=== PATIENT | female | born 1945 | race Caucasian/White ===

== ENCOUNTER → 2016-09-16 | Outpatient (REF) | payer MEDICARE ==
[~2016-09-16] MED LIST: ASPI81TA60 PO; BIOT10005 PO; BISO10TA PO; FOLI1TAB2 PO; LUTECAP2 PO; PRAV40TA2 PO; PRIL20CA9 PO; THIA100T PO; VITA-122 PO; VITA10002 PO; VITMTA PO
== END | disposition home or self-care (01) ==
LOC: M LAB REF 12:44
PROVIDERS: ATTEND Family Medicine
DX: R30.0 Dysuria (principal)

== ENCOUNTER → 2016-10-30 | Outpatient (CLI) | payer MEDICARE ==
--- NOTE | 2016-10-30 13:26 | REP ---
LEFT LOWER EXTREMITY DUPLEX DOPPLER VENOUS ULTRASOUND WITH EVALUATION FOR VENOUS REFLUX: Real-time compression and duplex Doppler interrogation of left lower extremity deep venous system is performed. Left common femoral, superficial femoral and popliteal veins are fully compressible with transducer pressure and demonstrate normal spontaneous and phasic flow without evidence of deep venous thrombosis. Evaluation for venous reflux demonstrates reflux in the common femoral vein, superficial femoral vein and popliteal vein. There is an anterior accessory greater saphenous vein present but no reflux is seen in that vessel. There is no reflux seen in the greater saphenous vein at the saphenofemoral junction which measures 4 mm in diameter. There is reflux with the bed tipped within the greater saphenous vein at the mid thigh level which measures 2 mm in diameter, duration is 4.5 seconds. No reflux is seen in the greater saphenous vein at the level of the knee, measuring 2 mm in diameter. There is no reflux in the lesser saphenous vein. Signed by Adán Gorman MD 10/30/2016 05:22 P
== END ==
LOC: M RAD 10:13
PROVIDERS: ATTEND Surgery
DX: I87.312 Chronic venous hypertension (idiopathic) with ulcer of left lower extremity (principal)
CPT/HCPCS: 93971; G0463

== ENCOUNTER → 2016-12-10 | Outpatient (REF) | payer MEDICARE | LOC: M LAB REF 13:06 | PROVIDERS: ATTEND Family Medicine | DX: R35.0 Frequency of micturition (principal) ==

== ENCOUNTER → 2016-12-31 | Outpatient (REF) | payer MEDICARE ==
[2016-12-31 17:46] LABS: ALBUMIN 3.6 GM/DL (3.2-5.2); ALBUMIN/GLOBULIN RATIO 1.06 (1.00-1.93); ALKALINE PHOSPHATASE 160 U/L (45-117); ALT/SGPT 17 U/L (12-78); ANION GAP 8 MEQ/L (8-16); AST/SGOT 16 U/L (15-37); BILIRUBIN,TOTAL 0.4 MG/DL (0.2-1.0); BLOOD UREA NITROGEN 7 MG/DL (7-18); CALCIUM LEVEL 9.3 MG/DL (8.8-10.2); CARBON DIOXIDE LEVEL 28 MEQ/L (21-32); CHLORIDE LEVEL 94 MEQ/L (98-107); GLOMERULAR FILTRATION RATE > 60.0 (>39); GLUCOSE, FASTING 98 MG/DL (83-110); POTASSIUM SERUM 4.7 MEQ/L (3.5-5.1); SODIUM LEVEL 130 MEQ/L (136-145)
== END ==
LOC: M LAB REF 16:14
PROVIDERS: ATTEND Surgery
DX: I87.312 Chronic venous hypertension (idiopathic) with ulcer of left lower extremity (principal); Z79.82 Long term (current) use of aspirin; Z79.899 Other long term (current) drug therapy
CPT/HCPCS: 11042; 80053; 83036; G0463

== ENCOUNTER → 2017-01-13 | Outpatient (CLI) | payer MEDICARE ==
[~2017-01-13] MED LIST changes: +ISOVUE-370 76% 100ML VIAL (Q9967) As Ordered ONE
--- NOTE | 2017-01-13 13:45 | REP ---
CT angiogram of the aorta and lower extremity runoff arterial vasculature: History: Chronic venous insufficiency. CT contrast dose: 100 mL of Isovue [address] technique: Helical scan was acquired. 3 mm axial images are reformatted. Coronal and sagittal multiplanar re-formation images are generated and reviewed. Curved array multiplanar re-formation images are generated on the right and left as well. 3-D surface rendered color imaging is generated. Nonvascular CT findings: There are bibasilar pulmonary parenchymal opacities consistent with subsegmental atelectasis and/or infiltrate. No pleural effusion is seen. The liver and the spleen are normal in size, homogeneous in texture. No adrenal lesion is seen on either side. The gallbladder and the pancreas are unremarkable. Kidneys enhance symmetrically and are morphologically intact. There is martinez colonic diverticulosis. There is an old ununited fracture through the symphysis pubis on the right with considerable reactive sclerosis and hypertrophy. Diffuse osteopenia. Vascular CT findings: There is right atrial enlargement and there is some reflux of contrast opacified blood into the intrahepatic segment of the inferior vena cava and hepatic veins consistent with some degree of right heart failure. The infrarenal and suprarenal abdominal aorta are normal in caliber. There is patchy and fairly advanced vascular calcification. Celiac axis and superior mesenteric artery axes are patent. Mild calcific plaquing is seen. There is mixed calcific and non-calcific plaquing producing 75% narrowing of the right renal artery. There is question of a tiny accessory lower pole renal artery on the right. There is calcific plaquing at the origin of the left renal artery with 50% narrowing. The common iliac arteries are bilaterally patent with 75% calcific plaquing and narrowing of the left proximal common iliac artery and 50% on the right. The external iliac artery show calcific plaquing. Internal iliac arteries are widely patent. No high-grade external iliac stenosis is seen. There is a 50% narrowing of the common femoral artery on the left due to calcific plaquing. Proximal superficial femoral and profunda femoral arteries are patent bilaterally. Some calcific plaquing is seen in the superficial femoral arteries on both sides but no high-grade SFA stenosis is seen. Popliteal arteries are of good caliber bilaterally. There is some calcific plaquing and atherosclerotic irregularity of the anterior tibial artery on the right and mid calf level. Posterior tibial artery on the right is occluded at distal calf level. Peroneal artery is seen to the level of the ankle as is the anterior tibial artery. The posterior tibial artery reconstitutes at the ankle. On the left calf, the tibioperoneal trunk is patent. There is some vascular calcification in the proximal anterior tibial. Posterior tibial artery is occluded at its origin. Peroneal artery continues to the calf. Impression: Multifocal calcific plaquing with stenoses of the left common iliac, left common femoral arteries. The left posterior tibial artery appears to be occluded at its origin. On the right, there is occlusion of the proximal posterior tibial with reconstitution at the ankle. Stenosis of the a anterior tibial artery is seen on the right. Right renal artery stenosis noted. 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 Tiny lower pole branch. Signed by Glynn Otto MD 01/13/2017 03:17 P
== END ==
LOC: M RAD 11:01
PROVIDERS: ATTEND Surgery
DX: I87.312 Chronic venous hypertension (idiopathic) with ulcer of left lower extremity (principal); I70.209 Unspecified atherosclerosis of native arteries of extremities, unspecified extremity; I70.1 Atherosclerosis of renal artery; I77.1 Stricture of artery
CPT/HCPCS: 75635; Q9967

== ENCOUNTER → 2017-02-04 | Outpatient (CLI) | payer MEDICARE ==
[~2017-02-04] MED LIST changes: -ISOVUE-370 76% 100ML VIAL (Q9967) As Ordered ONE
[2017-02-04 11:56] LABS: ANION GAP 5 MEQ/L (8-16); BLOOD UREA NITROGEN 8 MG/DL (7-18); CALCIUM LEVEL 9.9 MG/DL (8.8-10.2); CARBON DIOXIDE LEVEL 32 MEQ/L (21-32); CHLORIDE LEVEL 95 MEQ/L (98-107); CREATININE FOR GFR 0.63 MG/DL (0.55-1.02); GLOMERULAR FILTRATION RATE > 60.0 (>39); GLUCOSE, FASTING 96 MG/DL (83-110); POTASSIUM SERUM 4.8 MEQ/L (3.5-5.1); SODIUM LEVEL 132 MEQ/L (136-145)
== END ==
LOC: M LAB 10:45
PROVIDERS: ATTEND Surgery Vascular Surgery
DX: I73.9 Peripheral vascular disease, unspecified (principal)

== ENCOUNTER → 2017-02-11 | Outpatient (CLI) | payer MEDICARE ==
[~2017-02-11] MED LIST changes: +ASPI81TA85 PO; +B-122500 PO; -BIOT10005 PO; +BIOT10008 PO; +BIOT50004 PO; +FISH5CAP PO; -FOLI1TAB2 PO; +FOLI1TAB4 PO; +HEPARIN 1,000 UNITS/ML 10ML VIAL (FOR RADIOLOGY& DIALYSIS ONLY) As Ordered ONE; +ISOVUE-300 61% 50ML VIAL (Q9967) As Ordered ONE; +MIDAZOLAM INJ 2 MG/2 ML VIAL (J2250) As Ordered ONE; +PROTAMINE SULF INJ 50 MG/5 ML VIAL (J2720) As Ordered ONE; -THIA100T PO; +THIA100T6 PO; +TYLETAB14 PO; +ZYRT10TA2 PO; +fentaNYL 100 MCG/2 ML INJECTION (J3010) As Ordered ONE
--- NOTE | 2017-02-12 20:45 | REP ---
IMAGING FOR ABDOMINAL AORTOGRAM AND LEFT LOWER EXTREMITY ANGIOGRAPHY: Multiple images are obtained during abdominal aortogram and left lower extremity angiogram. Diffuse mild to moderate narrowing is seen of the superficial femoral artery. There is flow in the trifurcation vessels. 2.8 minutes fluoroscopy time utilized. Signed by Adán Gorman MD 02/13/2017 09:59 A
--- NOTE | 2017-02-20 07:34 | RO ---
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 PROCEDURE: Aortogram, iliofemoral angiogram, selective left common femoral artery catheter placement with left lower extremity angiogram, Mynx closure of the right common femoral arteriotomy. SURGEON: Dr. Guilherme Crews. COUNTER ROLLER: SEBASTIAN Stubbs and SEBASTIAN Mallory ANESTHESIA: Local with sedation with 1 mg of Versed, 50 mcg of Fentanyl and 10 mL of 2% lidocaine. ESTIMATED BLOOD LOSS: FLUORO TIME: 2.8 minutes. CONTRAST: 22 mL. SEDATION TIME: From 8:05 a.m. to 8:35 a.m. with the sedation being administered by the registered nurse in the room as well as cardiopulmonary monitoring performed by the registered nurse in the room. I was present for and directed the entire case. COMPLICATIONS: None. DRAINS: None. SPECIMENS: None. IMPLANTS: Right common femoral arterial Mynx closure device. INDICATION: Patient is a 71-year-old female with a left lateral ankle ulcer which appears to be related to venous insufficiency in the left lower extremity. 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 Patient was evaluated and a left lower extremity angiogram with angioplasty and possible stent was recommended. Patient agreed. Risks, benefits, and alternative treatment options were discussed with the patient. Alternative treatment options included but were not limited to no intervention. Risks included but were not limited to infection, bleeding, renal failure, requiring hemodialysis, possible need for open surgical intervention, cerebrovascular accident, myocardial infarction, retroperitoneal hematoma, pulmonary embolus, deep venous thrombosis (DVT), loss of limb, loss of life, and poor outcome. Patient understands, accepts these risks and consents to proceed. PROCEDURE: The patient was taken to the angiography suite and placed supine on the angiography room table and then after undergoing a time out confirming the correct patient and procedure, the patient was prepped and draped in the standard surgical fashion. The right common femoral artery was then cannulated with a micropuncture needle after anesthetizing the overlying skin with 1% lidocaine. The micropuncture wire was advanced through the micropuncture needle which was upsized to a micropuncture sheath. A Bentson wire was advanced through the micropuncture sheath which was upsized to a #5-Croat[place] sheath. An Omniflush catheter was placed in the aorta and an aortogram was performed. Catheter was pulled down to the level of the bifurcation of the iliac arteries and an iliofemoral angiogram was performed. Catheter was directed over the bifurcation of the iliac arteries and placed in the right common femoral artery and a right lower extremity angiogram was performed. Catheter was then removed over a Bentson wire. A Mynx closure device was used to close the arteriotomy in the right common femoral artery with an additional 10 minutes of adjunctive pressure applied for hemostasis. Dressings were then applied. Patient tolerated the procedure well. All instrument, sponge and needle counts were correct at the end of the case. There were no complications. Dr. Crews was present for and directed the entire case. Patient was transferred to the holding area and subsequently discharged in stable condition. RADIOLOGIC SUPERVISION INTERPRETATION: The initial aortogram showed the descending thoracic aorta from the diaphragm to the renal arteries to be widely patent with some calcific plaquing noting there was good filling of the . The superior mesenteric and celiac arteries were widely patent. It appears as though there might be a replaced right hepatic artery originating off of the superior mesenteric artery. The right renal artery showed moderate disease at its origin. The right kidney was small compared to the left. The left renal artery appeared to be widely patent. The infrarenal aorta was patent giving rise to common iliac arteries bilaterally which were patent. There was calcification in both vessels but there did not appear to be any significant lesions in the common iliac arteries. On the right side, the right external and internal iliac artery were patent as well as the right common femoral artery. There was some mild narrowing in the right common femoral artery just above the bifurcation of the superficial femoral and profunda femoris arteries which was approximately 50%. There was no visualization of the right lower extremity below the puncture site. The left external and internal iliac arteries were patent as well as the left common femoral artery. Again there was narrowing in the left common femoral artery approximately 40-50% above the junction of the superficial femoral and profunda femoris arteries. The catheter was advanced into the left common femoral artery and a left lower extremity angiogram was performed. This showed the profunda femoris and superficial femoral arteries to be patent. There was irregularities along the course of the superficial femoral artery with an area of stenosis of approximately 50% at the adductor canal. Below this, the above and below knee popliteal artery was patent giving rise to two vessel runoff into the calf via the peroneal and anterior tibial arteries. The posterior tibial artery was not visualized. The anterior tibial and peroneal arteries were patent to the ankle with good filling of the foot via the anterior tibial artery. A Mynx closure device was used to close the arteriotomy in the right common femoral artery.
== END ==
LOC: M IRPRO 07:06
PROVIDERS: ATTEND Surgery Vascular Surgery
DX: I70.243 Atherosclerosis of native arteries of left leg with ulceration of ankle (principal); I87.312 Chronic venous hypertension (idiopathic) with ulcer of left lower extremity; L97.322 Non-pressure chronic ulcer of left ankle with fat layer exposed; Z88.8 Allergy status to other drugs, medicaments and biological substances
CPT/HCPCS: 36246; 75625; 75716; 99152; 99153; C1760; C1769; C1887; C1894; G0269; J2250; J3010; Q9967

== ENCOUNTER → 2017-03-27 | Outpatient (REF) | payer MEDICARE ==
[~2017-03-27] MED LIST changes: -HEPARIN 1,000 UNITS/ML 10ML VIAL (FOR RADIOLOGY& DIALYSIS ONLY) As Ordered ONE; -ISOVUE-300 61% 50ML VIAL (Q9967) As Ordered ONE; -MIDAZOLAM INJ 2 MG/2 ML VIAL (J2250) As Ordered ONE; -PROTAMINE SULF INJ 50 MG/5 ML VIAL (J2720) As Ordered ONE; -fentaNYL 100 MCG/2 ML INJECTION (J3010) As Ordered ONE
== END ==
LOC: M LAB REF 12:39
PROVIDERS: ATTEND Surgery
DX: I87.312 Chronic venous hypertension (idiopathic) with ulcer of left lower extremity (principal)

== ENCOUNTER → 2017-04-24 | Outpatient (REF) | payer MEDICARE | LOC: M LAB REF 11:12 | PROVIDERS: ATTEND Surgery | DX: I87.312 Chronic venous hypertension (idiopathic) with ulcer of left lower extremity (principal) ==

== ENCOUNTER → 2017-04-25 | Outpatient (CLI) | payer MEDICARE ==
--- NOTE | 2017-04-25 11:54 | REP ---
LEFT LOWER EXTREMITY DUPLEX DOPPLER VENOUS ULTRASOUND WITH EVALUATION FOR VENOUS REFLUX: Real-time compression and duplex Doppler interrogation of the left lower extremity deep vein system performed. Left common femoral, superficial femora, and popliteal veins are fully compressible with transducer pressure and demonstrate normal spontaneous and phasic flow without evidence of deep venous thrombosis. Evaluation for venous reflux is performed. There is no reflux in the common femoral vein. There is an anterior accessory greater saphenous vein present measuring 3 mm but there is no reflux identified. There is no reflux in the greater saphenous vein at the saphenofemoral junction, which measures 4 mm. There is reflux in the greater saphenous vein at the mid thigh level with a duration of 3.3 seconds, AP diameter 1 mm. There is no reflux in the greater saphenous vein at the knee, which measures 2 mm. There is reflux in the superficial femoral and popliteal veins. There is no reflux in the lesser saphenous vein which measures 2 mm. Reflux was evaluated with the bed tipped. Findings are essentially unchanged when compared to the prior study of 10/30/2016. Signed by Adán Gorman MD 04/25/2017 11:59 A
== END ==
LOC: M RAD 08:44
PROVIDERS: ATTEND Surgery Vascular Surgery
DX: I87.2 Venous insufficiency (chronic) (peripheral) (principal)

== ENCOUNTER → 2017-05-08 | Outpatient (REF) | payer MEDICARE | LOC: M LAB REF 12:36 | PROVIDERS: ATTEND Surgery | DX: I87.312 Chronic venous hypertension (idiopathic) with ulcer of left lower extremity (principal) ==

== ENCOUNTER 2017-05-23 09:11 | Inpatient (IN) | payer MEDICARE ==
[~2017-05-23] VITALS: Ht 162.6 cm; Wt 60.5 kg
[2017-05-23] MEDS: DOCUSATE SODIUM 100 MG CAP PO SCH ×2 (09:00→20:19)
[~2017-05-23 09:11] MED LIST changes: -ASPI81TA85 PO; -B-122500 PO; -BIOT50004 PO; -FISH5CAP PO; -TYLETAB14 PO; -ZYRT10TA2 PO
[2017-05-23] MEDS ORDERED: ACETAMINOPHEN TAB 650MG DOSE (2X325MG) PO PRN (11:15)
[2017-05-23] MEDS ORDERED: MOM 30ML SUSPENSION UDC PO PRN (11:15)
[2017-05-23] MEDS ORDERED: BISACODYL 10 MG SUPP PR PRN (11:15)
[2017-05-23 11:45] VITALS: BP 147/65
[2017-05-23 12:11] LABS: BASO % 0.3 % (0.0-1.0); EOS # 0.1 K/mm3 (0.0-0.50); EOS % 0.8 % (0.0-3.0); LARGE UNSTAINED CELL # 0.2 K/mm3 (0.0-0.4); LARGE UNSTAINED CELL % 1.7 % (0.0-4.0); LYMPH # 1.7 K/mm3 (1.5-4.5); LYMPH % 18.6 % (24.0-44.0); MEAN CORPUSCULAR HGB CONC 35.2 g/dl (32.0-36.5); MEAN CORPUSCULAR VOLUME 96.3 fl (80.0-96.0); MONO # 0.7 K/mm3 (0.0-0.8); MONO % 7.5 % (0.0-5.0); NEUTROPHILS # 6.6 K/mm3 (1.8-7.7); PLATELET COUNT, AUTOMATED 363 k/mm3 (150-450); RED CELL DISTRIBUTION WIDTH 13.3 % (11.5-14.5); WHITE BLOOD COUNT 9.3 K/mm3 (4.0-10.0)
[2017-05-23 12:21] LABS: INR 0.93
[2017-05-23] MEDS: SENOKOT S TAB PO SCH ×2 (12:29→20:19)
[2017-05-23] MEDS: PIPERACILLIN/TAZOBACTAM SOD 3.375 GM in D5W MINI-BAG PLUS 50 ML IV SCH ×2 (12:30→19:02)
[2017-05-23 12:41] LABS: ALBUMIN 3.8 GM/DL (3.2-5.2); ALBUMIN/GLOBULIN RATIO 0.97 (1.00-1.93); ALKALINE PHOSPHATASE 179 U/L (45-117); ALT/SGPT 20 U/L (12-78); ANION GAP 6 MEQ/L (8-16); AST/SGOT 18 U/L (15-37); BILIRUBIN,TOTAL 0.6 MG/DL (0.2-1.0); BLOOD UREA NITROGEN 8 MG/DL (7-18); CALCIUM LEVEL 9.9 MG/DL (8.8-10.2); CARBON DIOXIDE LEVEL 31 MEQ/L (21-32); CHLORIDE LEVEL 93 MEQ/L (98-107); GLOMERULAR FILTRATION RATE > 60.0 (>39); GLUCOSE, FASTING 104 MG/DL (83-110); SODIUM LEVEL 130 MEQ/L (136-145); TOTAL PROTEIN 7.7 GM/DL (6.4-8.2)
[2017-05-23] MEDS: NORCO, ANEXSIA 5/325MG TABLET (HYDROcodone/ACETAMINOPHEN) PO PRN ×2 (13:37→19:01)
[2017-05-23] MEDS ORDERED: ASPI81TA85 PO (13:52)
[2017-05-23] MEDS ORDERED: B-122500 PO (13:52)
[2017-05-23] MEDS ORDERED: BIOT50004 PO (13:52)
[2017-05-23] MEDS ORDERED: TYLETAB14 PO (13:52)
[2017-05-23] MEDS ORDERED: FISH5CAP PO (13:55)
[2017-05-23] MEDS ORDERED: ZYRT10TA2 PO (13:55)
[2017-05-23 14:00] VITALS: BP 94/54
[2017-05-23 22:00] VITALS: BP 96/58
[2017-05-24] MEDS: PIPERACILLIN/TAZOBACTAM SOD 3.375 GM in D5W MINI-BAG PLUS 50 ML IV SCH ×5 (00:37→23:53)
[2017-05-24] MEDS: NORCO, ANEXSIA 5/325MG TABLET (HYDROcodone/ACETAMINOPHEN) PO PRN ×4 (00:38→22:32)
[2017-05-24] MEDS: SENOKOT S TAB PO SCH ×2 (07:55→20:02)
[2017-05-24] MEDS: DOCUSATE SODIUM 100 MG CAP PO SCH ×2 (07:55→20:02)
[2017-05-24] MEDS: EUCERIN 120GM CREAM TOP SCH ×2 (13:14→19:39)
[2017-05-24 14:00] VITALS: BP 120/56
[2017-05-24 22:00] VITALS: BP 118/58
[2017-05-25] MEDS: PIPERACILLIN/TAZOBACTAM SOD 3.375 GM in D5W MINI-BAG PLUS 50 ML IV SCH ×4 (05:12→23:57)
[2017-05-25 06:00] VITALS: BP 134/64
[2017-05-25] MEDS: EUCERIN 120GM CREAM TOP SCH ×2 (08:07→20:44)
[2017-05-25] MEDS: DOCUSATE SODIUM 100 MG CAP PO SCH ×2 (08:11→20:43)
[2017-05-25] MEDS: SENOKOT S TAB PO SCH ×2 (08:12→20:43)
[2017-05-25] MEDS: NORCO, ANEXSIA 5/325MG TABLET (HYDROcodone/ACETAMINOPHEN) PO PRN ×2 (10:35→16:40)
[2017-05-25 20:10] VITALS: BP 140/72
--- NOTE | 2017-05-25 23:20 | IPNPDOC ---
Date Seen The patient was seen on 05/25/17. Progress Note SUBJECTIVE: Patient is with pain in the right lower extremity which is controlled with pain meds. OBJECTIVE PHYSICAL EXAMINATION: VITAL SIGNS: Please see below. GENERAL: Lying in bed comfortably HEENT: Normal CARDIOVASCULAR: Regular rate and rhythm. RESPIRATORY: Clear to auscultation bilaterally. ABDOMINAL: Soft nontender nondistended EXTREMITIES: Right lower extremity cellulitis is improving ulcers in the right lower extremity unchanged with minimal signs of healing NEUROLOGICAL: Awake alert oriented x3 PSYCHOLOGICAL: Normal LABORATORY DATA: Please see below. MICROBIOLOGY: Please see below. ASSESSMENT AND PLAN: This is a 71-year-old female with nonhealing right lower extremity venous stasis ulcers and arterial insufficiency with pain and cellulitis in the right lower extremity. PROBLEMS: 1. right lower extremity venous stasis ulcers and cellulitis: Patient is currently on IV antibiotics and this is improved slightly. 2. arterial insufficiency right lower extremity: Patient will undergo an ultrasound with possible angiogram if the ulcer shows any signs of arterial insufficiency. VS, I&O, 24H, Fishbone Vital Signs/I&O Vital Signs Date Time Temp Pulse Resp B/P (MAP) Pulse Ox O2 Delivery O2 Flow Rate FiO2 05/25/17 19:45 Room Air 05/25/17 17:10 18 05/25/17 14:00 97.0 75 95 05/25/17 06:00 134/64 (87) I&O- Last 24 Hours up to 6 AM 05/26/17 06:00 Intake Total 1300 ml Output Total 800 ml Balance 500 ml Guilherme Crews MD May 25, 2017 23:20
--- NOTE | 2017-05-25 23:23 | IPNPDOC ---
Date Seen The patient was seen on 05/24/17. Progress Note SUBJECTIVE: Patient is without complaints. OBJECTIVE PHYSICAL EXAMINATION: VITAL SIGNS: Please see below. GENERAL: Lying in bed comfortably HEENT: Normal CARDIOVASCULAR: Regular rate and rhythm. RESPIRATORY: Clear to auscultation bilaterally. ABDOMINAL: Soft nontender nondistended EXTREMITIES: Right lower extremity ulcers unchanged NEUROLOGICAL: Awake alert oriented x3 PSYCHOLOGICAL: Normal LABORATORY DATA: Please see below. MICROBIOLOGY: Please see below. ASSESSMENT AND PLAN: This is a 71-year-old female with venous stasis ulcer in the right lower C which is nonhealing and worsening pain and cellulitis with a history of arterial insufficiency. PROBLEMS: 1. arterial insufficiency right lower extremity: Patient will undergo an arterial ultrasound with possible angiogram pending results of ultrasound. 2. venous stasis ulcer and cellulitis: He should currently on IV antibiotics. VS, I&O, 24H, Fishbone Vital Signs/I&O Vital Signs Date Time Temp Pulse Resp B/P (MAP) Pulse Ox O2 Delivery O2 Flow Rate FiO2 05/25/17 19:45 Room Air 05/25/17 17:10 18 05/25/17 14:00 97.0 75 95 05/25/17 06:00 134/64 (87) I&O- Last 24 Hours up to 6 AM 05/26/17 06:00 Intake Total 1300 ml Output Total 800 ml Balance 500 ml Guilherme Crews MD May 25, 2017 23:23
[2017-05-26] MEDS: NORCO, ANEXSIA 5/325MG TABLET (HYDROcodone/ACETAMINOPHEN) PO PRN ×3 (00:05→21:11)
[2017-05-26 05:25] VITALS: BP 156/79
[2017-05-26] MEDS: PIPERACILLIN/TAZOBACTAM SOD 3.375 GM in D5W MINI-BAG PLUS 50 ML IV SCH ×4 (06:33→23:45)
[2017-05-26] MEDS: SENOKOT S TAB PO SCH ×2 (08:09→20:56)
[2017-05-26] MEDS: DOCUSATE SODIUM 100 MG CAP PO SCH ×2 (08:09→20:56)
[2017-05-26] MEDS: EUCERIN 120GM CREAM TOP SCH ×2 (08:09→20:58)
--- NOTE | 2017-05-26 13:19 | REP ---
DUPLEX DOPPLER ULTRASOUND LEFT LOWER EXTREMITY: Real-time ultrasound evaluation and duplex Doppler interrogation of the left lower extremity arterial system is performed. Ankle to brachial index is 1.1. There is elevated peak systolic velocity in the left common femoral artery 266.1 cm/s consistent with significant stenosis. Similarly there is increased peak systolic velocity in the left profunda artery 224 cm/s suggestive of significant stenosis. There is no significant stenosis in the superficial femoral artery with a peak systolic velocity distally of 144.4 cm/s, nor in the popliteal artery, peak systolic velocity 86.5 cm/s. There are also normal flow velocities in all of the calf arteries. There is triphasic flow diffusely except that in the profunda and proximal anterior tibial artery and distal posterior tibial artery, there is monophasic flow. There is biphasic flow in the proximal superficial femoral artery, proximal and posterior tibial artery and distal anterior tibial artery. At the ankle, a distal anterior tibial artery branch extends posteromedially feeding the distal posterior tibial artery. There is reversal of flow in the distal posterior tibial artery superior to this. The posterior tibial artery is not visualized in the mid calf. Therefore there is likely significant stenosis or occlusion of the mid posterior tibial artery. Signed by Adán Gorman MD 05/27/2017 05:12 P
[2017-05-26 14:00] VITALS: BP 145/78
[2017-05-26 20:05] VITALS: BP 138/73
[2017-05-27] MEDS: PIPERACILLIN/TAZOBACTAM SOD 3.375 GM in D5W MINI-BAG PLUS 50 ML IV SCH ×2 (05:38→14:16)
[2017-05-27 05:52] VITALS: BP 142/86
[2017-05-27 08:30] VITALS: BP 136/66
[2017-05-27] MEDS ORDERED: CYANOCOBALAMIN 500 MCG TAB PO SCH (09:00)
[2017-05-27] MEDS ORDERED: VITAMIN D 1,000 INTERNATIONAL UNITS TABLET PO SCH (09:00)
[2017-05-27] MEDS ORDERED: THIAMINE 100 MG TAB PO SCH (09:00)
[2017-05-27] MEDS ORDERED: BISOPROLOL FUMARATE 10 MG TAB PO SCH (09:00)
[2017-05-27] MEDS ORDERED: FOLIC ACID 1 MG TAB PO SCH (09:00)
[2017-05-27] MEDS: DOCUSATE SODIUM 100 MG CAP PO SCH (09:00)
[2017-05-27] MEDS ORDERED: MULTIVITAMINS/MINERALS THERAP 1 TAB PO SCH (09:00)
[2017-05-27] MEDS: SENOKOT S TAB PO SCH (09:00)
[2017-05-27 09:13] VITALS: BP 136/66
[2017-05-27] MEDS: EUCERIN 120GM CREAM TOP SCH (09:13)
[2017-05-27] MEDS ORDERED: MIDAZOLAM INJ 2 MG/2 ML VIAL (J2250) As Ordered ONE (12:12)
[2017-05-27] MEDS ORDERED: fentaNYL 100 MCG/2 ML INJECTION (J3010) As Ordered ONE (12:12)
[2017-05-27] MEDS ORDERED: PROTAMINE SULF INJ 50 MG/5 ML VIAL (J2720) As Ordered ONE (12:12)
[2017-05-27] MEDS ORDERED: ISOVUE-300 61% 50ML VIAL (Q9967) As Ordered ONE (12:13)
[2017-05-27] MEDS ORDERED: HEPARIN 1,000 UNITS/ML 10ML VIAL (FOR RADIOLOGY& DIALYSIS ONLY) As Ordered ONE (12:13)
--- NOTE | 2017-05-27 12:14 | IPNPDOC ---
Date Seen The patient was seen on 05/27/17. Progress Note SUBJECTIVE: Patient is with complaints of pain in the left lower extremity especially at the ulcer site. OBJECTIVE PHYSICAL EXAMINATION: VITAL SIGNS: Please see below. GENERAL: Lying in bed comfortably HEENT: Normal CARDIOVASCULAR: Regular rate and rhythm. RESPIRATORY: Clear to auscultation bilaterally. ABDOMINAL: Soft nontender nondistended EXTREMITIES: Left lower extremity shows improving cellulitis. Ulcers are stable and show minimal healing. NEUROLOGICAL: Awake alert oriented 3 with no focal deficits PSYCHOLOGICAL: Normal LABORATORY DATA: Please see below. MICROBIOLOGY: Please see below. IMAGING: Patient scheduled for left lower extremity angiogram DVT prophylaxis ordered?: Patient low risk and ambulatory ASSESSMENT AND PLAN: This is a 71-year-old female with venous stasis ulcer of the left lower extremity which has worsened over the past few weeks and the patient now has ischemia and cellulitis. Arterial duplex was performed which showed femoral-popliteal arterial atherosclerotic occlusive disease. PROBLEMS: 1. Left lower extremity ischemia and nonhealing ulcer: Patient will undergo an angiogram with possible angioplasty and stent. 2. Left lower extremity ischemia and cellulitis: And is currently on antibiotic therapy with improvement in her cellulitis. DISPOSITION: Possible discharge home after angiography today. VS, I&O, 24H, Fishbone Vital Signs/I&O Vital Signs Date Time Temp Pulse Resp B/P (MAP) Pulse Ox O2 Delivery O2 Flow Rate FiO2 05/27/17 09:57 Room Air 05/27/17 09:13 72 136/66 05/27/17 08:30 97.2 16 98 I&O- Last 24 Hours up to 6 AM 05/28/17 06:00 Intake Total 480 ml Output Total 0 ml Balance 480 ml Guilherme Crews MD May 27, 2017 12:14
--- NOTE | 2017-05-27 12:28 | IPNPDOC ---
Date Seen The patient was seen on 05/26/17. Progress Note SUBJECTIVE: Patient is with pain in the left lower extremity which is relieved with pain medication. OBJECTIVE PHYSICAL EXAMINATION: VITAL SIGNS: Please see below. GENERAL: Lying in bed comfortably HEENT: Normal CARDIOVASCULAR: Regular rate and rhythm. RESPIRATORY: Clear to auscultation bilaterally. ABDOMINAL: Soft nontender nondistended EXTREMITIES: Left lower extremity ulcers are stable, cellulitis is improving NEUROLOGICAL: Awake alert oriented 3 with no focal deficits PSYCHOLOGICAL: Normal LABORATORY DATA: Please see below. MICROBIOLOGY: Please see below. IMAGING: Arterial duplex of the left lower extremity shows femoral popliteal atherosclerotic arterial occlusive disease as well as tibial peroneal atherosclerotic arterial occlusive disease. DVT prophylaxis ordered?: Patient is low risk and ambulatory ASSESSMENT AND PLAN: This is a 71-year-old female with venous insufficiency in the left lower extremity and nonhealing venous stasis ulcers who also has atherosclerotic arterial occlusive disease. The ulcers have worsened over the last few weeks and the patient underwent an arterial duplex of the left lower extremity showing arterial occlusive disease requiring angiography with possible angioplasty and/or stenting. PROBLEMS: 1. Left lower extremity nonhealing venous stasis ulcers and cellulitis with atherosclerotic arterial occlusive disease in the left lower extremity: Patient is scheduled for a left lower extremity angiogram with possible angioplasty and stent on 05/27/2017. 2. Left lower extremity venous stasis ulcers and cellulitis: She is currently on antibiotic therapy with improvement in the cellulitis. 3. Left lower extremity venous insufficiency: Patient has had undergone a left lower extremity venous duplex to evaluate for venous valvular insufficiency which showed superficial femoral and popliteal vein valvular insufficiency and the deep system and left greater saphenous vein insufficiency in the mid thigh region. DISPOSITION: Possible discharge after undergoing angiography. VS, I&O, 24H, Fishbone Vital Signs/I&O Vital Signs Date Time Temp Pulse Resp B/P (MAP) Pulse Ox O2 Delivery O2 Flow Rate FiO2 05/27/17 09:57 Room Air 05/27/17 09:13 72 136/66 05/27/17 08:30 97.2 16 98 I&O- Last 24 Hours up to 6 AM 05/28/17 06:00 Intake Total 480 ml Output Total 0 ml Balance 480 ml Guilherme Crews MD May 27, 2017 12:28
[2017-05-27 14:08] VITALS: BP 188/83
[2017-05-27 14:59] VITALS: BP 169/76
[2017-05-27 15:30] VITALS: BP 157/68
[2017-05-27] MEDS ORDERED: CETIRIZINE (ZyrTEC) 10 MG TAB PO SCH (21:00)
[2017-05-27] MEDS ORDERED: ASPIRIN 81 MG ENTERIC TAB PO SCH (21:00)
[2017-05-27] MEDS ORDERED: PRAVASTATIN 20 MG TAB PO SCH (21:00)
--- NOTE | 2017-06-11 12:49 | DS.PDOC ---
Discharge Summary General Date of Admission May 23, 2017 at 11:19 Date of Discharge 05/27/2017 Attending Physician: Guilherme Crews MD Discharge Summary PROCEDURES PERFORMED DURING STAY: Left lower extremity angiogram with angioplasty of the left common femoral superficial femoral and popliteal arteries. ADMITTING DIAGNOSES: 1. Venous stasis ulcer left lower extremity 2. 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 3. Venous valvular insufficiency in the left lower extremity. 4. Left lower extremity cellulitis DISCHARGE DIAGNOSES: 1. Venous stasis ulcer left lower extremity 2. 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 3. Venous valvular insufficiency in the left lower extremity. 4. Left lower extremity cellulitis COMPLICATIONS/CHIEF COMPLAINT: Atheroscler algaaciq arteries the extremities w/ inte. HISTORY OF PRESENT ILLNESS: Patient had a venous stasis ulcer and left lower extremity which worsened in size and had significant pain and redness consistent with cellulitis. HOSPITAL COURSE: And was admitted underwent IV anabolic therapy and an ultrasound showing femoral-popliteal arterial atherosclerotic occlusive disease and a subsequent management with angioplasty of the left common femoral superficial femoral and popliteal arteries. The cellulitis in the left lower extremity resolved with. DISCHARGE MEDICATIONS: Please see below. ALLERGIES: Please see below. PHYSICAL EXAMINATION ON DISCHARGE: VITAL SIGNS: Please see below. GENERAL: Lying in bed comfortably HEENT: Normal NECK: Supple with no carotid bruits CARDIOVASCULAR EXAMINATION: Regular rate and rhythm RESPIRATORY EXAMINATION: Clear to auscultation bilaterally ABDOMINAL EXAMINATION: Soft nontender nondistended EXTREMITIES: Left lower extremity is well perfused with resolution of the cellulitis the wound is clean with some granulation tissue and no signs of infection SKIN: Warm well perfused NEUROLOGICAL EXAMINATION: Awake alert oriented 3 PSYCHIATRIC EXAMINATION: Normal LABORATORY DATA: Please see below. IMAGING: Angiogram of the left lower extremity with angioplasty of the left common femoral, superficial femoral and popliteal arteries. PROGNOSIS: Good ACTIVITY: As tolerated. DIET: Resume prehospitalization diet. DISCHARGE PLAN: Patient will follow-up in 1-2 weeks. Patient will follow-up with Dr. Moore at the wound care center in one week. DISPOSITION: 01 Home, Self-Care. DISCHARGE INSTRUCTIONS: 1. Follow-up in 1-2 weeks in my office. 2. Follow-up with Dr. Moore. DISCHARGE CONDITION: Stable. TIME SPENT ON DISCHARGE: Greater than he 45 minutes. Discharge Medications Scheduled (Lutein Vision Blend) 1 Cap Cap, 1 CAP PO DAILY, (Reported) (Fish Oil 1200 mg) 1 Cap Cap, 1 CAP PO DAILY, (Reported) Aspirin (Aspir-81) 81 Mg Tab, 81 MG PO QHS, (Reported) Biotin (Vitamin H) (Biotin) 5,000 Mcg Cap, 5,000 MCG PO DAILY, (Reported) Bisoprolol Fumarate (Zebeta) 10 Mg Tab, 10 MG PO DAILY, (Reported) Cetirizine HCl (Zyrtec Allergy) 10 Mg Tab, 10 MG PO QHS, (Reported) Cholecalciferol (Vitamin D3) 1,000 Unit Tab, 2,000 UNIT PO DAILY, (Reported) Cyanocobalamin (B-12) 2,500 Mcg Tab, 2,500 MCG PO DAILY, (Reported) Folic Acid (Folic Acid) 1 Mg Tab, 1 MG PO DAILY Multivitamins *[facility] STOCKED* (Thera M Plus *[facility] STOCKED*) 1 Tab Tab, 1 TAB PO DAILY, (Reported) Pravastatin Sod (Pravastatin Sodium) 40 Mg Tab, 40 MG PO QHS Thiamine HCl (Thiamine HCl) 100 Mg Tab, 100 MG PO DAILY Scheduled PRN Acetaminophen/Codeine (Tylenol/Codeine #3 300-30 mg) 1 Tab Tab, 1 TAB PO PRN PRN for PAIN, (Reported) Allergies Coded Allergies: Ciprofloxacin (Verified Allergy, Severe, DIFFICULTY BREATHING, 05/19/13) Guilherme Crews MD Jun 11, 2017 12:49
--- NOTE | 2017-06-11 14:02 | RO ---
DATE OF PROCEDURE: 05/27/2017 PREPROCEDURE DIAGNOSES: Nonhealing left lower extremity venous stasis ulcer. Left greater saphenous vein, superficial femoral vein, and popliteal vein vascular insufficiency. Left common femoral and superficial femoral arterial occlusive disease. Left lower extremity rest pain. POSTPROCEDURE DIAGNOSES: Nonhealing left lower extremity venous stasis ulcer. Left greater saphenous vein, superficial femoral vein, and popliteal vein vascular insufficiency. Left common femoral and superficial femoral arterial occlusive disease. Left lower extremity rest pain. PROCEDURE: Aortogram, iliofemoral angiogram, selective left common femoral artery catheter placement with left lower extremity angiogram, selective left superficial femoral artery catheter placement with left lower extremity angiogram, selective left popliteal artery catheter placement with left lower extremity angiogram, left common femoral artery angioplasty with 6 x 100 balloon , left superficial femoral artery angioplasty with 6 x 100 balloon, left popliteal artery angioplasty with 6 x 100 balloon, Mynx closure of the right common femoral arteriotomy. SURGEON: Dr. Guilherme Crews. LINER MACHINE OPERATOR HELPER: ANESTHESIA: Local with sedation with 2 mg of Versed and 100 mcg of Fentanyl and 10 mL of 2% lidocaine. ESTIMATED BLOOD LOSS: CONTRAST: 20 mL of Isovue. SEDATION TIME: From 12:43 p.m. to 13:30 p.m. with the sedation administered by the nurse in the room, the cardiopulmonary monitoring performed by the nurse in the room. The procedure was performed under my direct supervision and direction. under my supervision. HEPARIN: 6000 units. PROTAMINE: 50 mg. COMPLICATIONS: None. DRAINS: None. SPECIMENS: None. IMPLANTS: Right common femoral arterial Mynx closure device. INDICATION: Patient is a 71-year-old female with worsening venous stasis ulcer in the left lower extremity with worsening pain and increasing size of the ulcer. The patient underwent an ultrasound which showed common femoral and superficial femoral arterial occlusive disease and will now undergo angiography with possible angioplasty and/or stent. Risks, benefits and alternative treatment options were discussed with the patient. PROCEDURE: The patient was taken to the operating room and placed on the operating room table and then prepped and draped in a standard surgical fashion. The right common femoral artery was then cannulated with a micropuncture needle after anesthetizing the overlying skin with 1% lidocaine. The micropuncture wire was advanced through the micropuncture needle which was upsized to a micropuncture sheath. A [place] wire was advanced through the micropuncture sheath which was upsized to a #5-[place] sheath. A catheter was placed in the aorta and an aortogram was performed. Catheter was pulled down to the level of the bifurcation of the iliac arteries and an iliofemoral angiogram was performed. Catheter was directed over the bifurcation and placed in the left common femoral artery and a left lower extremity angiogram was performed. The catheter was advanced into the superficial femoral artery and an angiogram performed. The catheter was advanced into the popliteal artery and an angiogram performed. The popliteal artery, superficial femoral and common femoral artery were then all angioplastied with a 6 x 100 balloon with a completion angiogram showing resolution of the stenoses with excellent flow through the common femoral, superficial femoral and popliteal arteries. Catheters and wires were removed and a Mynx closure device was used to close the arteriotomy in the right common femoral artery with an additional 10 minutes of adjunctive pressure for hemostasis. Dressings were then applied. Patient tolerated the procedure well. All instrument, sponge and needle counts were correct at the end of the case. There were no complications. Dr. Crews was present for and directed the entire case. Patient was transferred to the holding area and subsequently to the floor in stable condition. RADIOLOGIC SUPERVISION INTERPRETATION: The selective aortogram showed stenosis in the common femoral, superficial femoral and popliteal arteries. The angioplasty was performed of the common femoral, superficial femoral and popliteal arteries with good angiographic result on followup angiography. A Mynx closure device was used to close the arteriotomy in the right common femoral artery. edited: 06/16/2017 0818 tkf MTDD
== END 2017-05-27 18:11 | disposition home or self-care (01) | DRG 253 ==
LOC: M MSPAV 11:19
PROVIDERS: ADMIT Surgery Vascular Surgery; ATTEND Surgery Vascular Surgery
PROC: 047Y34Z Dilation of Lower Artery with Drug-eluting Intraluminal Device, Percutaneous Approach (ICD-10-PCS; principal; 2017-05-27)
DX: I70.243 Atherosclerosis of native arteries of left leg with ulceration of ankle (principal); L03.116 Cellulitis of left lower limb; I83.023 Varicose veins of left lower extremity with ulcer of ankle; Z79.82 Long term (current) use of aspirin; Z79.899 Other long term (current) drug therapy; Z88.1 Allergy status to other antibiotic agents; L97.329 Non-pressure chronic ulcer of left ankle with unspecified severity

== ENCOUNTER 2017-08-17 17:12 | Emergency (ER) | payer MEDICARE ==
[~2017-08-17] VITALS: Ht 162.6 cm; Wt 61.7 kg
[~2017-08-17 17:12] MED LIST changes: +ASPI81TA85 PO; +B-122500 PO; +BIOT50004 PO; +FISH5CAP PO; +TYLETAB14 PO; +ZYRT10TA2 PO
[2017-08-17 18:53] LABS: MEAN CORPUSCULAR HEMOGLOBIN 32.3 pg (27.0-33.0); MEAN CORPUSCULAR HGB CONC 34.9 g/dl (32.0-36.5); MEAN CORPUSCULAR VOLUME 92.7 fl (80.0-96.0); PLATELET COUNT, AUTOMATED 341 10^3/uL (150-450); RED CELL DISTRIBUTION WIDTH 13.5 % (11.5-14.5)
--- NOTE | 2017-08-17 19:10 | REPUSA ---
CT of the lumbar spine without contrast Clinical history: fall. Technique: Multiple axial CT images were obtained through the lumbar spine without administration of contrast. Coronal and sagittal 3-D reconstructed images were also obtained. Findings: The lumbar vertebral bodies are in satisfactory positioning and alignment. No fractures or dislocatio ns are demonstrated. Intervertebral disc spaces are severely narrowed at all lumbar vertebral levels, with disc osteophyte complexes and disc bulges. There is no evidence of facet subluxation. The neura l foramen appear grossly patent. The spinal canal demonstrates normal caliber and contour without puneet dence of spinal stenosis. The surrounding soft tissues are within normal limits. Impression: 1. No acute fracture or traumatic injury. 2. Moderately severe multilevel degenerative disc disease with disc osteophyte complexes and disc bul ges at all lumbar vertebral levels. This causes borderline central canal narrowing at all levels.
[2017-08-17 19:16] LABS: ANION GAP 6 MEQ/L (8-16); BLOOD UREA NITROGEN 11 MG/DL (7-18); CALCIUM LEVEL 9.4 MG/DL (8.8-10.2); CARBON DIOXIDE LEVEL 29 MEQ/L (21-32); CHLORIDE LEVEL 96 MEQ/L (98-107); GLOMERULAR FILTRATION RATE > 60.0 (>39); GLUCOSE, FASTING 113 MG/DL (83-110); POTASSIUM SERUM 4.5 MEQ/L (3.5-5.1); SODIUM LEVEL 131 MEQ/L (136-145)
[2017-08-17] MEDS: NORCO, ANEXSIA 5/325MG TABLET (HYDROcodone/ACETAMINOPHEN) PO ONE (19:24)
[2017-08-17 20:02] VITALS: BP 140/60
== END 2017-08-17 20:16 | disposition home or self-care (01) ==
LOC: EDBD 17:12 → M ED 17:12
DX: S81.802A Unspecified open wound, left lower leg, initial encounter (principal); W01.198A Fall on same level from slipping, tripping and stumbling with subsequent striking against other object, initial encounter; Y92.009 Unspecified place in unspecified non-institutional (private) residence as the place of occurrence of the external cause; Y93.01 Activity, walking, marching and hiking; Y99.8 Other external cause status; Z79.82 Long term (current) use of aspirin; Z79.899 Other long term (current) drug therapy; Z87.891 Personal history of nicotine dependence; Z86.73 Personal history of transient ischemic attack (TIA), and cerebral infarction without residual deficits

== ENCOUNTER → 2017-09-16 | Outpatient (CLI) | payer MEDICARE | LOC: M RAD 13:33 | DX: I87.312 Chronic venous hypertension (idiopathic) with ulcer of left lower extremity (principal); F17.218 Nicotine dependence, cigarettes, with other nicotine-induced disorders; I70.243 Atherosclerosis of native arteries of left leg with ulceration of ankle | CPT/HCPCS: 93923 ==

== ENCOUNTER → 2017-10-14 | Outpatient (CLI) | payer MEDICARE ==
[~2017-10-14] MED LIST changes: +ALTEPLASE 2 MG/2 ML VIAL (J2997 PER 1MG) As Ordered; -ASPI81TA60 PO; -ASPI81TA85 PO; -B-122500 PO; -BIOT10008 PO; -BIOT50004 PO; -BISO10TA PO; +CLOPIDOGREL 75 MG TAB As Ordered; -FISH5CAP PO; -FOLI1TAB4 PO; +HEPARIN 1,000 UNITS/ML 10ML VIAL (FOR RADIOLOGY& DIALYSIS ONLY) As Ordered; +ISOVUE-300 61% 50ML VIAL (Q9967) As Ordered; -LUTECAP2 PO; +MIDAZOLAM INJ 2 MG/2 ML VIAL (J2250) As Ordered; +ONDANSETRON 4MG/2ML VIAL (J2405) As Ordered; -PRAV40TA2 PO; -PRIL20CA9 PO; -THIA100T6 PO; -TYLETAB14 PO; -VITA-122 PO; -VITA10002 PO; -VITMTA PO; -ZYRT10TA2 PO; +fentaNYL 100 MCG/2 ML INJECTION (J3010) As Ordered
== END | disposition home or self-care (01) ==
LOC: M IRPRO 07:46
DX: I70.248 Atherosclerosis of native arteries of left leg with ulceration of other part of lower leg (principal); L97.829 Non-pressure chronic ulcer of other part of left lower leg with unspecified severity; I87.2 Venous insufficiency (chronic) (peripheral); Z72.0 Tobacco use
CPT/HCPCS: 37229

== ENCOUNTER → 2017-11-07 | Outpatient (CLI) | payer MEDICARE | LOC: M RAD 08:22 | DX: L97.821 Non-pressure chronic ulcer of other part of left lower leg limited to breakdown of skin (principal); F17.218 Nicotine dependence, cigarettes, with other nicotine-induced disorders; I70.243 Atherosclerosis of native arteries of left leg with ulceration of ankle | CPT/HCPCS: 93926 ==

== ENCOUNTER 2017-12-26 17:42 | Emergency (ER) | payer MEDICARE | END 2017-12-26 20:11 | disposition home or self-care (01) | LOC: M ED 17:42 | DX: L97.929 Non-pressure chronic ulcer of unspecified part of left lower leg with unspecified severity (principal); I73.9 Peripheral vascular disease, unspecified; Z79.899 Other long term (current) drug therapy; Z88.1 Allergy status to other antibiotic agents; F17.210 Nicotine dependence, cigarettes, uncomplicated | CPT/HCPCS: 93971 ==

== ENCOUNTER 2018-03-02 14:24 | Inpatient (IN) | payer MEDICARE ==
[2018-03-02] MEDS ORDERED: ONDANSETRON 4MG/2ML VIAL (J2405) IV (15:00)
[2018-03-02] MEDS: NORCO, ANEXSIA 5/325MG TABLET (HYDROcodone/ACETAMINOPHEN) PO ×2 (15:23→21:17)
[2018-03-02 15:27] LABS: BASO # 0.1 10^3/uL (0.0-0.2); BASO % 0.5 % (0.0-1.0); EOS % 0.3 % (0.0-3.0); HEMATOCRIT 39.9 % (36.0-47.0); HEMOGLOBIN 13.4 g/dl (12.0-15.5); IMMATURE GRANULOCYTE % 0.6 % (0-3.0); LYMPH # 1.9 10^3/uL (1.5-4.5); MEAN CORPUSCULAR HEMOGLOBIN 29.8 pg (27.0-33.0); MEAN CORPUSCULAR HGB CONC 33.6 g/dl (32.0-36.5); MEAN CORPUSCULAR VOLUME 88.9 fl (80.0-96.0); MONO # 1.1 10^3/uL (0.0-0.8); MONO % 10.4 % (0.0-5.0); NEUTROPHILS # 7.4 10^3/uL (1.8-7.7); NEUTROPHILS % 70.2 % (36.0-66.0); PLATELET COUNT, AUTOMATED 420 10^3/uL (150-450); RED BLOOD COUNT 4.49 10^6/uL (4.00-5.40); RED CELL DISTRIBUTION WIDTH 14.8 % (11.5-14.5); WHITE BLOOD COUNT 10.5 10^3/uL (4.0-10.0)
[2018-03-02 15:38] LABS: INR 0.91; PROTHROMBIN TIME 12.3 SECONDS (12.1-14.4)
[2018-03-02 15:39] LABS: PARTIAL THROMBOPLASTIN TIME 28.6 SECONDS (25.4-37.6)
[2018-03-02 16:09] LABS: POS COUNT POS FLAG
[2018-03-02] MEDS: NS 1,000 ML IV (16:36)
[2018-03-02] MEDS: PIPERACILLIN/TAZOBACTAM SOD 3.375 GM in D5W MINI-BAG PLUS 50 ML IV ×2 (16:36→21:06)
[2018-03-02] MEDS: PANTOPRAZOLE 40MG TAB (PROTONIX) PO (16:36)
[2018-03-02] MEDS: SENOKOT S TAB PO (21:05)
[2018-03-02] MEDS: DOCUSATE SODIUM 100 MG CAP PO (21:05)
[2018-03-03] MEDS: NORCO, ANEXSIA 5/325MG TABLET (HYDROcodone/ACETAMINOPHEN) PO ×5 (01:16→17:53)
[2018-03-03] MEDS: PIPERACILLIN/TAZOBACTAM SOD 3.375 GM in D5W MINI-BAG PLUS 50 ML IV ×4 (03:31→20:19)
[2018-03-03] MEDS: NS 1,000 ML IV (07:13)
[2018-03-03] MEDS: DOCUSATE SODIUM 100 MG CAP PO ×2 (07:15→20:19)
[2018-03-03] MEDS: SENOKOT S TAB PO ×2 (07:15→20:19)
[2018-03-03] MEDS: PANTOPRAZOLE 40MG TAB (PROTONIX) PO (07:48)
[2018-03-03 13:32] LABS: HEMOGLOBIN 11.8 g/dl (12.0-15.5); MEAN CORPUSCULAR HEMOGLOBIN 29.6 pg (27.0-33.0); MEAN CORPUSCULAR HGB CONC 32.8 g/dl (32.0-36.5); MEAN CORPUSCULAR VOLUME 90.2 fl (80.0-96.0); PLATELET COUNT, AUTOMATED 398 10^3/uL (150-450); RED BLOOD COUNT 3.99 10^6/uL (4.00-5.40); WHITE BLOOD COUNT 11.4 10^3/uL (4.0-10.0)
[2018-03-03 13:35] LABS: ANION GAP 9 MEQ/L (8-16); BLOOD UREA NITROGEN 10 MG/DL (7-18); CALCIUM LEVEL 8.8 MG/DL (8.8-10.2); CARBON DIOXIDE LEVEL 29 MEQ/L (21-32); CHLORIDE LEVEL 95 MEQ/L (98-107); CREATININE FOR GFR 0.69 MG/DL (0.55-1.30); GLOMERULAR FILTRATION RATE > 60.0 (>39); GLUCOSE, FASTING 105 MG/DL (70-100); POTASSIUM SERUM 3.8 MEQ/L (3.5-5.1); SODIUM LEVEL 133 MEQ/L (136-145)
[2018-03-03] MEDS: GABAPENTIN 400 MG CAP PO ×2 (16:51→20:19)
[2018-03-03] MEDS: CYANOCOBALAMIN 500 MCG TAB PO (16:52)
[2018-03-03] MEDS: BISOPROLOL FUMARATE 10 MG TAB PO (16:52)
[2018-03-03] MEDS: THIAMINE 100 MG TAB PO (16:52)
[2018-03-03] MEDS: FUROSEMIDE 20 MG TAB PO (16:52)
[2018-03-03] MEDS: VITAMIN D 1,000 INTERNATIONAL UNITS TABLET PO (16:52)
[2018-03-03] MEDS: CLOPIDOGREL 75 MG TAB PO (20:19)
[2018-03-03] MEDS: PRAVASTATIN 20 MG TAB PO (20:19)
[2018-03-03] MEDS: FOLIC ACID 1 MG TAB PO (20:19)
[2018-03-04] MEDS: NORCO, ANEXSIA 5/325MG TABLET (HYDROcodone/ACETAMINOPHEN) PO ×4 (01:56→20:11)
[2018-03-04] MEDS: PIPERACILLIN/TAZOBACTAM SOD 3.375 GM in D5W MINI-BAG PLUS 50 ML IV ×4 (02:38→20:10)
[2018-03-04] MEDS: NS 1,000 ML IV ×2 (05:34→17:00)
[2018-03-04 05:35] LABS: HEMATOCRIT 33.4 % (36.0-47.0); HEMOGLOBIN 11.3 g/dl (12.0-15.5); MEAN CORPUSCULAR HEMOGLOBIN 29.8 pg (27.0-33.0); MEAN CORPUSCULAR HGB CONC 33.8 g/dl (32.0-36.5); MEAN CORPUSCULAR VOLUME 88.1 fl (80.0-96.0); PLATELET COUNT, AUTOMATED 359 10^3/uL (150-450); RED BLOOD COUNT 3.79 10^6/uL (4.00-5.40); RED CELL DISTRIBUTION WIDTH 14.8 % (11.5-14.5); WHITE BLOOD COUNT 10.6 10^3/uL (4.0-10.0)
[2018-03-04 05:53] LABS: ANION GAP 8 MEQ/L (8-16); BLOOD UREA NITROGEN 10 MG/DL (7-18); CALCIUM LEVEL 8.4 MG/DL (8.8-10.2); CARBON DIOXIDE LEVEL 29 MEQ/L (21-32); CHLORIDE LEVEL 98 MEQ/L (98-107); CREATININE FOR GFR 0.68 MG/DL (0.55-1.30); GLOMERULAR FILTRATION RATE > 60.0 (>39); GLUCOSE, FASTING 114 MG/DL (70-100); POTASSIUM SERUM 3.4 MEQ/L (3.5-5.1); SODIUM LEVEL 135 MEQ/L (136-145)
[2018-03-04] MEDS: THIAMINE 100 MG TAB PO (08:31)
[2018-03-04] MEDS: FUROSEMIDE 20 MG TAB PO (08:31)
[2018-03-04] MEDS: SENOKOT S TAB PO ×2 (08:31→20:12)
[2018-03-04] MEDS: GABAPENTIN 400 MG CAP PO ×3 (08:31→20:11)
[2018-03-04] MEDS: CYANOCOBALAMIN 500 MCG TAB PO (08:31)
[2018-03-04] MEDS: DOCUSATE SODIUM 100 MG CAP PO ×2 (08:31→20:11)
[2018-03-04] MEDS: PANTOPRAZOLE 40MG TAB (PROTONIX) PO (08:31)
[2018-03-04] MEDS: VITAMIN D 1,000 INTERNATIONAL UNITS TABLET PO (08:32)
[2018-03-04] MEDS: BISOPROLOL FUMARATE 10 MG TAB PO (08:32)
[2018-03-04] MEDS: SANTYL OINT 30GM TOP (20:10)
[2018-03-04] MEDS: PRAVASTATIN 20 MG TAB PO (20:11)
[2018-03-04] MEDS: FOLIC ACID 1 MG TAB PO (20:11)
[2018-03-04] MEDS: CLOPIDOGREL 75 MG TAB PO (20:11)
[2018-03-05] MEDS: PIPERACILLIN/TAZOBACTAM SOD 3.375 GM in D5W MINI-BAG PLUS 50 ML IV ×4 (02:52→21:14)
[2018-03-05] MEDS: NORCO, ANEXSIA 5/325MG TABLET (HYDROcodone/ACETAMINOPHEN) PO ×5 (02:52→22:58)
[2018-03-05] MEDS: DOCUSATE SODIUM 100 MG CAP PO ×2 (08:46→21:14)
[2018-03-05] MEDS: VITAMIN D 1,000 INTERNATIONAL UNITS TABLET PO (08:46)
[2018-03-05] MEDS: FUROSEMIDE 20 MG TAB PO (08:46)
[2018-03-05] MEDS: THIAMINE 100 MG TAB PO (08:48)
[2018-03-05] MEDS: SENOKOT S TAB PO ×2 (08:48→21:14)
[2018-03-05] MEDS: PANTOPRAZOLE 40MG TAB (PROTONIX) PO (08:48)
[2018-03-05] MEDS: BISOPROLOL FUMARATE 10 MG TAB PO (08:48)
[2018-03-05] MEDS: GABAPENTIN 400 MG CAP PO ×3 (08:49→21:14)
[2018-03-05] MEDS: CYANOCOBALAMIN 500 MCG TAB PO (08:49)
[2018-03-05] MEDS: NS 1,000 ML IV ×2 (08:49→21:18)
[2018-03-05 10:09] LABS: HEMATOCRIT 33.5 % (36.0-47.0); HEMOGLOBIN 11.4 g/dl (12.0-15.5); MEAN CORPUSCULAR HEMOGLOBIN 30.2 pg (27.0-33.0); MEAN CORPUSCULAR VOLUME 88.9 fl (80.0-96.0); PLATELET COUNT, AUTOMATED 367 10^3/uL (150-450); RED BLOOD COUNT 3.77 10^6/uL (4.00-5.40); RED CELL DISTRIBUTION WIDTH 14.8 % (11.5-14.5); WHITE BLOOD COUNT 10.6 10^3/uL (4.0-10.0)
[2018-03-05] MEDS: SANTYL OINT 30GM TOP (10:26)
[2018-03-05 10:28] LABS: ANION GAP 9 MEQ/L (8-16); BLOOD UREA NITROGEN 7 MG/DL (7-18); CALCIUM LEVEL 8.3 MG/DL (8.8-10.2); CARBON DIOXIDE LEVEL 26 MEQ/L (21-32); CHLORIDE LEVEL 98 MEQ/L (98-107); CREATININE FOR GFR 0.72 MG/DL (0.55-1.30); GLOMERULAR FILTRATION RATE > 60.0 (>39); GLUCOSE, FASTING 201 MG/DL (70-100); POTASSIUM SERUM 3.2 MEQ/L (3.5-5.1); SODIUM LEVEL 133 MEQ/L (136-145)
[2018-03-05 12:15] LABS: HEMATOCRIT 33.5 % (36.0-47.0); HEMOGLOBIN 11.3 g/dl (12.0-15.5); MEAN CORPUSCULAR HEMOGLOBIN 29.4 pg (27.0-33.0); MEAN CORPUSCULAR HGB CONC 33.7 g/dl (32.0-36.5); MEAN CORPUSCULAR VOLUME 87.2 fl (80.0-96.0); PLATELET COUNT, AUTOMATED 397 10^3/uL (150-450); RED BLOOD COUNT 3.84 10^6/uL (4.00-5.40); RED CELL DISTRIBUTION WIDTH 14.8 % (11.5-14.5); WHITE BLOOD COUNT 12.6 10^3/uL (4.0-10.0)
[2018-03-05 12:43] LABS: PARTIAL THROMBOPLASTIN TIME 35.1 SECONDS (25.4-37.6)
[2018-03-05] MEDS: HEPARIN SOD (PORCINE) 5000 UNITS/ML VIAL IV (12:56)
[2018-03-05] MEDS: HEPARIN DRIP 25,000 UNITS in APPROPRIATE DILUENT 1 EA IV (12:58)
[2018-03-05 18:17] LABS: PARTIAL THROMBOPLASTIN TIME 78.9 SECONDS (25.4-37.6)
[2018-03-05] MEDS: PRAVASTATIN 20 MG TAB PO (21:13)
[2018-03-05] MEDS: FOLIC ACID 1 MG TAB PO (21:14)
[2018-03-05] MEDS: CLOPIDOGREL 75 MG TAB PO (21:14)
[2018-03-06] MEDS: PIPERACILLIN/TAZOBACTAM SOD 3.375 GM in D5W MINI-BAG PLUS 50 ML IV ×4 (03:03→20:05)
[2018-03-06] MEDS: NORCO, ANEXSIA 5/325MG TABLET (HYDROcodone/ACETAMINOPHEN) PO ×3 (03:04→18:18)
[2018-03-06 06:34] LABS: HEMATOCRIT 32.5 % (36.0-47.0); HEMOGLOBIN 10.9 g/dl (12.0-15.5); MEAN CORPUSCULAR HEMOGLOBIN 29.7 pg (27.0-33.0); MEAN CORPUSCULAR HGB CONC 33.5 g/dl (32.0-36.5); MEAN CORPUSCULAR VOLUME 88.6 fl (80.0-96.0); PLATELET COUNT, AUTOMATED 365 10^3/uL (150-450); RED BLOOD COUNT 3.67 10^6/uL (4.00-5.40); RED CELL DISTRIBUTION WIDTH 14.8 % (11.5-14.5); WHITE BLOOD COUNT 9.5 10^3/uL (4.0-10.0)
[2018-03-06 06:47] LABS: PARTIAL THROMBOPLASTIN TIME 77.6 SECONDS (25.4-37.6)
[2018-03-06] MEDS: DOCUSATE SODIUM 100 MG CAP PO ×2 (07:51→20:04)
[2018-03-06] MEDS: GABAPENTIN 400 MG CAP PO ×3 (07:51→20:04)
[2018-03-06] MEDS: VITAMIN D 1,000 INTERNATIONAL UNITS TABLET PO (07:51)
[2018-03-06] MEDS: CYANOCOBALAMIN 500 MCG TAB PO (07:51)
[2018-03-06] MEDS: THIAMINE 100 MG TAB PO (07:51)
[2018-03-06] MEDS: BISOPROLOL FUMARATE 10 MG TAB PO (07:51)
[2018-03-06] MEDS: SENOKOT S TAB PO ×2 (07:51→20:04)
[2018-03-06] MEDS: PANTOPRAZOLE 40MG TAB (PROTONIX) PO (07:51)
[2018-03-06] MEDS: FUROSEMIDE 20 MG TAB PO (07:51)
[2018-03-06] MEDS ORDERED: ISOVUE-300 61% 50ML VIAL (Q9967) As Ordered (12:19)
[2018-03-06] MEDS ORDERED: MIDAZOLAM INJ 2 MG/2 ML VIAL (J2250) As Ordered ×2 (12:19→13:47)
[2018-03-06] MEDS ORDERED: HEPARIN 1,000 UNITS/ML 10ML VIAL (FOR RADIOLOGY& DIALYSIS ONLY) As Ordered (12:19)
[2018-03-06] MEDS ORDERED: fentaNYL 100 MCG/2 ML INJECTION (J3010) As Ordered ×2 (12:19→13:47)
[2018-03-06 12:42] LABS: PARTIAL THROMBOPLASTIN TIME 50.2 SECONDS (25.4-37.6)
[2018-03-06] MEDS: HEPARIN DRIP 25,000 UNITS in APPROPRIATE DILUENT 1 EA IV (16:36)
[2018-03-06] MEDS: HEPARIN SOD (PORCINE) 5000 UNITS/ML VIAL IV (16:38)
[2018-03-06] MEDS: NS 1,000 ML IV (18:00)
[2018-03-06 18:39] LABS: PARTIAL THROMBOPLASTIN TIME 125.7 SECONDS (25.4-37.6)
[2018-03-06] MEDS: FOLIC ACID 1 MG TAB PO (20:04)
[2018-03-06] MEDS: CLOPIDOGREL 75 MG TAB PO (20:04)
[2018-03-06] MEDS: PRAVASTATIN 20 MG TAB PO (20:04)
[2018-03-06] MEDS: SANTYL OINT 30GM TOP (20:05)
[2018-03-07] MEDS: HEPARIN SOD (PORCINE) 5000 UNITS/ML VIAL IV (00:41)
[2018-03-07] MEDS: PIPERACILLIN/TAZOBACTAM SOD 3.375 GM in D5W MINI-BAG PLUS 50 ML IV ×4 (02:50→20:52)
[2018-03-07] MEDS: NORCO, ANEXSIA 5/325MG TABLET (HYDROcodone/ACETAMINOPHEN) PO ×4 (02:51→20:53)
[2018-03-07 06:13] LABS: HEMATOCRIT 34.2 % (36.0-47.0); HEMOGLOBIN 11.6 g/dl (12.0-15.5); MEAN CORPUSCULAR HEMOGLOBIN 29.4 pg (27.0-33.0); MEAN CORPUSCULAR HGB CONC 33.9 g/dl (32.0-36.5); MEAN CORPUSCULAR VOLUME 86.6 fl (80.0-96.0); PLATELET COUNT, AUTOMATED 371 10^3/uL (150-450); RED BLOOD COUNT 3.95 10^6/uL (4.00-5.40); RED CELL DISTRIBUTION WIDTH 14.5 % (11.5-14.5); WHITE BLOOD COUNT 11.4 10^3/uL (4.0-10.0)
[2018-03-07 06:25] LABS: PARTIAL THROMBOPLASTIN TIME 75.5 SECONDS (25.4-37.6)
[2018-03-07] MEDS: VITAMIN D 1,000 INTERNATIONAL UNITS TABLET PO (09:40)
[2018-03-07] MEDS: BISOPROLOL FUMARATE 10 MG TAB PO (09:41)
[2018-03-07] MEDS: CYANOCOBALAMIN 500 MCG TAB PO (09:41)
[2018-03-07] MEDS: FUROSEMIDE 20 MG TAB PO (09:41)
[2018-03-07] MEDS: GABAPENTIN 400 MG CAP PO ×3 (09:41→20:53)
[2018-03-07] MEDS: THIAMINE 100 MG TAB PO (09:41)
[2018-03-07] MEDS: DOCUSATE SODIUM 100 MG CAP PO ×2 (09:41→19:11)
[2018-03-07] MEDS: SENOKOT S TAB PO ×2 (09:41→19:11)
[2018-03-07] MEDS: PANTOPRAZOLE 40MG TAB (PROTONIX) PO (09:41)
[2018-03-07] MEDS: HEPARIN DRIP 25,000 UNITS in APPROPRIATE DILUENT 1 EA IV (11:41)
[2018-03-07 18:44] LABS: PARTIAL THROMBOPLASTIN TIME 65.1 SECONDS (25.4-37.6)
[2018-03-07] MEDS: FOLIC ACID 1 MG TAB PO (20:52)
[2018-03-07] MEDS: SANTYL OINT 30GM TOP (20:53)
[2018-03-07] MEDS: PRAVASTATIN 20 MG TAB PO (20:53)
[2018-03-07] MEDS: CLOPIDOGREL 75 MG TAB PO (20:53)
[2018-03-07 23:51] LABS: PARTIAL THROMBOPLASTIN TIME 89.2 SECONDS (25.4-37.6)
[2018-03-08] MEDS: HEPARIN DRIP 25,000 UNITS in APPROPRIATE DILUENT 1 EA IV (01:35)
[2018-03-08] MEDS: PIPERACILLIN/TAZOBACTAM SOD 3.375 GM in D5W MINI-BAG PLUS 50 ML IV ×4 (02:58→20:36)
[2018-03-08] MEDS: NORCO, ANEXSIA 5/325MG TABLET (HYDROcodone/ACETAMINOPHEN) PO ×5 (02:58→22:39)
[2018-03-08 05:46] LABS: HEMOGLOBIN 10.9 g/dl (12.0-15.5); MEAN CORPUSCULAR HEMOGLOBIN 29.2 pg (27.0-33.0); MEAN CORPUSCULAR HGB CONC 34.1 g/dl (32.0-36.5); MEAN CORPUSCULAR VOLUME 85.8 fl (80.0-96.0); PLATELET COUNT, AUTOMATED 334 10^3/uL (150-450); RED BLOOD COUNT 3.73 10^6/uL (4.00-5.40); RED CELL DISTRIBUTION WIDTH 14.4 % (11.5-14.5); WHITE BLOOD COUNT 10.7 10^3/uL (4.0-10.0)
[2018-03-08 05:57] LABS: ANION GAP 8 MEQ/L (8-16); BLOOD UREA NITROGEN 7 MG/DL (7-18); CALCIUM LEVEL 8.3 MG/DL (8.8-10.2); CARBON DIOXIDE LEVEL 31 MEQ/L (21-32); CHLORIDE LEVEL 97 MEQ/L (98-107); CREATININE FOR GFR 0.57 MG/DL (0.55-1.30); GLOMERULAR FILTRATION RATE > 60.0 (>39); GLUCOSE, FASTING 120 MG/DL (70-100); SODIUM LEVEL 136 MEQ/L (136-145)
[2018-03-08 05:59] LABS: PARTIAL THROMBOPLASTIN TIME 69.4 SECONDS (25.4-37.6)
[2018-03-08 06:15] LABS: POTASSIUM SERUM 2.6 MEQ/L (3.5-5.1)
[2018-03-08] MEDS: POTASSIUM CHLORIDE 10 MEQ SR TABLET PO ×4 (06:28→22:39)
[2018-03-08] MEDS: DOCUSATE SODIUM 100 MG CAP PO ×2 (09:00→20:37)
[2018-03-08] MEDS: SENOKOT S TAB PO ×2 (09:00→20:37)
[2018-03-08] MEDS: GABAPENTIN 400 MG CAP PO ×3 (09:05→20:36)
[2018-03-08] MEDS: CYANOCOBALAMIN 500 MCG TAB PO (09:05)
[2018-03-08] MEDS: THIAMINE 100 MG TAB PO (09:05)
[2018-03-08] MEDS: FUROSEMIDE 20 MG TAB PO (09:06)
[2018-03-08] MEDS: PANTOPRAZOLE 40MG TAB (PROTONIX) PO (09:06)
[2018-03-08] MEDS: VITAMIN D 1,000 INTERNATIONAL UNITS TABLET PO (09:07)
[2018-03-08] MEDS: BISOPROLOL FUMARATE 10 MG TAB PO (09:07)
[2018-03-08 10:34] LABS: POTASSIUM SERUM 2.9 MEQ/L (3.5-5.1)
[2018-03-08 12:28] LABS: PARTIAL THROMBOPLASTIN TIME 74.7 SECONDS (25.4-37.6)
[2018-03-08] MEDS: MAGNESIUM OXIDE 400 MG TAB (MAG-OX) PO (15:43)
[2018-03-08 19:54] LABS: PARTIAL THROMBOPLASTIN TIME 61.9 SECONDS (25.4-37.6)
[2018-03-08] MEDS: HEPARIN SOD (PORCINE) 5000 UNITS/ML VIAL IV (20:33)
[2018-03-08] MEDS: CLOPIDOGREL 75 MG TAB PO (20:36)
[2018-03-08] MEDS: FOLIC ACID 1 MG TAB PO (20:36)
[2018-03-08] MEDS: PRAVASTATIN 20 MG TAB PO (20:36)
[2018-03-08] MEDS: SANTYL OINT 30GM TOP (20:37)
[2018-03-09 01:11] LABS: PARTIAL THROMBOPLASTIN TIME 184.9 SECONDS (25.4-37.6)
[2018-03-09] MEDS: PIPERACILLIN/TAZOBACTAM SOD 3.375 GM in D5W MINI-BAG PLUS 50 ML IV ×4 (03:01→20:59)
[2018-03-09] MEDS: HEPARIN DRIP 25,000 UNITS in APPROPRIATE DILUENT 1 EA IV (06:25)
[2018-03-09 06:40] LABS: HEMATOCRIT 36.2 % (36.0-47.0); HEMOGLOBIN 11.9 g/dl (12.0-15.5); MEAN CORPUSCULAR HEMOGLOBIN 29.7 pg (27.0-33.0); MEAN CORPUSCULAR HGB CONC 32.9 g/dl (32.0-36.5); MEAN CORPUSCULAR VOLUME 90.3 fl (80.0-96.0); PLATELET COUNT, AUTOMATED 409 10^3/uL (150-450); RED BLOOD COUNT 4.01 10^6/uL (4.00-5.40); RED CELL DISTRIBUTION WIDTH 14.6 % (11.5-14.5); WHITE BLOOD COUNT 11.4 10^3/uL (4.0-10.0)
[2018-03-09 07:01] LABS: ANION GAP 7 MEQ/L (8-16); BLOOD UREA NITROGEN 6 MG/DL (7-18); CALCIUM LEVEL 8.8 MG/DL (8.8-10.2); CARBON DIOXIDE LEVEL 31 MEQ/L (21-32); CHLORIDE LEVEL 98 MEQ/L (98-107); GLOMERULAR FILTRATION RATE > 60.0 (>39); GLUCOSE, FASTING 99 MG/DL (70-100); MAGNESIUM LEVEL 1.8 MG/DL (1.8-2.4); PHOSPHORUS LEVEL 2.3 MG/DL (2.5-4.9); POTASSIUM SERUM 3.6 MEQ/L (3.5-5.1); SODIUM LEVEL 136 MEQ/L (136-145)
[2018-03-09 07:05] LABS: PARTIAL THROMBOPLASTIN TIME 107.5 SECONDS (25.4-37.6)
[2018-03-09] MEDS: THIAMINE 100 MG TAB PO (09:21)
[2018-03-09] MEDS: CYANOCOBALAMIN 500 MCG TAB PO (09:21)
[2018-03-09] MEDS: SENOKOT S TAB PO ×2 (09:21→20:58)
[2018-03-09] MEDS: DOCUSATE SODIUM 100 MG CAP PO ×2 (09:21→20:57)
[2018-03-09] MEDS: GABAPENTIN 400 MG CAP PO ×3 (09:21→20:59)
[2018-03-09] MEDS: PANTOPRAZOLE 40MG TAB (PROTONIX) PO (09:21)
[2018-03-09] MEDS: VITAMIN D 1,000 INTERNATIONAL UNITS TABLET PO (09:21)
[2018-03-09] MEDS: FUROSEMIDE 20 MG TAB PO (09:21)
[2018-03-09] MEDS: BISOPROLOL FUMARATE 10 MG TAB PO (09:27)
[2018-03-09] MEDS: NORCO, ANEXSIA 5/325MG TABLET (HYDROcodone/ACETAMINOPHEN) PO ×4 (09:38→22:33)
[2018-03-09 13:29] LABS: PARTIAL THROMBOPLASTIN TIME 61.8 SECONDS (25.4-37.6)
[2018-03-09] MEDS: HEPARIN SOD (PORCINE) 5000 UNITS/ML VIAL IV (14:45)
[2018-03-09] MEDS ORDERED: MIDAZOLAM INJ 2 MG/2 ML VIAL (J2250) As Ordered (17:10)
[2018-03-09] MEDS ORDERED: fentaNYL 100 MCG/2 ML INJECTION (J3010) As Ordered ×2 (17:10→18:14)
[2018-03-09] MEDS ORDERED: PROPOFOL 200 MG/20 ML VIAL As Ordered (17:10)
[2018-03-09] MEDS ORDERED: PERCOCET 5MG/325MG TAB PO (18:00)
[2018-03-09] MEDS: LR 1,000 ML IV (18:00)
[2018-03-09] MEDS ORDERED: ONDANSETRON 4MG/2ML VIAL (J2405) IV (18:00)
[2018-03-09] MEDS ORDERED: NORCO, ANEXSIA 5/325MG TABLET (HYDROcodone/ACETAMINOPHEN) As Ordered (18:13)
[2018-03-09] MEDS: fentaNYL 100 MCG/2 ML INJECTION (J3010) IV (18:15)
[2018-03-09] MEDS: FOLIC ACID 1 MG TAB PO (20:59)
[2018-03-09] MEDS: CLOPIDOGREL 75 MG TAB PO (20:59)
[2018-03-09] MEDS: PRAVASTATIN 20 MG TAB PO (20:59)
[2018-03-09] MEDS: SANTYL OINT 30GM TOP (21:00)
[2018-03-09 21:24] LABS: PARTIAL THROMBOPLASTIN TIME 138.4 SECONDS (25.4-37.6)
[2018-03-10] MEDS: PIPERACILLIN/TAZOBACTAM SOD 3.375 GM in D5W MINI-BAG PLUS 50 ML IV ×4 (02:49→21:04)
[2018-03-10] MEDS: NORCO, ANEXSIA 5/325MG TABLET (HYDROcodone/ACETAMINOPHEN) PO ×3 (02:50→19:19)
[2018-03-10 03:49] LABS: HEMATOCRIT 28.7 % (36.0-47.0); MEAN CORPUSCULAR HEMOGLOBIN 29.6 pg (27.0-33.0); MEAN CORPUSCULAR HGB CONC 33.1 g/dl (32.0-36.5); MEAN CORPUSCULAR VOLUME 89.4 fl (80.0-96.0); PLATELET COUNT, AUTOMATED 340 10^3/uL (150-450); RED BLOOD COUNT 3.21 10^6/uL (4.00-5.40); RED CELL DISTRIBUTION WIDTH 14.6 % (11.5-14.5); WHITE BLOOD COUNT 11.1 10^3/uL (4.0-10.0)
[2018-03-10 04:00] LABS: HEMOGLOBIN 9.5 g/dl (12.0-15.5)
[2018-03-10 04:04] LABS: PARTIAL THROMBOPLASTIN TIME 65.6 SECONDS (25.4-37.6)
[2018-03-10 04:17] LABS: ANION GAP 5 MEQ/L (8-16); BLOOD UREA NITROGEN 8 MG/DL (7-18); CALCIUM LEVEL 8.3 MG/DL (8.8-10.2); CARBON DIOXIDE LEVEL 31 MEQ/L (21-32); CHLORIDE LEVEL 101 MEQ/L (98-107); CREATININE FOR GFR 0.55 MG/DL (0.55-1.30); GLOMERULAR FILTRATION RATE > 60.0 (>39); GLUCOSE, FASTING 115 MG/DL (70-100); POTASSIUM SERUM 3.5 MEQ/L (3.5-5.1); SODIUM LEVEL 137 MEQ/L (136-145)
[2018-03-10] MEDS: THIAMINE 100 MG TAB PO (08:25)
[2018-03-10] MEDS: SENOKOT S TAB PO ×2 (08:25→21:00)
[2018-03-10] MEDS: GABAPENTIN 400 MG CAP PO ×3 (08:25→21:03)
[2018-03-10] MEDS: FUROSEMIDE 20 MG TAB PO (08:25)
[2018-03-10] MEDS: DOCUSATE SODIUM 100 MG CAP PO ×2 (08:25→21:00)
[2018-03-10] MEDS: CYANOCOBALAMIN 500 MCG TAB PO (08:26)
[2018-03-10] MEDS: VITAMIN D 1,000 INTERNATIONAL UNITS TABLET PO (08:26)
[2018-03-10] MEDS: PANTOPRAZOLE 40MG TAB (PROTONIX) PO (08:26)
[2018-03-10] MEDS: BISOPROLOL FUMARATE 10 MG TAB PO (08:26)
[2018-03-10 10:00] LABS: PARTIAL THROMBOPLASTIN TIME 52.6 SECONDS (25.4-37.6)
[2018-03-10] MEDS: HEPARIN SOD (PORCINE) 5000 UNITS/ML VIAL IV (10:28)
[2018-03-10] MEDS: HEPARIN DRIP 25,000 UNITS in APPROPRIATE DILUENT 1 EA IV (10:30)
[2018-03-10 17:39] LABS: PARTIAL THROMBOPLASTIN TIME 84.5 SECONDS (25.4-37.6)
[2018-03-10] MEDS: MORPHINE 4 MG/ML 1ML VIAL/SYRINGE (J2270) IV (20:19)
[2018-03-10] MEDS: SANTYL OINT 30GM TOP (21:00)
[2018-03-10] MEDS: PRAVASTATIN 20 MG TAB PO (21:03)
[2018-03-10] MEDS: CLOPIDOGREL 75 MG TAB PO (21:03)
[2018-03-10] MEDS: FOLIC ACID 1 MG TAB PO (21:03)
[2018-03-10 23:21] LABS: PARTIAL THROMBOPLASTIN TIME 74.7 SECONDS (25.4-37.6)
[2018-03-11] MEDS: NORCO, ANEXSIA 5/325MG TABLET (HYDROcodone/ACETAMINOPHEN) PO ×3 (00:07→15:05)
[2018-03-11] MEDS: MORPHINE 4 MG/ML 1ML VIAL/SYRINGE (J2270) IV ×2 (00:48→06:46)
[2018-03-11] MEDS: PIPERACILLIN/TAZOBACTAM SOD 3.375 GM in D5W MINI-BAG PLUS 50 ML IV ×4 (03:50→21:31)
[2018-03-11 05:13] LABS: HEMOGLOBIN 8.5 g/dl (12.0-15.5); MEAN CORPUSCULAR HEMOGLOBIN 29.5 pg (27.0-33.0); MEAN CORPUSCULAR HGB CONC 32.7 g/dl (32.0-36.5); MEAN CORPUSCULAR VOLUME 90.3 fl (80.0-96.0); PLATELET COUNT, AUTOMATED 357 10^3/uL (150-450); RED BLOOD COUNT 2.88 10^6/uL (4.00-5.40); RED CELL DISTRIBUTION WIDTH 14.7 % (11.5-14.5); WHITE BLOOD COUNT 10.3 10^3/uL (4.0-10.0)
[2018-03-11 05:41] LABS: PARTIAL THROMBOPLASTIN TIME 86.9 SECONDS (25.4-37.6)
[2018-03-11 05:43] LABS: ANION GAP 5 MEQ/L (8-16); BLOOD UREA NITROGEN 7 MG/DL (7-18); CALCIUM LEVEL 8.5 MG/DL (8.8-10.2); CARBON DIOXIDE LEVEL 30 MEQ/L (21-32); CHLORIDE LEVEL 100 MEQ/L (98-107); CREATININE FOR GFR 0.61 MG/DL (0.55-1.30); GLOMERULAR FILTRATION RATE > 60.0 (>39); GLUCOSE, FASTING 113 MG/DL (70-100); POTASSIUM SERUM 3.1 MEQ/L (3.5-5.1); SODIUM LEVEL 135 MEQ/L (136-145)
[2018-03-11] MEDS: THIAMINE 100 MG TAB PO (09:39)
[2018-03-11] MEDS: BISOPROLOL FUMARATE 10 MG TAB PO (09:43)
[2018-03-11] MEDS: GABAPENTIN 400 MG CAP PO ×3 (09:43→21:31)
[2018-03-11] MEDS: PANTOPRAZOLE 40MG TAB (PROTONIX) PO (09:43)
[2018-03-11] MEDS: FUROSEMIDE 20 MG TAB PO (09:43)
[2018-03-11] MEDS: CYANOCOBALAMIN 500 MCG TAB PO (09:43)
[2018-03-11] MEDS: VITAMIN D 1,000 INTERNATIONAL UNITS TABLET PO (09:44)
[2018-03-11] MEDS: DOCUSATE SODIUM 100 MG CAP PO ×2 (09:45→21:31)
[2018-03-11] MEDS: SENOKOT S TAB PO ×2 (09:45→21:31)
[2018-03-11 11:11] LABS: PARTIAL THROMBOPLASTIN TIME 50.4 SECONDS (25.4-37.6)
[2018-03-11] MEDS: HEPARIN DRIP 25,000 UNITS in APPROPRIATE DILUENT 1 EA IV (12:08)
[2018-03-11] MEDS: HEPARIN SOD (PORCINE) 5000 UNITS/ML VIAL IV (12:08)
[2018-03-11 18:38] LABS: HEMATOCRIT 21.6 % (36.0-47.0); HEMOGLOBIN 7.3 g/dl (12.0-15.5); MEAN CORPUSCULAR HEMOGLOBIN 30.2 pg (27.0-33.0); MEAN CORPUSCULAR HGB CONC 33.8 g/dl (32.0-36.5); MEAN CORPUSCULAR VOLUME 89.3 fl (80.0-96.0); RED BLOOD COUNT 2.42 10^6/uL (4.00-5.40); RED CELL DISTRIBUTION WIDTH 14.8 % (11.5-14.5)
[2018-03-11 18:52] LABS: PLATELET COUNT, AUTOMATED 496 10^3/uL (150-450)
[2018-03-11 19:03] LABS: PARTIAL THROMBOPLASTIN TIME 107.2 SECONDS (25.4-37.6)
[2018-03-11] MEDS ORDERED: ACETAMINOPHEN 500 MG TAB As Ordered (19:08)
[2018-03-11] MEDS: ACETAMINOPHEN 500 MG TAB PO (19:11)
[2018-03-11] MEDS: NS 500 ML IV (19:12)
[2018-03-11] MEDS ORDERED: ACETAMINOPHEN TAB 650MG DOSE (2X325MG) PO (19:15)
[2018-03-11 19:41] LABS: IMMEDIATE SPIN CROSSMATCH 1 3
[2018-03-11] MEDS: PRAVASTATIN 20 MG TAB PO (21:31)
[2018-03-11] MEDS: CLOPIDOGREL 75 MG TAB PO (21:31)
[2018-03-11] MEDS: FOLIC ACID 1 MG TAB PO (21:31)
[2018-03-11] MEDS: SANTYL OINT 30GM TOP (21:32)
[2018-03-12] MEDS: NORCO, ANEXSIA 5/325MG TABLET (HYDROcodone/ACETAMINOPHEN) PO ×3 (02:00→20:20)
[2018-03-12] MEDS: PIPERACILLIN/TAZOBACTAM SOD 3.375 GM in D5W MINI-BAG PLUS 50 ML IV ×4 (05:03→20:19)
[2018-03-12 05:13] LABS: HEMATOCRIT 24.1 % (36.0-47.0); HEMOGLOBIN 8.2 g/dl (12.0-15.5); MEAN CORPUSCULAR HEMOGLOBIN 29.8 pg (27.0-33.0); MEAN CORPUSCULAR VOLUME 87.6 fl (80.0-96.0); RED BLOOD COUNT 2.75 10^6/uL (4.00-5.40); RED CELL DISTRIBUTION WIDTH 14.6 % (11.5-14.5); WHITE BLOOD COUNT 12.6 10^3/uL (4.0-10.0)
[2018-03-12 05:22] LABS: PLATELET COUNT, AUTOMATED 313 10^3/uL (150-450)
[2018-03-12 05:33] LABS: ANION GAP 5 MEQ/L (8-16); BLOOD UREA NITROGEN 9 MG/DL (7-18); CALCIUM LEVEL 7.6 MG/DL (8.8-10.2); CARBON DIOXIDE LEVEL 29 MEQ/L (21-32); CHLORIDE LEVEL 104 MEQ/L (98-107); CREATININE FOR GFR 0.67 MG/DL (0.55-1.30); GLOMERULAR FILTRATION RATE > 60.0 (>39); GLUCOSE, FASTING 120 MG/DL (70-100); POTASSIUM SERUM 3.2 MEQ/L (3.5-5.1); SODIUM LEVEL 138 MEQ/L (136-145)
[2018-03-12] MEDS: POTASSIUM CHLORIDE 10 MEQ SR TABLET PO ×2 (07:03→08:37)
[2018-03-12] MEDS: THIAMINE 100 MG TAB PO (08:36)
[2018-03-12] MEDS: CYANOCOBALAMIN 500 MCG TAB PO (08:37)
[2018-03-12] MEDS: GABAPENTIN 400 MG CAP PO ×3 (08:37→20:19)
[2018-03-12] MEDS: DOCUSATE SODIUM 100 MG CAP PO ×2 (08:37→20:18)
[2018-03-12] MEDS: VITAMIN D 1,000 INTERNATIONAL UNITS TABLET PO (08:37)
[2018-03-12] MEDS: SENOKOT S TAB PO ×2 (08:37→20:18)
[2018-03-12] MEDS: PANTOPRAZOLE 40MG TAB (PROTONIX) PO (08:37)
[2018-03-12 15:41] LABS: HEMATOCRIT 28.7 % (36.0-47.0); HEMOGLOBIN 9.7 g/dl (12.0-15.5); MEAN CORPUSCULAR HEMOGLOBIN 29.5 pg (27.0-33.0); MEAN CORPUSCULAR HGB CONC 33.8 g/dl (32.0-36.5); MEAN CORPUSCULAR VOLUME 87.2 fl (80.0-96.0); PLATELET COUNT, AUTOMATED 361 10^3/uL (150-450); RED BLOOD COUNT 3.29 10^6/uL (4.00-5.40); WHITE BLOOD COUNT 14.6 10^3/uL (4.0-10.0)
[2018-03-12] MEDS: MORPHINE 4 MG/ML 1ML VIAL/SYRINGE (J2270) IV ×2 (16:16→21:42)
[2018-03-12] MEDS: SANTYL OINT 30GM TOP (17:15)
[2018-03-12] MEDS: PRAVASTATIN 20 MG TAB PO (20:18)
[2018-03-12] MEDS: FOLIC ACID 1 MG TAB PO (20:18)
[2018-03-12] MEDS: CLOPIDOGREL 75 MG TAB PO (20:18)
[2018-03-13] MEDS: NORCO, ANEXSIA 5/325MG TABLET (HYDROcodone/ACETAMINOPHEN) PO ×4 (00:57→23:24)
[2018-03-13] MEDS: PIPERACILLIN/TAZOBACTAM SOD 3.375 GM in D5W MINI-BAG PLUS 50 ML IV ×4 (02:31→21:29)
[2018-03-13 06:14] LABS: HEMATOCRIT 27.7 % (36.0-47.0); HEMOGLOBIN 9.4 g/dl (12.0-15.5); MEAN CORPUSCULAR HEMOGLOBIN 29.4 pg (27.0-33.0); MEAN CORPUSCULAR HGB CONC 33.9 g/dl (32.0-36.5); MEAN CORPUSCULAR VOLUME 86.6 fl (80.0-96.0); PLATELET COUNT, AUTOMATED 343 10^3/uL (150-450); RED CELL DISTRIBUTION WIDTH 15.3 % (11.5-14.5); WHITE BLOOD COUNT 11.1 10^3/uL (4.0-10.0)
[2018-03-13 06:29] LABS: ANION GAP 4 MEQ/L (8-16); BLOOD UREA NITROGEN 7 MG/DL (7-18); CALCIUM LEVEL 8.6 MG/DL (8.8-10.2); CARBON DIOXIDE LEVEL 31 MEQ/L (21-32); CHLORIDE LEVEL 104 MEQ/L (98-107); CREATININE FOR GFR 0.73 MG/DL (0.55-1.30); GLOMERULAR FILTRATION RATE > 60.0 (>39); GLUCOSE, FASTING 97 MG/DL (70-100); SODIUM LEVEL 139 MEQ/L (136-145)
[2018-03-13] MEDS: SENOKOT S TAB PO ×2 (08:23→21:30)
[2018-03-13] MEDS: VITAMIN D 1,000 INTERNATIONAL UNITS TABLET PO (08:24)
[2018-03-13] MEDS: GABAPENTIN 400 MG CAP PO ×3 (08:24→21:30)
[2018-03-13] MEDS: CYANOCOBALAMIN 500 MCG TAB PO (08:24)
[2018-03-13] MEDS: THIAMINE 100 MG TAB PO (08:24)
[2018-03-13] MEDS: PANTOPRAZOLE 40MG TAB (PROTONIX) PO (08:24)
[2018-03-13] MEDS: DOCUSATE SODIUM 100 MG CAP PO ×2 (08:24→21:30)
[2018-03-13] MEDS: BISOPROLOL FUMARATE 10 MG TAB PO (09:04)
[2018-03-13] MEDS: FUROSEMIDE 20 MG TAB PO (09:04)
[2018-03-13] MEDS: SANTYL OINT 30GM TOP (21:00)
[2018-03-13] MEDS: FOLIC ACID 1 MG TAB PO (21:30)
[2018-03-13] MEDS: PRAVASTATIN 20 MG TAB PO (21:30)
[2018-03-13] MEDS: CLOPIDOGREL 75 MG TAB PO (21:30)
[2018-03-14] MEDS: PIPERACILLIN/TAZOBACTAM SOD 3.375 GM in D5W MINI-BAG PLUS 50 ML IV ×4 (03:16→21:59)
[2018-03-14 06:31] LABS: HEMATOCRIT 29.4 % (36.0-47.0); HEMOGLOBIN 9.8 g/dl (12.0-15.5); MEAN CORPUSCULAR HEMOGLOBIN 29.6 pg (27.0-33.0); MEAN CORPUSCULAR HGB CONC 33.3 g/dl (32.0-36.5); MEAN CORPUSCULAR VOLUME 88.8 fl (80.0-96.0); PLATELET COUNT, AUTOMATED 398 10^3/uL (150-450); RED BLOOD COUNT 3.31 10^6/uL (4.00-5.40); RED CELL DISTRIBUTION WIDTH 15.7 % (11.5-14.5); WHITE BLOOD COUNT 11.7 10^3/uL (4.0-10.0)
[2018-03-14 06:49] LABS: ANION GAP 7 MEQ/L (8-16); BLOOD UREA NITROGEN 7 MG/DL (7-18); CALCIUM LEVEL 8.8 MG/DL (8.8-10.2); CARBON DIOXIDE LEVEL 30 MEQ/L (21-32); CHLORIDE LEVEL 103 MEQ/L (98-107); CREATININE FOR GFR 0.69 MG/DL (0.55-1.30); GLOMERULAR FILTRATION RATE > 60.0 (>39); GLUCOSE, FASTING 96 MG/DL (70-100); POTASSIUM SERUM 3.9 MEQ/L (3.5-5.1); SODIUM LEVEL 140 MEQ/L (136-145)
[2018-03-14] MEDS: SENOKOT S TAB PO ×2 (08:00→21:59)
[2018-03-14] MEDS: THIAMINE 100 MG TAB PO (08:00)
[2018-03-14] MEDS: GABAPENTIN 400 MG CAP PO ×3 (08:00→21:59)
[2018-03-14] MEDS: VITAMIN D 1,000 INTERNATIONAL UNITS TABLET PO (08:00)
[2018-03-14] MEDS: FUROSEMIDE 20 MG TAB PO (08:00)
[2018-03-14] MEDS: DOCUSATE SODIUM 100 MG CAP PO ×2 (08:00→21:59)
[2018-03-14] MEDS: PANTOPRAZOLE 40MG TAB (PROTONIX) PO (08:00)
[2018-03-14] MEDS: CYANOCOBALAMIN 500 MCG TAB PO (08:01)
[2018-03-14] MEDS: BISOPROLOL FUMARATE 10 MG TAB PO (08:01)
[2018-03-14] MEDS: NORCO, ANEXSIA 5/325MG TABLET (HYDROcodone/ACETAMINOPHEN) PO ×2 (08:01→12:57)
[2018-03-14] MEDS: MORPHINE 4 MG/ML 1ML VIAL/SYRINGE (J2270) IV (16:37)
[2018-03-14] MEDS ORDERED: diphenhydrAMINE 25 MG CAP PO (17:00)
[2018-03-14] MEDS: SANTYL OINT 30GM TOP (21:00)
[2018-03-14] MEDS: CLOPIDOGREL 75 MG TAB PO (21:59)
[2018-03-14] MEDS: PRAVASTATIN 20 MG TAB PO (21:59)
[2018-03-14] MEDS: FOLIC ACID 1 MG TAB PO (21:59)
[2018-03-15] MEDS: PIPERACILLIN/TAZOBACTAM SOD 3.375 GM in D5W MINI-BAG PLUS 50 ML IV ×4 (03:18→20:42)
[2018-03-15 06:26] LABS: HEMATOCRIT 29.6 % (36.0-47.0); HEMOGLOBIN 9.7 g/dl (12.0-15.5); MEAN CORPUSCULAR HEMOGLOBIN 29.2 pg (27.0-33.0); MEAN CORPUSCULAR HGB CONC 32.8 g/dl (32.0-36.5); MEAN CORPUSCULAR VOLUME 89.2 fl (80.0-96.0); PLATELET COUNT, AUTOMATED 464 10^3/uL (150-450); RED BLOOD COUNT 3.32 10^6/uL (4.00-5.40); RED CELL DISTRIBUTION WIDTH 15.8 % (11.5-14.5); WHITE BLOOD COUNT 11.7 10^3/uL (4.0-10.0)
[2018-03-15 06:45] LABS: ANION GAP 9 MEQ/L (8-16); BLOOD UREA NITROGEN 9 MG/DL (7-18); CALCIUM LEVEL 9.1 MG/DL (8.8-10.2); CARBON DIOXIDE LEVEL 27 MEQ/L (21-32); CHLORIDE LEVEL 102 MEQ/L (98-107); CREATININE FOR GFR 0.65 MG/DL (0.55-1.30); GLOMERULAR FILTRATION RATE > 60.0 (>39); GLUCOSE, FASTING 108 MG/DL (70-100); POTASSIUM SERUM 3.6 MEQ/L (3.5-5.1); SODIUM LEVEL 138 MEQ/L (136-145)
[2018-03-15] MEDS: DOCUSATE SODIUM 100 MG CAP PO ×2 (08:19→20:43)
[2018-03-15] MEDS: CYANOCOBALAMIN 500 MCG TAB PO (08:19)
[2018-03-15] MEDS: THIAMINE 100 MG TAB PO (08:19)
[2018-03-15] MEDS: FUROSEMIDE 20 MG TAB PO (08:19)
[2018-03-15] MEDS: GABAPENTIN 400 MG CAP PO ×3 (08:19→20:43)
[2018-03-15] MEDS: PANTOPRAZOLE 40MG TAB (PROTONIX) PO (08:19)
[2018-03-15] MEDS: VITAMIN D 1,000 INTERNATIONAL UNITS TABLET PO (08:19)
[2018-03-15] MEDS: SENOKOT S TAB PO ×2 (08:19→20:43)
[2018-03-15] MEDS: BISOPROLOL FUMARATE 10 MG TAB PO (08:20)
[2018-03-15] MEDS: NORCO, ANEXSIA 5/325MG TABLET (HYDROcodone/ACETAMINOPHEN) PO ×3 (08:22→21:56)
[2018-03-15] MEDS: PRAVASTATIN 20 MG TAB PO (20:42)
[2018-03-15] MEDS: CLOPIDOGREL 75 MG TAB PO (20:42)
[2018-03-15] MEDS: FOLIC ACID 1 MG TAB PO (20:43)
[2018-03-15] MEDS: SANTYL OINT 30GM TOP (20:43)
[2018-03-15] MEDS: APIXABAN 5 MG TAB (ELIQUIS) PO (23:35)
[2018-03-16] MEDS: PIPERACILLIN/TAZOBACTAM SOD 3.375 GM in D5W MINI-BAG PLUS 50 ML IV ×4 (03:10→20:55)
[2018-03-16 06:24] LABS: HEMATOCRIT 29.9 % (36.0-47.0); HEMOGLOBIN 9.8 g/dl (12.0-15.5); MEAN CORPUSCULAR HEMOGLOBIN 29.2 pg (27.0-33.0); MEAN CORPUSCULAR HGB CONC 32.8 g/dl (32.0-36.5); PLATELET COUNT, AUTOMATED 457 10^3/uL (150-450); RED BLOOD COUNT 3.36 10^6/uL (4.00-5.40); RED CELL DISTRIBUTION WIDTH 15.6 % (11.5-14.5); WHITE BLOOD COUNT 11.6 10^3/uL (4.0-10.0)
[2018-03-16] MEDS: DOCUSATE SODIUM 100 MG CAP PO ×2 (09:00→20:58)
[2018-03-16] MEDS: SENOKOT S TAB PO ×2 (09:00→20:58)
[2018-03-16] MEDS: APIXABAN 5 MG TAB (ELIQUIS) PO ×2 (10:49→20:58)
[2018-03-16] MEDS: FUROSEMIDE 20 MG TAB PO (10:50)
[2018-03-16] MEDS: GABAPENTIN 400 MG CAP PO ×3 (10:50→20:58)
[2018-03-16] MEDS: THIAMINE 100 MG TAB PO (10:50)
[2018-03-16] MEDS: PANTOPRAZOLE 40MG TAB (PROTONIX) PO (10:50)
[2018-03-16] MEDS: CYANOCOBALAMIN 500 MCG TAB PO (10:50)
[2018-03-16] MEDS: VITAMIN D 1,000 INTERNATIONAL UNITS TABLET PO (10:50)
[2018-03-16] MEDS: NORCO, ANEXSIA 5/325MG TABLET (HYDROcodone/ACETAMINOPHEN) PO ×3 (10:52→21:07)
[2018-03-16] MEDS: BISOPROLOL FUMARATE 10 MG TAB PO (10:56)
[2018-03-16] MEDS: PRAVASTATIN 20 MG TAB PO (20:57)
[2018-03-16] MEDS: CLOPIDOGREL 75 MG TAB PO (20:58)
[2018-03-16] MEDS: FOLIC ACID 1 MG TAB PO (20:58)
[2018-03-16] MEDS: SANTYL OINT 30GM TOP (21:00)
[2018-03-17] MEDS: PIPERACILLIN/TAZOBACTAM SOD 3.375 GM in D5W MINI-BAG PLUS 50 ML IV ×4 (03:12→22:00)
[2018-03-17 06:27] LABS: HEMATOCRIT 32.6 % (36.0-47.0); HEMOGLOBIN 10.8 g/dl (12.0-15.5); MEAN CORPUSCULAR HGB CONC 33.1 g/dl (32.0-36.5); MEAN CORPUSCULAR VOLUME 90.6 fl (80.0-96.0); PLATELET COUNT, AUTOMATED 534 10^3/uL (150-450); RED CELL DISTRIBUTION WIDTH 15.6 % (11.5-14.5); WHITE BLOOD COUNT 13.2 10^3/uL (4.0-10.0)
[2018-03-17] MEDS: DOCUSATE SODIUM 100 MG CAP PO ×2 (09:56→22:01)
[2018-03-17] MEDS: BISOPROLOL FUMARATE 10 MG TAB PO (09:56)
[2018-03-17] MEDS: GABAPENTIN 400 MG CAP PO ×3 (09:56→22:01)
[2018-03-17] MEDS: VITAMIN D 1,000 INTERNATIONAL UNITS TABLET PO (09:57)
[2018-03-17] MEDS: PANTOPRAZOLE 40MG TAB (PROTONIX) PO (09:57)
[2018-03-17] MEDS: SENOKOT S TAB PO ×2 (09:57→22:01)
[2018-03-17] MEDS: CYANOCOBALAMIN 500 MCG TAB PO (09:57)
[2018-03-17] MEDS: APIXABAN 5 MG TAB (ELIQUIS) PO ×2 (09:57→22:01)
[2018-03-17] MEDS: THIAMINE 100 MG TAB PO (09:57)
[2018-03-17] MEDS: FUROSEMIDE 20 MG TAB PO (09:57)
[2018-03-17] MEDS: NORCO, ANEXSIA 5/325MG TABLET (HYDROcodone/ACETAMINOPHEN) PO ×2 (10:11→15:28)
[2018-03-17] MEDS: SANTYL OINT 30GM TOP (21:00)
[2018-03-17] MEDS: FOLIC ACID 1 MG TAB PO (22:01)
[2018-03-17] MEDS: CLOPIDOGREL 75 MG TAB PO (22:01)
[2018-03-17] MEDS: ATORVASTATIN 20 MG TAB PO (22:01)
[2018-03-18] MEDS: NORCO, ANEXSIA 5/325MG TABLET (HYDROcodone/ACETAMINOPHEN) PO ×3 (00:11→20:46)
[2018-03-18] MEDS: PIPERACILLIN/TAZOBACTAM SOD 3.375 GM in D5W MINI-BAG PLUS 50 ML IV ×4 (03:35→20:46)
[2018-03-18 06:16] LABS: HEMATOCRIT 30.3 % (36.0-47.0); HEMOGLOBIN 9.8 g/dl (12.0-15.5); MEAN CORPUSCULAR HEMOGLOBIN 29.5 pg (27.0-33.0); MEAN CORPUSCULAR HGB CONC 32.3 g/dl (32.0-36.5); MEAN CORPUSCULAR VOLUME 91.3 fl (80.0-96.0); PLATELET COUNT, AUTOMATED 476 10^3/uL (150-450); RED BLOOD COUNT 3.32 10^6/uL (4.00-5.40); RED CELL DISTRIBUTION WIDTH 15.4 % (11.5-14.5); WHITE BLOOD COUNT 9.7 10^3/uL (4.0-10.0)
[2018-03-18 06:36] LABS: ALBUMIN 2.1 GM/DL (3.2-5.2); ALKALINE PHOSPHATASE 181 U/L (45-117); ALT/SGPT 9 U/L (12-78); ANION GAP 9 MEQ/L (8-16); AST/SGOT 15 U/L (7-37); BILIRUBIN,TOTAL 0.3 MG/DL (0.2-1.0); BLOOD UREA NITROGEN 8 MG/DL (7-18); CALCIUM LEVEL 9.1 MG/DL (8.8-10.2); CARBON DIOXIDE LEVEL 29 MEQ/L (21-32); CHLORIDE LEVEL 103 MEQ/L (98-107); CREATININE FOR GFR 0.79 MG/DL (0.55-1.30); GLOMERULAR FILTRATION RATE > 60.0 (>39); GLUCOSE, FASTING 99 MG/DL (70-100); POTASSIUM SERUM 3.5 MEQ/L (3.5-5.1); SODIUM LEVEL 141 MEQ/L (136-145); TOTAL PROTEIN 6.3 GM/DL (6.4-8.2)
[2018-03-18] MEDS: CYANOCOBALAMIN 500 MCG TAB PO (10:40)
[2018-03-18] MEDS: VITAMIN D 1,000 INTERNATIONAL UNITS TABLET PO (10:41)
[2018-03-18] MEDS: GABAPENTIN 400 MG CAP PO ×3 (10:41→20:46)
[2018-03-18] MEDS: FUROSEMIDE 20 MG TAB PO (10:41)
[2018-03-18] MEDS: PANTOPRAZOLE 40MG TAB (PROTONIX) PO (10:41)
[2018-03-18] MEDS: APIXABAN 5 MG TAB (ELIQUIS) PO ×2 (10:41→20:46)
[2018-03-18] MEDS: DOCUSATE SODIUM 100 MG CAP PO ×2 (10:42→20:46)
[2018-03-18] MEDS: SENOKOT S TAB PO ×2 (10:42→20:46)
[2018-03-18] MEDS: BISOPROLOL FUMARATE 10 MG TAB PO (10:42)
[2018-03-18] MEDS: THIAMINE 100 MG TAB PO (10:42)
[2018-03-18] MEDS: ATORVASTATIN 20 MG TAB PO (20:46)
[2018-03-18] MEDS: CLOPIDOGREL 75 MG TAB PO (20:46)
[2018-03-18] MEDS: SANTYL OINT 30GM TOP (20:46)
[2018-03-18] MEDS: FOLIC ACID 1 MG TAB PO (20:46)
[2018-03-18] MEDS: POTASSIUM CHLORIDE 10 MEQ SR TABLET PO (22:25)
[2018-03-19] MEDS: PIPERACILLIN/TAZOBACTAM SOD 3.375 GM in D5W MINI-BAG PLUS 50 ML IV ×2 (03:27→08:57)
[2018-03-19 06:12] LABS: HEMATOCRIT 31.7 % (36.0-47.0); HEMOGLOBIN 10.5 g/dl (12.0-15.5); MEAN CORPUSCULAR HEMOGLOBIN 29.7 pg (27.0-33.0); MEAN CORPUSCULAR HGB CONC 33.1 g/dl (32.0-36.5); MEAN CORPUSCULAR VOLUME 89.5 fl (80.0-96.0); PLATELET COUNT, AUTOMATED 549 10^3/uL (150-450); RED BLOOD COUNT 3.54 10^6/uL (4.00-5.40); WHITE BLOOD COUNT 10.7 10^3/uL (4.0-10.0)
[2018-03-19] MEDS: VITAMIN D 1,000 INTERNATIONAL UNITS TABLET PO (08:57)
[2018-03-19] MEDS: GABAPENTIN 400 MG CAP PO ×3 (08:57→21:40)
[2018-03-19] MEDS: APIXABAN 5 MG TAB (ELIQUIS) PO ×2 (08:57→21:42)
[2018-03-19] MEDS: SENOKOT S TAB PO ×2 (08:58→21:42)
[2018-03-19] MEDS: THIAMINE 100 MG TAB PO (08:58)
[2018-03-19] MEDS: CYANOCOBALAMIN 500 MCG TAB PO (08:58)
[2018-03-19] MEDS: DOCUSATE SODIUM 100 MG CAP PO ×2 (08:58→21:42)
[2018-03-19] MEDS: PANTOPRAZOLE 40MG TAB (PROTONIX) PO (08:58)
[2018-03-19] MEDS: POTASSIUM CHLORIDE 10 MEQ SR TABLET PO ×4 (08:58→21:41)
[2018-03-19] MEDS: BISOPROLOL FUMARATE 10 MG TAB PO (09:00)
[2018-03-19] MEDS: NORCO, ANEXSIA 5/325MG TABLET (HYDROcodone/ACETAMINOPHEN) PO ×2 (10:18→21:41)
[2018-03-19] MEDS: CLOPIDOGREL 75 MG TAB PO (21:41)
[2018-03-19] MEDS: FOLIC ACID 1 MG TAB PO (21:42)
[2018-03-19] MEDS: SANTYL OINT 30GM TOP (21:42)
[2018-03-19] MEDS: ATORVASTATIN 20 MG TAB PO (21:42)
[2018-03-20 06:44] LABS: HEMOGLOBIN 10.5 g/dl (12.0-15.5); MEAN CORPUSCULAR HEMOGLOBIN 29.4 pg (27.0-33.0); MEAN CORPUSCULAR HGB CONC 31.8 g/dl (32.0-36.5); MEAN CORPUSCULAR VOLUME 92.4 fl (80.0-96.0); PLATELET COUNT, AUTOMATED 522 10^3/uL (150-450); RED BLOOD COUNT 3.57 10^6/uL (4.00-5.40); RED CELL DISTRIBUTION WIDTH 14.9 % (11.5-14.5)
[2018-03-20] MEDS: CYANOCOBALAMIN 500 MCG TAB PO (08:37)
[2018-03-20] MEDS: APIXABAN 5 MG TAB (ELIQUIS) PO (08:37)
[2018-03-20] MEDS: THIAMINE 100 MG TAB PO (08:38)
[2018-03-20] MEDS: PANTOPRAZOLE 40MG TAB (PROTONIX) PO (08:38)
[2018-03-20] MEDS: NORCO, ANEXSIA 5/325MG TABLET (HYDROcodone/ACETAMINOPHEN) PO (08:38)
[2018-03-20] MEDS: GABAPENTIN 400 MG CAP PO ×2 (08:38→15:54)
[2018-03-20] MEDS: SENOKOT S TAB PO (08:38)
[2018-03-20] MEDS: DOCUSATE SODIUM 100 MG CAP PO (08:38)
[2018-03-20] MEDS: VITAMIN D 1,000 INTERNATIONAL UNITS TABLET PO (08:38)
[2018-03-20] MEDS: POTASSIUM CHLORIDE 10 MEQ SR TABLET PO ×2 (08:39→13:04)
[2018-03-20] MEDS: BISOPROLOL FUMARATE 10 MG TAB PO (09:00)
== END 2018-03-20 16:14 | disposition home health service (06) | DRG 271 ==
LOC: M ICU 03-12 00:25 → M MSPAV 14:24
PROC: 0KBS0ZZ Excision of Right Lower Leg Muscle, Open Approach (ICD-10-PCS; principal; 2018-03-09 10:51)
PROC: 30233N1 Transfusion of Nonautologous Red Blood Cells into Peripheral Vein, Percutaneous Approach (ICD-10-PCS; 2018-03-09 17:05)
PROC: 04CN3ZZ Extirpation of Matter from Left Popliteal Artery, Percutaneous Approach (ICD-10-PCS; 2018-03-09 17:05)
PROC: 04CU3ZZ Extirpation of Matter from Left Peroneal Artery, Percutaneous Approach (ICD-10-PCS; 2018-03-09 17:05)
PROC: 047U3DZ Dilation of Left Peroneal Artery with Intraluminal Device, Percutaneous Approach (ICD-10-PCS; 2018-03-09 17:05)
PROC: 047N3DZ Dilation of Left Popliteal Artery with Intraluminal Device, Percutaneous Approach (ICD-10-PCS; 2018-03-09 17:05)
PROC: 047L3ZZ Dilation of Left Femoral Artery, Percutaneous Approach (ICD-10-PCS; 2018-03-09 17:05)
DX: I70.243 Atherosclerosis of native arteries of left leg with ulceration of ankle (principal); L03.116 Cellulitis of left lower limb; I87.312 Chronic venous hypertension (idiopathic) with ulcer of left lower extremity; L97.324 Non-pressure chronic ulcer of left ankle with necrosis of bone; I48.2 Chronic atrial fibrillation; F17.210 Nicotine dependence, cigarettes, uncomplicated; E78.00 Pure hypercholesterolemia, unspecified; E03.9 Hypothyroidism, unspecified; F10.20 Alcohol dependence, uncomplicated; I11.9 Hypertensive heart disease without heart failure; I34.0 Nonrheumatic mitral (valve) insufficiency; I35.1 Nonrheumatic aortic (valve) insufficiency; I95.9 Hypotension, unspecified; I70.0 Atherosclerosis of aorta; G62.9 Polyneuropathy, unspecified; D64.9 Anemia, unspecified; Z98.41 Cataract extraction status, right eye; Z98.42 Cataract extraction status, left eye

== ENCOUNTER 2018-04-14 13:06 | Inpatient (IN) | payer MEDICARE ==
[~2018-04-14 13:06] MED LIST changes: -ALTEPLASE 2 MG/2 ML VIAL (J2997 PER 1MG) As Ordered; -CLOPIDOGREL 75 MG TAB As Ordered; -HEPARIN 1,000 UNITS/ML 10ML VIAL (FOR RADIOLOGY& DIALYSIS ONLY) As Ordered; -ISOVUE-300 61% 50ML VIAL (Q9967) As Ordered; +LIDOCAINE 1% MDV 20ML VIAL SQ; -MIDAZOLAM INJ 2 MG/2 ML VIAL (J2250) As Ordered; -ONDANSETRON 4MG/2ML VIAL (J2405) As Ordered; -fentaNYL 100 MCG/2 ML INJECTION (J3010) As Ordered
[2018-04-14] MEDS ORDERED: LR 1,000 ML IV (16:30)
[2018-04-14] MEDS: HEPARIN SOD (PORCINE) 5000 UNITS/ML VIAL As Ordered (16:49)
[2018-04-14] MEDS ORDERED: ONDANSETRON 4MG/2ML VIAL (J2405) As Ordered (17:33)
[2018-04-14] MEDS ORDERED: PROPOFOL 200 MG/20 ML VIAL As Ordered (17:33)
[2018-04-14] MEDS ORDERED: MIDAZOLAM INJ 2 MG/2 ML VIAL (J2250) As Ordered (17:33)
[2018-04-14] MEDS ORDERED: fentaNYL 100 MCG/2 ML INJECTION (J3010) As Ordered (17:33)
[2018-04-14] MEDS ORDERED: KETAMINE HCL 200 MG/20 ML VIAL As Ordered (17:33)
[2018-04-14] MEDS: LR 1,000 ML IV (17:50)
[2018-04-14] MEDS ORDERED: HYDROMORPHONE HCL 0.5 MG/ 0.5 ML SYRINGE (J1170 PER 1) As Ordered (17:56)
[2018-04-14] MEDS ORDERED: ONDANSETRON 4MG/2ML VIAL (J2405) IV ×2 (18:00)
[2018-04-14] MEDS ORDERED: BISACODYL 10 MG SUPP PR (18:00)
[2018-04-14] MEDS: HYDROMORPHONE HCL 0.5 MG/ 0.5 ML SYRINGE (J1170 PER 1) IV ×7 (18:00→19:35)
[2018-04-14] MEDS ORDERED: ACETAMINOPHEN TAB 650MG DOSE (2X325MG) PO (18:00)
[2018-04-14] MEDS ORDERED: MOM 30ML SUSPENSION UDC PO (18:00)
[2018-04-14] MEDS ORDERED: fentaNYL 100 MCG/2 ML INJECTION (J3010) IV (18:00)
[2018-04-14 18:16] LABS: BASO # 0.1 10^3/uL (0.0-0.2); BASO % 0.5 % (0.0-1.0); EOS % 0.3 % (0.0-3.0); HEMATOCRIT 32.6 % (36.0-47.0); HEMOGLOBIN 10.3 g/dl (12.0-15.5); IMMATURE GRANULOCYTE % 0.5 % (0-3.0); LYMPH # 1.6 10^3/uL (1.5-4.5); LYMPH % 15.7 % (24.0-44.0); MEAN CORPUSCULAR HEMOGLOBIN 28.6 pg (27.0-33.0); MEAN CORPUSCULAR HGB CONC 31.6 g/dl (32.0-36.5); MEAN CORPUSCULAR VOLUME 90.6 fl (80.0-96.0); MONO % 10.3 % (0.0-5.0); NEUTROPHILS # 7.2 10^3/uL (1.8-7.7); NEUTROPHILS % 72.7 % (36.0-66.0); PLATELET COUNT, AUTOMATED 393 10^3/uL (150-450); RED CELL DISTRIBUTION WIDTH 14.6 % (11.5-14.5); WHITE BLOOD COUNT 9.9 10^3/uL (4.0-10.0)
[2018-04-14] MEDS: PERCOCET 5MG/325MG TAB PO ×2 (18:45→19:15)
[2018-04-14 18:57] LABS: ANION GAP 5 MEQ/L (8-16); BLOOD UREA NITROGEN 7 MG/DL (7-18); CALCIUM LEVEL 8.5 MG/DL (8.8-10.2); CARBON DIOXIDE LEVEL 30 MEQ/L (21-32); CHLORIDE LEVEL 100 MEQ/L (98-107); CREATININE FOR GFR 0.58 MG/DL (0.55-1.30); GLOMERULAR FILTRATION RATE > 60.0 (>39); GLUCOSE, FASTING 100 MG/DL (70-100); POTASSIUM SERUM 4.4 MEQ/L (3.5-5.1); SODIUM LEVEL 135 MEQ/L (136-145)
[2018-04-14] MEDS ORDERED: PERCOCET 5MG/325MG TAB As Ordered (19:13)
[2018-04-14] MEDS: FOLIC ACID 1 MG TAB PO (22:15)
[2018-04-14] MEDS: ATORVASTATIN 20 MG TAB PO (22:15)
[2018-04-14] MEDS: APIXABAN 5 MG TAB (ELIQUIS) PO (22:15)
[2018-04-14] MEDS: GABAPENTIN 400 MG CAP PO (22:16)
[2018-04-14] MEDS: CLOPIDOGREL 75 MG TAB PO (22:16)
[2018-04-14] MEDS: PIPERACILLIN/TAZOBACTAM SOD 3.375 GM in D5W MINI-BAG PLUS 50 ML IV (22:16)
[2018-04-14] MEDS: SENOKOT S TAB PO (22:16)
[2018-04-14] MEDS: NORCO, ANEXSIA 5/325MG TABLET (HYDROcodone/ACETAMINOPHEN) PO ×2 (22:17→23:52)
[2018-04-15] MEDS: PIPERACILLIN/TAZOBACTAM SOD 3.375 GM in D5W MINI-BAG PLUS 50 ML IV ×4 (02:57→21:05)
[2018-04-15] MEDS: APIXABAN 5 MG TAB (ELIQUIS) PO ×2 (08:13→21:05)
[2018-04-15] MEDS: DOCUSATE SODIUM 100 MG CAP PO (08:14)
[2018-04-15] MEDS: THIAMINE 100 MG TAB PO (08:14)
[2018-04-15] MEDS: GABAPENTIN 400 MG CAP PO ×3 (08:14→21:04)
[2018-04-15] MEDS: CYANOCOBALAMIN 500 MCG TAB PO (08:14)
[2018-04-15] MEDS: VITAMIN D 1,000 INTERNATIONAL UNITS TABLET PO (08:14)
[2018-04-15] MEDS: SENOKOT S TAB PO ×2 (08:18→21:00)
[2018-04-15] MEDS: NORCO, ANEXSIA 5/325MG TABLET (HYDROcodone/ACETAMINOPHEN) PO ×3 (08:19→21:05)
[2018-04-15] MEDS: BISOPROLOL FUMARATE 10 MG TAB PO (09:00)
[2018-04-15] MEDS: FUROSEMIDE 20 MG TAB PO (09:00)
[2018-04-15] MEDS ORDERED: MORPHINE 4 MG/ML 1ML VIAL/SYRINGE (J2270) IV (10:45)
[2018-04-15] MEDS: MORPHINE 4 MG/ML 1ML VIAL/SYRINGE (J2270) IV ×2 (11:27→16:26)
[2018-04-15] MEDS: ATORVASTATIN 20 MG TAB PO (21:06)
[2018-04-15] MEDS: FOLIC ACID 1 MG TAB PO (21:06)
[2018-04-15] MEDS: CLOPIDOGREL 75 MG TAB PO (21:06)
[2018-04-16] MEDS: MORPHINE 4 MG/ML 1ML VIAL/SYRINGE (J2270) IV ×2 (00:22→11:35)
[2018-04-16] MEDS: PIPERACILLIN/TAZOBACTAM SOD 3.375 GM in D5W MINI-BAG PLUS 50 ML IV ×4 (03:10→21:06)
[2018-04-16] MEDS: CYANOCOBALAMIN 500 MCG TAB PO (07:49)
[2018-04-16] MEDS: VITAMIN D 1,000 INTERNATIONAL UNITS TABLET PO (07:49)
[2018-04-16] MEDS: BISOPROLOL FUMARATE 10 MG TAB PO (07:49)
[2018-04-16] MEDS: SENOKOT S TAB PO ×2 (07:49→21:06)
[2018-04-16] MEDS: FUROSEMIDE 20 MG TAB PO (07:49)
[2018-04-16] MEDS: GABAPENTIN 400 MG CAP PO ×3 (07:49→21:06)
[2018-04-16] MEDS: DOCUSATE SODIUM 100 MG CAP PO (07:49)
[2018-04-16] MEDS: THIAMINE 100 MG TAB PO (07:49)
[2018-04-16] MEDS: APIXABAN 5 MG TAB (ELIQUIS) PO ×2 (08:02→21:06)
[2018-04-16] MEDS: NORCO, ANEXSIA 5/325MG TABLET (HYDROcodone/ACETAMINOPHEN) PO ×3 (08:02→21:07)
[2018-04-16] MEDS: ATORVASTATIN 20 MG TAB PO (21:06)
[2018-04-16] MEDS: FOLIC ACID 1 MG TAB PO (21:06)
[2018-04-16] MEDS: CLOPIDOGREL 75 MG TAB PO (21:06)
[2018-04-17] MEDS: MORPHINE 4 MG/ML 1ML VIAL/SYRINGE (J2270) IV ×2 (03:00→14:34)
[2018-04-17] MEDS: PIPERACILLIN/TAZOBACTAM SOD 3.375 GM in D5W MINI-BAG PLUS 50 ML IV ×4 (03:01→21:23)
[2018-04-17] MEDS: DOCUSATE SODIUM 100 MG CAP PO (08:37)
[2018-04-17] MEDS: SENOKOT S TAB PO ×2 (08:37→21:23)
[2018-04-17] MEDS: GABAPENTIN 400 MG CAP PO ×3 (08:37→21:22)
[2018-04-17] MEDS: APIXABAN 5 MG TAB (ELIQUIS) PO ×2 (08:37→21:22)
[2018-04-17] MEDS: CYANOCOBALAMIN 500 MCG TAB PO (08:37)
[2018-04-17] MEDS: FUROSEMIDE 20 MG TAB PO (08:38)
[2018-04-17] MEDS: THIAMINE 100 MG TAB PO (08:38)
[2018-04-17] MEDS: BISOPROLOL FUMARATE 10 MG TAB PO (08:38)
[2018-04-17] MEDS: VITAMIN D 1,000 INTERNATIONAL UNITS TABLET PO (08:38)
[2018-04-17] MEDS: NORCO, ANEXSIA 5/325MG TABLET (HYDROcodone/ACETAMINOPHEN) PO ×3 (08:39→21:23)
[2018-04-17] MEDS: FOLIC ACID 1 MG TAB PO (21:22)
[2018-04-17] MEDS: ATORVASTATIN 20 MG TAB PO (21:22)
[2018-04-17] MEDS: CLOPIDOGREL 75 MG TAB PO (21:23)
[2018-04-18] MEDS: PIPERACILLIN/TAZOBACTAM SOD 3.375 GM in D5W MINI-BAG PLUS 50 ML IV ×4 (02:17→22:16)
[2018-04-18] MEDS ORDERED: PROPOFOL 200 MG/20 ML VIAL As Ordered ×4 (07:54→09:45)
[2018-04-18] MEDS ORDERED: MIDAZOLAM INJ 2 MG/2 ML VIAL (J2250) As Ordered (07:55)
[2018-04-18] MEDS ORDERED: fentaNYL 100 MCG/2 ML INJECTION (J3010) As Ordered (07:55)
[2018-04-18] MEDS: HEPARIN SOD (PORCINE) 5000 UNITS/ML VIAL As Ordered (08:55)
[2018-04-18] MEDS: NORCO, ANEXSIA 5/325MG TABLET (HYDROcodone/ACETAMINOPHEN) PO ×3 (09:00→22:16)
[2018-04-18] MEDS ORDERED: HYDROMORPHONE HCL 0.5 MG/ 0.5 ML SYRINGE (J1170 PER 1) As Ordered ×2 (10:24→10:36)
[2018-04-18] MEDS: HYDROMORPHONE HCL 0.5 MG/ 0.5 ML SYRINGE (J1170 PER 1) IV ×5 (10:25→10:52)
[2018-04-18] MEDS ORDERED: LR 1,000 ML IV (10:30)
[2018-04-18] MEDS ORDERED: fentaNYL 100 MCG/2 ML INJECTION (J3010) IV (10:30)
[2018-04-18] MEDS ORDERED: ONDANSETRON 4MG/2ML VIAL (J2405) IV (10:30)
[2018-04-18] MEDS ORDERED: PERCOCET 5MG/325MG TAB As Ordered ×2 (10:32→10:45)
[2018-04-18] MEDS: PERCOCET 5MG/325MG TAB PO ×2 (10:40→11:00)
[2018-04-18] MEDS: DOCUSATE SODIUM 100 MG CAP PO (12:51)
[2018-04-18] MEDS: THIAMINE 100 MG TAB PO (12:51)
[2018-04-18] MEDS: CYANOCOBALAMIN 500 MCG TAB PO (12:51)
[2018-04-18] MEDS: GABAPENTIN 400 MG CAP PO ×3 (12:51→22:15)
[2018-04-18] MEDS: APIXABAN 5 MG TAB (ELIQUIS) PO ×2 (12:52→22:15)
[2018-04-18] MEDS: VITAMIN D 1,000 INTERNATIONAL UNITS TABLET PO (12:52)
[2018-04-18] MEDS: SENOKOT S TAB PO ×2 (12:52→22:16)
[2018-04-18] MEDS: BISOPROLOL FUMARATE 10 MG TAB PO (12:53)
[2018-04-18] MEDS: FUROSEMIDE 20 MG TAB PO (12:54)
[2018-04-18] MEDS: FOLIC ACID 1 MG TAB PO (22:15)
[2018-04-18] MEDS: ATORVASTATIN 20 MG TAB PO (22:15)
[2018-04-18] MEDS: CLOPIDOGREL 75 MG TAB PO (22:16)
[2018-04-19] MEDS: PIPERACILLIN/TAZOBACTAM SOD 3.375 GM in D5W MINI-BAG PLUS 50 ML IV ×4 (02:09→20:55)
[2018-04-19] MEDS: FUROSEMIDE 20 MG TAB PO (09:00)
[2018-04-19] MEDS: BISOPROLOL FUMARATE 10 MG TAB PO (09:00)
[2018-04-19] MEDS: DOCUSATE SODIUM 100 MG CAP PO (09:45)
[2018-04-19] MEDS: GABAPENTIN 400 MG CAP PO ×3 (09:45→20:54)
[2018-04-19] MEDS: CYANOCOBALAMIN 500 MCG TAB PO (09:45)
[2018-04-19] MEDS: THIAMINE 100 MG TAB PO (09:46)
[2018-04-19] MEDS: SENOKOT S TAB PO ×2 (09:46→20:55)
[2018-04-19] MEDS: APIXABAN 5 MG TAB (ELIQUIS) PO ×2 (09:46→20:54)
[2018-04-19] MEDS: VITAMIN D 1,000 INTERNATIONAL UNITS TABLET PO (09:46)
[2018-04-19] MEDS: NORCO, ANEXSIA 5/325MG TABLET (HYDROcodone/ACETAMINOPHEN) PO ×3 (09:46→20:55)
[2018-04-19] MEDS: ATORVASTATIN 20 MG TAB PO (20:54)
[2018-04-19] MEDS: FOLIC ACID 1 MG TAB PO (20:54)
[2018-04-19] MEDS: CLOPIDOGREL 75 MG TAB PO (20:55)
[2018-04-20] MEDS: PIPERACILLIN/TAZOBACTAM SOD 3.375 GM in D5W MINI-BAG PLUS 50 ML IV ×4 (02:56→20:06)
[2018-04-20] MEDS: MORPHINE 4 MG/ML 1ML VIAL/SYRINGE (J2270) IV (02:56)
[2018-04-20 06:13] LABS: ALBUMIN 2.1 GM/DL (3.2-5.2); ANION GAP 7 MEQ/L (8-16); BLOOD UREA NITROGEN 5 MG/DL (7-18); CALCIUM LEVEL 8.9 MG/DL (8.8-10.2); CARBON DIOXIDE LEVEL 30 MEQ/L (21-32); CHLORIDE LEVEL 102 MEQ/L (98-107); CREATININE FOR GFR 0.65 MG/DL (0.55-1.30); GLOMERULAR FILTRATION RATE > 60.0 (>39); GLUCOSE, FASTING 104 MG/DL (70-100); PHOSPHORUS LEVEL 3.2 MG/DL (2.5-4.9); POTASSIUM SERUM 3.5 MEQ/L (3.5-5.1); SODIUM LEVEL 139 MEQ/L (136-145)
[2018-04-20 06:15] LABS: HEMATOCRIT 30.3 % (36.0-47.0); HEMOGLOBIN 9.8 g/dl (12.0-15.5); MEAN CORPUSCULAR HEMOGLOBIN 28.1 pg (27.0-33.0); MEAN CORPUSCULAR HGB CONC 32.3 g/dl (32.0-36.5); MEAN CORPUSCULAR VOLUME 86.8 fl (80.0-96.0); PLATELET COUNT, AUTOMATED 399 10^3/uL (150-450); RED BLOOD COUNT 3.49 10^6/uL (4.00-5.40); RED CELL DISTRIBUTION WIDTH 14.4 % (11.5-14.5); WHITE BLOOD COUNT 8.1 10^3/uL (4.0-10.0)
[2018-04-20] MEDS: APIXABAN 5 MG TAB (ELIQUIS) PO ×2 (09:13→20:05)
[2018-04-20] MEDS: SENOKOT S TAB PO ×2 (09:13→20:05)
[2018-04-20] MEDS: VITAMIN D 1,000 INTERNATIONAL UNITS TABLET PO (09:13)
[2018-04-20] MEDS: THIAMINE 100 MG TAB PO (09:13)
[2018-04-20] MEDS: FUROSEMIDE 20 MG TAB PO (09:13)
[2018-04-20] MEDS: DOCUSATE SODIUM 100 MG CAP PO (09:13)
[2018-04-20] MEDS: BISOPROLOL FUMARATE 10 MG TAB PO (09:13)
[2018-04-20] MEDS: CYANOCOBALAMIN 500 MCG TAB PO (09:14)
[2018-04-20] MEDS: GABAPENTIN 400 MG CAP PO ×3 (09:14→20:05)
[2018-04-20] MEDS: NORCO, ANEXSIA 5/325MG TABLET (HYDROcodone/ACETAMINOPHEN) PO ×3 (09:15→20:06)
[2018-04-20] MEDS: CLOPIDOGREL 75 MG TAB PO (20:06)
[2018-04-20] MEDS: ATORVASTATIN 20 MG TAB PO (20:06)
[2018-04-20] MEDS: FOLIC ACID 1 MG TAB PO (20:06)
[2018-04-21] MEDS: PIPERACILLIN/TAZOBACTAM SOD 3.375 GM in D5W MINI-BAG PLUS 50 ML IV ×4 (02:34→20:36)
[2018-04-21] MEDS: BISOPROLOL FUMARATE 10 MG TAB PO (09:00)
[2018-04-21] MEDS: GABAPENTIN 400 MG CAP PO ×3 (09:13→20:36)
[2018-04-21] MEDS: APIXABAN 5 MG TAB (ELIQUIS) PO ×2 (09:16→20:36)
[2018-04-21] MEDS: VITAMIN D 1,000 INTERNATIONAL UNITS TABLET PO (09:17)
[2018-04-21] MEDS: THIAMINE 100 MG TAB PO (09:17)
[2018-04-21] MEDS: SENOKOT S TAB PO ×2 (09:17→20:36)
[2018-04-21] MEDS: FUROSEMIDE 20 MG TAB PO (09:17)
[2018-04-21] MEDS: DOCUSATE SODIUM 100 MG CAP PO (09:17)
[2018-04-21] MEDS: CYANOCOBALAMIN 500 MCG TAB PO (09:17)
[2018-04-21] MEDS: NORCO, ANEXSIA 5/325MG TABLET (HYDROcodone/ACETAMINOPHEN) PO ×3 (09:18→20:37)
[2018-04-21] MEDS: ATORVASTATIN 20 MG TAB PO (20:36)
[2018-04-21] MEDS: FOLIC ACID 1 MG TAB PO (20:36)
[2018-04-21] MEDS: CLOPIDOGREL 75 MG TAB PO (20:36)
[2018-04-22] MEDS: PIPERACILLIN/TAZOBACTAM SOD 3.375 GM in D5W MINI-BAG PLUS 50 ML IV ×4 (02:15→20:34)
[2018-04-22] MEDS: THIAMINE 100 MG TAB PO (08:42)
[2018-04-22] MEDS: FUROSEMIDE 20 MG TAB PO (08:42)
[2018-04-22] MEDS: CYANOCOBALAMIN 500 MCG TAB PO (08:42)
[2018-04-22] MEDS: DOCUSATE SODIUM 100 MG CAP PO (08:43)
[2018-04-22] MEDS: APIXABAN 5 MG TAB (ELIQUIS) PO ×2 (08:43→20:34)
[2018-04-22] MEDS: VITAMIN D 1,000 INTERNATIONAL UNITS TABLET PO (08:43)
[2018-04-22] MEDS: BISOPROLOL FUMARATE 10 MG TAB PO (08:43)
[2018-04-22] MEDS: GABAPENTIN 400 MG CAP PO ×3 (08:43→20:34)
[2018-04-22] MEDS: NORCO, ANEXSIA 5/325MG TABLET (HYDROcodone/ACETAMINOPHEN) PO ×3 (08:44→20:36)
[2018-04-22] MEDS: SENOKOT S TAB PO ×2 (08:44→20:34)
[2018-04-22] MEDS: FOLIC ACID 1 MG TAB PO (20:34)
[2018-04-22] MEDS: CLOPIDOGREL 75 MG TAB PO (20:34)
[2018-04-22] MEDS: ATORVASTATIN 20 MG TAB PO (20:46)
[2018-04-23] MEDS: PIPERACILLIN/TAZOBACTAM SOD 3.375 GM in D5W MINI-BAG PLUS 50 ML IV ×4 (02:35→20:43)
[2018-04-23] MEDS: BISOPROLOL FUMARATE 10 MG TAB PO (07:49)
[2018-04-23] MEDS: DOCUSATE SODIUM 100 MG CAP PO (08:05)
[2018-04-23] MEDS: APIXABAN 5 MG TAB (ELIQUIS) PO ×2 (08:05→20:43)
[2018-04-23] MEDS: THIAMINE 100 MG TAB PO (08:06)
[2018-04-23] MEDS: FUROSEMIDE 20 MG TAB PO (08:06)
[2018-04-23] MEDS: VITAMIN D 1,000 INTERNATIONAL UNITS TABLET PO (08:06)
[2018-04-23] MEDS: CYANOCOBALAMIN 500 MCG TAB PO (08:06)
[2018-04-23] MEDS: GABAPENTIN 400 MG CAP PO ×3 (08:06→20:43)
[2018-04-23] MEDS: SENOKOT S TAB PO ×2 (08:07→20:44)
[2018-04-23] MEDS: NORCO, ANEXSIA 5/325MG TABLET (HYDROcodone/ACETAMINOPHEN) PO ×3 (08:07→20:44)
[2018-04-23] MEDS: ATORVASTATIN 20 MG TAB PO (20:43)
[2018-04-23] MEDS: FOLIC ACID 1 MG TAB PO (20:43)
[2018-04-23] MEDS: CLOPIDOGREL 75 MG TAB PO (20:43)
[2018-04-24] MEDS: PIPERACILLIN/TAZOBACTAM SOD 3.375 GM in D5W MINI-BAG PLUS 50 ML IV ×4 (02:57→20:41)
[2018-04-24] MEDS: DOCUSATE SODIUM 100 MG CAP PO (07:59)
[2018-04-24] MEDS: VITAMIN D 1,000 INTERNATIONAL UNITS TABLET PO (07:59)
[2018-04-24] MEDS: THIAMINE 100 MG TAB PO (07:59)
[2018-04-24] MEDS: APIXABAN 5 MG TAB (ELIQUIS) PO ×2 (07:59→20:43)
[2018-04-24] MEDS: SENOKOT S TAB PO ×2 (07:59→20:42)
[2018-04-24] MEDS: CYANOCOBALAMIN 500 MCG TAB PO (07:59)
[2018-04-24] MEDS: FUROSEMIDE 20 MG TAB PO (08:00)
[2018-04-24] MEDS: BISOPROLOL FUMARATE 10 MG TAB PO (08:00)
[2018-04-24] MEDS: NORCO, ANEXSIA 5/325MG TABLET (HYDROcodone/ACETAMINOPHEN) PO ×3 (08:00→20:42)
[2018-04-24] MEDS: GABAPENTIN 400 MG CAP PO ×3 (08:00→20:41)
[2018-04-24] MEDS: MORPHINE 4 MG/ML 1ML VIAL/SYRINGE (J2270) IV (18:20)
[2018-04-24] MEDS: ATORVASTATIN 20 MG TAB PO (20:41)
[2018-04-24] MEDS: CLOPIDOGREL 75 MG TAB PO (20:42)
[2018-04-24] MEDS: FOLIC ACID 1 MG TAB PO (20:42)
[2018-04-25] MEDS: PIPERACILLIN/TAZOBACTAM SOD 3.375 GM in D5W MINI-BAG PLUS 50 ML IV ×2 (02:16→10:30)
[2018-04-25 06:19] LABS: HEMATOCRIT 33.7 % (36.0-47.0); HEMOGLOBIN 10.6 g/dl (12.0-15.5); MEAN CORPUSCULAR HEMOGLOBIN 27.2 pg (27.0-33.0); MEAN CORPUSCULAR HGB CONC 31.5 g/dl (32.0-36.5); MEAN CORPUSCULAR VOLUME 86.6 fl (80.0-96.0); PLATELET COUNT, AUTOMATED 536 10^3/uL (150-450); RED BLOOD COUNT 3.89 10^6/uL (4.00-5.40); RED CELL DISTRIBUTION WIDTH 14.4 % (11.5-14.5); WHITE BLOOD COUNT 11.7 10^3/uL (4.0-10.0)
[2018-04-25 06:36] LABS: ALBUMIN 2.4 GM/DL (3.2-5.2); ANION GAP 8 MEQ/L (8-16); BLOOD UREA NITROGEN 8 MG/DL (7-18); CALCIUM LEVEL 9.2 MG/DL (8.8-10.2); CARBON DIOXIDE LEVEL 28 MEQ/L (21-32); CHLORIDE LEVEL 102 MEQ/L (98-107); CREATININE FOR GFR 0.86 MG/DL (0.55-1.30); GLOMERULAR FILTRATION RATE > 60.0 (>39); GLUCOSE, FASTING 99 MG/DL (70-100); PHOSPHORUS LEVEL 3.3 MG/DL (2.5-4.9); POTASSIUM SERUM 3.8 MEQ/L (3.5-5.1); SODIUM LEVEL 138 MEQ/L (136-145)
[2018-04-25] MEDS: CYANOCOBALAMIN 500 MCG TAB PO (10:31)
[2018-04-25] MEDS: DOCUSATE SODIUM 100 MG CAP PO (10:31)
[2018-04-25] MEDS: SENOKOT S TAB PO (10:31)
[2018-04-25] MEDS: VITAMIN D 1,000 INTERNATIONAL UNITS TABLET PO (10:32)
[2018-04-25] MEDS: THIAMINE 100 MG TAB PO (10:33)
[2018-04-25] MEDS: FUROSEMIDE 20 MG TAB PO (10:33)
[2018-04-25] MEDS: GABAPENTIN 400 MG CAP PO (10:33)
[2018-04-25] MEDS: APIXABAN 5 MG TAB (ELIQUIS) PO (10:34)
[2018-04-25] MEDS: BISOPROLOL FUMARATE 10 MG TAB PO (10:34)
[2018-04-25] MEDS: NORCO, ANEXSIA 5/325MG TABLET (HYDROcodone/ACETAMINOPHEN) PO (10:37)
== END 2018-04-25 13:40 | disposition home health service (06) | DRG 264 ==
LOC: M SDC 13:06 → M MSPAV 19:50 → M SDC 17:47 → M MSPAV 17:48
PROC: 0KBT0ZZ Excision of Left Lower Leg Muscle, Open Approach (ICD-10-PCS; 2018-04-14 15:15)
PROC: 0HRLX74 Replacement of Left Lower Leg Skin with Autologous Tissue Substitute, Partial Thickness, External Approach (ICD-10-PCS; principal; 2018-04-14 17:10)
PROC: 0KBT0ZZ Excision of Left Lower Leg Muscle, Open Approach (ICD-10-PCS; 2018-04-14 17:10)
DX: I70.64 Atherosclerosis of nonbiological bypass graft(s) of the left leg with ulceration (principal); L03.116 Cellulitis of left lower limb; L97.823 Non-pressure chronic ulcer of other part of left lower leg with necrosis of muscle; I48.91 Unspecified atrial fibrillation; I10 Essential (primary) hypertension; I25.10 Atherosclerotic heart disease of native coronary artery without angina pectoris; F17.218 Nicotine dependence, cigarettes, with other nicotine-induced disorders; I70.201 Unspecified atherosclerosis of native arteries of extremities, right leg; E78.00 Pure hypercholesterolemia, unspecified; I65.23 Occlusion and stenosis of bilateral carotid arteries; Z79.02 Long term (current) use of antithrombotics/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; Z79.01 Long term (current) use of anticoagulants; Z79.891 Long term (current) use of opiate analgesic; Z79.899 Other long term (current) drug therapy; Z88.1 Allergy status to other antibiotic agents; Z88.8 Allergy status to other drugs, medicaments and biological substances

== ENCOUNTER 2018-08-09 14:37 | Inpatient (IN) | payer MEDICARE ==
[~2018-08-09] VITALS: Ht 162.6 cm; Wt 59.3 kg
[~2018-08-09 14:37] MED LIST changes: +ACET500T15 PO; +ASPI81TA60 PO; +ASPI81TA85 PO; +ATOR40TA75 PO; +B-12100010 PO; +B-122500 PO; +BIOT10008 PO; +BIOT50004 PO; +BISO10TA PO; +CLOP75TA2 PO; +ELIQ5TAB PO; +FISH5CAP PO; +FOLI1TAB11 PO; +FURO20TA2 PO; +GABA-1171; +GABA-845 PO; +HYDR-3713 PO; -LIDOCAINE 1% MDV 20ML VIAL SQ; +LUTECAP2 PO; +MELA3TAB PO; +NORCOTAB PO; +PRAV40TA2 PO; +PRESCAP4 PO; +PRIL20CA9 PO; +STOO100C PO; +THIA100T7 PO; +TYLETAB14 PO; +VITA-122 PO; +VITA10002 PO; +VITA500T3 PO; +VITMTA PO; +ZINC50CA PO; +ZYRT10CA5 PO
[2018-08-09] MEDS ORDERED: NS 500 ML IV ONE (15:45)
[2018-08-09] MEDS ORDERED: PIPERACILLIN/TAZOBACTAM SOD 4.5 GM in D5W MINI-BAG PLUS 50 ML IV ONE (15:45)
[2018-08-09] MEDS ORDERED: VANCOMYCIN HCL 1,000 MG, VIAL MATE ADAPTER 1 EACH in D5W 250 ML IV ONE (15:45)
[2018-08-09 15:54] LABS: HEMATOCRIT 33.8 % (36.0-47.0); HEMOGLOBIN 10.6 g/dl (12.0-15.5); MEAN CORPUSCULAR HEMOGLOBIN 23.7 pg (27.0-33.0); MEAN CORPUSCULAR HGB CONC 31.4 g/dl (32.0-36.5); MEAN CORPUSCULAR VOLUME 75.4 fl (80.0-96.0); PLATELET COUNT, AUTOMATED 395 10^3/uL (150-450); RED BLOOD COUNT 4.48 10^6/uL (4.00-5.40); WHITE BLOOD COUNT 17.3 10^3/uL (4.0-10.0)
[2018-08-09 16:13] LABS: BLOOD UREA NITROGEN 14 MG/DL (7-18); CARBON DIOXIDE LEVEL 29 MEQ/L (21-32); CHLORIDE LEVEL 91 MEQ/L (98-107); CREATININE FOR GFR 0.79 MG/DL (0.55-1.30); GLOMERULAR FILTRATION RATE > 60.0 (>39); GLUCOSE, FASTING 120 MG/DL (70-100); POTASSIUM SERUM 3.3 MEQ/L (3.5-5.1); SODIUM LEVEL 130 MEQ/L (136-145)
--- NOTE | 2018-08-09 16:20 | REP ---
Left lower extremity Duplex Doppler venous ultrasound: Real time compression and duplex Doppler interrogation of the left lower extremity deep venous system is performed. The left common femoral, superficial femoral and popliteal veins are fully compressible with transducer pressure and demonstrate normal spontaneous and phasic flow, without evidence of deep venous thrombosis. Impression: No evidence of deep venous thrombosis of the left lower extremity femoral popliteal venous system. Electronically Signed by Adán Gorman MD 08/09/2018 04:12 P
[2018-08-09] MEDS ORDERED: IBUP200T45 PO (16:22)
[2018-08-09] MEDS ORDERED: POTASSIUM CHLORIDE 10 MEQ SR TABLET PO ONE ×2 (17:00→19:00)
[2018-08-09] MEDS ORDERED: NORCO, ANEXSIA 5/325MG TABLET (HYDROcodone/ACETAMINOPHEN) PO ONE (17:45)
[2018-08-09] MEDS: PERCOCET 5MG/325MG TAB PO PRN ×2 (18:04→22:08)
[2018-08-09] MEDS ORDERED: NICOTINE 21MG/24HR 1 EA TRANSDERMAL TD PRN (18:15)
[2018-08-09] MEDS ORDERED: NS 1,000 ML IV ONE (18:15)
[2018-08-09 18:50] LABS: ERYTHROCYTE SEDIMENTATION RATE 63 mm/hr (0-30)
--- NOTE | 2018-08-09 20:14 | REP ---
LEFT LOWER LEG: AP and lateral views of the left lower leg are performed. No fracture is seen. There is smooth periosteal reaction along the cortex of the distal tibia as well as the distal fibula. This could indicate acute or chronic osteomyelitis. No overt osseous destruction is seen. There are multiple skin prateek in this region superficially. Two round calcific densities are seen posterior to the ankle joint, slightly less than 1 cm in diameter. There is mild soft tissue swelling in this region. There are mild vascular calcifications. IMPRESSION: Diffuse periosteal reaction of the distal tibia and fibula could indicate acute or chronic osteomyelitis. No acute fracture or overt osseous destruction. Electronically Signed by Adán Gorman MD 08/10/2018 09:19 A
--- NOTE | 2018-08-09 20:34 | HPE ---
DATE OF ADMISSION: 08/09/2018 CHIEF COMPLAINT: Pain, swelling, and redness, foul smelling discharge, and chronic ulcer on the lateral posterior aspect of the left lower extremity. HISTORY OF PRESENT ILLNESS: The patient is a 73-year-old female. She has significant past medical history of peripheral artery disease (PAD) with chronic PAD ulcer on the lateral posterior aspect of the left lower extremity near the lateral malleolus. She has had skin graft in the past, as well as angioplasty times four. She recently had cadaver grafts approximately 5 days ago. She presents to the emergency room with foul smelling purulent drainage, surrounding erythema tracking all the way up her leg, all the way to the thigh, subjective fevers and chills and pain, erythema and induration of the lower extremity around her ulcer that has progressively worsened over the last 5 days. Again, notably in the patient's history she has had cadaver graft placed 5 days ago and symptoms started over the last 2-3 days. She had a skin graft previously as well as angioplasty multiple times. She continues to smoke. She denies any nausea, vomiting, any chest pain, or shortness of breath. She denies any urinary symptoms, abdominal pain, constipation, or diarrhea. PAST MEDICAL HISTORY: See history of present illness (HPI). PAST SURGICAL HISTORY: She has had angioplasty times four, she has had cataract surgery, tubal ligation. She also has a history of tobacco abuse and alcohol abuse. HOME MEDICATIONS: Includes: - Eliquis - [place] - Lipitor - bisoprolol - Plavix - folic acid - Lasix - gabapentin - thiamine ALLERGIES: KEFLEX and CIPRO, reactions are gastrointestinal (GI) related. SOCIAL HISTORY: She is a current smoker, smokes a pack per day. Some alcohol abuse, she drinks two beers daily, she states in the past she was up to five or six beers daily, now she is down to two. No history of illicit drug use. FAMILY HISTORY: Noncontributory. REVIEW OF SYSTEMS: A 12-point review of systems was completed, all which were negative except those listed in the history of present illness (HPI). VITAL SIGNS ON ADMISSION: Temperature 97.4, pulse 92, respirations 20, saturating at 98% on room air, blood pressure 108/53. PHYSICAL EXAMINATION: GENERAL: She is well nourished, in distress secondary to pain. HEAD: Normocephalic, atraumatic. EYES: Extraocular movements are intact. Pupils equal, round, reactive to light. NECK: Supple, no jugular venous pressure (JVP). LUNGS: Clear to auscultation, no crackles, wheezes, rales, or rhonchi. CARDIOVASCULAR: Irregularly irregular rhythm, normal S1, S2, no murmurs, gallops, or rubs. ABDOMEN: Soft, nontender, nondistended, positive bowel sounds, no rebound, no guarding. EXTREMITIES: She has bilateral pitting edema. She has what appears to be a 7 x 3 cm ulcerative area on the lateral aspect extending posteriorly on the left lower extremity with purulent drainage, foul smelling, erythema tracking all the way up to the thigh, as well as some induration. NEUROLOGIC: Alert and oriented times three, no focal deficits appreciated in the exam. LABORATORIES AND IMAGING IN THE EMERGENCY ROOM (ER): White count of 17, hemoglobin and hematocrit of 10/33, baseline hemoglobin of 10, platelet count of 395. Chemistry shows a sodium of 130, potassium of 3.3, chloride of 91, BUN and creatinine of 14/0.49. Dopplers in the emergency room show no deep venous thrombosis (DVT). X-ray of the tibia/fibula shows periosteal elevation, possibly acute versus chronic osteomyelitis. ASSESSMENT AND PLAN: 73-year-old with chronic peripheral artery disease (PAD), ulcer status post angioplasty, cadaver graft 5 days ago, presents with pain, swelling, redness, nausea, fevers, and chills. This is sepsis likely secondary to infected peripheral artery disease (PAD) ulcer with purulent cellulitis as well as osteomyelitis, possibly acute versus chronic. Vascular consult, Dr. Crews, already called in emergency room. Wound cultures and blood cultures times two. Will place the patient on vancomycin, cefepime, and Flagyl. Will avoid vancomycin and Zosyn as there is possibility of precipitating renal failure. Will place the patient on IV fluids. Percocet as needed pain. The patient will likely need long-term antibiotics with the presence of osteomyelitis on this peripheral artery disease (PAD) ulcer. FOR HER CHRONIC MEDICAL CONDITIONS: Atrial fibrillation: On anticoagulation with Eliquis. Will continue her Eliquis. Patient will likely need debridement of her peripheral artery disease (PAD) ulcer at some point in time. Eliquis will need to be held then, but will continue for now. For history of alcohol abuse: Patient does not appear to be withdrawing. Her last drink was yesterday. She is down to two beers daily. Will place her on the Clinical [place] Withdrawal Assessment (CIWA) protocol. Can start her on Ativan if she does start to withdraw. Will continue thiamine and folic acid. For history of tobacco abuse: Nicotine replacement with nicotine patch. History of hypertension: Continue Lasix and bisoprolol. History of transient ischemic attack (TIA): Continue Plavix. History of peripheral artery disease (PAD) status post angioplasty multiple times: Continue Plavix and Lipitor. Hyperlipidemia: Continue Lipitor. SUPPORTIVE: Deep venous thrombosis (DVT) prophylaxis: On Eliquis. Gastrointestinal (GI) prophylaxis: Not indicated. Diet: Cardiac. Patient to be evaluated by the vascular surgeon in the morning. Will continue anticoagulation for now. Will hold pending a plan for debridement if deemed suitable by the vascular team.
[2018-08-09] MEDS ORDERED: CEFEPIME HCL 1 GM in D5W MINI-BAG PLUS 50 ML IV SCH (21:00)
[2018-08-09 21:15] VITALS: BP 144/65
[2018-08-09] MEDS: DOCUSATE SODIUM 100 MG CAP PO SCH (21:58)
[2018-08-09] MEDS: FOLIC ACID 1 MG TAB PO SCH (21:59)
[2018-08-09] MEDS: ATORVASTATIN 20 MG TAB PO SCH (21:59)
[2018-08-09] MEDS: CLOPIDOGREL 75 MG TAB PO SCH (21:59)
[2018-08-09] MEDS: GABAPENTIN 400 MG CAP PO SCH (21:59)
[2018-08-09] MEDS: metroNIDAZOLE 500 MG in APPROPRIATE DILUENT 1 EA IV SCH (21:59)
[2018-08-09] MEDS: APIXABAN 5 MG TAB (ELIQUIS) PO SCH (21:59)
[2018-08-09] MEDS ORDERED: VANCOMYCIN HCL 1,000 MG, VIAL MATE ADAPTER 1 EACH in D5W 250 ML IV SCH (23:00)
[2018-08-09] MEDS: VANCOMYCIN HCL 750 MG, VIAL MATE ADAPTER 1 EACH in D5W 250 ML IV SCH (23:26)
[2018-08-10] MEDS ORDERED: MORPHINE 4 MG/ML 1ML VIAL/SYRINGE (J2270) IV ONE (00:30)
[2018-08-10] MEDS: CEFEPIME HCL 1 GM in D5W MINI-BAG PLUS 50 ML IV SCH ×2 (01:49→13:09)
[2018-08-10] MEDS: metroNIDAZOLE 500 MG in APPROPRIATE DILUENT 1 EA IV SCH ×3 (05:32→21:31)
[2018-08-10 05:51] LABS: HEMATOCRIT 30.7 % (36.0-47.0); HEMOGLOBIN 9.6 g/dl (12.0-15.5); MEAN CORPUSCULAR HEMOGLOBIN 23.3 pg (27.0-33.0); MEAN CORPUSCULAR HGB CONC 31.3 g/dl (32.0-36.5); MEAN CORPUSCULAR VOLUME 74.5 fl (80.0-96.0); PLATELET COUNT, AUTOMATED 357 10^3/uL (150-450); RED BLOOD COUNT 4.12 10^6/uL (4.00-5.40)
[2018-08-10 06:00] VITALS: BP 132/62
[2018-08-10 06:23] LABS: BLOOD UREA NITROGEN 11 MG/DL (7-18); CALCIUM LEVEL 8.4 MG/DL (8.8-10.2); CARBON DIOXIDE LEVEL 27 MEQ/L (21-32); CHLORIDE LEVEL 98 MEQ/L (98-107); CREATININE FOR GFR 0.69 MG/DL (0.55-1.30); GLOMERULAR FILTRATION RATE > 60.0 (>39); GLUCOSE, FASTING 94 MG/DL (70-100); POTASSIUM SERUM 4.1 MEQ/L (3.5-5.1); SODIUM LEVEL 132 MEQ/L (136-145)
[2018-08-10] MEDS: CYANOCOBALAMIN 500 MCG TAB PO SCH (07:52)
[2018-08-10] MEDS: APIXABAN 5 MG TAB (ELIQUIS) PO SCH ×2 (07:52→21:31)
[2018-08-10] MEDS: BISOPROLOL FUMARATE 10 MG TAB PO SCH (07:52)
[2018-08-10] MEDS: THIAMINE 100 MG TAB PO SCH (07:53)
[2018-08-10] MEDS: PERCOCET 5MG/325MG TAB PO PRN ×4 (07:53→21:38)
[2018-08-10] MEDS: FUROSEMIDE 20 MG TAB PO SCH (07:53)
[2018-08-10] MEDS: VITAMIN D 1,000 INTERNATIONAL UNITS TABLET PO SCH (07:53)
--- NOTE | 2018-08-10 09:26 | ECGEPIP ---
Stationary ECG Study [facility] - ED Test Date: 2018-08-09 Pat Name: JANICE MCGUIRE Department: Room: [place] [address] Gender: F Arrt Technologist: alda : 1945 Requested By: MISBAH Heart Order Number: [id number] Reading MD: Yaneth Denton Measurements Intervals [place] Rate: 95 P: [place]: 0 QRS: 36 QRSD: 76 T: 0 QT: 315 QTc: 396 Interpretive Statements ATRIAL FIBRILLATION LOW QRS VOLTAGE IN EXTREMITY LEADS NONSPECIFIC T-WAVE ABNORMALITY ABNORMAL RHYTHM ECG SIMILAR 03/11/18 Electronically Signed On 08-10-2018 9:26:12 EST by Yaneth Denton
[2018-08-10 10:32] LABS: FERRITIN 50 NG/ML (8-252); IRON (FE) 19 UG/DL (50-170); PERCENT SATURATION 6.4 % (13.2-45.0); TOTAL IRON BINDING CAPACITY 298 UG/DL (250-450)
[2018-08-10 10:44] LABS: FOLATE > 24.0 NG/ML (>5.4); VITAMIN B12 LEVEL > 2000 PG/ML (247-911)
[2018-08-10] MEDS: VANCOMYCIN HCL 750 MG, VIAL MATE ADAPTER 1 EACH in D5W 250 ML IV SCH ×2 (11:29→22:42)
[2018-08-10] MEDS: LACTOBACILLUS ACIDOPHILUS CAP (BACID) PO SCH ×2 (13:10→17:08)
[2018-08-10 14:00] VITALS: BP 111/53
--- NOTE | 2018-08-10 14:55 | IPNPDOC ---
Text Note Date of Service The patient was seen on 08/10/18. NOTE SUBJECTIVE: Complains of severe pain in the left knee with redness and swelling , also has pain in the left ankle around the ulcers but the knee is more painful worsened with movement. No fever or chills overnight, no chest pain or sob , no abdominal pain nausea or vomiting or diarrhea. PHYSICAL EXAMINATION: VITALS: As below GENERAL: She is well nourished, in distress secondary to pain. HEAD: Normocephalic, atraumatic. EYES: Extraocular movements are intact. Pupils equal, round, reactive to light. NECK: Supple, no jugular venous pressure (JVP). LUNGS: Clear to auscultation, no crackles, wheezes, rales, or rhonchi. CARDIOVASCULAR: Irregularly irregular rhythm, normal S1, S2, no murmurs, gallops, or rubs. ABDOMEN: Soft, nontender, nondistended, positive bowel sounds, no rebound, no guarding. EXTREMITIES: She has bilateral pitting edema. She has what appears to be a 7 x 3 cm ulcerative area on the lateral aspect extending posteriorly on the left lower extremity with purulent drainage, foul smelling, erythema tracking all the way up to the thigh, as well as some induration. NEUROLOGIC: Alert and oriented times three, no focal deficits appreciated in the exam. LABS and RADIOLOGY: Reviewed ASSESSMENT and PLAN: The patient is a 73-year-old female. She has significant past medical history of peripheral artery disease (PAD) with chronic PAD ulcer on the lateral posterior aspect of the left lower extremity near the lateral malleolus, Afib, Hypertension, Hyperlipidemia, TIA, alcohol abuse and tobacco abuse. She has had skin graft in the past, as well as angioplasty times four. She recently had cadaver grafts approximately 5 days ago. She presented to the emergency room with foul smelling purulent drainage, surrounding erythema tracking all the way up her leg, all the way to the thigh, subjective fevers and chills and pain, erythema and induration of the lower extremity around her ulcer that has progressively worsened over the last 5 days. Again, notably in the patient's history she has had cadaver graft placed 5 days ago and symptoms started over the last 2-3 days. She had a skin graft previously as well as angioplasty multiple times. Infected arterial ulcer with purulent cellulitis as well as osteomyelitis, possibly acute versus chronic. Vascular consult, Dr. Crews, already called in emergency room. Wound cultures and blood cultures times two. the patient is on vancomycin, cefepime, and Flagyl. The patient will likely need long-term antibiotics with the presence of osteomyelitis on this peripheral artery disease (PAD) ulcer. Left knee pain and inflammation will get an xray check uric acid level consider ortho consult Atrial fibrillation: On anticoagulation with Eliquis. Will continue her Eliquis. Patient will likely need debridement of her peripheral artery disease (PAD) ulcer at some point in time. Eliquis will need to be held then, but will continue for now. For history of alcohol abuse: Patient does not appear to be withdrawing. Her last drink was yesterday. She is down to two beers daily. Will place her on the Clinical [place] Withdrawal Assessment (CIWA) protocol. Can start her on Ativan if she does start to withdraw. Will continue thiamine and folic acid. For history of tobacco abuse: Nicotine replacement with nicotine patch. History of hypertension: Continue Lasix and bisoprolol. History of transient ischemic attack (TIA): Continue Plavix. History of peripheral artery disease (PAD) status post angioplasty multiple times: Continue Plavix and Lipitor. Hyperlipidemia: Continue Lipitor. Microcytic anemia will get iron studies. Deep venous thrombosis (DVT) prophylaxis: On Eliquis. Gastrointestinal (GI) prophylaxis: Not indicated. VS,Fishbone, I+O VS, Fishbone, I+O Laboratory Tests 08/09/18 15:32 Red Blood Count 4.48, Mean Corpuscular Volume 75.4 L, Mean Corpuscular Hemoglobin 23.7 L, Mean Corpuscular Hemoglobin Concent 31.4 L, Red Cell Distribution Width 20.6 H, Calcium Level 9.0 08/10/18 05:23 Red Blood Count 4.12, Mean Corpuscular Volume 74.5 L, Mean Corpuscular Hemog lobin 23.3 L, Mean Corpuscular Hemoglobin Concent 31.3 L, Red Cell Distribution Width 20.8 H, Calcium Level 8.4 L Vital Signs Date Time Temp Pulse Resp B/P (MAP) Pulse Ox O2 Delivery O2 Flow Rate FiO2 08/10/18 07:53 18 08/10/18 07:52 97 132/62 08/10/18 06:00 99.3 90 Room Air I&O- Last 24 Hours up to 6 AM 08/10/18 06:00 Intake Total 1655 ml Output Total 400 ml Balance 1255 ml HECTOR ORTIZ MD Aug 10, 2018 09:27
[2018-08-10 15:11] LABS: URIC ACID 2.6 MG/DL (2.6-6.0)
--- NOTE | 2018-08-10 18:17 | REP ---
LEFT KNEE, TWO VIEWS: Two views of the left knee are performed. There is no fracture or dislocation. Osseous structures are intact with no destructive process. Joint spaces are unremarkable. IMPRESSION: Unremarkable exam left knee. Electronically Signed by Adán Gorman MD 08/11/2018 03:35 P
--- NOTE | 2018-08-10 20:38 | HPE ---
DATE OF ADMISSION: 08/09/2018 CHIEF COMPLAINT: Left knee pain and redness. HISTORY OF PRESENT ILLNESS: This 73-year-old female was in the hospital for a little over 24 hours related to left lower extremity skin grafting. She has a chronic history of vascular insufficiency with skin breakdown along the medial and lateral aspect of her left ankle and as such she has had a number of skin grafting procedures followed by the most recent one about five days ago where she had apparently had a cadaver split-thickness skin graft. She presented to the hospital as it started to become infected with foul smelling purulent discharge. They placed her on antibiotics. She was seen by Dr. Gudino, the hospitalist who ordered a number of different antibiotics for her. She was seeing Dr. Moore at the wound care clinic as well as Dr. Crews who had performed some grafts on her in the past. Now she complains about a couple day history of increasing redness on the anterior aspect of her left knee. 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 She has been having some fevers and chills as well while in the hospital. PAST MEDICAL HISTORY: Include chronic peripheral arterial disease with chronic PAD also around the lateral and posterior aspect of the left lower extremity near the ankle. HOME MEDICATIONS: Include: - Eliquis - [place] - Lipitor - bisoprolol - Plavix - folic acid - Lasix - gabapentin - thiamine ALLERGIES: KEFLEX and CIPRO which are gastrointestinal related allergies. SURGICAL HISTORY: 1. Angioplasty times four. 2. Cataract surgery. 3. Tubal ligation. SOCIAL HISTORY: History of tobacco abuse and alcohol abuse. She smokes a pack per day. She also drinks up to five to six beers daily sometimes but now she is down to two apparently. PHYSICAL EXAMINATION: VITAL SIGNS: At 2 o'clock just prior to when I saw her include a temperature at 100 degrees. Blood pressure 111/53 with pulse rate of 74. Respiratory rate 20 and 91% on room air. Inspection of her left knee reveals a moderate amount of redness and skin changes consistent with cellulitis/prepatellar bursitis. This was extremely tender to the touch and blanched with touching it as well consistent with prepatellar bursitis. There is no obvious knee effusion. Range of motion testing of the knee was essentially painless for deep pain within the knee either within 0 to 30 degrees of flexion as well as with micromotion. Inspection of the ankle reveals very foul smelling and purulent discharge coming from both graft sites on the medial and lateral malleoli. These are obviously infected and failing grafts. The split thickness skin graft is pulling right through the staple and it is obviously infected but this does not appear to be tracking up the leg but definitely has likely seeded her prepatellar bursitis. She definitely does have decreased sensations throughout the foot but it does not feel any different than it has been. She has a weak dorsalis pedis pulse. Anteroposterior (AP) lateral of knee x-rays were also reviewed. This does not show any obvious large effusion; however, there does appear to be swelling just anterior to the patella. Blood work was reviewed and this shows an initial white count of 17 down to 14. She also had a C-reactive protein (CRP) performed on admission on 08/09/2018 which is at 13. In addition she had an erythrocyte sedimentation rate (ESR) on admission which is 63. Also, she had blood cultures which have yet to show any growth after 24 hours. ASSESSMENT AND PLAN: This 73-year-old female with an obviously infected split thickness skin graft to her left ankle plus infected prepatellar bursitis I do not believe that she has a septic left knee. I think that we should continue treating this with the intravenous (IV) antibiotics that she is currently on as ordered by the hospitalist. This includes cefepime as well as vancomycin and metronidazole. It would probably be best as well to get infectious disease consult in this woman. I do not think there is any role for aspirating her knee or taking this acutely to the operating theater to wash out her knee as I believe this is more of a prepatellar bursitis situation. I did try to reach out to Dr. Crews and Dr. Moore; however, this is after hours and so they will have to reassess her in the morning in terms of what to do with the graft but it does not look like it needs to be debrided as it is quite obviously infected. I will leave this in their capable hands and I will also see her tomorrow to ensure that her infected prepatellar bursitis is not progressing.
[2018-08-10] MEDS: FOLIC ACID 1 MG TAB PO SCH (21:32)
[2018-08-10] MEDS: ATORVASTATIN 20 MG TAB PO SCH (21:32)
[2018-08-10] MEDS: DOCUSATE SODIUM 100 MG CAP PO SCH (21:32)
[2018-08-10] MEDS: CLOPIDOGREL 75 MG TAB PO SCH (21:32)
[2018-08-10] MEDS: GABAPENTIN 400 MG CAP PO SCH (21:32)
[2018-08-10 22:00] VITALS: BP 112/56
[2018-08-11] MEDS: CEFEPIME HCL 1 GM in D5W MINI-BAG PLUS 50 ML IV SCH ×2 (00:20→14:07)
[2018-08-11] MEDS: PERCOCET 5MG/325MG TAB PO PRN ×3 (05:39→20:28)
[2018-08-11] MEDS: metroNIDAZOLE 500 MG in APPROPRIATE DILUENT 1 EA IV SCH ×3 (05:39→21:39)
[2018-08-11 06:00] VITALS: BP 137/65
[2018-08-11 06:27] LABS: HEMATOCRIT 29.9 % (36.0-47.0); HEMOGLOBIN 9.4 g/dl (12.0-15.5); MEAN CORPUSCULAR HEMOGLOBIN 23.7 pg (27.0-33.0); MEAN CORPUSCULAR HGB CONC 31.4 g/dl (32.0-36.5); MEAN CORPUSCULAR VOLUME 75.3 fl (80.0-96.0); PLATELET COUNT, AUTOMATED 382 10^3/uL (150-450); RED BLOOD COUNT 3.97 10^6/uL (4.00-5.40)
[2018-08-11 06:48] LABS: BLOOD UREA NITROGEN 9 MG/DL (7-18); CALCIUM LEVEL 8.6 MG/DL (8.8-10.2); CARBON DIOXIDE LEVEL 26 MEQ/L (21-32); CHLORIDE LEVEL 95 MEQ/L (98-107); CREATININE FOR GFR 0.66 MG/DL (0.55-1.30); GLOMERULAR FILTRATION RATE > 60.0 (>39); GLUCOSE, FASTING 124 MG/DL (70-100); POTASSIUM SERUM 3.8 MEQ/L (3.5-5.1); SODIUM LEVEL 129 MEQ/L (136-145)
--- NOTE | 2018-08-11 07:49 | IPNPDOC ---
Date Seen The patient was seen on 08/11/18. Progress Note SUBJECTIVE:Per ortho, Dr. Branch, no SEPTIC joint, and recommends ID consult. Per the patient, her ankle skin grafts and left knee have been very painful, but controlled with present pain meds prn. no fever or chills overnight. unable to ambulate due to pain and swelling. PHYSICAL EXAMINATION: VITALS: As below GENERAL: She is well nourished, in distress secondary to pain. HEAD: Normocephalic, atraumatic. EYES: Extraocular movements are intact. Pupils equal, round, reactive to light. NECK: Supple, no jugular venous pressure (JVP). LUNGS: Clear to auscultation, no crackles, wheezes, rales, or rhonchi. CARDIOVASCULAR: Irregularly irregular rhythm, normal S1, S2, no murmurs, gallops, or rubs. ABDOMEN: Soft, nontender, nondistended, positive bowel sounds, no rebound, no guarding. EXTREMITIES: She has bilateral pitting edema. malodorous . 7 x 3 cm ulcerative area on the lateral aspect extending posteriorly on the left lower extremity with purulent drainage, foul smelling, erythema tracking all the way up to the thigh, as well as some induration. left knee swelling, warmth. NEUROLOGIC: Alert and oriented times three, no focal deficits appreciated in the exam. LABS and RADIOLOGY: Reviewed ASSESSMENT and PLAN: The patient is a 73-year-old female. She has significant past medical history of peripheral artery disease (PAD) with chronic PAD ulcer on the lateral posterior aspect of the left lower extremity near the lateral malleolus, Afib, Hypertension, Hyperlipidemia, TIA, alcohol abuse and tobacco abuse. She has had skin graft in the past, as well as angioplasty times four. She recently had cadaver grafts approximately 5 days ago. She presented to the emergency room with foul smelling purulent drainage, surrounding erythema tracking all the way up her leg, all the way to the thigh, subjective fevers and chills and pain, erythema and induration of the lower extremity around her ulcer that has progressively worsened over the last 5 days. Again, notably in the patient's history she has had cadaver graft placed 5 days ago and symptoms started over the last 2-3 days. She had a skin graft previously as well as angioplasty multiple times. infected split thickness skin graft to her left ankle plus infected left prepatellar bursitis with possible chronic osteomyelitis Vascular consult, Dr. Crews, Ortho Dr. Branch, and Dr. Herrera consulted Wound cultures and blood cultures times two. the patient is on vancomycin, cefepime, and Flagyl. The patient will likely need long-term antibiotics with the presence of osteomyelitis on this peripheral artery disease (PAD) ulcer. Pt may need debridement due to infected graft. Left knee pain and inflammation xray reviewed Per ortho Dr. Branch, ID consult and no septic arthritis. continue iv abx. Atrial fibrillation: On anticoagulation with Eliquis. Will continue her Eliquis. Patient will likely need debridement of her peripheral artery disease (PAD) ulcer at some point in time. Eliquis will need to be held then, but will continue for now. For history of alcohol abuse: Patient does not appear to be withdrawing. Her last drink was yesterday. She is down to two beers daily. Will place her on the Clinical [place] Withdrawal Assessment (CIWA) protocol. Can start her on Ativan if she does start to withdraw. Will continue thiamine and folic acid. For history of tobacco abuse: Nicotine replacement with nicotine patch. History of hypertension: Continue Lasix and bisoprolol. History of transient ischemic attack (TIA): Continue Plavix. History of peripheral artery disease (PAD) status post angioplasty multiple times: Continue Plavix and Lipitor. Hyperlipidemia: Continue Lipitor. Microcytic anemia will get iron studies. Deep venous thrombosis (DVT) prophylaxis: On Eliquis. Gastrointestinal (GI) prophylaxis: Not indicated. VS, I&O, 24H, Fishbone Vital Signs/I&O Vital Signs Date Time Temp Pulse Resp B/P (MAP) Pulse Ox O2 Delivery O2 Flow Rate FiO2 08/11/18 06:09 12 08/11/18 06:00 99.1 86 137/65 (89) 93 08/10/18 14:00 Room Air I&O- Last 24 Hours up to 6 AM 08/11/18 06:00 Intake Total 3200 ml Output Total 1700 ml Balance 1500 ml Laboratory Data 24H LABS Laboratory Tests 2 08/10/18 09:50: Uric Acid 2.6, Iron Level 19L, Total Iron Binding Capacity 298, Transferrin % Saturation 6.4L, Ferritin 50, Vitamin B12 Level > 2000H, Folate > 24.0 08/11/18 05:53: Nucleated Red Blood Cells % (auto) 0.0 CBC/BMP Laboratory Tests 08/11/18 05:53 Red Blood Count 3.97 L, Mean Corpuscular Volume 75.3 L, Mean Corpuscular Hemoglobin 23.7 L, Mean Corpuscular Hemoglobin Concent 31.4 L, Red Cell Distribution Width 20.3 H Microbiology Microbiology 08/09/18 Blood Culture - Preliminary, Resulted 08/09/18 Blood Culture - Preliminary, Resulted No growth after 24 hours . All specim... 08/09/18 Wound Culture - Preliminary, Resulted Pseudomonas Aeruginosa RAYMOND PEARSON MD Aug 11, 2018 06:40
[2018-08-11] MEDS: VITAMIN D 1,000 INTERNATIONAL UNITS TABLET PO SCH (08:56)
[2018-08-11] MEDS: LACTOBACILLUS ACIDOPHILUS CAP (BACID) PO SCH ×2 (08:56→18:16)
[2018-08-11] MEDS: THIAMINE 100 MG TAB PO SCH (08:56)
[2018-08-11] MEDS: APIXABAN 5 MG TAB (ELIQUIS) PO SCH ×2 (08:56→20:29)
[2018-08-11] MEDS: CYANOCOBALAMIN 500 MCG TAB PO SCH (08:57)
[2018-08-11] MEDS: FUROSEMIDE 20 MG TAB PO SCH (08:57)
[2018-08-11] MEDS: BISOPROLOL FUMARATE 10 MG TAB PO SCH (08:57)
--- NOTE | 2018-08-11 11:17 | PHACANCOPD ---
PHARMACY VANCOMYCIN DOSING Pt Demographics Demographics Patient Age:73 , Weight:59.300 , Gender: female Adjusted Body Weight Date: 08/11/18, Adjusted Body Weight: [55] Kg Events Past 24 Hours Events Past 24 Hours: NO: Dialysis, Diuretic Therapy, Change in CrCl, Fever, Elevation in WBC, Pending Diagnostics, Pending Procedures, Other Vancomycin Vancomycin indication: SSTI Vancomycin Target Ranges: 15-20 mcg/ml Vancomycin Load Y/N: No Load Dose Date Time Vancomycin Load Dose: Date: Time: Vancomycin Dose Date: 08/11/18. Current Vancomycin Dose: [750MG IV Q8H] Intermittent Dosing?: No Labs Labs Item Value Date Time White Blood Count 17.3 10^3/uL H 08/09/18 1532 White Blood Count 15.0 10^3/uL H 08/10/18 0523 White Blood Count 16.0 10^3/uL H 08/11/18 0553 Creatinine 0.79 MG/DL 08/09/18 1532 Creatinine 0.69 MG/DL 08/10/18 0523 Creatinine 0.66 MG/DL 08/11/18 0553 Vancomycin Level Trough 10.4 UG/ML 08/11/18 0955 Micro Microbiology 08/09/18 Blood Culture - Preliminary, Resulted 08/09/18 Blood Culture - Preliminary, Resulted No growth after 24 hours . All specim... 08/09/18 Wound Culture - Preliminary, Resulted Pseudomonas Aeruginosa Staphylococcus Aureus Streptococcus Group C Creatinine Clearance Date:08/11/18. Creatinine Clearance: [10.4ML/MIN]. Assessment and Plan Maintaining Current Dose?: No Reason for dose change: Trough too low Pharmacist Note Pharmacist Note Date: 08/11/18. Pharmacist note:PT is a 73 year old female being treated with vancomycin for a soft skin tissue infection goal trough 15-20mcg/ml. The trough came back today after the 4th dose @ 10.4mcg/ml. The dose will be changed to 750mg iv every 8 hours starting 08/11/18 @ 12. Another trough is scheduled 08/12/18 @11:00. We will continue to monitor and adjust dose as needed. YANETH GERMAN PHARMACY Aug 11, 2018 11:17
[2018-08-11] MEDS: VANCOMYCIN HCL 750 MG, VIAL MATE ADAPTER 1 EACH in D5W 250 ML IV SCH ×2 (12:47→19:29)
[2018-08-11 14:00] VITALS: BP 107/55
[2018-08-11] MEDS: FOLIC ACID 1 MG TAB PO SCH (20:28)
[2018-08-11] MEDS: DOCUSATE SODIUM 100 MG CAP PO SCH (20:28)
[2018-08-11] MEDS: GABAPENTIN 400 MG CAP PO SCH (20:28)
[2018-08-11] MEDS: CLOPIDOGREL 75 MG TAB PO SCH (20:28)
[2018-08-11] MEDS: ATORVASTATIN 20 MG TAB PO SCH (20:29)
[2018-08-11 22:00] VITALS: BP 151/69
[2018-08-12] MEDS: CEFEPIME HCL 1 GM in D5W MINI-BAG PLUS 50 ML IV SCH ×2 (00:22→14:15)
[2018-08-12] MEDS: VANCOMYCIN HCL 750 MG, VIAL MATE ADAPTER 1 EACH in D5W 250 ML IV SCH ×3 (03:47→19:36)
[2018-08-12] MEDS: PERCOCET 5MG/325MG TAB PO PRN ×3 (05:52→20:26)
[2018-08-12 06:00] VITALS: BP 132/68
[2018-08-12 06:27] LABS: HEMATOCRIT 32.4 % (36.0-47.0); HEMOGLOBIN 10.2 g/dl (12.0-15.5); MEAN CORPUSCULAR HEMOGLOBIN 23.7 pg (27.0-33.0); MEAN CORPUSCULAR HGB CONC 31.5 g/dl (32.0-36.5); MEAN CORPUSCULAR VOLUME 75.3 fl (80.0-96.0); PLATELET COUNT, AUTOMATED 430 10^3/uL (150-450); WHITE BLOOD COUNT 14.7 10^3/uL (4.0-10.0)
[2018-08-12 06:48] LABS: BLOOD UREA NITROGEN 7 MG/DL (7-18); CALCIUM LEVEL 8.6 MG/DL (8.8-10.2); CARBON DIOXIDE LEVEL 30 MEQ/L (21-32); CHLORIDE LEVEL 95 MEQ/L (98-107); GLOMERULAR FILTRATION RATE > 60.0 (>39); GLUCOSE, FASTING 112 MG/DL (70-100); POTASSIUM SERUM 3.6 MEQ/L (3.5-5.1); SODIUM LEVEL 131 MEQ/L (136-145)
[2018-08-12] MEDS: FUROSEMIDE 20 MG TAB PO SCH (09:14)
[2018-08-12] MEDS: APIXABAN 5 MG TAB (ELIQUIS) PO SCH ×2 (09:15→20:20)
[2018-08-12] MEDS: VITAMIN D 1,000 INTERNATIONAL UNITS TABLET PO SCH (09:15)
[2018-08-12] MEDS: LACTOBACILLUS ACIDOPHILUS CAP (BACID) PO SCH ×2 (09:15→18:19)
[2018-08-12] MEDS: CYANOCOBALAMIN 500 MCG TAB PO SCH (09:15)
[2018-08-12] MEDS: BISOPROLOL FUMARATE 10 MG TAB PO SCH (09:15)
[2018-08-12] MEDS: THIAMINE 100 MG TAB PO SCH (09:16)
--- NOTE | 2018-08-12 10:26 | IPNPDOC ---
Date Seen The patient was seen on 08/12/18. Progress Note SUBJECTIVE: Per patient, vascular surgery planning on angioplasty. still c/o pain b/l ankles. no fever or chills. no issues per rn. PHYSICAL EXAMINATION: VITALS: As below GENERAL: She is well nourished, in distress secondary to pain. HEAD: Normocephalic, atraumatic. EYES: Extraocular movements are intact. Pupils equal, round, reactive to light. NECK: Supple, no jugular venous pressure (JVP). LUNGS: Clear to auscultation, no crackles, wheezes, rales, or rhonchi. CARDIOVASCULAR: Irregularly irregular rhythm, normal S1, S2, no murmurs, gallops, or rubs. ABDOMEN: Soft, nontender, nondistended, positive bowel sounds, no rebound, no guarding. EXTREMITIES: She has bilateral pitting edema. malodorous . 7 x 3 cm ulcerative area on the lateral aspect extending posteriorly on the left lower extremity with purulent drainage, foul smelling, erythema tracking all the way up to the thigh, as well as some induration. left knee swelling, warmth. NEUROLOGIC: Alert and oriented times three, no focal deficits appreciated in the exam. LABS and RADIOLOGY: Reviewed ASSESSMENT and PLAN: The patient is a 73-year-old female. She has significant past medical history of peripheral artery disease (PAD) with chronic PAD ulcer on the lateral posterior aspect of the left lower extremity near the lateral malleolus, Afib, Hypertension, Hyperlipidemia, TIA, alcohol abuse and tobacco abuse. She has had skin graft in the past, as well as angioplasty times four. She recently had cadaver grafts approximately 5 days ago. She presented to the emergency room with foul smelling purulent drainage, surrounding erythema tracking all the way up her leg, all the way to the thigh, subjective fevers and chills and pain, erythema and induration of the lower extremity around her ulcer that has progressively worsened over the last 5 days. Again, notably in the patient's history she has had cadaver graft placed 5 days ago and symptoms started over the last 2-3 days. She had a skin graft previously as well as angioplasty multiple times. infected split thickness skin graft to her left ankle plus infected left prepatellar bursitis with possible chronic osteomyelitis Vascular consult, Dr. Crews, Ortho Dr. Branch, and Dr. Herrera consulted Wound cultures and blood cultures times two. the patient is on vancomycin, cefepime, and Flagyl. The patient will likely need long-term antibiotics with the presence of osteomyelitis on this peripheral artery disease (PAD) ulcer. Pt may need debridement due to infected graft. Left knee pain and inflammation xray reviewed Per ortho Dr. Branch, ID consult and no septic arthritis. continue iv abx. Atrial fibrillation: On anticoagulation with Eliquis. Will continue her Eliquis. Patient will likely need debridement of her peripheral artery disease (PAD) ulcer at some point in time. Eliquis will need to be held then, but will continue for now. For history of alcohol abuse: Patient does not appear to be withdrawing. Her last drink was yesterday. She is down to two beers daily. Will place her on the Clinical [place] Withdrawal Assessment (CIWA) protocol. Can start her on Ativan if she does start to withdraw. Will continue thiamine and folic acid. For history of tobacco abuse: Nicotine replacement with nicotine patch. History of hypertension: Continue Lasix and bisoprolol. History of transient ischemic attack (TIA): Continue Plavix. History of peripheral artery disease (PAD) status post angioplasty multiple times: Continue Plavix and Lipitor. Hyperlipidemia: Continue Lipitor. Microcytic anemia will get iron studies. Deep venous thrombosis (DVT) prophylaxis: On Eliquis. Gastrointestinal (GI) prophylaxis: Not indicated. VS, I&O, 24H, Fishbone Vital Signs/I&O Vital Signs Date Time Temp Pulse Resp B/P (MAP) Pulse Ox O2 Delivery O2 Flow Rate FiO2 08/12/18 06:22 12 08/11/18 22:00 99.4 63 151/69 (96) 96 Nasal Cannula 1.0 I&O- Last 24 Hours up to 6 AM 08/12/18 06:00 Intake Total 2650 ml Output Total 3650 ml Balance -1000 ml Laboratory Data 24H LABS Laboratory Tests 2 08/11/18 09:55: Vancomycin Level Trough 10.4 08/11/18 23:37: C-Reactive Protein, Quantitative 14.70H 08/12/18 05:56: Nucleated Red Blood Cells % (auto) 0.0 CBC/BMP Laboratory Tests 08/12/18 05:56 Red Blood Count 4.30, Mean Corpuscular Volume 75.3 L, Mean Corpuscular Hemo globin 23.7 L, Mean Corpuscular Hemoglobin Concent 31.5 L, Red Cell Distribution Width 20.7 H Microbiology Microbiology 08/09/18 Blood Culture - Preliminary, Resulted 08/09/18 Blood Culture - Preliminary, Resulted No Growth after 48 hours. All Specime... 08/09/18 Wound Culture - Preliminary, Resulted Pseudomonas Aeruginosa Staphylococcus Aureus Streptococcus Group C RAYMOND PEARSON MD Aug 12, 2018 06:42
--- NOTE | 2018-08-12 12:17 | PHACANCOPD ---
PHARMACY VANCOMYCIN DOSING Pt Demographics Demographics Patient Age:73 , Weight:59.300 , Gender: female Adjusted Body Weight Date: 08/11/18, Adjusted Body Weight: [55] Kg Events Past 24 Hours Events Past 24 Hours: NO: Dialysis, Diuretic Therapy, Change in CrCl, Fever, Elevation in WBC, Pending Diagnostics, Pending Procedures, Other Vancomycin Vancomycin indication: SSTI Vancomycin Target Ranges: 15-20 mcg/ml Vancomycin Load Y/N: No Load Dose Date Time Vancomycin Load Dose: Date: Time: Vancomycin Dose Date: 08/11/18. Current Vancomycin Dose: [750MG IV Q8H] Intermittent Dosing?: No Labs Labs Item Value Date Time Creatinine 0.66 MG/DL 08/11/18 0553 Creatinine 0.70 MG/DL 08/12/18 0556 Vancomycin Level Trough 10.4 UG/ML 08/11/18 0955 Vancomycin Level Trough 16.1 UG/ML 08/12/18 1109 Micro Microbiology 08/09/18 Blood Culture - Preliminary, Resulted 08/09/18 Blood Culture - Preliminary, Resulted No Growth after 48 hours. All Specime... 08/09/18 Wound Culture - Final, Complete Pseudomonas Aeruginosa Escherichia Coli Staph.aureus Methicillin Resis Streptococcus Group C Creatinine Clearance Date:08/11/18. Creatinine Clearance: [10.4ML/MIN]. Assessment and Plan Maintaining Current Dose?: Yes Reason for dose change: No Dose Change Pharmacist Note Pharmacist Note Date: 08/12/18. Pharmacist note:Pt trough came back today @ 16.1mcg/ml @ 11:00. We will continue current dosing, monitoring, and adjust as needed. Date: 08/11/18. Pharmacist note:PT is a 73 year old female being treated with vancomycin for a soft skin tissue infection goal trough 15-20mcg/ml. The trough came back today after the 4th dose @ 10.4mcg/ml. The dose will be changed to 750mg iv every 8 hours starting 08/11/18 @ 12. Another trough is scheduled 08/12/18 @11:00. We will continue to monitor and adjust dose as needed. YANETH GERMAN PHARMACY Aug 12, 2018 12:17
[2018-08-12 14:00] VITALS: BP 99/42
[2018-08-12] MEDS: CLOPIDOGREL 75 MG TAB PO SCH (20:19)
[2018-08-12] MEDS: ATORVASTATIN 20 MG TAB PO SCH (20:21)
[2018-08-12] MEDS: DOCUSATE SODIUM 100 MG CAP PO SCH (20:21)
[2018-08-12] MEDS: FOLIC ACID 1 MG TAB PO SCH (20:21)
[2018-08-12] MEDS: GABAPENTIN 400 MG CAP PO SCH (20:21)
--- NOTE | 2018-08-12 20:34 | IPN ---
DATE: 08/11/2018 Asked to consult by the hospitalist for evaluation of infected graft left lower extremity. HISTORY OF PRESENT ILLNESS: Ms. Skaggs is a pleasant 73-year-old female with a history of venous stasis ulcers and peripheral vascular disease. The patient has been followed up with Dr. Moore and Dr. Crews for many months. She had skin graft done in April of [address] Crews and angioplasty to the left leg. A week ago she also had cadaver grafts placed on the left lower extremity by Dr. Moore. The patient presented to the emergency room on 08/09/2018 complaining of worsening leg pain, foul-smelling purulent drainage from the wound were she has the graft placed. She also complained of severe knee pain with redness in the prepatellar bursa. She had fevers and chills. The patient denied nausea, vomiting or diarrhea. She denied any chest pain, shortness of breath, urinary symptoms or abdominal pain. PAST MEDICAL HISTORY: Past medical history is significant for: 1. Peripheral vascular disease status post angioplasty. 2. Tobacco abuse. 3. No history of diabetes. 4. Hyperlipidemia. 5. Hypertension. 6. History of alcohol abuse. 7. Aortoiliac atherosclerotic occlusive disease. 8. Femoral-popliteal atherosclerotic occlusive disease. 9. Tibial peroneal arterial disease. 10. Venous insufficiency. PAST SURGICAL HISTORY: 1. Angioplasty x4. 2. Cataract surgery. 3. Tubal ligation. 4. Debridement of lower extremity wounds, subcutaneous tissue debridement done on 03/09/2018. 5. April 2018 the patient had a skin graft from the left upper thigh to the lower extremity. 6. In 2010, Dr. Bertrand did a colonoscopy and endoscopy. PHYSICAL EXAMINATION: GENERAL: On physical exam she is a pleasant healthy looking elderly female in no acute distress, alert and oriented x3. VITALS: Temperature was 100.7 on admission. She has been afebrile in the past 24 hours. Temperature is 99.4, pulse 63, respirations 18, blood pressure 151/69, O2 saturation 96% on 1 liter nasal cannula. HEART: Normal S1, S2 with no murmurs appreciated. LUNGS: Fine crackles at both lower lungs about a third way up. ABDOMEN: Soft, nontender. No hepatosplenomegaly. EXTREMITIES: Right lower extremity no clubbing, cyanosis or edema. Diminished pulses. Left lower extremity dorsalis pedis pulse pain. She has open ulcers with skin graft overlying and prateek in place with necrotic tissue, foul-smelling purulent discharge. Both ulcers medially and laterally over the medial malleolus. 20 cm long. There is mild surrounding cellulitis. There is also evidence of prepatellar bursitis in the infected venous ulcer and the bursa. The knee has fair range of motion but the patient has significant pain from prepatellar bursitis. There is no joint effusion. LABORATORY DATA: White count is 16, hemoglobin 9.4, hematocrit 29.9, platelets 382. Erythrocyte sedimentation rate (ESR) 63. Sodium 129, potassium 3.8, chloride 95, bicarbonate 26, BUN 9, creatinine 0.66, glucose 124, calcium 8.6, vitamin B 12 more than 2000, folate more than 24. Blood culture on 08/09/2018 has gram-positive rods. This is most likely a contaminant only one out of two. The left ankle culture had Pseudomonas aeruginosa, Staphylococcus aureus and group C strep and susceptibilities are still pending. IMAGING STUDIES: Knee x-ray showed no evidence of effusion, abscess or fracture. Tibia/fibula (tib/fib) x-ray shows diffuse periosteal reaction of the distal tibia and fibula. No acute fracture or obvious osseous destruction and multiple prateek in place. IMPRESSION: This is a 73-year-old lady with peripheral vascular disease, venous insufficiency and chronic vascular ulcers who has failed multiple procedure including angioplasty, skin graft and now her cadaveric graft that got infected. This is a polymicrobial infection. She also has a seeding of her prepatellar bursa with significant knee pain. She is on broad-spectrum antibiotic with IV cefepime, Flagyl and vancomycin. She has no previous history of methicillin-resistant Staphylococcus aureus (MRSA). I suspect this will be methicillin-sensitive Staphylococcus aureus (MSSA) as her previous cultures have been consistently. PLAN: Once cultures are available tomorrow if MSSA would discontinue cefepime, vancomycin and switch her to Zosyn at 3.375 grams IV every 6 hours. If white count continues to increase or does not improve, I would suggest aspirating the prepatellar bursa. As the patient has significant pain this would definitely be therapeutic and promote faster healing. I suspect this will be a Staphylococcus aureus prepatellar bursitis. I have discussed the case with Dr Moore who agrees with the removal of the prateek and debridement of the wounds with removal of those cadaveric grafts as they are infected and just a foreign body delayed wound healing. Please call Dr. Crews to remove the prateek and debride the wounds as soon as possible. LUANN
[2018-08-12 22:00] VITALS: BP 119/56
[2018-08-13] MEDS: CEFEPIME HCL 1 GM in D5W MINI-BAG PLUS 50 ML IV SCH (00:42)
[2018-08-13] MEDS: VANCOMYCIN HCL 750 MG, VIAL MATE ADAPTER 1 EACH in D5W 250 ML IV SCH ×3 (03:39→20:33)
[2018-08-13 05:43] LABS: HEMATOCRIT 30.1 % (36.0-47.0); HEMOGLOBIN 9.6 g/dl (12.0-15.5); MEAN CORPUSCULAR HEMOGLOBIN 23.4 pg (27.0-33.0); MEAN CORPUSCULAR HGB CONC 31.9 g/dl (32.0-36.5); MEAN CORPUSCULAR VOLUME 73.4 fl (80.0-96.0); PLATELET COUNT, AUTOMATED 444 10^3/uL (150-450); WHITE BLOOD COUNT 12.4 10^3/uL (4.0-10.0)
[2018-08-13 06:00] VITALS: BP 123/59
[2018-08-13 06:06] LABS: BLOOD UREA NITROGEN 9 MG/DL (7-18); CALCIUM LEVEL 8.7 MG/DL (8.8-10.2); CARBON DIOXIDE LEVEL 32 MEQ/L (21-32); CHLORIDE LEVEL 95 MEQ/L (98-107); CREATININE FOR GFR 0.71 MG/DL (0.55-1.30); GLOMERULAR FILTRATION RATE > 60.0 (>39); GLUCOSE, FASTING 120 MG/DL (70-100); POTASSIUM SERUM 3.2 MEQ/L (3.5-5.1); SODIUM LEVEL 133 MEQ/L (136-145)
[2018-08-13] MEDS ORDERED: HEPARIN 1,000 UNITS/ML 10ML VIAL (FOR RADIOLOGY& DIALYSIS ONLY) As Ordered ONE (06:33)
[2018-08-13] MEDS ORDERED: LIDOCAINE 2% MDV 20 ML VIAL As Ordered ONE (06:33)
[2018-08-13] MEDS ORDERED: ISOVUE-300 61% 50ML VIAL (Q9967) As Ordered ONE (06:34)
[2018-08-13] MEDS ORDERED: fentaNYL 100 MCG/2 ML INJECTION (J3010) As Ordered ONE ×2 (07:03→08:22)
[2018-08-13] MEDS ORDERED: MIDAZOLAM INJ 2 MG/2 ML VIAL (J2250) As Ordered ONE ×2 (07:04→08:22)
[2018-08-13] MEDS ORDERED: POTASSIUM CHLORIDE 10 MEQ SR TABLET PO ONE (10:30)
[2018-08-13 10:40] VITALS: BP 131/71
[2018-08-13] MEDS ORDERED: MEROPENEM INJ 2 GM in NS 100 ML IV SCH (11:00)
--- NOTE | 2018-08-13 11:13 | IPNPDOC ---
Date Seen The patient was seen on 08/13/18. Progress Note SUBJECTIVE: Pt underwent angioplasty for improved circulation. Pt planned for debridement by vascular surgery in AM. Pt still c/o severe pain, but with decreased malodorous discharge. Wound cx: M RSA, Pseudomonas, Ecoli -will change to meropenem due to I to pseudomonas. PHYSICAL EXAMINATION: VITALS: As below GENERAL: She is well nourished, in distress secondary to pain. HEAD: Normocephalic, atraumatic. EYES: Extraocular movements are intact. Pupils equal, round, reactive to light. NECK: Supple, no jugular venous pressure (JVP). LUNGS: Clear to auscultation, no crackles, wheezes, rales, or rhonchi. CARDIOVASCULAR: Irregularly irregular rhythm, normal S1, S2, no murmurs, gallops, or rubs. ABDOMEN: Soft, nontender, nondistended, positive bowel sounds, no rebound, no guarding. EXTREMITIES: She has bilateral pitting edema. malodorous . 7 x 3 cm ulcerative area on the lateral aspect extending posteriorly on the left lower extremity with purulent drainage, foul smelling, erythema tracking all the way up to the thigh, as well as some induration. left knee swelling, warmth. NEUROLOGIC: Alert and oriented times three, no focal deficits appreciated in the exam. LABS and RADIOLOGY: Reviewed ASSESSMENT and PLAN: The patient is a 73-year-old female. She has significant past medical history of peripheral artery disease (PAD) with chronic PAD ulcer on the lateral posterior aspect of the left lower extremity near the lateral malleolus, Afib, Hypertension, Hyperlipidemia, TIA, alcohol abuse and tobacco abuse. She has had skin graft in the past, as well as angioplasty times four. She recently had cadaver grafts approximately 5 days ago. She presented to the emergency room with foul smelling purulent drainage, surrounding erythema tracking all the way up her leg, all the way to the thigh, subjective fevers and chills and pain, erythema and induration of the lower extremity around her ulcer that has progressively worsened over the last 5 days. Again, notably in the patient's history she has had cadaver graft placed 5 days ago and symptoms started over the last 2-3 days. She had a skin graft previously as well as angioplasty multiple times. infected split thickness skin graft to her left ankle plus infected left prepatellar bursitis with possible chronic osteomyelitis Vascular consult, Dr. Crews, Ortho Dr. Branch, and Dr. Herrera consulted Wound cultures and blood cultures times two. the patient has been on vancomycin, cefepime, and Flagyl since admission. 08/13/18 cefepime discontinued due to I to pseudomonas. 08/13/18 meropenem started due to patient refusal to take levaquin which causes severe nause, vomiting, and abdominal pain. Pt underwent angioplasty by vascular surgery to improve circulation and healing. Debridement and removal of cadaveric skingrafts planned for 08/14/[address] Crews. wound cx Left knee pain and inflammation xray reviewed Per ortho Dr. Branch, ID consult and no septic arthritis. Per ID, appears to be septic joint and may need aspiration and clean out. continue iv abx. Atrial fibrillation: On anticoagulation with Eliquis. Will continue her Eliquis. Patient will likely need debridement of her peripheral artery disease (PAD) ulcer at some point in time. Eliquis will need to be held then, but will continue for now. For history of alcohol abuse: Patient does not appear to be withdrawing. Her last drink was yesterday. She is down to two beers daily. Will place her on the Clinical [place] Withdrawal Assessment (CIWA) protocol. Can start her on Ativan if she does start to withdraw. Will continue thiamine and folic acid. For history of tobacco abuse: Nicotine replacement with nicotine patch. History of hypertension: Continue Lasix and bisoprolol. History of transient ischemic attack (TIA): Continue Plavix. History of peripheral artery disease (PAD) status post angioplasty multiple times: Continue Plavix and Lipitor. Hyperlipidemia: Continue Lipitor. Microcytic anemia will get iron studies. Deep venous thrombosis (DVT) prophylaxis: On Eliquis. Gastrointestinal (GI) prophylaxis: Not indicated. VS, I&O, 24H, Fishbone Vital Signs/I&O Vital Signs Date Time Temp Pulse Resp B/P (MAP) Pulse Ox O2 Delivery O2 Flow Rate FiO2 08/13/18 06:00 98.1 63 18 123/59 (80) 93 Nasal Cannula 1.0 I&O- Last 24 Hours up to 6 AM 08/13/18 06:00 Intake Total 2950 ml Output Total 2065 ml Balance 885 ml Laboratory Data 24H LABS Laboratory Tests 2 08/12/18 11:09: Vancomycin Level Trough 16.1 08/13/18 05:17: Nucleated Red Blood Cells % (auto) 0.0, Anion Gap 6L, Glomerular Filtration Rate > 60.0, Blood Urea Nitrogen 9, Creatinine 0.71, Sodium Level 133L, Potassium L evel 3.2L, Chloride Level 95L, Carbon Dioxide Level 32, Calcium Level 8.7L CBC/BMP Laboratory Tests 08/13/18 05:17 Red Blood Count 4.10, Mean Corpuscular Volume 73.4 L, Mean Corpuscular Hemoglobin 23.4 L, Mean Corpuscular Hemoglobin Concent 31.9 L, Red Cell Distribution Width 20.8 H, Calcium Level 8.7 L Microbiology Microbiology 08/09/18 Blood Culture - Preliminary, Resulted 08/09/18 Blood Culture - Preliminary, Resulted No Growth after 72 hours. All specime... 08/09/18 Wound Culture - Final, Complete Pseudomonas Aeruginosa Escherichia Coli Staph.aureus Methicillin Resis Streptococcus Group C RAYMOND PEARSON MD Aug 13, 2018 07:36
[2018-08-13] MEDS: CYANOCOBALAMIN 500 MCG TAB PO SCH (11:16)
[2018-08-13] MEDS: FUROSEMIDE 20 MG TAB PO SCH (11:17)
[2018-08-13] MEDS: APIXABAN 5 MG TAB (ELIQUIS) PO SCH ×2 (11:17→20:33)
[2018-08-13] MEDS: LACTOBACILLUS ACIDOPHILUS CAP (BACID) PO SCH ×2 (11:17→18:23)
[2018-08-13] MEDS: THIAMINE 100 MG TAB PO SCH (11:17)
[2018-08-13] MEDS: VITAMIN D 1,000 INTERNATIONAL UNITS TABLET PO SCH (11:17)
[2018-08-13] MEDS: BISOPROLOL FUMARATE 10 MG TAB PO SCH (11:53)
[2018-08-13 12:30] VITALS: BP 104/78
[2018-08-13 14:00] VITALS: BP 95/52
[2018-08-13] MEDS: MEROPENEM INJ 1 GM in APPROPRIATE DILUENT 1 EA IV SCH ×2 (15:08→21:47)
[2018-08-13] MEDS: PERCOCET 5MG/325MG TAB PO PRN ×2 (18:24→23:54)
[2018-08-13] MEDS: GABAPENTIN 400 MG CAP PO SCH (20:33)
[2018-08-13] MEDS: CLOPIDOGREL 75 MG TAB PO SCH (20:33)
[2018-08-13] MEDS: ATORVASTATIN 20 MG TAB PO SCH (20:33)
[2018-08-13] MEDS: FOLIC ACID 1 MG TAB PO SCH (20:33)
[2018-08-13] MEDS: DOCUSATE SODIUM 100 MG CAP PO SCH (20:35)
[2018-08-13 22:00] VITALS: BP 120/58
[2018-08-14] MEDS: VANCOMYCIN HCL 750 MG, VIAL MATE ADAPTER 1 EACH in D5W 250 ML IV SCH ×3 (04:00→20:24)
[2018-08-14] MEDS: MEROPENEM INJ 1 GM in APPROPRIATE DILUENT 1 EA IV SCH ×3 (05:00→21:39)
--- NOTE | 2018-08-14 05:16 | IPN ---
DATE: 08/09/2018 April had another angioplasty done today. She is scheduled for wound debridement to be done tomorrow by Dr. Crews. She continues complaining of severe pain in the left leg and left knee with diminished range of motion, although improving. She has been afebrile. Temperature is 98.3, pulse 59, respirations 18, blood pressure 92/52, oxygen saturation 93% on 1 liter nasal cannula. HEART: Normal S1, S2 with no murmurs. LUNGS: Few crackles at the bases. ABDOMEN: Soft, nontender. No hepatosplenomegaly. EXTREMITIES: No edema. Left leg has ulcerations all around, circumferential, measuring about 10 cm in height. Very tender to touch. The left cadaveric graft was completely removed. It was necrotic. Purulent discharge was cleaned with Vashe dressing. Right graft was not removed as most of it was adhered. There is still significant prepatellar bursitis and tenderness, but she has 90-degree range of motion. LABS: White count is 12.4, down from 17.3. Hemoglobin 9.6, hematocrit 30.1, platelets 444. Sodium 133, potassium 3.2, chloride 95, bicarbonate 32, BUN 9, creatinine 0.71, glucose 120, calcium 8.7, CRP 14.7. Wound culture was positive for methicillin-resistant Staphylococcus aureus (MRSA), Escherichia coli (E. coli), Pseudomonas aeruginosa, and group C streptococcus. Pseudomonas is resistant to ceftazidime, intermediate to cefepime. MEDICATIONS: - meropenem 1 gram intravenous (IV) every 8 hours - vancomycin 750 mg IV every 8 hours - probiotics one tablet by mouth twice a day with meals IMPRESSION: 1. Infected venous ulcer status post cadaveric graft on the left leg with polymicrobial allen, methicillin-resistant Staphylococcus aureus, group C streptococcus, Escherichia coli, and Pseudomonas. Blood cultures, one out of two, contaminated with bacillus. Patient is on IV vancomycin and meropenem. Cefepime was discontinued. Patient to undergo debridement tomorrow of the wound. Today, she will have a change of dressing with wound VAC. 2. Peripheral vascular disease status post angioplasty. Repeat angioplasty today. 3. Tobacco abuse with nicotine dependence. I had a long discussion with the patient about the futility of having angioplasty if she continued to smoke, and she has promised to work really hard about smoking cessation. She has a nicotine patch that has been ordered, but she has not used it. She may also benefit with adjunctive therapy with Wellbutrin as well. 4. Hyponatremia and hypokalemia. Need replacement. PLAN: Continue IV vancomycin with meropenem. Debridement tomorrow. Repeat complete blood count (CBC), C-reactive protein (CRP) in the morning.
[2018-08-14 06:00] VITALS: BP 136/63
[2018-08-14 06:17] LABS: HEMATOCRIT 31.6 % (36.0-47.0); HEMOGLOBIN 10.1 g/dl (12.0-15.5); MEAN CORPUSCULAR VOLUME 75.2 fl (80.0-96.0); PLATELET COUNT, AUTOMATED 472 10^3/uL (150-450); WHITE BLOOD COUNT 11.2 10^3/uL (4.0-10.0)
[2018-08-14 06:40] LABS: BLOOD UREA NITROGEN 9 MG/DL (7-18); C REACTIVE PROTEIN QUANTITATIV 5.95 MG/DL (0.00-0.30); CALCIUM LEVEL 8.9 MG/DL (8.8-10.2); CARBON DIOXIDE LEVEL 30 MEQ/L (21-32); CHLORIDE LEVEL 97 MEQ/L (98-107); GLOMERULAR FILTRATION RATE > 60.0 (>39); GLUCOSE, FASTING 127 MG/DL (70-100); POTASSIUM SERUM 3.8 MEQ/L (3.5-5.1); SODIUM LEVEL 133 MEQ/L (136-145)
[2018-08-14] MEDS: BISOPROLOL FUMARATE 10 MG TAB PO SCH (07:59)
[2018-08-14] MEDS: APIXABAN 5 MG TAB (ELIQUIS) PO SCH ×2 (08:02→20:25)
[2018-08-14] MEDS: CYANOCOBALAMIN 500 MCG TAB PO SCH (08:10)
[2018-08-14] MEDS: THIAMINE 100 MG TAB PO SCH (08:10)
[2018-08-14] MEDS: VITAMIN D 1,000 INTERNATIONAL UNITS TABLET PO SCH (08:11)
[2018-08-14] MEDS: LACTOBACILLUS ACIDOPHILUS CAP (BACID) PO SCH ×2 (08:11→17:23)
[2018-08-14] MEDS: FUROSEMIDE 20 MG TAB PO SCH (08:11)
[2018-08-14] MEDS: NICOTINE 21MG/24HR 1 EA TRANSDERMAL TD SCH (09:00)
[2018-08-14] MEDS: PERCOCET 5MG/325MG TAB PO PRN ×2 (12:00→20:26)
--- NOTE | 2018-08-14 15:36 | IPNPDOC ---
Date Seen The patient was seen on 08/14/18. Progress Note SUBJECTIVE:Pt had a better night last night. Pt underwent angioplasty for improved circulation on 08/13/18. Pt planned for debridement by vascular surgery 08/14/18. Pt still c/o severe pain, but with decreased malodorous discharge. Wound cx: MRSA, Pseudomonas, Ecoli -will change to meropenem due to I to pseudomonas. PHYSICAL EXAMINATION: VITALS: As below GENERAL: She is well nourished, in distress secondary to pain. HEAD: Normocephalic, atraumatic. EYES: Extraocular movements are intact. Pupils equal, round, reactive to light. NECK: Supple, no jugular venous pressure (JVP). LUNGS: Clear to auscultation, no crackles, wheezes, rales, or rhonchi. CARDIOVASCULAR: Irregularly irregular rhythm, normal S1, S2, no murmurs, gallops, or rubs. ABDOMEN: Soft, nontender, nondistended, positive bowel sounds, no rebound, no guarding. EXTREMITIES: She has bilateral pitting edema. 7 x 3 cm ulcerative area on the lateral aspect extending posteriorly on the left lower extremity left knee swelling, warmth. NEUROLOGIC: Alert and oriented times three, no focal deficits appreciated in t he exam. LABS and RADIOLOGY: Reviewed ASSESSMENT and PLAN: The patient is a 73-year-old female. She has significant past medical history of peripheral artery disease (PAD) with chronic PAD ulcer on the lateral posterior aspect of the left lower extremity near the lateral malleolus, Afib, Hypertension, Hyperlipidemia, TIA, alcohol abuse and tobacco abuse. She has had skin graft in the past, as well as angioplasty times four. She recently had cadaver grafts approximately 5 days ago. She presented to the emergency room with foul smelling purulent drainage, surrounding erythema tracking all the way up her leg, all the way to the thigh, subjective fevers and chills and pain, erythema and induration of the lower extremity around her ulcer that has progressively worsened over the last 5 days. Again, notably in the patient's history she has had cadaver graft placed 5 days ago and symptoms started over the last 2-3 days. She had a skin graft previously as well as angioplasty multiple times. infected split thickness skin graft to her left ankle plus infected left prepatellar bursitis with possible chronic osteomyelitis Vascular consult, Dr. Crews, Ortho Dr. Branch, and Dr. Herrera consulted Wound cultures and blood cultures times two. the patient has been on v ancomycin, cefepime, and Flagyl since admission. 08/13/18 cefepime discontinued due to I to pseudomonas. 08/13/18 meropenem started due to patient refusal to take levaquin which causes severe nause, vomiting, and abdominal pain. Pt underwent angioplasty by vascular surgery to improve circulation and healing. Debridement and removal of cadaveric skingrafts planned for 08/14/[address] Danielito lugo. wound cx Left knee pain and inflammation xray reviewed Per ortho Dr. Branch, not septic arthritis. Atrial fibrillation: On anticoagulation with Eliquis. Will continue her Eliquis. Patient will likely need debridement of her peripheral artery disease (PAD) ulcer at some point in time. Eliquis will need to be held then, but will continue for now. For history of alcohol abuse: Patient does not appear to be withdrawing. Her last drink was yesterday. She is down to two beers daily. Will place her on the Clinical [place] Withdrawal Assessment (CIWA) protocol. Can start her on Ativan if she does start to withdraw. Will continue thiamine and folic acid. Hypokalemia: supplemented Hyponatremia: no mental status changes. serial mp. For history of tobacco abuse: Nicotine replacement with nicotine patch. History of hypertension: Continue Lasix and bisoprolol. History of transient ischemic attack (TIA): Continue Plavix. History of peripheral artery disease (PAD) status post angioplasty multiple times: Continue Plavix and Lipitor. Hyperlipidemia: Continue Lipitor. Microcytic anemia will get iron studies. Deep venous thrombosis (DVT) prophylaxis: On Eliquis. Gastrointestinal (GI) prophylaxis: Not indicated. VS, I&O, 24H, Fishbone Vital Signs/I&O Vital Signs Date Time Temp Pulse Resp B/P (MAP) Pulse Ox O2 Delivery O2 Flow Rate FiO2 08/14/18 06:00 96.9 60 70 136/63 (87) 17 Nasal Cannula 1.0 I&O- Last 24 Hours up to 6 AM 08/14/18 06:00 Intake Total 1000 ml Output Total 950 ml Balance 50 ml Laboratory Data 24H LABS Laboratory Tests 2 08/14/18 06:05: Nucleated Red Blood Cells % (auto) 0.0, Anion Gap 6L, Glomerular Filtration Rate > 60.0, Blood Urea Nitrogen 9, Creatinine 0.70, Sodium Level 133L, Potassium Level 3.8, Chloride Level 97L, Carbon Dioxide Level 30, Calcium Level 8.9, C- Reactive Protein, Quantitative 5.95H CBC/BMP Laboratory Tests 08/14/18 06:05 Red Blood Count 4.20, Mean Corpuscular Volume 75.2 L, Mean Corpuscular Hemoglobin 24.0 L, Mean Corpuscular Hemoglobin Concent 32.0, Red Cell Distribution Width 20.9 H, Calcium Level 8.9 Microbiology Microbiology 08/09/18 Blood Culture - Final, Complete Bacillus Sp., Not Anthracis 08/09/18 Blood Culture - Preliminary, Resulted No Growth after 72 hours. All specime... 08/09/18 Wound Culture - Final, Complete Pseudomonas Aeruginosa Escherichia Coli Staph.aureus Methicillin Resis Streptococcus Group C RAYMOND PEARSON MD Aug 14, 2018 07:17
--- NOTE | 2018-08-14 16:04 | IPN ---
DATE: 08/14/2018 April seems to be doing better today. She states she was slightly short of breath earlier today but she believes it was related to anxiety about her surgical procedure today. She would like her oxygen removed. She has no cough. Pain in her left leg has improved. She has better range of motion in the left knee. PHYSICAL EXAMINATION: Temperature is 98.4, pulse 94, respirations 17, blood pressure 136/63, oxygen saturation 95% on one liter nasal cannula. HEART: Regular. No murmurs appreciated. LUNGS: Crackles at both bases. No wheezes or rhonchi. ABDOMEN: Soft, nontender. No hepatosplenomegaly. EXTREMITIES: With +1 pitting edema. Bilateral lower extremity ulcerations with decreased erythema around them with less purulent drainage. Left knee prepatellar bursitis. Range of motion has improved to 90 degrees without significant pain and erythema around the prepatellar bursa has decreased. IMPRESSION: 1. Infected venous ulcers with methicillin-resistant Staphylococcus aureus (MRSA), group C Streptococcus, Pseudomonas and Escherichia (E) coli. The patient currently on IV vancomycin 750 mg every eight hours and meropenem. 2. Adverse drug reactions to quinolones. The patient reports ciprofloxacin caused her to have mild shortness of breath but no angioedema and she is willing to try it again. She has taken it in the past and tolerated it except for the shortness of breath. She does not want to try levofloxacin as it gave her diarrhea but that was in the setting of taking Levaquin with erythromycin a couple of months ago with Dr. Crews. 3. Doing much better on IV antibiotics. 4. Peripheral vascular disease, status post angioplasty with continued tobacco abuse. The patient has agreed to use a nicotine patch while in the hospital and to really consider discontinuing smoking. I have asked nursing to call for a smoking cessation counseling session with respiratory therapy. PLAN: Discontinue IV meropenem, trial of ciprofloxacin to see if she could tolerate that. I am aware that she has an adverse reaction to it in the past but the patient states was not sure if it was related to ciprofloxacin or anxiety. As far as methicillin-resistant Staphylococcus aureus (MRSA) is concerned, I would continue with the IV vancomycin at this time. Before discharge, the patient could be switched to either oral Bactrim or doxycycline for MRSA coverage.
[2018-08-14] MEDS: FOLIC ACID 1 MG TAB PO SCH (20:25)
[2018-08-14] MEDS: CLOPIDOGREL 75 MG TAB PO SCH (20:25)
[2018-08-14] MEDS: GABAPENTIN 400 MG CAP PO SCH (20:25)
[2018-08-14] MEDS: ATORVASTATIN 20 MG TAB PO SCH (20:25)
[2018-08-14] MEDS: DOCUSATE SODIUM 100 MG CAP PO SCH (20:28)
[2018-08-14 22:00] VITALS: BP 132/63
[2018-08-15] MEDS: VANCOMYCIN HCL 750 MG, VIAL MATE ADAPTER 1 EACH in D5W 250 ML IV SCH (03:20)
[2018-08-15] MEDS: CIPROFLOXACIN 500 MG TAB PO SCH ×2 (05:00→18:05)
[2018-08-15 06:00] VITALS: BP 148/73
[2018-08-15 06:03] LABS: HEMATOCRIT 32.1 % (36.0-47.0); HEMOGLOBIN 10.1 g/dl (12.0-15.5); MEAN CORPUSCULAR HEMOGLOBIN 23.7 pg (27.0-33.0); MEAN CORPUSCULAR HGB CONC 31.5 g/dl (32.0-36.5); MEAN CORPUSCULAR VOLUME 75.4 fl (80.0-96.0); PLATELET COUNT, AUTOMATED 551 10^3/uL (150-450); RED BLOOD COUNT 4.26 10^6/uL (4.00-5.40); WHITE BLOOD COUNT 14.1 10^3/uL (4.0-10.0)
[2018-08-15 06:33] LABS: BLOOD UREA NITROGEN 8 MG/DL (7-18); CALCIUM LEVEL 8.6 MG/DL (8.8-10.2); CARBON DIOXIDE LEVEL 31 MEQ/L (21-32); CHLORIDE LEVEL 97 MEQ/L (98-107); CREATININE FOR GFR 0.73 MG/DL (0.55-1.30); GLOMERULAR FILTRATION RATE > 60.0 (>39); GLUCOSE, FASTING 102 MG/DL (70-100); POTASSIUM SERUM 3.7 MEQ/L (3.5-5.1); SODIUM LEVEL 134 MEQ/L (136-145)
[2018-08-15] MEDS ORDERED: SANTYL OINT 30GM TOP SCH (09:00)
[2018-08-15] MEDS: NICOTINE 21MG/24HR 1 EA TRANSDERMAL TD SCH (09:54)
[2018-08-15] MEDS: FUROSEMIDE 20 MG TAB PO SCH (09:54)
[2018-08-15] MEDS: APIXABAN 5 MG TAB (ELIQUIS) PO SCH ×2 (09:54→21:05)
[2018-08-15] MEDS: BISOPROLOL FUMARATE 10 MG TAB PO SCH (09:54)
[2018-08-15] MEDS: VITAMIN D 1,000 INTERNATIONAL UNITS TABLET PO SCH (09:54)
[2018-08-15] MEDS: CYANOCOBALAMIN 500 MCG TAB PO SCH (09:55)
[2018-08-15] MEDS: LACTOBACILLUS ACIDOPHILUS CAP (BACID) PO SCH ×2 (09:55→18:05)
[2018-08-15] MEDS: THIAMINE 100 MG TAB PO SCH (09:55)
[2018-08-15] MEDS: PERCOCET 5MG/325MG TAB PO PRN ×2 (10:54→21:05)
--- NOTE | 2018-08-15 12:13 | PHACANCOPD ---
PHARMACY VANCOMYCIN DOSING Pt Demographics Demographics Patient Age:73 , Weight:59.300 , Gender: female Adjusted Body Weight Date: 08/11/18, Adjusted Body Weight: [55] Kg Events Past 24 Hours Events Past 24 Hours: YES: Elevation in WBC; NO: Dialysis, Diuretic Therapy, Change in CrCl, Fever, Pending Diagnostics, Pending Procedures, Other Vancomycin Vancomycin indication: SSTI Vancomycin Target Ranges: 15-20 mcg/ml Vancomycin Load Y/N: No Load Dose Date Time Vancomycin Load Dose: Date: Time: Vancomycin Dose Date: 08/11/18. Current Vancomycin Dose: [750MG IV Q8H] Intermittent Dosing?: No Labs Labs Vital Signs Label Value Date Time Patient Temperature 98.5 degrees F 08/15/18 0600 Temperature Source Temporal 08/15/18 0600 Patient Temperature 98.6 degrees F 08/14/18 2200 Temperature Source Temporal 08/14/18 2200 Patient Temperature 98.4 degrees F 08/14/18 1400 Temperature Source Temporal 08/14/18 1400 Item Value Date Time White Blood Count 14.1 10^3/uL H 08/15/18 0531 White Blood Count 11.2 10^3/uL H 08/14/18 0605 White Blood Count 12.4 10^3/uL H 08/13/18 0517 White Blood Count 14.7 10^3/uL H 08/12/18 0556 Creatinine 0.73 MG/DL 08/15/18 0531 Creatinine 0.70 MG/DL 08/14/18 0605 Creatinine 0.71 MG/DL 08/13/18 0517 Vancomycin Level Trough 21.2 UG/ML H 08/15/18 1104 Vancomycin Level Trough 16.1 UG/ML 08/12/18 1109 Vancomycin Level Trough 10.4 UG/ML 08/11/18 0955 Micro Microbiology 08/09/18 Blood Culture - Final, Complete Bacillus Sp., Not Anthracis 08/09/18 Blood Culture - Final, Complete NO GROWTH AFTER 5 DAYS 08/09/18 Wound Culture - Final, Complete Pseudomonas Aeruginosa Escherichia Coli Staph.aureus Methicillin Resis Streptococcus Group C Creatinine Clearance Date:08/11/18. Creatinine Clearance: [10.4ML/MIN]. Assessment and Plan Maintaining Current Dose?: No Reason for dose change: Trough too high Pharmacist Note Pharmacist Note 08/15/18: Trough drawn today @1104 before 1200 dose resulted at 21.2mcg/ml. This is slightly above our goal of 15-20mcg/ml. I have adjusted the dose down to Vanco 1G IV Q12H starting at 1400. The longer interval should give the pt more time to clear between doses. I have scheduled a trough for tomorrow at 1500 to ensure appropriate levels. The pt's cultures are positive for MRSA VERONIKA <0.5. We will continue to monitor and adjust dose s needed. Date: 08/12/18. Pharmacist note:Pt trough came back today @ 16.1mcg/ml @ 11:00. We will continue current dosing, monitoring, and adjust as needed. Date: 08/11/18. Pharmacist note:PT is a 73 year old female being treated with vancomycin for a soft skin tissue infection goal trough 15-20mcg/ml. The trough came back today after the 4th dose @ 10.4mcg/ml. The dose will be changed to 750mg iv every 8 hours starting 08/11/18 @ 12. Another trough is scheduled 08/12/18 @11:00. We will continue to monitor and adjust dose as needed. ROBERTO CERVANTES PHARMAC[facility] Aug 15, 2018 12:13
--- NOTE | 2018-08-15 13:57 | IPNPDOC ---
Date Seen The patient was seen on 08/15/18. Progress Note SUBJECTIVE: Pt was frustrated with her debridement being postponed yesterday. She is scheduled for today, and has been npo. NO fever overnight, and slight increased in white count. PT is adamant about not taking quinolones despite being advised that it may have been the erythromcyin taken concurrenlty withcipro last time. PHYSICAL EXAMINATION: VITALS: As below GENERAL: She is well nourished, in distress secondary to pain. HEAD: Normocephalic, atraumatic. EYES: Extraocular movements are intact. Pupils equal, round, reactive to light. NECK: Supple, no jugular venous pressure (JVP). LUNGS: Clear to auscultation, no crackles, wheezes, rales, or rhonchi. CARDIOVASCULAR: Irregularly irregular rhythm, normal S1, S2, no murmurs, gallops, or rubs. ABDOMEN: Soft, nontender, nondistended, positive bowel sounds, no rebound, no guarding. EXTREMITIES: She has bilateral pitting edema. 7 x 3 cm ulcerative area on the lateral aspect extending posteriorly on the left lower extremity left knee swelling, warmth. NEUROLOGIC: Alert and oriented times three, no focal deficits appreciated in the exam. LABS and RADIOLOGY: Reviewed ASSESSMENT and PLAN: The patient is a 73-year-old female. She has significant past medical history of peripheral artery disease (PAD) with chronic PAD ulcer on the lateral posterior aspect of the left lower extremity near the lateral malleolus, Afib, Hypertension, Hyperlipidemia, TIA, alcohol abuse and tobacco abuse. She has had skin graft in the past, as well as angioplasty times four. She recently had cadaver grafts approximately 5 days ago. She presented to the emergency room with foul smelling purulent drainage, surrounding erythema tracking all the way up her leg, all the way to the thigh, subjective fevers and chills and pain, erythema and induration of the lower extremity around her ulcer that has progressively worsened over the last 5 days. Again, notably in the patient's history she has had cadaver graft placed 5 days ago and symptoms started over the last 2-3 days. She had a skin graft previously as well as angioplasty multiple times. infected split thickness skin graft to her left ankle plus infected left prepatellar bursitis with possible chronic osteomyelitis Vascular consult, Dr. Crews, Ortho Dr. Branch, and Dr. Herrera consulted Wound cultures and blood cultures times two. the patient has been on vancomycin, cefepime, and Flagyl since admission. 08/13/18 cefepime discontinued due to I to pseudomonas. 08/13/18 meropenem started due to patient refusal to take levaquin which causes severe nause, vomiting, and abdominal pain. Pt underwent angioplasty by vascular surgery to improve circulation and healing. Debridement and removal of cadaveric skingrafts planned for 08/15/[address] Crews. wound cx Left knee pain and inflammation xray reviewed Per ortho Dr. Branch, not septic arthritis. Atrial fibrillation: On anticoagulation with Eliquis. Will continue her Eliquis. Patient will likely need debridement of her peripheral artery disease (PAD) ulcer at some point in time. Eliquis will need to be held then, but will continue for now. For history of alcohol abuse: Patient does not appear to be withdrawing. Her last drink was yesterday. She is down to two beers daily. Will place her on the Clinical [place] Withdrawal Assessment (CIWA) protocol. Can start her on Ativan if she does start to withdraw. Will continue thiamine and folic acid. Hypokalemia: supplemented Hyponatremia: no mental status changes. serial mp. For history of tobacco abuse: Nicotine replacement with nicotine patch. History of hypertension: Continue Lasix and bisoprolol. History of transient ischemic attack (TIA): Continue Plavix. History of peripheral artery disease (PAD) status post angioplasty multiple times: Continue Plavix and Lipitor. Hyperlipidemia: Continue Lipitor. Microcytic anemia will get iron studies. Deep venous thrombosis (DVT) prophylaxis: On Eliquis. Gastrointestinal (GI) prophylaxis: Not indicated. VS, I&O, 24H, Fishbone Vital Signs/I&O Vital Signs Date Time Temp Pulse Resp B/P (MAP) Pulse Ox O2 Delivery O2 Flow Rate FiO2 08/15/18 11:32 16 08/15/18 09:54 68 148/73 08/15/18 06:00 98.5 97 Room Air 08/14/18 14:00 1.0 I&O- Last 24 Hours up to 6 AM 08/15/18 06:00 Intake Total 2255 ml Output Total 1950 ml Balance 305 ml Laboratory Data 24H LABS Laboratory Tests 2 08/15/18 05:31: Nucleated Red Blood Cells % (auto) 0.0, Anion Gap 6L, Glomerular Filtration Rate > 60.0, Blood Urea Nitrogen 8, Creatinine 0.73, Sodium Level 134L, Potassium Level 3.7, Chloride Level 97L, Carbon Dioxide Level 31, Calcium Level 8.6L 08/15/18 11:04: Vancomycin Level Trough 21.2H CBC/BMP Laboratory Tests 08/15/18 05:31 Red Blood Count 4.26, Mean Corpuscular Volume 75.4 L, Mean Corpuscular Hemoglobin 23.7 L, Mean Corpuscular Hemoglobin Concent 31.5 L, Red Cell Distribution Width 21.0 H, Calcium Level 8.6 L Microbiology Microbiology 08/09/18 Blood Culture - Final, Complete Bacillus Sp., Not Anthracis 08/09/18 Blood Culture - Final, Complete NO GROWTH AFTER 5 DAYS 08/09/18 Wound Culture - Final, Complete Pseudomonas Aeruginosa Escherichia Coli Staph.aureus Methicillin Resis Streptococcus Group C RAYMOND PEARSON MD Aug 15, 2018 13:50
[2018-08-15 14:00] VITALS: BP 135/63
[2018-08-15] MEDS: VANCOMYCIN HCL 1,000 MG, VIAL MATE ADAPTER 1 EACH in D5W 250 ML IV SCH (16:05)
[2018-08-15] MEDS: DOCUSATE SODIUM 100 MG CAP PO SCH (21:05)
[2018-08-15] MEDS: ATORVASTATIN 20 MG TAB PO SCH (21:05)
[2018-08-15] MEDS: GABAPENTIN 400 MG CAP PO SCH (21:05)
[2018-08-15] MEDS: CLOPIDOGREL 75 MG TAB PO SCH (21:05)
[2018-08-15] MEDS: FOLIC ACID 1 MG TAB PO SCH (21:05)
[2018-08-15 22:00] VITALS: BP 123/62
[2018-08-16] MEDS: VANCOMYCIN HCL 1,000 MG, VIAL MATE ADAPTER 1 EACH in D5W 250 ML IV SCH ×2 (03:40→15:49)
[2018-08-16] MEDS: CIPROFLOXACIN 500 MG TAB PO SCH ×2 (05:20→17:30)
[2018-08-16 06:00] VITALS: BP 126/65
[2018-08-16 06:20] LABS: HEMATOCRIT 32.7 % (36.0-47.0); HEMOGLOBIN 10.4 g/dl (12.0-15.5); MEAN CORPUSCULAR HEMOGLOBIN 23.6 pg (27.0-33.0); MEAN CORPUSCULAR HGB CONC 31.8 g/dl (32.0-36.5); MEAN CORPUSCULAR VOLUME 74.1 fl (80.0-96.0); PLATELET COUNT, AUTOMATED 592 10^3/uL (150-450); RED BLOOD COUNT 4.41 10^6/uL (4.00-5.40); WHITE BLOOD COUNT 12.1 10^3/uL (4.0-10.0)
[2018-08-16 06:48] LABS: BLOOD UREA NITROGEN 9 MG/DL (7-18); C REACTIVE PROTEIN QUANTITATIV 3.73 MG/DL (0.00-0.30); CALCIUM LEVEL 8.9 MG/DL (8.8-10.2); CARBON DIOXIDE LEVEL 29 MEQ/L (21-32); CHLORIDE LEVEL 98 MEQ/L (98-107); CREATININE FOR GFR 0.75 MG/DL (0.55-1.30); GLOMERULAR FILTRATION RATE > 60.0 (>39); GLUCOSE, FASTING 123 MG/DL (70-100); POTASSIUM SERUM 3.8 MEQ/L (3.5-5.1); SODIUM LEVEL 135 MEQ/L (136-145)
[2018-08-16 06:51] LABS: ERYTHROCYTE SEDIMENTATION RATE 55 mm/hr (0-30)
[2018-08-16] MEDS: NICOTINE 21MG/24HR 1 EA TRANSDERMAL TD SCH (08:19)
[2018-08-16] MEDS: LACTOBACILLUS ACIDOPHILUS CAP (BACID) PO SCH ×2 (08:19→17:30)
[2018-08-16] MEDS: APIXABAN 5 MG TAB (ELIQUIS) PO SCH ×2 (08:20→20:18)
[2018-08-16] MEDS: VITAMIN D 1,000 INTERNATIONAL UNITS TABLET PO SCH (08:20)
[2018-08-16] MEDS: CYANOCOBALAMIN 500 MCG TAB PO SCH (08:20)
[2018-08-16] MEDS: BISOPROLOL FUMARATE 10 MG TAB PO SCH (08:20)
[2018-08-16] MEDS: THIAMINE 100 MG TAB PO SCH (08:21)
[2018-08-16] MEDS: FUROSEMIDE 20 MG TAB PO SCH (08:21)
--- NOTE | 2018-08-16 10:00 | IPNPDOC ---
Date Seen The patient was seen on 08/16/18. Progress Note SUBJECTIVE: 08/15/[address] crews. much more comfortable today and says pain is tolerable. slept well last night. NO fever overnight, and slight increased in white count. PT is adamant about not taking quinolones despite being advised that it may have been the erythromcyin taken concurrenlty withcipro last time. PHYSICAL EXAMINATION: VITALS: As below GENERAL: She is well nourished, in distress secondary to pain. HEAD: Normocephalic, atraumatic. EYES: Extraocular movements are intact. Pupils equal, round, reactive to light. NECK: Supple, no jugular venous pressure (JVP). LUNGS: Clear to auscultation, no crackles, wheezes, rales, or rhonchi. CARDIOVASCULAR: Irregularly irregular rhythm, normal S1, S2, no murmurs, gallops, or rubs. ABDOMEN: Soft, nontender, nondistended, positive bowel sounds, no rebound, no guarding. EXTREMITIES: She has bilateral pitting edema. 7 x 3 cm ulcerative area on the lateral aspect extending posteriorly on the left lower extremity left knee swelling, warmth. NEUROLOGIC: Alert and oriented times three, no focal deficits appreciated in the exam. LABS and RADIOLOGY: Reviewed ASSESSMENT and PLAN: The patient is a 73-year-old female. She has significant past medical history of peripheral artery disease (PAD) with chronic PAD ulcer on the lateral posterior aspect of the left lower extremity near the lateral malleolus, Afib, Hypertension, Hyperlipidemia, TIA, alcohol abuse and tobacco abuse. She has had skin graft in the past, as well as angioplasty times four. She recently had cadaver grafts approximately 5 days ago. She presented to the emergency room with foul smelling purulent drainage, surrounding erythema tracking all the way up her leg, all the way to the thigh, subjective fevers and chills and pain, erythema and induration of the lower extremity around her ulcer that has progressively worsened over the last 5 days. Again, notably in the patient's history she has had cadaver graft placed 5 days ago and symptoms started over the last 2-3 days. She had a skin graft previously as well as angioplasty multiple times. infected split thickness skin graft to her left ankle plus infected left prep atellar bursitis with possible chronic osteomyelitis Vascular consult, Dr. Crews, Ortho Dr. Branch, and Dr. Herrera consulted Wound cultures and blood cultures times two. the patient has been on vancomycin, cefepime, and Flagyl since admission. 08/13/18 cefepime discontinued due to I to pseudomonas. 08/13/18 meropenem started due to patient refusal to take levaquin which causes severe nause, vomiting, and abdominal pain. Pt underwent angioplasty by vascular surgery to improve circulation and healing. Debridement and removal of cadaveric skingrafts planned for 08/15/[address] Crews. wound cx Left knee pain and inflammation xray reviewed Per ortho Dr. Branch, not septic arthritis. Atrial fibrillation: On anticoagulation with Eliquis. Will continue her Eliquis. Patient will likely need debridement of her peripheral artery disease (PAD) ulcer at some point in time. Eliquis will need to be held then, but will continue for now. For history of alcohol abuse: Patient does not appear to be withdrawing. Her last drink was yesterday. She is down to two beers daily. Will place her on the Clinical [place] Withdrawal Assessment (CIWA) protocol. Can start her on Ativan if she does start to withdraw. Will continue thiamine and folic acid. Hypokalemia: supplemented Hyponatremia: no mental status changes. serial mp. For history of tobacco abuse: Nicotine replacement with nicotine patch. History of hypertension: Continue Lasix and bisoprolol. History of transient ischemic attack (TIA): Continue Plavix. History of peripheral artery disease (PAD) status post angioplasty multiple times: Continue Plavix and Lipitor. Hyperlipidemia: Continue Lipitor. Microcytic anemia will get iron studies. Deep venous thrombosis (DVT) prophylaxis: On Eliquis. Gastrointestinal (GI) prophylaxis: Not indicated. VS, I&O, 24H, Fishbone Vital Signs/I&O Vital Signs Date Time Temp Pulse Resp B/P (MAP) Pulse Ox O2 Delivery O2 Flow Rate FiO2 08/15/18 22:00 97.5 67 20 123/62 (82) 97 08/15/18 14:00 Room Air 08/14/18 14:00 1.0 I&O- Last 24 Hours up to 6 AM 08/16/18 06:00 Intake Total 2290 ml Output Total 1700 ml Balance 590 ml Laboratory Data 24H LABS Laboratory Tests 2 08/15/18 11:04: Vancomycin Level Trough 21.2H Microbiology Microbiology 08/09/18 Blood Culture - Final, Complete Bacillus Sp., Not Anthracis 08/09/18 Blood Culture - Final, Complete NO GROWTH AFTER 5 DAYS 08/09/18 Wound Culture - Final, Complete Pseudomonas Aeruginosa Escherichia Coli Staph.aureus Methicillin Resis Streptococcus Group C RAYMOND PEARSON MD Aug 16, 2018 05:53
[2018-08-16 14:00] VITALS: BP 132/58
[2018-08-16] MEDS: PERCOCET 5MG/325MG TAB PO PRN ×2 (15:49→20:19)
--- NOTE | 2018-08-16 16:53 | PHACANCOPD ---
PHARMACY VANCOMYCIN DOSING Pt Demographics Demographics Patient Age:73 , Weight:59.300 , Gender: female Adjusted Body Weight Date: 08/11/18, Adjusted Body Weight: [55] Kg Vancomycin Vancomycin indication: SSTI Vancomycin Target Ranges: 15-20 mcg/ml Vancomycin Load Y/N: No Load Dose Date Time Vancomycin Load Dose: Date: Time: Vancomycin Dose Date: 08/11/18. Current Vancomycin Dose: [750MG IV Q8H] Intermittent Dosing?: No Labs Micro Microbiology 08/09/18 Blood Culture - Final, Complete Bacillus Sp., Not Anthracis 08/09/18 Blood Culture - Final, Complete NO GROWTH AFTER 5 DAYS 08/09/18 Wound Culture - Final, Complete Pseudomonas Aeruginosa Escherichia Coli Staph.aureus Methicillin Resis Streptococcus Group C Creatinine Clearance Date:08/11/18. Creatinine Clearance: [10.4ML/MIN]. Assessment and Plan Maintaining Current Dose?: Yes Reason for dose change: No Dose Change Pharmacist Note Pharmacist Note 08/16/18: Trough level today resulted at 19.3mcg/ml. Scr remains stable at 0.75 today from 0.79 at start of therapy. BUN is WNL. I/O remains stable. We will continue the patient on her current regimen of 1g IV Q12H. We will continue to monitor and schedule further trough levels as appropriate based on course of therapy and renal function. 08/15/18: Trough drawn today @1104 before 1200 dose resulted at 21.2mcg/ml. This is slightly above our goal of 15-20mcg/ml. I have adjusted the dose down to Vanco 1G IV Q12H starting at 1400. The longer interval should give the pt more time to clear between doses. I have scheduled a trough for tomorrow at 1500 to ensure appropriate levels. The pt's cultures are positive for MRSA VERONIKA <0.5. We will continue to monitor and adjust dose s needed. Date: 08/12/18. Pharmacist note:Pt trough came back today @ 16.1mcg/ml @ 11:00. We will continue current dosing, monitoring, and adjust as needed. Date: 08/11/18. Pharmacist note:PT is a 73 year old female being treated with vancomycin for a soft skin tissue infection goal trough 15-20mcg/ml. The trough came back today after the 4th dose @ 10.4mcg/ml. The dose will be changed to 750mg iv every 8 hours starting 08/11/18 @ 12. Another trough is scheduled 08/12/18 @11:00. We will continue to monitor and adjust dose as needed. GENOVEV[facility] Aug 16, 2018 16:53
[2018-08-16] MEDS: CLOPIDOGREL 75 MG TAB PO SCH (20:18)
[2018-08-16] MEDS: ATORVASTATIN 20 MG TAB PO SCH (20:18)
[2018-08-16] MEDS: GABAPENTIN 400 MG CAP PO SCH (20:19)
[2018-08-16] MEDS: FOLIC ACID 1 MG TAB PO SCH (20:19)
[2018-08-16] MEDS: DOCUSATE SODIUM 100 MG CAP PO SCH (20:19)
[2018-08-16 22:00] VITALS: BP 114/55
[2018-08-17] MEDS: VANCOMYCIN HCL 1,000 MG, VIAL MATE ADAPTER 1 EACH in D5W 250 ML IV SCH ×2 (03:21→16:30)
[2018-08-17] MEDS: CIPROFLOXACIN 500 MG TAB PO SCH ×2 (05:40→17:40)
[2018-08-17 06:00] VITALS: BP 120/65
[2018-08-17 09:49] VITALS: BP 126/78
[2018-08-17] MEDS: BISOPROLOL FUMARATE 10 MG TAB PO SCH (09:49)
[2018-08-17] MEDS: THIAMINE 100 MG TAB PO SCH (09:49)
[2018-08-17] MEDS: NICOTINE 21MG/24HR 1 EA TRANSDERMAL TD SCH (09:49)
[2018-08-17] MEDS: LACTOBACILLUS ACIDOPHILUS CAP (BACID) PO SCH ×2 (09:50→17:40)
[2018-08-17] MEDS: VITAMIN D 1,000 INTERNATIONAL UNITS TABLET PO SCH (09:50)
[2018-08-17] MEDS: CYANOCOBALAMIN 500 MCG TAB PO SCH (09:50)
[2018-08-17] MEDS: APIXABAN 5 MG TAB (ELIQUIS) PO SCH (09:50)
[2018-08-17] MEDS: FUROSEMIDE 20 MG TAB PO SCH (09:50)
--- NOTE | 2018-08-17 11:11 | IPNPDOC ---
Date Seen The patient was seen on 08/17/18. Progress Note SUBJECTIVE:"I want to go home today." Pt has improved significantly over the weekend. Awaiting ID recommendations, and PT clearance. 08/15/[address] crews. much more comfortable today and says pain is tolerable. slept well last night. PT is adamant about not taking quinolones despite being advised that it may have been the erythromcyin taken concurrenlty withcipro last time. PHYSICAL EXAMINATION: VITALS: As below GENERAL: She is well nourished, in distress secondary to pain. HEAD: Normocephalic, atraumatic. EYES: Extraocular movements are intact. Pupils equal, round, reactive to light. NECK: Supple, no jugular venous pressure (JVP). LUNGS: Clear to auscultation, no crackles, wheezes, rales, or rhonchi. CARDIOVASCULAR: Irregularly irregular rhythm, normal S1, S2, no murmurs, gallops, or rubs. ABDOMEN: Soft, nontender, nondistended, positive bowel sounds, no rebound, no guarding. EXTREMITIES: She has bilateral pitting edema. 7 x 3 cm ulcerative area on the lateral aspect extending posteriorly on the left lower extremity left knee swelling, warmth. NEUROLOGIC: Alert and oriented times three, no focal deficits appreciated in the exam. LABS and RADIOLOGY: Reviewed ASSESSMENT and PLAN: The patient is a 73-year-old female. She has significant past medical history of peripheral artery disease (PAD) with chronic PAD ulcer on the lateral posterior aspect of the left lower extremity near the lateral malleolus, Afib, Hypertension, Hyperlipidemia, TIA, alcohol abuse and tobacco abuse. She has had skin graft in the past, as well as angioplasty times four. She recently had cadaver grafts approximately 5 days ago. She presented to the emergency room with foul smelling purulent drainage, surrounding erythema tracking all the way up her leg, all the way to the thigh, subjective fevers and chills and pain, erythema and induration of the lower extremity around her ulcer that has progressively worsened over the last 5 days. Again, notably in the patient's history she has had cadaver graft placed 5 days ago and symptoms started over the last 2-3 days. She had a skin graft previously as well as angioplasty multiple times. infected split thickness skin graft to her left ankle plus infected left prepatellar bursitis with possible chronic osteomyelitis Vascular consult, Dr. Crews, Ortho Dr. Branch, and Dr. Herrera consulted Wound cultures and blood cultures times two. the patient has been on vancomycin, cefepime, and Flagyl since admission. 08/13/18 cefepime discontinued due to I to pseudomonas. 08/13/18 meropenem started due to patient refusal to take levaquin which causes severe nause, vomiting, and abdominal pain. Pt u nderwent angioplasty by vascular surgery to improve circulation and healing. Debridement and removal of cadaveric skingrafts planned for 08/15/[address] Crews. wound cx Left knee pain and inflammation xray reviewed Per ortho Dr. Branch, not septic arthritis. Atrial fibrillation: On anticoagulation with Eliquis. Will continue her Eliquis. Patient will likely need debridement of her peripheral artery disease (PAD) ulcer at some point in time. Eliquis will need to be held then, but will continue for now. For history of alcohol abuse: Patient does not appear to be withdrawing. Her last drink was yesterday. She is down to two beers daily. Will place her on the Clinical [place] Withdrawal Assessment (CIWA) protocol. Can start her on Ativan if she does start to withdraw. Will continue thiamine and folic acid. Hypokalemia: supplemented Hyponatremia: no mental status changes. serial mp. For history of tobacco abuse: Nicotine replacement with nicotine patch. History of hypertension: Continue Lasix and bisoprolol. History of transient ischemic attack (TIA): Continue Plavix. History of peripheral artery disease (PAD) status post angioplasty multiple times: Continue Plavix and Lipitor. Hyperlipidemia: Continue Lipitor. Microcytic anemia will get iron studies. Deep venous thrombosis (DVT) prophylaxis: On Eliquis. Gastrointestinal (GI) prophylaxis: Not indicated. disposition: Awaiting ID recommendations, and PT clearance. VS, I&O, 24H, Fishbone Vital Signs/I&O Vital Signs Date Time Temp Pulse Resp B/P (MAP) Pulse Ox O2 Delivery O2 Flow Rate FiO2 08/17/18 06:00 97.1 69 20 120/65 (83) 96 08/16/18 14:00 Room Air 08/14/18 14:00 1.0 I&O- Last 24 Hours up to 6 AM 08/17/18 06:00 Intake Total 1650 ml Output Total 900 ml Balance 750 ml Laboratory Data 24H LABS Laboratory Tests 2 08/16/18 15:02: Vancomycin Level Trough 19.3 Microbiology Microbiology 08/09/18 Blood Culture - Final, Complete Bacillus Sp., Not Anthracis 08/09/18 Blood Culture - Final, Complete NO GROWTH AFTER 5 DAYS 08/09/18 Wound Culture - Final, Complete Pseudomonas Aeruginosa Escherichia Coli Staph.aureus Methicillin Resis Streptococcus Group C RAYMOND PEARSON MD Aug 17, 2018 07:47
[2018-08-17 14:00] VITALS: BP_SYST 123; BP_SYST 128; BP_DIAS 58
[2018-08-17] MEDS ORDERED: ZYVO1TAB PO (16:26)
[2018-08-17] MEDS ORDERED: CIPR-249 PO (16:26)
--- NOTE | 2018-08-17 21:17 | IPN ---
DATE: 08/17/2018 Mrs. Skaggs is anxious to go home. She feels much better. She is up walking in her room to the bathroom. Her knee pain has markedly improved. She has had no fever or chills. No nausea, vomiting or diarrhea. She has been switched to by mouth ciprofloxacin for the past three days, has tolerated very well without shortness of breath. Prior authorization has been sent for Zyvox to see if the patient could be discharged home today. LABORATORY: White count is 12.1, hemoglobin 10.4, hematocrit 32.7, platelets 592. Erythrocyte sedimentation rate (ESR) 55. Sodium 135, potassium 3.8, chloride 98, bicarbonate 29, BUN 9, creatinine 0.75, glucose 123, calcium 8.9, C-reactive protein (CRP) 3.73. 08/14/2018 wound culture: Pseudomonas, Escherichia coli, methicillin-resistant Staphylococcus aureus (MRSA) and Group C streptococcus. PHYSICAL EXAMINATION: Left lower extremity prepatellar bursitis, erythema, has decreased range of motion 90 degrees with minimal pain or tenderness. Right lower extremity ulcer surrounding the whole leg. Grafts have been removed. All prateek have been removed. There is mild serosanguineous discharge. Minimal tenderness to touch. There is no purulence. IMPRESSION: 1- Infected lower extremity ulcers with cellulitis and prepatellar bursitis, doing well with decreased C-reactive protein (CRP), eradication of fever and decreased pain. The patient has tolerated by mouth ciprofloxacin 500 mg twice a day, will also switch her to by mouth linezolid 600 mg by mouth twice a day to finish a 10-day course. 2. Tobacco abuse. The patient again counseled against smoking. She has tolerated nicotine patch here and will able to discontinue smoking at home. 3. Peripheral vascular disease, status post angioplasty by Dr. Crews. PLAN: Continue Zyvox 600 mg by mouth twice a day for 10 days. Prior authorization will be obtained. Continue ciprofloxacin for10 days. The patient can follow up in Dr. Moore's office. She does not need infectious disease followup. [facility]
--- NOTE | 2018-08-20 08:38 | REPIR ---
DATE OF PROCEDURE: 08/13/2018 ATTENDING SURGEON: Dr. Roman Crews SPLICING TECHNICIAN: Marleni Nunez and Patricia Pacheco PREOPERATIVE DIAGNOSES: Nonhealing left lower extremity wound, atherosclerotic arterial occlusive disease in the left lower extremity, venous valvular insufficiency of left lower extremity, continued tobacco use with smoking of cigarettes. POSTOPERATIVE DIAGNOSES: Nonhealing left lower extremity wound, atherosclerotic arterial occlusive disease in the left lower extremity, venous valvular insufficiency of left lower extremity, continued tobacco use with smoking of cigarettes. PROCEDURE: Aortogram, iliofemoral angiogram, selective left common femoral artery catheter placement, selective left superficial femoral artery catheter placement, selective left popliteal artery catheter placement, left peroneal artery catheter placement, left superficial femoral, popliteal and peroneal artery angioplasty with 3 x 100 balloon, left superficial femoral artery, popliteal artery angioplasty and stent with a 6 x 120 Sofie drug-eluting stent postdilated with a 5 x 200 balloon, left common femoral and superficial femoral artery angioplasty with 6 x 200 balloon, Mynx closure of the right common femoral arteriotomy. INDICATION: The patient has nonhealing left lower extremity wound, which has worsened. The patient underwent skin grafting, which was healing well but has now started to show increased size of the wounds and decreased perfusion. The patient undergo a left lower extremity angiogram with possible angioplasty, stent and/or atherectomy. Risks, benefits and alternative treatment options were discussed with the patient. ANESTHESIA: Local sedation with 3 mg Versed, 150 mcg of Fentanyl, 10 mL of 2% lidocaine. FLUORO TIME: 9.1 minutes. CONTRAST: 15 mL of Isovue-300. HEPARIN: 4000 units SEDATION TIME: Was from 7:47 a.m. to 9:15 a.m. for a total of 88 minutes. The sedation was administered by the registered nurse in the room the cardiopulmonary monitoring was performed by the registered nurse in the room. The administration of sedation and cardiopulmonary monitoring was performed under my direct supervision and I was present for and directed the entire case. There were no sedation related complications. Patient returned to presedation status at the completion of the procedure. COMPLICATIONS: None. DRAINS: None. SPECIMENS: None. IMPLANT: Left superficial femoral and popliteal artery angioplasty and stenting with a 6 x 120 Sofie drug-eluting stent and Mynx closure of the right common femoral arteriotomy. Sedation was administered by the nurse in the room under my direct supervision. Cardiopulmonary monitoring was performed by the nursing room under my direct supervision. I was present for and directed the entire case. PROCEDURE: The patient was taken to the angiography suite, placed supine on the angiography room table and then prepped and draped in a standard surgical fashion. The right common femoral artery was cannulated with a micropuncture needle after anesthetizing the overlying skin with 2% lidocaine. The micropuncture wire was advanced through the micropuncture needle, which was upsized to a micropuncture sheath. A Bentson wire was advanced through the micropuncture sheath, which was upsized to #5-Dutch sheath. An Omni flush catheter was placed in the aorta and aortogram was performed. Catheter was pulled down to the level of bifurcation iliac arteries and an iliofemoral angiogram was performed. Catheter was directed over the bifurcation iliac arteries, placed in the left common femoral artery and a left lower extremity angiogram was performed. Catheter was advanced in the superficial femoral artery and a left lower extremity angiogram was performed. Catheter was advanced into the left popliteal artery and a left popliteal artery selective angiogram was performed. Catheter was then advanced into the peroneal artery and a selective peroneal artery angiogram was performed. The left superficial femoral, popliteal and peroneal arteries were then angioplasty with 3 x 100 balloon. The left superficial femoral and popliteal arteries were angioplastied and stented with a 6 x 120 Sofie drug-eluting stent and postdilated with 5 x 200 balloon. The left common femoral and superficial femoral artery proximally were angioplastied with a 6 x 200 balloon. A completion angiogram showed resolution of the stenoses with excellent flow through the common femoral into the superficial femoral artery, popliteal artery and peroneal artery and down into the foot. A Mynx closure device was used to close the arteriotomy in the right common femoral artery with an additional 10 minutes of adjunctive pressure applied for hemostasis. Dressings were then applied. The patient tolerated the procedure well. All instrument, sponge and needle counts were correct at the end of the case. There were no complications. Dr. Crews was present for and directly entire case. The patient was transferred to the holding area and subsequently to the floor in stable condition. LUANN
--- NOTE | 2018-09-09 10:40 | DS.PDOC ---
Discharge Summary General Date of Admission Aug 09, 2018 at 17:55 Date of Discharge 08/17/18 Discharge Summary CONSULTANTS: DR HERRERA, INFECTIOUS DISEASE DR. RODRIGUES, VASCULAR SURGERY DISCHARGE DIAGNOSES: infected split thickness skin graft to her left ankle Left knee pain and inflammation Atrial fibrillation For history of alcohol abuse Hypokalemia: Hyponatremia For history of tobacco abuse History of hypertension History of transient ischemic attack (TIA) History of peripheral artery disease (PAD) status post angioplasty Hyperlipidemia Microcytic anemia HOSPITAL COURSE: The patient is a 73-year-old female. She has significant past medical history of peripheral artery disease (PAD) with chronic PAD ulcer on the lateral posterior aspect of the left lower extremity near the lateral malleolus, Afib, Hypertension, Hyperlipidemia, TIA, alcohol abuse and tobacco abuse. She has had skin graft in the past, as well as angioplasty times four. She recently had cadaver grafts approximately 5 days ago. She presented to the emergency room with foul smelling purulent drainage, surrounding erythema tracking all the way up her leg, all the way to the thigh, subjective fevers and chills and pain, erythema and induration of the lower extremity around her ulcer that has progressively worsened over the last 5 days. Again, notably in the patient's history she has had cadaver graft placed 5 days ago and symptoms started over the last 2-3 days. She had a skin graft previously as well as angioplasty multiple times. She was treated for infected split thickness skin graft to her left ankle plus infected left prepatellar bursitis with possible chronic osteomyelitis Vascular consult, Dr. Rodrigues, Ortho Dr. Branch, and Dr. Herrera consulted Wound cultures and blood cultures times two. the patient has been on vancomycin, cefepime, and Flagyl since admission. 08/13/18 cefepime discontinued due to I to pseudomonas. 08/13/18 meropenem started due to patient refusal to take levaquin which causes severe nause, vomiting, and abdominal pain. Pt underwent angioplasty by vascular surgery to improve circulation and healing. Debridement and removal of cadaveric skingrafts planned for 08/15/[address] Rodrigues. wound cx Left knee pain and inflammation xray reviewed Per ortho Dr. Branch, not septic arthritis. Atrial fibrillation: On anticoagulation with Eliquis. Will continue her Eliquis. Patient will likely need debridement of her peripheral artery disease (PAD) ulcer at some point in time. Eliquis will need to be held then, but will continue for now. For history of alcohol abuse: Patient does not appear to be withdrawing. Her last drink was yesterday. She is down to two beers daily. Will place her on the Clinical [place] Withdrawal Assessment (CIWA) protocol. Can start her on Ativan if she does start to withdraw. Will continue thiamine and folic acid. Hypokalemia: supplemented Hyponatremia: no mental status changes. serial mp. For history of tobacco abuse: Nicotine replacement with nicotine patch. History of hypertension: Continue Lasix and bisoprolol. History of transient ischemic attack (TIA): Continue Plavix. History of peripheral artery disease (PAD) status post angioplasty multiple times: Continue Plavix and Lipitor. Hyperlipidemia: Continue Lipitor. Microcytic anemia iron studies. Deep venous thrombosis (DVT) prophylaxis: On Eliquis. Gastrointestinal (GI) prophylaxis: Not indicated. DISCHARGE PHYSICAL EXAMINATION: VITALS: As below GENERAL: She is well nourished, in distress secondary to pain. HEAD: Normocephalic, atraumatic. EYES: Extraocular movements are intact. Pupils equal, round, reactive to light. NECK: Supple, no jugular venous pressure (JVP). LUNGS: Clear to auscultation, no crackles, wheezes, rales, or rhonchi. CARDIOVASCULAR: Irregularly irregular rhythm, normal S1, S2, no murmurs, gallops, or rubs. ABDOMEN: Soft, nontender, nondistended, positive bowel sounds, no rebound, no guarding. EXTREMITIES: She has bilateral pitting edema. 7 x 3 cm ulcerative area on the lateral aspect extending posteriorly on the left lower extremity left knee swelling, warmth. NEUROLOGIC: Alert and oriented times three, no focal deficits appreciated in the exam. LABS and RADIOLOGY: PLS SEE BELOW DISCHARGE MEDICATIONS: PLS SEE BELOW TIME SPENT ON DISCHARGE: 30 MINUTES Discharge Medications Scheduled (Fish Oil 1200 mg) 1 Cap Cap, 1 CAP PO QHS, (Reported) (Preservision/Lutein) 1 Cap Cap, 1 CAP PO DAILY, (Reported) Acetaminophen/Hydrocodone (Hydrocodone/Acetaminophen 5-325 mg) 1 Tab Tab, 1 TAB PO QHS, (Reported) Apixaban Base (Eliquis) 5 Mg Tab, 5 MG PO BID, (Reported) Atorvastatin Calcium (Atorvastatin Calcium) 40 Mg Tab, 40 MG PO QHS, (Reported) Biotin (Vitamin H) (Biotin) 5,000 Mcg Cap, 5,000 MCG PO QWEEK, (Reported) MONDAYS Bisoprolol Fumarate (Zebeta) 10 Mg Tab, 10 MG PO DAILY, (Reported) Cholecalciferol (Vitamin D3) 1,000 Unit Tab, 2,000 UNIT PO DAILY, (Reported) Ciprofloxacin HCl (Cipro) 500 Mg Tab, 500 MG PO BID Clopidogrel Bisulfate (Clopidogrel) 75 Mg Tab, 75 MG PO QHS, (Reported) Cyanocobalamin (Vitamin B-12) 500 Mcg Tab, 2,500 MCG PO DAILY, (Reported) Docusate Sodium (Stool Softener) 100 Mg Cap, 100 MG PO QHS, (Reported) Folic Acid (Folic Acid) 1 Mg Tab, 1 MG PO QHS, (Reported) Furosemide (Furosemide) 20 Mg Tab, 20 MG PO DAILY, (Reported) Gabapentin (Gabapentin) 400 Mg Cap, 400 MG PO QHS, (Reported) Linezolid (Zyvox) 600 Mg Tab, 600 MG PO BID with food Thiamine HCl (Thiamine HCl) 100 Mg Tab, 100 MG PO DAILY, (Reported) Zinc (Zinc Methionate) 50 Mg Cap, 50 MG PO DAILY, (Reported) Scheduled PRN Acetaminophen (Acetaminophen) 500 Mg Tab, 500 MG PO for PAIN, (Reported) Ibuprofen (Ibu-200) 200 Mg Tab, 400 MG PO for PAIN, (Reported) Allergies Coded Allergies: Ciprofloxacin (Verified Allergy, Severe, DIFFICULTY BREATHING, 05/19/13) Cephalexin (Verified Adverse Reaction, Unknown, nausea, 08/09/18) RAYMOND PEARSON MD Sep 09, 2018 10:40
--- NOTE | 2018-09-28 13:03 | RO ---
DATE OF PROCEDURE: 08/15/2018 PREOPERATIVE DIAGNOSIS: Failed left lower extremity skin graft. POSTOPERATIVE DIAGNOSIS: Failed left lower extremity skin graft. PROCEDURE: Removal of prateek from the left lower extremity previously placed for the skin graft. PROCEDURE: The prateek were removed with a staple remover. There was no residual graft remaining as the graft been lysed and had disintegrated. Dressings were applied. The patient tolerated the procedure well. All instrument, sponge, needle counts were correct at the end the case. There were no complications. Dr. Crews was present for directed the entire case. The patient remained in her bed in stable condition.
== END 2018-08-17 18:25 | disposition home or self-care (01) | DRG 908 ==
LOC: M ED 14:37 → EEVIPCON 17:55 → M ED INP 17:55 → M MSPAV 21:15
PROVIDERS: ADMIT Internal Medicine; ATTEND General Practice
PROC: 047L34Z Dilation of Left Femoral Artery with Drug-eluting Intraluminal Device, Percutaneous Approach (ICD-10-PCS; principal; 2018-08-13)
PROC: 047M34Z Dilation of Right Popliteal Artery with Drug-eluting Intraluminal Device, Percutaneous Approach (ICD-10-PCS; 2018-08-13)
DX: T86.828 Other complications of skin graft (allograft) (autograft) (principal); L97.329 Non-pressure chronic ulcer of left ankle with unspecified severity; L03.116 Cellulitis of left lower limb; M86.672 Other chronic osteomyelitis, left ankle and foot; E87.1 Hypo-osmolality and hyponatremia; I73.9 Peripheral vascular disease, unspecified; F17.210 Nicotine dependence, cigarettes, uncomplicated; M71.162 Other infective bursitis, left knee; B95.62 Methicillin resistant Staphylococcus aureus infection as the cause of diseases classified elsewhere; I48.91 Unspecified atrial fibrillation; B95.7 Other staphylococcus as the cause of diseases classified elsewhere; B96.5 Pseudomonas (aeruginosa) (mallei) (pseudomallei) as the cause of diseases classified elsewhere; E87.6 Hypokalemia; B96.20 Unspecified Escherichia coli [E. coli] as the cause of diseases classified elsewhere; F10.10 Alcohol abuse, uncomplicated; I10 Essential (primary) hypertension; D50.9 Iron deficiency anemia, unspecified; E78.5 Hyperlipidemia, unspecified; Z86.73 Personal history of transient ischemic attack (TIA), and cerebral infarction without residual deficits; Z88.1 Allergy status to other antibiotic agents; Z79.01 Long term (current) use of anticoagulants; Z79.899 Other long term (current) drug therapy; Z79.891 Long term (current) use of opiate analgesic; Z79.02 Long term (current) use of antithrombotics/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

== ENCOUNTER 2018-09-22 09:56 | Day surgery (SDC) | payer MEDICARE ==
[~2018-09-22] VITALS: Ht 162.6 cm; Wt 55.8 kg
[~2018-09-22 09:56] MED LIST changes: +CIPR-249 PO; +IBUP200T45 PO; +ZYVO1TAB PO
[2018-09-22] MEDS ORDERED: fentaNYL 100 MCG/2 ML INJECTION (J3010) As Ordered ONE (10:25)
[2018-09-22] MEDS ORDERED: LIDOCAINE 2% INJ 100 MG/5 ML SDV (FOR ANES.) As Ordered ONE (10:25)
[2018-09-22] MEDS ORDERED: PROPOFOL 200 MG/20 ML VIAL As Ordered ONE (10:25)
[2018-09-22] MEDS ORDERED: BUPIVACAINE HCL 0.5% 30 ML VIAL As Ordered ONE (11:06)
[2018-09-22] MEDS ORDERED: LIDOCAINE 1% SDV INJ 30 ML VIAL As Ordered ONE (11:06)
[2018-09-22] MEDS ORDERED: ONDANSETRON 4MG/2ML VIAL (J2405) IV PRN (11:45)
[2018-09-22] MEDS ORDERED: fentaNYL 100 MCG/2 ML INJECTION (J3010) IV PRN (11:45)
[2018-09-22] MEDS ORDERED: LR 1,000 ML IV SCH (11:45)
[2018-09-22] MEDS ORDERED: NORCO, ANEXSIA 5/325MG TABLET (HYDROcodone/ACETAMINOPHEN) As Ordered ONE (12:05)
[2018-09-22 12:15] VITALS: BP 108/70
[2018-09-22] MEDS ORDERED: NORCO, ANEXSIA 5/325MG TABLET (HYDROcodone/ACETAMINOPHEN) PO ONE (12:15)
--- NOTE | 2018-09-22 20:16 | RO ---
DATE OF PROCEDURE: 09/22/2018 PREOPERATIVE DIAGNOSIS: Aortoiliac atherosclerotic arterial occlusive disease, femoral-popliteal arterial atherosclerotic occlusive disease, tibioperoneal arterial atherosclerotic occlusive disease, nonhealing left lower extremity chronic wounds, chronic venous hypertension bilateral lower extremities, tobacco use with continued cigarette smoking. POSTOPERATIVE DIAGNOSES: Aortoiliac atherosclerotic arterial occlusive disease, femoral-popliteal arterial atherosclerotic occlusive disease, tibioperoneal arterial atherosclerotic occlusive disease, nonhealing left lower extremity chronic wounds, chronic venous hypertension bilateral lower extremities, tobacco use with continued cigarette smoking. PROCEDURE: Excisional debridement of chronic left lower extremity wounds with removal of skin and subcutaneous tissue. SURGEON: Dr. Roman Crews RADIOLOGY ASST: None. ANESTHESIA: Monitored anesthesia care (MAC). ESTIMATED BLOOD LOSS: 5 mL. IV FLUIDS: 200 mL. HEPARIN: None. COMPLICATIONS: None. DRAINS: None. SPECIMENS: None. IMPLANTS: None. INDICATIONS: The patient is a 73-year-old female with chronic left lower extremity wounds due to arterial and venous insufficiency. The patient has undergone skin grafting of the majority of the wounds and has a lateral wound that is slow to heal. The patient recently underwent angioplasty and stenting of her left superficial femoral and popliteal artery with improved blood flow to the left foot. The patient continues to smoke cigarettes and has undergone multiple attempts at stopping tobacco use without success. The patient will now undergo excisional debridement of nonviable tissue in the left lower extremity chronic wound. Risks, benefits and alternative treatment options were discussed with the patient. Alternative treatment options included but were not limited to no intervention with continued conservative management. Benefits included but were not limited to removal of nonviable tissue to aid in healing of the wound and prevent further tissue or limb loss. Risks included but were not limited to infection, bleeding, possible need for further open surgical intervention, cerebrovascular accident, myocardial infarction, pulmonary embolus, deep vein thrombosis (DVT), renal failure requiring hemodialysis, reaction to the prepping and draping materials, nerve damage, loss of life, loss of limb, poor outcome and/or poor results. The patient acknowledges these risks, benefits and alternative treatment options. The patient's questions were answered. The patient accepts these risks and agrees to proceed. The procedure was described and explained to the patient in detail including drawing of pictures delineating the procedure and the associated anatomy involved. No promises or guarantees were made to the patient or her family regarding the outcome or results of the procedure. DESCRIPTION OF PROCEDURE: The patient was taken to the operating room, placed supine on the operating room table, and the left lower extremity was prepped and draped in a standard surgical fashion. Excisional debridement was performed with pickups and a scalpel with removal of all nonviable skin and subcutaneous tissue down to healthy bleeding tissue. The wound measurements of the lateral wound were 5 cm in length, 4 cm in width and approximately 1 mm in depth. The remainder of the wounds were small superficial ulcerations in the previously grafted area with callus skin, which was removed sharply. Once the debridement was completed, Xeroform dressing was applied to the wounds, and these were then covered with 4x4s and Kerlix. The patient tolerated the procedure well. All instrument, sponge, needle counts were correct at the end the case. There were no complications. Dr. Crews was present for and directed the entire case. The patient was transferred to the recovery room awake, alert, extubated and in stable condition. The procedure and results were described and explained to the patient in the recovery room and all of her questions were answered. Wound Description: The left lower extremity wounds on the lateral aspect measured 5 cm in length, 4 cm in width and 1 mm in depth. The previous circumferential wound which had undergone skin grafting showed multiple areas of hypertrophied skin and dry skin with small areas of ulceration around the wound, the maximum width of which was 1-2 mm x 1-2 mm with minimal depth. MTDD
== END 2018-09-22 12:45 | disposition home or self-care (01) ==
LOC: M SDC 09:56
PROVIDERS: ATTEND Surgery Vascular Surgery
DX: I70.248 Atherosclerosis of native arteries of left leg with ulceration of other part of lower leg (principal); I70.213 Atherosclerosis of native arteries of extremities with intermittent claudication, bilateral legs; I87.303 Chronic venous hypertension (idiopathic) without complications of bilateral lower extremity; I48.91 Unspecified atrial fibrillation; I10 Essential (primary) hypertension; E78.00 Pure hypercholesterolemia, unspecified; M12.9 Arthropathy, unspecified; Z88.1 Allergy status to other antibiotic agents; Z88.8 Allergy status to other drugs, medicaments and biological substances; Z79.899 Other long term (current) drug therapy; Z79.01 Long term (current) use of anticoagulants; Z72.0 Tobacco use; Z86.73 Personal history of transient ischemic attack (TIA), and cerebral infarction without residual deficits; Z86.14 Personal history of Methicillin resistant Staphylococcus aureus infection; Z98.51 Tubal ligation status; Z98.41 Cataract extraction status, right eye; Z98.42 Cataract extraction status, left eye; Z96.1 Presence of intraocular lens
CPT/HCPCS: 11042; J3010

== ENCOUNTER → 2018-09-29 | Outpatient (REF) | payer MEDICARE | LOC: M LAB REF 16:21 | PROVIDERS: ATTEND Family Medicine | DX: M86.262 Subacute osteomyelitis, left tibia and fibula (principal) ==

== ENCOUNTER 2018-10-09 11:41 | Day surgery (SDC) | payer MEDICARE ==
[~2018-10-09] VITALS: Ht 162.6 cm; Wt 56.7 kg
[2018-10-09] MEDS ORDERED: LR 1,000 ML IV ONE (12:00)
[2018-10-09] MEDS ORDERED: PROPOFOL 200 MG/20 ML VIAL As Ordered ONE ×2 (13:04→13:29)
[2018-10-09] MEDS ORDERED: MIDAZOLAM INJ 2 MG/2 ML VIAL (J2250) As Ordered ONE ×2 (13:04→13:29)
[2018-10-09] MEDS ORDERED: LIDOCAINE 2% INJ 100 MG/5 ML SDV (FOR ANES.) As Ordered ONE ×2 (13:04→13:29)
[2018-10-09] MEDS ORDERED: fentaNYL 100 MCG/2 ML INJECTION (J3010) As Ordered ONE ×2 (13:05→13:29)
[2018-10-09] MEDS ORDERED: ONDANSETRON 4MG/2ML VIAL (J2405) As Ordered ONE (13:29)
[2018-10-09] MEDS ORDERED: IBUPROFEN 200 MG TAB PO SCH (15:15)
[2018-10-09 15:30] VITALS: BP 117/56
--- NOTE | 2018-10-28 16:20 | RO ---
DATE OF PROCEDURE: 10/09/2018 ATTENDING SURGEON: Roman Crews MD PAINTER ROUGH: None. PREOPERATIVE DIAGNOSES: Nonhealing left lower extremity wound. Left lower extremity arterial atherosclerotic occlusive disease, left lower extremity venous valvular insufficiency with chronic venous hypertension. POSTOPERATIVE DIAGNOSES: Nonhealing left lower extremity wound. Left lower extremity arterial atherosclerotic occlusive disease, left lower extremity venous valvular insufficiency with chronic venous hypertension. OPERATIVE PROCEDURE: Excisional debridement of nonhealing left calf wound. INDICATION: The patient is a 73-year-old female with nonhealing wound at her left lower extremity who underwent skin grafting and has continued areas of nonhealing. The patient subsequently underwent angioplasty and stenting and now has improved inflow to the left lower extremity and will undergo debridement of her left calf wounds. Risks, benefits and alternative options were discussed with the patient. ANESTHESIA: Monitored anesthesia care (MAC). ESTIMATED BLOOD LOSS: 6 mL IV FLUIDS: 200 mL. HEPARIN: None. COMPLICATIONS: None. DRAINS: None. SPECIMENS: None. IMPLANTS: None. PROCEDURE The patient was taken to the operating room, placed supine on the operating room table and the left lower extremity was prepped and draped in a standard surgical fashion. The left calf wounds were on the medial and lateral aspect and these were sharply debrided using scalpel and pickups with removal of skin and subcutaneous tissue. Once all nonviable skin and subcutaneous tissue was removed down to healthy bleeding tissue, the wounds were irrigated and dressings were applied. The patient tolerated the procedure well. All instrument, sponge and needle counts were correct at the end of the case. There were no complications. Dr. Crews was present for directed the entire case. The patient was transferred to the recovery room and subsequently discharged in stable condition.
== END 2018-10-09 15:47 | disposition home or self-care (01) ==
LOC: M SDC 11:41
PROVIDERS: ATTEND Surgery Vascular Surgery
DX: S81.802A Unspecified open wound, left lower leg, initial encounter (principal); I70.202 Unspecified atherosclerosis of native arteries of extremities, left leg; I87.302 Chronic venous hypertension (idiopathic) without complications of left lower extremity; I87.2 Venous insufficiency (chronic) (peripheral)
CPT/HCPCS: 11042; J2250; J3010

== ENCOUNTER 2018-11-03 12:12 | Day surgery (SDC) | payer MEDICARE ==
[~2018-11-03] VITALS: Ht 162.6 cm; Wt 57.1 kg
[~2018-11-03 12:12] MED LIST changes: +LIDOCAINE 1% MDV 20ML VIAL SQ PRN
[2018-11-03] MEDS ORDERED: LR 1,000 ML IV ONE (12:30)
[2018-11-03] MEDS ORDERED: PROPOFOL 200 MG/20 ML VIAL As Ordered ONE (12:33)
[2018-11-03] MEDS ORDERED: LIDOCAINE 2% INJ 100 MG/5 ML SDV (FOR ANES.) As Ordered ONE ×2 (12:33→12:34)
[2018-11-03] MEDS ORDERED: ONDANSETRON 4MG/2ML VIAL (J2405) As Ordered ONE (12:34)
[2018-11-03] MEDS ORDERED: KETOROLAC 60 MG/2 ML VIAL (J1885) As Ordered ONE (12:34)
[2018-11-03] MEDS ORDERED: MIDAZOLAM INJ 2 MG/2 ML VIAL (J2250) As Ordered ONE (12:34)
[2018-11-03] MEDS ORDERED: KETAMINE HCL 200 MG/20 ML VIAL As Ordered ONE (12:35)
[2018-11-03] MEDS ORDERED: fentaNYL 100 MCG/2 ML INJECTION (J3010) As Ordered ONE (12:35)
[2018-11-03] MEDS ORDERED: CLINDAMYCIN 600 MG in APPROPRIATE DILUENT 1 EA IV ONE (13:00)
[2018-11-03] MEDS ORDERED: CLINDAMYCIN 600 MG/50 ML PREMIX BAG As Ordered ONE (13:16)
[2018-11-03 14:20] VITALS: BP 90/54
--- NOTE | 2018-12-02 09:45 | RO ---
DATE OF PROCEDURE: 11/03/2018 PREOPERATIVE DIAGNOSIS: Nonhealing left lower extremity wound arterial insufficiency, venous insufficiency, continued tobacco. POSTOPERATIVE DIAGNOSIS: Nonhealing left lower extremity wound arterial insufficiency, venous insufficiency, continued tobacco. PROCEDURE: Excisional debridement of left calf wound with removal of skin and subcutaneous tissue and muscle. SURGEON: Dr. Roman Crews RELEASE SPECIALIST: None. INDICATION: The patient is a 73-year-old female with ulceration of the left lower extremity who has undergone arterial revascularization with angioplasty and stenting and also previously undergone skin grafting and has continued ulceration of the lateral aspect of the left calf. The patient requires debridement of the wound. Risks, benefits and alternative options were discussed with the patient. ANESTHESIA: MAC. ESTIMATED BLOOD LOSS: 5 mL IV FLUIDS:100 mL HEPARIN: None. COMPLICATIONS: None. DRAINS: None. SPECIMEN: None. IMPLANTS: None. WOUND DESCRIPTION: The wound measures approximately 7.5 cm in length x 5.5 cm in width and is approximately 3 mm deep. PROCEDURE: The patient was taken to the operating room, placed supine on the operating room table and the left lower extremity was prepped and draped in a standard surgical fashion. The wound was then sharply debrided using a debrided using pickups and a scalpel to sharply remove all nonviable tissue along the edges of the wound and at the base of the wound. The debridement included removal of skin and subcutaneous tissue and muscle down to healthy bleeding tissue. Dressings were then applied. The patient tolerated the procedure well. All instrument, sponge, needle counts were correct at the end of the case. There were no complication. Dr. Crews was present for directed the entire case. The patient was transferred to the holding area and subsequently discharged in stable condition.
== END 2018-11-03 14:55 | disposition home or self-care (01) ==
LOC: M SDC 12:12
PROVIDERS: ATTEND Surgery Vascular Surgery
DX: L97.229 Non-pressure chronic ulcer of left calf with unspecified severity (principal); I87.2 Venous insufficiency (chronic) (peripheral); Z72.0 Tobacco use
CPT/HCPCS: 11043; 11046; J1885; J2250; J2405; J3010

== ENCOUNTER 2018-11-26 12:05 | Day surgery (SDC) | payer MEDICARE ==
[~2018-11-26] VITALS: Ht 162.6 cm; Wt 57.6 kg
[~2018-11-26 12:05] MED LIST changes: -BISO10TA PO; +BISO10TA13 PO; +HYDR-3715 PO; -LIDOCAINE 1% MDV 20ML VIAL SQ PRN; +LIDOCAINE 2% INJ 100 MG/5 ML SDV (FOR ANES.) As Ordered ONE; +LR 1,000 ML IV ONE; +MIDAZOLAM INJ 2 MG/2 ML VIAL (J2250) As Ordered ONE; -NORCOTAB PO; +ONDANSETRON 4MG/2ML VIAL (J2405) As Ordered ONE; +PROPOFOL 500 MG/50 ML VIAL As Ordered ONE; +dexameTHASONE 4 MG/ML 1ML VIAL (J1100) As Ordered ONE; +fentaNYL 100 MCG/2 ML INJECTION (J3010) As Ordered ONE
[2018-11-26] MEDS ORDERED: ceFAZolin 2 GM/D5W 50 ML IV BAG (J0690 PER 500MG) As Ordered ONE (16:47)
[2018-11-26 17:40] VITALS: BP 134/63
[2018-11-26] MEDS ORDERED: ONDANSETRON 4MG/2ML VIAL (J2405) IV PRN (18:00)
[2018-11-26] MEDS ORDERED: NORCO, ANEXSIA 5/325MG TABLET (HYDROcodone/ACETAMINOPHEN) PO PRN (18:00)
[2018-11-26] MEDS ORDERED: LR 1,000 ML IV SCH (18:00)
--- NOTE | 2018-12-02 14:17 | RO ---
DATE OF PROCEDURE: 11/26/2018 ATTENDING SURGEON: Dr. Roman Crews CLINICAL ADMINISTRATOR: None. PREOPERATIVE DIAGNOSIS: Nonhealing left calf wound. POSTOPERATIVE DIAGNOSIS: Nonhealing left calf wound. PROCEDURE: Left calf wound excisional debridement with removal of skin, subcutaneous tissue and muscle. INDICATION: The patient is a 73-year-old female with a chronic left lateral calf wound that is nonhealing and will undergo debridement. Risks, benefits, alternative treatment options were discussed with the patient. ANESTHESIA: Monitored anesthesia care (MAC). ESTIMATED BLOOD LOSS: 5 mL. INTRAVENOUS (IV) FLUIDS: 600 mL. WOUND MEASUREMENTS: 7.5 cm in length, 4.5 cm in width and 2 mm in depth. DESCRIPTION OF PROCEDURE: The patient was taken the operating room, placed supine on the operating table and then prepped and draped in a standard surgical fashion. Excisional debridement was performed with removal of skin, subcutaneous tissue and muscle with scalpel and pickups down to healthy bleeding tissue. Dressings were then applied. The patient tolerated the procedure well. All instrument, sponge and needle counts were correct at the end of the case. There were no complications. Dr. Crews was present for and directed the entire case. The patient was transferred to the recovery room in stable condition.
== END 2018-11-26 17:59 | disposition home or self-care (01) ==
LOC: M SDC 12:05
PROVIDERS: ATTEND Surgery Vascular Surgery
DX: S81.802A Unspecified open wound, left lower leg, initial encounter (principal); I10 Essential (primary) hypertension; X58.XXXA Exposure to other specified factors, initial encounter; Y92.9 Unspecified place or not applicable
CPT/HCPCS: 11043; 11046; J0690; J1100; J2250; J2405; J3010

== ENCOUNTER 2018-12-11 10:36 | Day surgery (SDC) | payer MEDICARE ==
[~2018-12-11] VITALS: Ht 162.6 cm; Wt 57.6 kg
[2018-12-11 14:20] VITALS: BP 110/53
[2018-12-28] MEDS ORDERED: FISH1000 PO (14:55)
--- NOTE | 2019-01-06 08:58 | RO ---
DATE OF PROCEDURE: 12/11/2018 PREOPERATIVE DIAGNOSIS: Nonhealing left calf ulcer. POSTOPERATIVE DIAGNOSES: Nonhealing left calf ulcer. PROCEDURE: Excisional debridement of left calf wound which measures approximately 7 cm in length x 0.4 cm in width x 1 mm in depth. SURGEON: Dr. Anne Crews. DIRECTOR OF PHYSICAL SECURITY: None. ANESTHESIA: Monitored anesthesia care (MAC). ESTIMATED BLOOD LOSS: 10 mL IV FLUIDS: 300 mL. HEPARIN: None. COMPLICATIONS: None. DRAINS: None. SPECIMENS: None. IMPLANTS: None INDICATION: The patient is a 73-year-old female with a nonhealing wound on her left calf who has previously undergone skin grafting as well as angioplasty and stenting of her vessels and continues to be used tobacco regularly. The patient will now undergo debridement of the wound. Risks, benefits, alternative options were discussed with the patient. DESCRIPTION OF PROCEDURE: The patient was taken to the operating room, placed supine on the operating room table and the left lower extremity was prepped and draped in a standard surgical fashion. The wound was sharply debrided using pickups and a scalpel with removal of all nonviable skin, subcutaneous tissue and muscle down to healthy bleeding tissue. Dressings were then applied. The patient tolerated the procedure well. All instrument, sponge, and needle counts were correct at the end of the case. There were no complications. Dr. Crews was present for directed the entire case. The patient was transferred to the recovery room awake, alert, extubated and in stable condition.
== END 2018-12-11 14:25 | disposition home or self-care (01) ==
LOC: M SDC 10:36
PROVIDERS: ATTEND Surgery Vascular Surgery
DX: L97.229 Non-pressure chronic ulcer of left calf with unspecified severity (principal); Z72.0 Tobacco use
CPT/HCPCS: 11043; J1100; J2250; J2405; J3010

== ENCOUNTER → 2018-12-14 | Outpatient (CLI) | payer MEDICARE ==
[~2018-12-14] MED LIST changes: -LIDOCAINE 2% INJ 100 MG/5 ML SDV (FOR ANES.) As Ordered ONE; -LR 1,000 ML IV ONE; -MIDAZOLAM INJ 2 MG/2 ML VIAL (J2250) As Ordered ONE; -ONDANSETRON 4MG/2ML VIAL (J2405) As Ordered ONE; -PROPOFOL 500 MG/50 ML VIAL As Ordered ONE; -dexameTHASONE 4 MG/ML 1ML VIAL (J1100) As Ordered ONE; -fentaNYL 100 MCG/2 ML INJECTION (J3010) As Ordered ONE
[2018-12-14 19:12] LABS: BASO # 0.1 10^3/uL (0.0-0.2); BASO % 0.9 % (0.0-1.0); EOS # 0.1 10^3/uL (0.0-0.50); HEMATOCRIT 36.8 % (36.0-47.0); HEMOGLOBIN 11.7 g/dl (12.0-15.5); LYMPH # 2.3 10^3/uL (1.5-4.5); LYMPH % 24.8 % (24.0-44.0); MEAN CORPUSCULAR HEMOGLOBIN 26.6 pg (27.0-33.0); MEAN CORPUSCULAR HGB CONC 31.8 g/dl (32.0-36.5); MEAN CORPUSCULAR VOLUME 83.6 fl (80.0-96.0); NEUTROPHILS # 5.8 10^3/uL (1.8-7.7); PLATELET COUNT, AUTOMATED 309 10^3/uL (150-450); WHITE BLOOD COUNT 9.3 10^3/uL (4.0-10.0)
== END ==
LOC: M WUC 14:14
PROVIDERS: ATTEND Nurse Practitioner
DX: R23.3 Spontaneous ecchymoses (principal)

== ENCOUNTER 2018-12-31 10:17 | Day surgery (SDC) | payer MEDICARE ==
[~2018-12-31] VITALS: Ht 157.5 cm; Wt 58.5 kg
[~2018-12-31 10:17] MED LIST changes: +FISH1000 PO; +LR 1,000 ML IV ONE
[2018-12-31] MEDS ORDERED: ONDANSETRON 4MG/2ML VIAL (J2405) As Ordered ONE (10:54)
[2018-12-31] MEDS ORDERED: dexameTHASONE 4 MG/ML 1ML VIAL (J1100) As Ordered ONE (10:54)
[2018-12-31] MEDS ORDERED: MIDAZOLAM INJ 2 MG/2 ML VIAL (J2250) As Ordered ONE (10:54)
[2018-12-31] MEDS ORDERED: LIDOCAINE 2% INJ 100 MG/5 ML SDV (FOR ANES.) As Ordered ONE (10:54)
[2018-12-31] MEDS ORDERED: PROPOFOL 500 MG/50 ML VIAL As Ordered ONE (10:54)
[2018-12-31] MEDS ORDERED: fentaNYL 100 MCG/2 ML INJECTION (J3010) As Ordered ONE (10:55)
[2018-12-31 13:00] VITALS: BP 125/62
--- NOTE | 2018-12-31 16:17 | REP ---
LEFT LOWER EXTREMITY DUPLEX DOPPLER ARTERIAL ULTRASOUND: Real-time ultrasound evaluation and duplex Doppler interrogation of left lower extremity arterial system is performed. Moderate plaquing is seen diffusely with stenosis at the distal common femoral artery. Proximal to this, there are triphasic waveforms. Distal to this there are monophasic waveforms throughout the remainder of the left lower extremity arterial system. There is stenosis of the profunda artery. A patent stent is seen in the distal superficial femoral artery with turbulent flow, possibly indicating some degree of stenosis in the proximal stent. Proximal anterior tibial artery demonstrates elevated peak systolic velocity compatible with stenosis. Left PSV Common femoral artery 129.6 cm/s Profunda 234 cm/s Proximal SFA 160.8 cm/s Mid SFA 123.3 cm/s Distal SFA 87.2 cm/s Popliteal 139.7 cm/s Proximal CHAU 255.7 cm/s Tibial peroneal trunk 138.1 cm/s Proximal CLINIC OFFICE MANAGER 101.8 cm/s Distal CLINIC OFFICE MANAGER 71.7 cm/s Mid CHAU 30.7 cm/s IMPRESSION: There appears to be stenosis of the left common femoral artery, profunda and proximal anterior tibial artery. Turbulent flow within the proximal aspect of the distal SFA stent may indicate stenosis at that location. Electronically Signed by Adán Gorman MD 01/01/2019 12:30 P
--- NOTE | 2019-01-06 13:29 | RO ---
DATE OF PROCEDURE: 12/31/2018 ATTENDING SURGEON: Dr. Roman Crews ENDOCRINOLOGY NURSE: None. PREOPERATIVE DIAGNOSIS: Nonhealing left calf wound. POSTOPERATIVE DIAGNOSIS: Nonhealing left calf wound. PROCEDURE: Left calf wound excisional debridement with removal of skin, subcutaneous tissue and muscle. INDICATION: The patient is female with a nonhealing left calf wound that requires debridement. Risks, benefits and alternative treatment options were discussed with the patient. ANESTHESIA: Monitored anesthesia care (MAC). ESTIMATED BLOOD LOSS: Minimal. IV FLUID: 100 mL. FLUOROSCOPY TIME: None. CONTRAST: None. COMPLICATIONS: None. DRAINS: None. SPECIMENS: None. IMPLANTS: None. DESCRIPTION OF PROCEDURE: The patient was taken to the angiography suite, placed supine on the angiography room table and then prepped and draped in a standard surgical fashion. The left calf wound was debrided sharply with removal of skin, subcutaneous tissue and muscle down to healthy bleeding tissue. Dressings were then applied. The patient tolerated the procedure well. All instrument, sponge and needle counts were correct at the end the case. There were no complications. Dr. Crews was present for directed the entire case. The patient was transferred to the recovery room awake, alert and in stable condition.
== END 2018-12-31 13:13 | disposition home or self-care (01) ==
LOC: M SDC 10:17
PROVIDERS: ATTEND Surgery Vascular Surgery
DX: S81.802A Unspecified open wound, left lower leg, initial encounter (principal); X58.XXXA Exposure to other specified factors, initial encounter; Y92.9 Unspecified place or not applicable; I73.89 Other specified peripheral vascular diseases
CPT/HCPCS: 11043; 93926; J1100; J2250; J2405; J3010

== ENCOUNTER → 2019-01-13 | Outpatient (REF) | payer MEDICARE ==
[~2019-01-13] MED LIST changes: -LR 1,000 ML IV ONE
== END ==
LOC: M LAB REF 12:28
PROVIDERS: ATTEND Family Medicine
DX: R79.82 Elevated C-reactive protein (CRP) (principal)

== ENCOUNTER → 2019-01-28 | Day surgery (SDC) | payer MEDICARE ==
[~2019-01-28] VITALS: Ht 154.9 cm; Wt 57.6 kg
== END | disposition home or self-care (01) ==
LOC: M SDC 11:32
PROVIDERS: ATTEND Surgery Vascular Surgery
DX: L98.499 Non-pressure chronic ulcer of skin of other sites with unspecified severity (principal); Z53.8 Procedure and treatment not carried out for other reasons

== ENCOUNTER 2019-02-19 06:00 | Day surgery (SDC) | payer MEDICARE ==
[~2019-02-19] VITALS: Ht 160 cm; Wt 58.9 kg
[~2019-02-19 06:00] MED LIST changes: +CYAN100049 PO; +CYAN500T8 PO; +LIDOCAINE 1% MDV 20ML VIAL SQ PRN; +LR 1,000 ML IV ONE; -MELA3TAB PO; +MELA3TAB63 PO; +MM S100C PO; -STOO100C PO; -VITA10002 PO; -VITA500T3 PO
[2019-02-19] MEDS ORDERED: propofoL 200 MG/20 ML VIAL As Ordered ONE (07:03)
[2019-02-19] MEDS ORDERED: LIDOCAINE 2% INJ 100 MG/5 ML SDV (FOR ANES.) As Ordered ONE (07:03)
[2019-02-19] MEDS ORDERED: ONDANSETRON 4MG/2ML VIAL (J2405) As Ordered ONE (07:04)
[2019-02-19] MEDS ORDERED: dexameTHASONE 4 MG/ML 1ML VIAL (J1100) As Ordered ONE (07:04)
[2019-02-19] MEDS ORDERED: fentaNYL 100 MCG/2 ML INJECTION (J3010) As Ordered ONE (07:10)
[2019-02-19 08:53] VITALS: BP 110/70
--- NOTE | 2019-03-10 10:04 | RO ---
DATE OF PROCEDURE: 02/19/2019 ATTENDING SURGEON: Dr. Anne Crews BISQUE CLEANER: None. PREOPERATIVE DIAGNOSIS: Nonhealing left lower extremity wound. POSTOPERATIVE DIAGNOSIS: Nonhealing left lower extremity wound. PROCEDURE: Excisional debridement with removal of skin, subcutaneous tissue, and muscle of nonhealing left lower extremity wound. Wound measures 3.5 cm in width x 6.2 cm in length and 1.5 mm in depth. INDICATION: The patient has a nonhealing wound in left lower extremity that requires frequent debridement and has now reached point with need for debridement. ANESTHESIA: Monitored anesthesia care (MAC). ESTIMATED BLOOD LOSS: 5 mL. IV FLUIDS: 400 mL. HEPARIN: None. COMPLICATIONS: None. DRAINS: None. SPECIMENS: None. IMPLANTS: None. DESCRIPTION OF PROCEDURE: The patient was taken the operating room, placed supine on the operating table, and then prepped and draped in a standard surgical fashion. Tooth pickups and scalpel was used to sharply debride nonviable skin, subcutaneous tissue, and muscle down to healthy bleeding tissue. Dressings were then applied. The patient tolerated the procedure well. All instrument, sponge, and needle counts were correct at the end the case. There were no complications. Dr. Crews was present for and directed the entire case. The patient was transferred to the recovery room awake, alert, extubated and in stable condition.
[2019-03-31] MEDS ORDERED: MELA3TAB49 PO (09:19)
== END 2019-02-19 08:53 | disposition home or self-care (01) ==
LOC: M SDC 06:00
PROVIDERS: ATTEND Surgery Vascular Surgery
DX: I70.242 Atherosclerosis of native arteries of left leg with ulceration of calf (principal); I10 Essential (primary) hypertension; E78.5 Hyperlipidemia, unspecified; I87.2 Venous insufficiency (chronic) (peripheral); I48.91 Unspecified atrial fibrillation; Z88.2 Allergy status to sulfonamides; Z88.8 Allergy status to other drugs, medicaments and biological substances; Z79.899 Other long term (current) drug therapy; Z79.01 Long term (current) use of anticoagulants; Z86.73 Personal history of transient ischemic attack (TIA), and cerebral infarction without residual deficits; Z86.14 Personal history of Methicillin resistant Staphylococcus aureus infection; Z72.0 Tobacco use
CPT/HCPCS: 11043; 11046; J1100; J2405; J3010

== ENCOUNTER 2019-03-19 07:44 | Day surgery (SDC) | payer MEDICARE ==
[~2019-03-19] VITALS: Ht 160 cm; Wt 58.1 kg
[~2019-03-19 07:44] MED LIST changes: -LIDOCAINE 1% MDV 20ML VIAL SQ PRN; +LIDOCAINE 2% INJ 100 MG/5 ML SDV (FOR ANES.) As Ordered ONE; +MELA3TAB PO; -MELA3TAB63 PO; +MIDAZOLAM INJ 2 MG/2 ML VIAL (J2250) As Ordered ONE; +ONDANSETRON 4MG/2ML VIAL (J2405) As Ordered ONE; +PROPOFOL 200 MG/20 ML VIAL As Ordered ONE; +fentaNYL 100 MCG/2 ML INJECTION (J3010) As Ordered ONE
[2019-03-19 10:05] VITALS: BP 93/54
[2019-03-31] MEDS ORDERED: MELA3TAB49 PO (09:19)
--- NOTE | 2019-04-13 10:39 | ROOPDOC ---
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 POSTOPERATIVE DIAGNOSES: Nonhealing left lower extremity wound, left lower extremity venous hypertension with ulceration, left lower extremity arterial insufficiency with atherosclerotic arterial occlusive disease of the femoral popliteal and tibial peroneal vessels and continued tobacco use with cigarettes. WOUND DESCRIPTION: Wound is on the lateral aspect of the left lower calf and measures approximately 5.8 cm in length 2.8 cm in width and approximately 2 mm in depth PROCEDURE: Left lower extremity excisional wound debridement with removal of skin and subcutaneous tissue and muscle. SURGEON: Dr. Roman Crews M.D. RELAY TESTER: None INDICATION: Patient is a 73-year-old female with both arterial and venous insufficiency in the lower extremity who has a nonhealing wound in the left lower extremity who has undergone revascularization of the left lower extremity and the wound is healing albeit slowly and now requires debridement of nonviable tissue. The procedure was explained and described to the patient in detail including drawing of pictures demonstrating the procedure pertinent anatomy. Risks, benefits and alternative treatment options were discussed with the patient. Benefits included but were not limited to removal of nonviable tissue to reduce infection, aid in healing and prevent loss of limb or life. Alternative treatment options included but were not limited to no intervention with continued conservative management. Risks included but were not limited to infection, bleeding, renal failure requiring hemodialysis, possible need for further open surgical intervention, increased wound size, increased wound pain, hematoma formation, scarring, bruising, possible need for transfusion of blood products, complication and/or allergic reaction from the prepping and draping materials, complication and/or allergic reaction to the anesthetic medications, increased size or worsening of the wound, cerebrovascular accident, myocardial infarction, pulmonary embolus, deep venous thrombosis, loss of limb, loss of life, poor satisfaction, poor results and poor outcome. Risks of not performing the procedure included but were not limited to infection, worsening wound size or depth, loss of limb and loss of life. All of the patient's questions were answered. Patient voices understanding and acceptance of these risks, benefits and alternative treatment options and consents to proceed with excisional debridement of the left lower extremity wound. No promises or guarantees were made to the patient regarding the results or outcome of the procedure. ANESTHESIA: Mac. ESTIMATED BLOOD LOSS: 10 mL. IV FLUIDS: 300 HEPARIN: None PROTAMINE: None COMPLICATIONS: None. DRAINS: None SPECIMENS: None IMPLANTS: None PROCEDURE: .Patient was taken to the operating room, placed supine on the operating room table and the patient was prepped and draped in a standard surg ical fashion. A surgical time out confirming the correct patient, procedure and laterality was then performed by myself and the team members within the operating room. Excisional debridement was then performed with pickups and a scalpel with excision of all nonviable skin subcutaneous tissue and muscle down to healthy bleeding tissue. The wound was then irrigated with saline solution. Dressings were then applied. All instruments sponge and needle counts were correct at the end of the case. There were no complications. Dr. Crews was present for and directed the entire case. Patient was transferred to the recovery room awake, alert, extubated and in stable condition. The results of the procedure were explained and described to the patient in the recovery room with all of her questions being answered. The results of the procedure were explained and described to the patient's daughter in the surgical waiting room postoperatively with all questions being answered. Guilherme Crews MD Apr 13, 2019 10:39
== END 2019-03-19 10:13 | disposition home or self-care (01) ==
LOC: M SDC 07:44
PROVIDERS: ATTEND Surgery Vascular Surgery
DX: I70.242 Atherosclerosis of native arteries of left leg with ulceration of calf (principal); I87.312 Chronic venous hypertension (idiopathic) with ulcer of left lower extremity; L97.223 Non-pressure chronic ulcer of left calf with necrosis of muscle; I10 Essential (primary) hypertension; I48.91 Unspecified atrial fibrillation; E78.00 Pure hypercholesterolemia, unspecified; M12.9 Arthropathy, unspecified; Z88.1 Allergy status to other antibiotic agents; Z88.8 Allergy status to other drugs, medicaments and biological substances; Z79.899 Other long term (current) drug therapy; Z72.0 Tobacco use; Z86.73 Personal history of transient ischemic attack (TIA), and cerebral infarction without residual deficits; Z79.01 Long term (current) use of anticoagulants; Z87.81 Personal history of (healed) traumatic fracture; Z96.1 Presence of intraocular lens; Z98.41 Cataract extraction status, right eye; Z98.42 Cataract extraction status, left eye
CPT/HCPCS: 11043; J2250; J2405; J3010

== ENCOUNTER 2019-04-02 06:03 | Day surgery (SDC) | payer MEDICARE ==
[~2019-04-02] VITALS: Ht 160 cm; Wt 59.3 kg
[~2019-04-02 06:03] MED LIST changes: +LIDOCAINE 1% MDV 20ML VIAL SQ PRN; -LIDOCAINE 2% INJ 100 MG/5 ML SDV (FOR ANES.) As Ordered ONE; -LR 1,000 ML IV ONE; +MELA3TAB49 PO; -MIDAZOLAM INJ 2 MG/2 ML VIAL (J2250) As Ordered ONE; -ONDANSETRON 4MG/2ML VIAL (J2405) As Ordered ONE; -PROPOFOL 200 MG/20 ML VIAL As Ordered ONE; -fentaNYL 100 MCG/2 ML INJECTION (J3010) As Ordered ONE
[2019-04-02] MEDS ORDERED: LR 1,000 ML IV ONE (06:15)
[2019-04-02] MEDS ORDERED: MIDAZOLAM INJ 2 MG/2 ML VIAL (J2250) As Ordered ONE (07:17)
[2019-04-02] MEDS ORDERED: LIDOCAINE 2% INJ 100 MG/5 ML SDV (FOR ANES.) As Ordered ONE (07:17)
[2019-04-02] MEDS ORDERED: PROPOFOL 200 MG/20 ML VIAL As Ordered ONE (07:17)
[2019-04-02] MEDS ORDERED: fentaNYL 100 MCG/2 ML INJECTION (J3010) As Ordered ONE (07:18)
[2019-04-02 08:35] VITALS: BP 117/58
--- NOTE | 2019-04-13 12:01 | ROOPDOC ---
[facility] Report Of Operation Report of Operation DATE OF PROCEDURE: 04/02/2019 PREOPERATIVE DIAGNOSES: Nonhealing left lower extremity wound, bilateral lower extremity venous valvular insufficiency with venous hypertension, bilateral lower extremity arterial insufficiency and continued tobacco use with smoking of cigarettes. POSTOPERATIVE DIAGNOSES: Nonhealing left lower extremity wound, bilateral lower extremity venous valvular insufficiency with venous hypertension, bilateral low er extremity arterial insufficiency and continued tobacco use with smoking of cigarettes. WOUND DESCRIPTION: Wound is on the lateral aspect of the left lower extremity measures 5.5 cm x 3.3 cm x 1 mm in depth. PROCEDURE: Left lower extremity excisional wound debridement with removal of skin and subcutaneous tissue and muscle. SURGEON: Dr. Roman Crews M.D. ALARM INSTALLATION TECHNICIAN: None INDICATION: Patient is a 73-year-old female with a nonhealing left lower extremity wound which was originally related to venous insufficiency but the patient also had severe arterial insufficiency and continues to smoke cigarettes. Patient underwent revascularization of her left lower extremity multiple times subsequently underwent angioplasty and stenting and now has had improved healing of the wound albeit slow. Patient requires debridement of all nonviable tissue from the left lower extremity wound. The procedure was explained and described to the patient in detail including drawing of pictures demonstrating the procedure pertinent anatomy. Risks, benefits and alternative treatment options were discussed with the patient. Benefits included but were not limited to removal of nonviable tissue to reduce infection, aid in healing and prevent loss of limb or life. Alternative t reatment options included but were not limited to no intervention with continued conservative management. Risks included but were not limited to infection, bleeding, renal failure requiring hemodialysis, possible need for further open surgical intervention, increased wound size, increased wound pain, hematoma formation, scarring, bruising, possible need for transfusion of blood products, complication and/or allergic reaction from the prepping and draping materials, complication and/or allergic reaction to the anesthetic medications, increased size or worsening of the wound, cerebrovascular accident, myocardial infarction, pulmonary embolus, deep venous thrombosis, loss of limb, loss of life, poor satisfaction, poor results and poor outcome. Risks of not performing the procedure included but were not limited to infection, worsening wound size or depth, loss of limb and loss of life. All of the patient's questions were answered. Patient voices understanding and acceptance of these risks, benefits and alternative treatment options and consents to proceed with excisional debridement of the left leg wound. No promises or guarantees were made to the patient regarding the results or outcome of the procedure. ANESTHESIA: Mac. ESTIMATED BLOOD LOSS: 10 mL. IV FLUIDS: 100 HEPARIN: None PROTAMINE: None COMPLICATIONS: None. DRAINS: None SPECIMENS: None IMPLANTS: None PROCEDURE: Patient was taken to the operating room, placed supine on the operating room table and the patient was prepped and draped in a standard surgical fashion. A surgical time out confirming the correct patient, procedure and laterality was then performed by myself and the team members within the operating room. Excisional debridement was then performed with pickups and a scalpel with sharp excision of all nonviable skin subcutaneous tissue and muscle down to healthy bleeding tissue. The wound was then irrigated with saline solution. Dressings were then applied. All instruments sponge and needle counts were correct at the end of the case. There were no complications. Dr. Crews was present for and directed the entire case. Patient was transferred to the [facility] very room awake, alert, extubated and in stable condition. The results of the procedure were explained and described to the patient in the recovery room with all of her questions being answered. The results of the procedure were explained and described to the patient's family in the surgical waiting room postoperatively with all questions being answered. Guilherme Crews MD Apr 13, 2019 12:01
== END 2019-04-02 08:48 | disposition home or self-care (01) ==
LOC: M SDC 06:03
PROVIDERS: ATTEND Surgery Vascular Surgery
DX: I70.242 Atherosclerosis of native arteries of left leg with ulceration of calf (principal); I87.312 Chronic venous hypertension (idiopathic) with ulcer of left lower extremity; L97.223 Non-pressure chronic ulcer of left calf with necrosis of muscle; I10 Essential (primary) hypertension; E78.5 Hyperlipidemia, unspecified; I48.91 Unspecified atrial fibrillation; R94.31 Abnormal electrocardiogram [ECG] [EKG]; Z88.1 Allergy status to other antibiotic agents; Z88.8 Allergy status to other drugs, medicaments and biological substances; Z79.899 Other long term (current) drug therapy; Z79.01 Long term (current) use of anticoagulants; Z86.73 Personal history of transient ischemic attack (TIA), and cerebral infarction without residual deficits; Z87.81 Personal history of (healed) traumatic fracture; Z98.51 Tubal ligation status; Z78.0 Asymptomatic menopausal state; Z72.0 Tobacco use; Z96.1 Presence of intraocular lens; Z98.41 Cataract extraction status, right eye; Z98.42 Cataract extraction status, left eye
CPT/HCPCS: 11043; J2250; J3010

== ENCOUNTER 2019-04-23 09:03 | Day surgery (SDC) | payer MEDICARE ==
[~2019-04-23] VITALS: Ht 160 cm; Wt 59.0 kg
[~2019-04-23 09:03] MED LIST changes: +LR 1,000 ML IV ONE; -MELA3TAB PO; +MELA3TAB63 PO
[2019-04-23] MEDS ORDERED: LIDOCAINE 2% INJ 100 MG/5 ML SDV (FOR ANES.) As Ordered ONE (10:44)
[2019-04-23] MEDS ORDERED: PROPOFOL 200 MG/20 ML VIAL As Ordered ONE (10:44)
[2019-04-23] MEDS ORDERED: dexameTHASONE 4 MG/ML 1ML VIAL (J1100) As Ordered ONE (10:46)
[2019-04-23] MEDS ORDERED: METOCLOPRAMIDE INJ 10MG/2ML VIAL (J2765) As Ordered ONE (10:46)
[2019-04-23] MEDS ORDERED: MIDAZOLAM INJ 2 MG/2 ML VIAL (J2250) As Ordered ONE (10:48)
[2019-04-23] MEDS ORDERED: fentaNYL 100 MCG/2 ML INJECTION (J3010) As Ordered ONE (10:48)
[2019-04-23] MEDS ORDERED: KETOROLAC 60 MG/2 ML VIAL (J1885) As Ordered ONE (11:00)
[2019-04-23 14:50] VITALS: BP 138/68
--- NOTE | 2019-05-05 07:43 | RO ---
DATE OF PROCEDURE: 04/23/2019 ATTENDING SURGEON: Dr. Roman Crews WORKING SECOND HAND: None. PREOPERATIVE DIAGNOSIS: Left calf wound slow healing. POSTOPERATIVE DIAGNOSIS: Left calf wound slow healing. PROCEDURE: Left calf wound debridement with removal of skin, subcutaneous tissue and muscle. ANESTHESIA: MAC. ESTIMATED BLOOD LOSS: 5 mL. IV FLUIDS: 100 mL. COMPLICATIONS: None. DRAINS: None. SPECIMENS: None. IMPLANT: None. PROCEDURE: The patient was taken to the operating room and placed supine on the operating room table and then prepped and draped in a standard surgical fashion. The wound which measured 5.3 cm in length x 3.2 cm in width x 1 mm in depth was debrided sharply with excisional debridement of all nonviable tissue including skin, subcutaneous tissue and muscle using pickups and a scalpel Debridement was performed down to healthy bleeding tissue after which the wound was irrigated and then dressings were applied. The patient tolerated the procedure well. All instrument, sponge, needle counts were correct at the end of the case. There were no complications. Dr. Crews was present for and directed the entire case. The patient was transferred to the recovery room awake, alert, extubated and in stable condition.
== END 2019-04-23 14:55 | disposition home or self-care (01) ==
LOC: M SDC 09:03
PROVIDERS: ATTEND Surgery Vascular Surgery
DX: L97.229 Non-pressure chronic ulcer of left calf with unspecified severity (principal); I10 Essential (primary) hypertension; E78.5 Hyperlipidemia, unspecified; I73.9 Peripheral vascular disease, unspecified; I87.2 Venous insufficiency (chronic) (peripheral); I48.91 Unspecified atrial fibrillation; Z88.1 Allergy status to other antibiotic agents; Z88.8 Allergy status to other drugs, medicaments and biological substances; Z79.899 Other long term (current) drug therapy; Z79.01 Long term (current) use of anticoagulants; Z86.718 Personal history of other venous thrombosis and embolism; Z87.81 Personal history of (healed) traumatic fracture; Z86.73 Personal history of transient ischemic attack (TIA), and cerebral infarction without residual deficits; Z72.0 Tobacco use
CPT/HCPCS: 11043; J1100; J2765; J3010

== ENCOUNTER 2019-05-13 06:08 | Day surgery (SDC) | payer MEDICARE ==
[~2019-05-13] VITALS: Ht 160 cm; Wt 59.9 kg
[2019-05-13] MEDS ORDERED: propofoL 200 MG/20 ML VIAL As Ordered ONE (07:10)
[2019-05-13] MEDS ORDERED: LIDOCAINE 2% INJ 100 MG/5 ML SDV (FOR ANES.) As Ordered ONE (07:10)
[2019-05-13] MEDS ORDERED: ONDANSETRON 4MG/2ML VIAL (J2405) As Ordered ONE (07:10)
[2019-05-13] MEDS ORDERED: MIDAZOLAM INJ 2 MG/2 ML VIAL (J2250) As Ordered ONE (07:10)
[2019-05-13] MEDS ORDERED: fentaNYL 100 MCG/2 ML INJECTION (J3010) As Ordered ONE (07:10)
[2019-05-13] MEDS ORDERED: KETAMINE HCL 200 MG/20 ML VIAL As Ordered ONE (07:35)
[2019-05-13] MEDS ORDERED: LR 1,000 ML IV SCH (08:00)
[2019-05-13] MEDS ORDERED: ONDANSETRON 4MG/2ML VIAL (J2405) IV PRN (08:00)
[2019-05-13] MEDS ORDERED: fentaNYL 100 MCG/2 ML INJECTION (J3010) IV PRN (08:00)
--- NOTE | 2019-05-13 08:10 | ROOPDOC ---
[facility] Report Of Operation Report of Operation DATE OF PROCEDURE: 05/13/2019 PREOPERATIVE DIAGNOSES: Nonhealing left lower extremity ulceration, arterial insufficiency bilateral lower extremities, venous valvular insufficiency bi lateral lower extremity, continued tobacco use with smoking of cigarettes. POSTOPERATIVE DIAGNOSES: Nonhealing left lower extremity ulceration, arterial insufficiency bilateral lower extremities, venous valvular insufficiency bilateral lower extremity, continued tobacco use with smoking of cigarettes. . WOUND DESCRIPTION: 5.5 cm in length by 3.3 cm in width by 1 mm in depth PROCEDURE: Left lower extremity excisional wound debridement with removal of skin subcutaneous tissue and muscle. SURGEON: Dr. Roman Crews M.D. COAL HANDLING SUPERVISOR: None INDICATION: Patient is a 73-year-old female with a chronic nonhealing wound in the left lower extremity was previously undergone angioplasty and stenting due to arterial insufficiency and has venous valvular insufficiency as well as continued tobacco use. Patient has been undergoing debridement every 2 weeks with slow improvement in the wound healing. Patient had a circumferential wound underwent previous skin grafting which is healed well except for the lateral portion where the skin graft did not take. Patient will undergo excisional debridement of the left lower extremity wound. The procedure was explained and described to the patient in detail including drawing of pictures demonstrating the procedure pertinent anatomy. Risks, benefits and alternative treatment options were discussed with the patient. Benefits included but were not limited to removal of nonviable tissue to reduce infection, aid in healing and prevent loss of limb or life. Alternative treatment options included but were not limited to no intervention with continued conservative management. Risks included but were not limited to infection, bleeding, renal failure requiring hemodialysis, possible need for further open surgical intervention, increased wound size, increased wound pain, hematoma formation, scarring, bruising, possible need for transfusion of blood products, complication and/or allergic reaction from the prepping and draping materials, complication and/or allergic reaction to the anesthetic medications, increased size or worsening of the wound, cerebrovascular accident, myocardial infarction, pulmonary embolus, deep venous thrombosis, loss of limb, loss of life, poor satisfaction, poor results and poor outcome. Risks of not performing the procedure included but were not limited to infection, worsening wound size or depth, loss of limb and loss of life. All of the patient's questions were answered. Patient voices understanding and acceptance of these risks, benefits and alternative treatment options and consents to proceed with excisional debridement of the left lower extremity wound wound. No promises or guarantees were made to the patient regarding the results or outcome of the procedure. ANESTHESIA: Mac. ESTIMATED BLOOD LOSS: 5 mL. IV FLUIDS: 100 mL HEPARIN: None PROTAMINE: None COMPLICATIONS: None. DRAINS: None SPECIMENS: None IMPLANTS: None PROCEDURE: .Patient was taken to the operating room, placed supine on the operating room table and the patient was prepped and draped in a standard surgical fashion. A surgical time out confirming the correct patient, procedure and laterality was then performed by myself and the team members within the operating room. Excisional debridement was then performed with pickups and a scalpel with excision of all nonviable skin, subcutaneous tissue and muscle down to healthy bleeding tissue. The wound was then irrigated with saline solution. Dressings were then applied. All instruments sponge and needle counts were correct at the end of the case. There were no complications. Dr. Crews was present for and directed the entire case. Patient was transferred to the recovery room awake, alert, extubated and in stable condition. The results of the procedure were explained and described to the patient in the recovery room with all of her questions being answered. The results of the procedure were explained and described to the patient's daughter in the surgical waiting room postoperatively with all questions being answered. The plan was discussed with the patient and her daughter to schedule her in 2 weeks for a repeat debridement with possible skin grafting. CONCLUSION: The wound was debridement and is showing signs of healing albeit slowly. There is a good granulation tissue at the base of the wound with slow contraction of the wound size. PLAN: Patient will undergo a repeat debridement in 2 weeks with possible split thickness skin grafting. Tobacco cessation was again recommended to the patient. Guilherme Crews MD May 13, 2019 08:10
[2019-05-13 09:15] VITALS: BP 113/55
== END 2019-05-13 09:25 | disposition home or self-care (01) ==
LOC: M SDC 06:08
PROVIDERS: ATTEND Surgery Vascular Surgery
DX: L97.229 Non-pressure chronic ulcer of left calf with unspecified severity (principal); I73.9 Peripheral vascular disease, unspecified; I87.2 Venous insufficiency (chronic) (peripheral); I10 Essential (primary) hypertension; E78.5 Hyperlipidemia, unspecified; I48.91 Unspecified atrial fibrillation; Z88.1 Allergy status to other antibiotic agents; Z88.8 Allergy status to other drugs, medicaments and biological substances; Z79.899 Other long term (current) drug therapy; Z79.01 Long term (current) use of anticoagulants; Z86.718 Personal history of other venous thrombosis and embolism; Z87.81 Personal history of (healed) traumatic fracture; Z86.73 Personal history of transient ischemic attack (TIA), and cerebral infarction without residual deficits; Z72.0 Tobacco use
CPT/HCPCS: 11043; J2250; J2405; J3010

== ENCOUNTER → 2020-08-03 | Outpatient (REF) | payer MEDICARE ==
[~2020-08-03] MED LIST changes: -ASPI81TA85 PO; +ASPI81TA86 PO; +CYAN500T14 PO; -CYAN500T8 PO; -LIDOCAINE 1% MDV 20ML VIAL SQ PRN; -LR 1,000 ML IV ONE; -MELA3TAB63 PO; +MELA3TAB70 PO
[2020-08-03 19:49] LABS: % LABILE ALKALINE PHOSPHATASE 41.28 %
== END ==
LOC: M LAB REF 16:23
PROVIDERS: ATTEND Family Medicine
DX: R79.89 Other specified abnormal findings of blood chemistry (principal)

== ENCOUNTER → 2020-08-22 | Outpatient (CLI) | payer MEDICARE ==
--- NOTE | 2020-08-22 15:19 | PFTRPT ---
Site: [facility], [address] [place], [address] ID: [id number] Name: JANICE MCGUIRE Visit Date: 08/22/2020 Second ID: [id number] Referring Doctor: Crescencio Guthrie MD Reviewing Doctor: Crescencio Guthrie MD Candle Making Supervisor: Nevin Brooks Age: 75 : 1945 Sex: Female Race: Height: 64.00 Inches Weight: 133.00 Lbs BSA: 1.64 Order IDs: [id number] Requested Test(s): <RESP-PFT.DLCO> Diagnosis: R91.8 of albuterol for post bronchodilator. IVC is less than 85% of VC, patient could not take a deep enough breath even with several attempts. DLCO may be underestimated. Review Status: Not Reviewed Pre-Bronch Post-Bronch Pred Actual %Pred Actual %Chng SPIROMETRY FVC (L) 2.73 2.46 90 2.39 -2 FEV1 (L) 2.04 1.57 77 1.52 -3 FEV1/FVC (%) 74 64 86 63 FEF 25% (L/sec) 4.57 2.99 65 1.81 -39 FEF 50% (L/sec) 3.13 1.12 35 1.16 3 FEF 75% (L/sec) 0.82 0.42 50 0.39 -5 FEF 25-75% (L/sec) 1.56 0.74 47 0.90 21 FEF Max (L/sec) 5.06 3.10 61 2.20 -29 FIVC (L) 1.45 1.32 -8 FIF 50% (L/sec) 2.99 1.23 41 1.31 5 FIF Max (L/sec) 1.34 1.35 MVV (L/min) 82 54 66 Expiratory Time (sec) 8.64 7.55 -12 Back Extrap Vol (L) 0.10 0.05 -45 Time To FEFmax (sec) 0.147 0.125 -15 LUNG VOLUMES TGV (L) 2.91 4.69 161 DIFFUSION DLCOunc (ml/min/mmHg) 19.73 2.94 14 DLCOcor (ml/min/mmHg) 19.73 3.02 15 DL/VA (ml/min/mmHg/L) 3.91 1.72 43 VA (L) 5.05 1.76 34 BHT (sec) 12.80 IVC (L) 0.76 TLC (SB) (L) 1.91 AIRWAYS RESISTANCE Raw (cmH2O/L/s) 1.86 0.83 44 Gaw (L/s/cmH2O) 1.03 1.41 137 sRaw (cmH2O*s) 4.76 3.60 75 sGaw (1/cmH2O*s) 0.20 0.29 145 BLOOD GASES Hgb (gm/dL) 12.6
== END ==
LOC: M CARPUL 13:51
PROVIDERS: ATTEND Internal Medicine Pulmonary Disease
DX: R91.8 Other nonspecific abnormal finding of lung field (principal)

== ENCOUNTER → 2020-08-22 | Outpatient (CLI) | payer MEDICARE ==
--- NOTE | 2020-08-26 10:09 | REP ---
INDICATION: DIAGNOSING LUNG NODULE R91.1. Right upper lobe mass with adenopathy. Left upper lobe nodule. COMPARISON: Comparison chest CT study August 10, 2020 from [facility]. Comparison chest x-ray August 03, 2020.. TECHNIQUE: Forty-seven minutes following the intravenous injection of a 8.31 mCi dose of F-18 FDG, three-dimensional PET scintigraphy is acquired from the skull base to the proximal thighs. Triplanar noncontrast CT scanning is acquired through the same anatomic range for attenuation correction, and image registration with scan parameters optimized to minimize radiation exposure to the patient. PET scintigraphy and CT datasets were fused and displayed on a workstation with multiplanar and projection display capability. FINDINGS: There is vascular calcification along the course of the carotid arteries bilaterally in the neck. Head and neck soft tissues are otherwise unremarkable. No supraclavicular adenopathy is seen. The 6.5 cm right upper lobe/right middle lobe mass is markedly hypermetabolic. Maximum standard uptake value 16.80. The superior segment left lower lobe lung nodule is mildly hypermetabolic with maximum standard uptake value 2.73. No other abnormal pulmonary parenchymal hypermetabolic uptake is seen. There is hypermetabolic right hilar adenopathy, maximum standard uptake value of 12.51. There is hypermetabolic pretracheal and subcarinal lymphadenopathy. Maximum standard uptake values in these enlarged lymph nodes are 8.82 and 15.85 respectively. No other abnormal hypermetabolic uptake is seen within the thorax. No abnormal adrenal uptake is seen on either side. In the abdomen and pelvis, normal hepatic, splenic, gastrointestinal, and genitourinary FDG distribution is seen. No abnormal uptake is seen in the abdomen or pelvis. There is a vascular graft in the left leg. IMPRESSION: Hypermetabolic uptake is seen in the right upper lobe mass as well as in right hilar, pretracheal, subcarinal lymph nodes. There is a mildly hypermetabolic small nodule in the superior segment of the left lower lobe as well. Advanced COPD changes are noted. Extensive vascular calcification is noted. <Electronically signed by Matt Otto > 08/26/20 [id number]
== END ==
LOC: M PLARAD 10:22
PROVIDERS: ATTEND Internal Medicine Pulmonary Disease
DX: R91.1 Solitary pulmonary nodule (principal)
CPT/HCPCS: 78815; 88738; 94060; 94726; 94729; A9552

== ENCOUNTER → 2020-08-29 | Outpatient (POV) | payer MEDICARE ==
[~2020-08-29] MED LIST changes: +B-1225002 SL; +ONDA8TAB10 PO; +PRED10PA2 PO; +PROC10TA4 PO; +ULTR5TAB PO; +VITA200016 PO; +ZINC1TAB2 PO
--- NOTE | 2020-09-06 13:23 | IPN ---
OUTPATIENT PULMONARY PROGRESS NOTE DATE: 08/29/2020 SUBJECTIVE: I saw April Skaggs here in the outpatient clinic at [facility]. Patient has been examined and chart has been reviewed. She returns today to discuss her pulmonary function testing as well as her PET scanning. She has also been seen by cardiology and a copy of that note and the outcome of it have been reviewed with her. Unfortunately she misunderstood and has already stopped her anticoagulation and this will be discussed further below. Her pulmonary function shows only mild obstructive disease, but very significant diffusing capacity impairment. She continues to smoke and has not had any changes in her alcohol intake. Since her last visit she is a little bit more short of breath. She is again today accompanied by family. PHYSICAL EXAM: Vitals are in the EMR and have been reviewed. This is a pleasant, well-nourished, well-developed female in no obvious distress. She does walk with a little bit of a limp. HEENT: Pupils react, sclerae clear. Neck: Trachea is midline. No obvious adenopathy or JVD. Lungs: Airway not well seen due to her mask. Chest shows diminished, but symmetric expansion. There may be a faint wheeze in the right upper lobe, but no other focal adventitious breath sounds are identified. Cardiac: Distant gentleman regular. Peripheral pulses are diminished, but palpable. Abdomen: Soft, nontender with active bowel sounds, no organomegaly or masses. Extremities: Without cyanosis or clubbing. Neurologically: She is awake, alert and appropriate. Psychiatric: Normal mood and affect. Pulse ox is in the vital signs area. DIAGNOSTIC STUDIES: PET/CT and pulmonary functions have been reviewed and reports are in the record. IMPRESSIONS: 1. Obstructive lung disease. 2. Emphysema. 3. Abnromal CT scan with a sizable right upper lobe mass with hilar and mediastinal adenopathy. 4. Continued tobacco abuse. 5. Alcohol use. 6. Chronic anticoagulation for known coronary artery disease. 7. Chronic atrial fibrillation. RECOMMENDATIONS: A very lengthy discussion was had with the patient and family accompanying her. My concern is that clearly this represents underlying malignancy and the sooner we can get her biopsied the better. The plan is to do it under general anesthesia in the main OR with plans for bronchoscopy with node sampling under endobronchial ultrasound. Risks and benefits of the procedure were discussed and informed consent was obtained prior today and was signed by her. She has been seen by cardiology. They recommend stopping the Plavix at least 5 days prior and her Eliquis 2-3 days prior and as soon as we have a firm date we will make those recommendations as far as timing. We had a long discussion regarding need for smoking cessation. She says she is working on it. At this point we will proceed as outlined above. Her medication list has been reviewed. She will need pre-operative coags drawn. We await the outcome of the upcoming procedure. Yuri Cosme MD
== END ==
LOC: M PULM 13:51
PROVIDERS: ATTEND Internal Medicine Pulmonary Disease
DX: J44.9 Chronic obstructive pulmonary disease, unspecified (principal); J43.9 Emphysema, unspecified; R91.1 Solitary pulmonary nodule; I48.20 Chronic atrial fibrillation, unspecified; I25.10 Atherosclerotic heart disease of native coronary artery without angina pectoris; F17.200 Nicotine dependence, unspecified, uncomplicated

== ENCOUNTER → 2020-09-13 | Outpatient (CLI) | payer MEDICARE ==
[~2020-09-13] MED LIST changes: -B-1225002 SL; -ONDA8TAB10 PO; -PRED10PA2 PO; -PROC10TA4 PO; -ULTR5TAB PO; -VITA200016 PO; -ZINC1TAB2 PO
== END ==
LOC: M LABSMTC 11:52
PROVIDERS: ATTEND Anesthesiology
DX: Z01.812 Encounter for preprocedural laboratory examination (principal); Z20.822 Contact with and (suspected) exposure to COVID-19

== ENCOUNTER 2020-09-18 07:53 | Day surgery (SDC) | payer MEDICARE ==
[~2020-09-18] VITALS: Ht 157.5 cm; Wt 59.0 kg
[~2020-09-18 07:53] MED LIST changes: +ALBUTEROL SULFATE 2.5 MG/0.5 ML INH NEB SOLN INH ONE; +LIDOCAINE 4% INJ 5ML AMP INH ONE; +LR 1,000 ML IV ONE
--- OUTSIDE RECORDS SUMMARY | 2020-09-18 07:57 | CCD | Continuity of Care Document ---
Author Author April MELENDEZ PA Organization Unknown Address [address] [place] [address] [place] [address] Phone [phone] Care Team Providers Care Infrastructure Manager Name Role Phone Yuri Cosme MD AUTM [phone] Guilherme Moore MD AUTM [phone] Problems Active Problems Provider Date Chronic atrial fibrillation Guilherme Dan MD Onset: 04/01 Electrocardiogram abnormal Guilherme Dan MD Onset: 2017 Mitral valve disorder Guilherme Dan MD Onset: 04/01/2018 Chronic pulmonary heart disease Guilherme Dan MD Onset: 0 04/01/2018 Benign hypertensive heart disease without congestive h eart failure Guilherme Dan MD Onset: 04/01/2018 Preoperative cardiovascular examination Guilherme Dan MD Onset: 04/01/2018 Chest pain CHAD Barajas Onset: 07/14/2018 Peripheral vascular disease CHAD Barajas Onset: 12/30 Dietary management surveillance CHAD Barajas Onset: 01/13/2019 Tobacco user CHAD Barajas Onset: 01/13/2019 Alcohol abuse, uncomplicated CHAD Barajas Onset: Permanent atrial fibrillation CHAD Barajas Onset: Permanent atrial fibrillation CHAD Simental Onset: 08/16/2020 Social History Type Date Description Comments Sex Unknown ETOH Use Consumes Beer 4-5 daily Tobacco Use Start: Unknown Patient is a current smoker, smo kes every day up to 1 ppd, started at age 12 Smoking Status Reviewed: 08/16/20 Patient is a current smoker, smokes every day up to 1 ppd, started at age 12 Exercise Type/Frequency Does housework 3 times a week Exercise Limitations Left Leg and foot pain due to venous insufficiency Exercise Limitations Weakness in legs Exercise Limitations Vision Impairment Allergies, Adverse Reactions, Alerts Active Allergies Reaction Severity Comments Date Lisinopril Cough 04/01/2018 Levaquin vomiting 07/14/2018 Medications Active Medications SIG Qnty Indications Ordering Provide r Date Melatonin 10mg Capsules 1 by mouth once daily at bedtime Unknown 08/15/2020 Pantoprazole Sodium 20mg Tablets D R 1 by mouth once a day Yuri Cosme MD 02/20/2020 Preservision Areds Capsules 1 by mouth every day Unknown 07/19/[address] Once daily Unknown 03/31/2018 Folic Acid 1mg Tablets 1 by mouth every day Unknown 03/31/2018 Thiamine HCL 100mg Tablets one by mouth every day Unknown 03/31/2018 Acetaminophen 500mg Tablets 1-2 by mouth every 6 hours as needed Unknown 03/31/20 18 Eliquis 5mg Tablets 1 by mouth twice a day Unknown 03/31/2018 Atorvastatin Calcium 40mg Tablets 1 by mouth every night at bedtime 90tabs Guilherme Dan MD 03/31/2018 Vitamin B12 2500mcg Tablets ER 1 by mouth every day Unknown 03/17/2018 Vitamin D (Ergocalciferol) 2000Unit Capsules 1 cap daily Guilherme Dan MD 8 Plavix 75mg Tablets 1 by mouth every day Unknown 03/10/2018 Immunizations Description No Information Available Vital Signs Date Vital Result Comment 08/16/2020 8:00am Weight 131.00 lb Height 64 inches 5'4" BMI (Body Mass Index) 22.5 kg/m2 02/21/2020 10:53am Weight 128.00 lb Height 64 inches 5'4" BMI (Body Mass Index) 22.0 kg/m2 Heart Rate 77 /min BP Systolic Sitting 112 mmHg adult cuff, Ra BP Diastolic Sitting 70 mmHg adult cuff, Ra Results Test Acquired Date Facility Test Result H/L Range Note Complete Blood Count 04/10/2020 [facility] Impo rt WBC 10.8 x10*3/UL 4.1-10.9 RBC 4.79 x10*6/UL 4.20-6.30 Hemoglobin 13.6 g/dL 12.0-18.0 Hematocrit 41.3 % 37.0-51.0 MCV 86.3 fL 80.0-97.0 MCH 28.5 pg 26.0-32.0 MCHC 33.0 g/dL 31.0-38.0 RDW 13.8 % High 11.6-13.7 PLT 355 x10*3/UL 140-440 MPV 7.4 FL Low 7.8-11.0 Lymph % 15.6 % 10.0-58.5 Mid % 4.4 % 1.7-9.3 Neut % 80.0 % 37.0-92.0 Lymph # 1.7 x10*3/UL 0.6-4.1 Mid # 0.5 x10*3/UL 0.1-0.6 Neut # 8.6 x10*3/UL High 2.0-7.8 Comprehensive Chem Profile 04/10/2020 [facility] CC D Import Glucose 179 mg/dL High 74-99 1 BUN 14 mg/dL 7-18 Creatinine 0.9 mg/dL 0.6-1.3 Sodium 136 mEq/L 136-145 Potassium 4.3 mEq/L 3.5-5.1 Chloride 97 mEq/L Low 98-107 Carbon Dioxide 28 mEq/L 21-32 Calcium 9.6 mg/dL 8.5-10.1 Alk. Phosphatase 222 mg/dL High 46-116 Total Bilirubin 0.6 mg/dL 0.2-1.0 Ast (Sgot) 22 U/L 15-37 Alt (SGPT) 23 U/L 12-78 Albumin 3.9 g/dL 3.4-5.0 Total Protein 7.6 g/dL 6.4-8.2 A/G Ratio 1.05 CALC 1.00-1.90 GFR >= 60 mL/min GFR >= 60 mL/min 2 1 100-125 mg/dL PRE-DIABET ES/FASTING >126 mg/dL DIABETES/FASTING 2 CHRONIC KIDNEY DISEASE STAGI NG PER NKF STAGE I & II GFR >= 60 NORMAL TO MILDLY DECREASED STAGE III GFR 30-59 MODERATELY DECREASED STAGE IV GFR 15-29 SEVERELY DECREASED STAGE V GFR <15 VERY LITTLE GFR LEFT ESRD GFR <15 ON CREDENTIALER Procedures Date Code Description Status 04/20/2020 79761 Echocardiogram 2-D Doppler Color Completed 02/21/2020 81432 ECG 12-Lead Completed Medical Devices Description No Information Available Encounters Type Date Location Provider Dx Diagnosis Office Visit 02/21/2020 10:45a Main Office CHAD Barajas I48.2 1 Permanent atrial fibrillation I11.9 Hypertensive heart disease w [facility] heart failure I73.9 Peripheral vascular disease, unspecified I34.0 Nonrheumatic mitral (valve) insufficiency R94.31 Abnormal electrocardiogram [ ECG] [EKG] F17.210 Nicotine dependence, cigaret aubree, uncomplicated F10.10 Alcohol abuse, uncomplicated Z71.3 Dietary counseling and surve illance Assessments Date Code Description Provider 08/16/2020 I48.21 Permanent atrial fibrillation CHAD Moy 08/16/2020 I11.9 Hypertensive heart disease witho de heart failure CHAD Simental 08/16/2020 I73.9 Peripheral vascular disease, uns pecified CHAD Simental 08/16/2020 I34.0 Nonrheumatic mitral (valve) insu fficiency CHAD Simental 08/16/2020 R94.31 Abnormal electrocardiogram [ECG] [EKG] CHAD Simental 08/16/2020 F17.210 Nicotine dependence, cigarettes, uncomplicated CHAD Simental 08/16/2020 F10.10 Alcohol abuse, uncomplicated CHAD Wilkerson 08/16/2020 Z71.3 Dietary counseling and surveilla CHAD Ford 04/20/2020 I34.0 Nonrheumatic mitral (valve) insu fficiency ECHO 02/21/2020 I48.21 Permanent atrial fibrillation CHAD Abreu 02/21/2020 I11.9 Hypertensive heart disease witho de heart failure CHAD Barajas 02/21/2020 I73.9 Peripheral vascular disease, uns pecified CHAD Barajas 02/21/2020 I34.0 Nonrheumatic mitral (valve) insu fficiency CHAD Barajas 02/21/2020 R94.31 Abnormal electrocardiogram [ECG] [EKG] CHAD Barajas 02/21/2020 F17.210 Nicotine dependence, cigarettes, uncomplicated CHAD Barajas 02/21/2020 F10.10 Alcohol abuse, uncomplicated CHAD Newton 02/21/2020 Z71.3 Dietary counseling and surveilla CHAD Flynn Plan of Treatment Future Appointment(s):* 02/14/2021 10:15 am - CHAD Simental at Main Office 08/16/2020 - CHAD Simental* I48.21 Permanent atrial fibrillation * I11.9 Hypertensive heart disease without heart failure * I73.9 Peripheral vascular disease, unspecified * I34.0 Nonrheumatic mitral (valve) insufficiency * R94.31 Abnormal electrocardiogram [ECG] [EKG] * F17.210 Nicotine dependence, cigarettes, uncomplicated * F10.10 Alcohol abuse, uncomplicated * Z71.3 Dietary counseling and surveillance * All * Follow up:* Follow up in 6 months Functional Status Functional Condition Comment Date Status Independent with all ADL's Activ e Mental Status Description No Information Available Referrals Description No Information Available
--- OUTSIDE RECORDS SUMMARY | 2020-09-18 07:57 | CCD | Continuity of Care Document ---
Author Author April KWAN MD Organization Unknown Address [address] [place] [address] Phone [phone] Care Team Providers Care Agile Scrum Master Name Role Phone Guilherme Moore MD AUTM [phone] Yuri Cosme M.D. AUTM [phone] Guilherme Dan M.D. AUTM [phone] Problems Active Problems Provider Date Essential hypertension Roman Crews M.D. Onset: 017 Social History Type Date Description Comments Sex Unknown ETOH Use consumes 5-6 beers per day Recreational Drug Use Denies Drug Use Tobacco Use Start: Unknown Smokes 1 Pack A Day X50 plus yrs Tobacco Use Start: Unknown Report Cessation Counseling Was Provided Smoking Status Reviewed: 08/29/20 Report Cessation Counseling W as Provided Allergies, Adverse Reactions, Alerts Active Allergies Reaction Severity Comments Date Zestril COUGH 02/03/2017 Levaquin Nausea and Vomiting 05/25/20 18 Medications Active Medications SIG Qnty Indications Ordering Provide r Date Plavix 75mg Tablets 1 by mouth every day; managed by boris Crews M.D. 018 Folic Acid 1mg Tablets 1 by mouth every day Unknown Thiamine HCL 100mg Tablets da bobby Unknown Pravastatin Sodium 40mg Tablets 1 by mouth every day Unknown Vitamin B-12 1000mcg Tablets daily Unknown Fish Oil 1200mg Capsules DR pena very day Unknown Vitamin D3 High Potency 1000Unit C apsules 2 every day Unknown Gabapentin 300mg Capsules 1 cap by mouth 3 X A Day Unknown Eliquis 5mg Tablets 1 tab by mouth twice a day-managed by boris Unknown [facility] PO Daily Unknown Sertraline HCL 50mg Tablets 1 Tablet Once Daily Unknown Immunizations Description No Information Available Vital Signs Date Vital Result Comment 08/29/2020 1:59pm Height 64 inches 5'4" [place] Body Weight 120 lb 08/15/2020 2:01pm BP Systolic 168 mmHg BP Diastolic 90 mmHg Heart Rate 103 /min O2 % BldC Oximetry 98 % Room Air Height 64 inches 5'4" Weight 133.00 lb BMI (Body Mass Index) 22.8 kg/m2 [place] Body Weight 120 lb Weight 60.329 kg BSA (Body Surface Area) 1.64 m2 Results Test Acquired Date Facility Test Result H/L Range Note FVL/Sohan 08/15/2020 [facility] SEE IMAGE FVC-Pred 2.73 L FVC-Pre 2.72 L FVC-%Pred-Pre 99 L FVC-LLN 2.04 L Fev1-Pred 2.04 L Fev1-Pre 1.79 L Fev1-%Pred-Pre 87 L Fev1-LLN 1.46 L Fev6-Pred 2.59 L Fev6-Pre 2.72 L Fev6-%Pred-Pre 104 L Fev6-LLN 1.91 L Npg3dml-Dpyf 74 % Qsv3vzc-Gto 66 % Lmc7ren-%Pred-Pre 88 % Idv6moe-DNP 65 % Gnu6yxl-Nkdt 95 % Kdf5bpw-Dba 100 % Uys5rus-%Pred-Pre 105 % FEFMax-Pred 5.07 L/E/sec FEFMax-Pre 4.82 L/E/sec FEFMax-%Pred-Pre 95 L/E/sec FEFMax-LLN 3.35 L/E/sec Fxz5060-Qxtc 1.56 L/E/sec Ogr3058-Sie 1.05 L/E/sec Pav4954-%Pred-Pre 67 L/E/sec Vdf6539-TPF 0.32 L/E/sec ExpTime-Pre 6.03 sec Gya2kfc0-Phqj 78 % Gfc8etb2-Tuc 66 % Nlh9hit2-%Pred-Pre 84 % Dnf4oxi3-BLW 69 % Procedures Date Code Description Status 08/15/2020 39676 Spirometry Completed Medical Devices Description No Information Available Encounters Type Date Location Provider Dx Diagnosis Office Visit 08/15/2020 2:00p [facility] Terri Kwan MD R91.8 Other nonspecific abnormal finding of maya ng field J43.9 Emphysema, unspecified Z79.02 FPC (current) use of a ntithrombotics/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 R91.1 Solitary pulmonary nodule Assessments Date Code Description Provider 08/29/2020 R91.8 Other nonspecific abnormal findi ng of lung field Crescencio Kwan MD 08/29/2020 J43.9 Emphysema, unspecified Crescencio Kwan MD 08/29/2020 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/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 Crescencio Kwan MD 08/29/2020 R91.1 Solitary pulmonary nodule Kira Kwan MD 08/29/2020 F17.210 Nicotine dependence, cigarettes, uncomplicated Crescencio Kwan MD 08/15/2020 R91.8 Other nonspecific abnormal findi ng of lung field Crescencio Kwan MD 08/15/2020 J43.9 Emphysema, unspecified Crescencio Kwan MD 08/15/2020 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 Functional Status Description No Information Available Mental Status Description No Information Available Referrals Description No Information Available
--- OUTSIDE RECORDS SUMMARY | 2020-09-18 07:57 | CCD | Continuity of Care Document ---
Author Author April MANDUJANO PA Organization Unknown Address [address] [place] [address] [place] [address] Phone [phone] Care Team Providers Care Harbormaster Name Role Phone Yuri Cosme MD AUTM [phone] Guilherme Moore MD AUTM [phone] Problems Active Problems Provider Date Chronic atrial fibrillation Guilherme Dan MD Onset: 04/01 Electrocardiogram abnormal Guilherme Dan MD Onset: 2017 Mitral valve disorder Guilherme Dan MD Onset: 04/01/2018 Chronic pulmonary heart disease Guilherme Dan MD Onset: 0 04/01/2018 Benign hypertensive heart disease without congestive h eart failure Guilherme Dan MD Onset: 04/01/2018 Preoperative cardiovascular examination Guihlerme Dan MD Onset: 04/01/2018 Chest pain CHAD Barajas Onset: 07/14/2018 Peripheral vascular disease CHAD Barajas Onset: 12/30 Dietary management surveillance CHAD Barajas Onset: 01/13/2019 Tobacco user CHAD Barajas Onset: 01/13/2019 Alcohol abuse, uncomplicated CHAD Barajas Onset: Permanent atrial fibrillation CHAD Barajas Onset: Social History Type Date Description Comments Sex Unknown ETOH Use Consumes Beer 4-5 daily Tobacco Use Start: Unknown Patient is a current smoker, smo kes every day up to 1 ppd, started at age 12 Smoking Status Reviewed: 02/21/20 Patient is a current smoker, smokes every day up to 1 ppd, started at age 12 Exercise Type/Frequency Does housework daily Exercise Limitations Left Leg and foot pain due to venous insufficiency Exercise Limitations Weakness in legs Allergies, Adverse Reactions, Alerts Active Allergies Reaction Severity Comments Date Dottiepril Cough 04/01/2018 Levaquin vomiting 07/14/2018 Medications Active [...] LITTLE GFR LEFT ESRD GFR <15 ON [employer]IC [employer]OR Procedures Date Code Description Status 04/20/2020 16339 Echocardiogram 2-D Doppler Color Completed 02/21/2020 73829 ECG 12-Lead Completed Medical Devices Description No Information Available Encounters Type Date Location Provider Dx Diagnosis Office Visit 02/21/2020 10:45a Main Office CHAD Barajas I48.2 1 Permanent atrial fibrillation I11.9 Hypertensive heart disease w [facility] heart failure I73.9 Peripheral vascular disease, unspecified I34.0 Nonrheumatic mitral (valve) insufficiency R94.31 Abnormal electrocardiogram [ ECG] [EKG] F17.210 Nicotine dependence, cigaret aubree, uncomplicated F10.10 Alcohol abuse, uncomplicated Z71.3 Dietary counseling and surve illance Assessments Date Code Description Provider 04/20/2020 I34.0 Nonrheumatic mitral (valve) insu fficiency ECHO 02/21/2020 I48.21 Permanent atrial fibrillation CHAD Abreu 02/21/2020 I11.9 Hypertensive heart disease witho fl heart failure CHAD Barajas 02/21/2020 I73.9 Peripheral vascular disease, uns pecified CHAD Barajas 02/21/2020 I34.0 Nonrheumatic mitral (valve) insu fficiency CHAD Barajas 02/21/2020 R94.31 Abnormal electrocardiogram [ECG] [EKG] CHAD Barajas 02/21/2020 F17.210 Nicotine dependence, cigarettes, uncomplicated CHAD Barajas 02/21/2020 F10.10 Alcohol abuse, uncomplicated CHAD Newton 02/21/2020 Z71.3 Dietary counseling and surveilla nce CHAD Barajas Plan of Treatment No Information Available Functional Status Functional Condition Comment Date Status Independent with all ADL's Activ e Mental Status Description No Information Available Referrals Description No Information Available
--- OUTSIDE RECORDS SUMMARY | 2020-09-18 07:58 | CCD | Continuity of Care Document ---
Author Author April DAVIS M.D. 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 Alcoholism Onset: 03/20/2009 Venous varices Onset: 10/09/2007 Hypercholesterolemia Onset: 10/09/2007 Social History Type Date Description Comments Sex Unknown ETOH Use Consumes 2 beers per day Tobacco Use Start: Unknown Patient is a current smoker, smo kes every day smokes 1 ppd x 50 years , currently smokes 1/2 PPD Allergies, Adverse Reactions, Alerts Active Allergies Reaction Severity Comments Date Cipro sob 03/01/2015 Hydrochlorothiazide Moderate itchy 12/01/19 13 Zestril Moderate, Cough 11/30/2012 Levaquin nausea and vomiting 05/26/20 18 Medications Active Medications SIG Qnty Indications Ordering Provide r Date Pantoprazole Sodium 40mg Tablets D R 1 by mouth every day 90tabs K92.2 José Lara MD 01/20/2020 Zoloft 50mg Tablets 1 by mouth every day 90tabs Yuri Davis M.D. 08/23/2019 Icaps Areds 2 2 Capsules 2 caps per day with food Yuri Davis M.D. 01/20/2019 Atorvastatin Calcium 40mg Tablets one tab QHS 90tabs Yuri Davis M.D. 03/31/2018 Eliquis 5mg Tablets take one tablet by mouth twice a day 180tabs Yuri Davis M.D. 8 Lasix 20mg Tablets 1 by mouth every day as needed for swelling. 90tabs Yuri Davis M.D. 2017 Zinc 15 66mg Tablets 1 by mouth every day Yuri Davis M.D. 11/18/2017 Thiamine HCL 100mg Tablets 1 by mouth every day 90tabs Yuri Davis M.D. 03/13/2016 Folic Acid 1mg Tablets 1 by mouth every day 90tabs Yuri Davis M.D. 03/13/2016 Biotin Capsules 1 by mouth q d Yuri Davis M.D. 02/15/2016 Vitamin D 2000Unit Capsules 1 by mouth every day Yuri Davis M.D. 03/01/2015 Vitamin B-12 1000mcg Tablets Sub 1 by mouth every day Yuri Davis M.D. 03/01/2015 Zebeta 10mg Tablets 1 by mouth every day 90tabs Yuri Davis M.D. 01/11/[address] 1 by mouth every day Unknown Eq Acetaminophen Extra Strength 500mg Tablets prn pain Unknown Docusate Sodium 100mg Capsules 1 by mouth twice a day Unknown Clopidogrel Bisulfate 75mg Tablets 1 by mouth every day 90tabs Yuri Davis M.D. History Medications Myrbetriq 25mg Tablets ER 24HR 1 by mouth every evening 30tabs Yuri Davis M.D. 04/18/2020 - 08/03/2020 Administration Of Flu Vaccine Inj ection Unknown Immunization Adminstration,1 Vaccine/Tox oid Injection Unknown Medications Administered in Office Medication SIG Qnty Indications Ordering Provider Date Therapeutic Injection Injection Unknown 12/05/2017 Administration Of Flu Vaccine Inj ection Raya Orona, BRYCE 06/11/2017 Administration Of Flu Vaccine Inj ection Cortney Mcclellan,MASTER PLANNER 05/29/2015 Immunizations CPT Code Status Date Vaccine Lot # [id number] Given 05/31/2019 Prevnar 13 U-Flu Given 06/16/2018 Influenza,Unspecified 96632 Given 06/11/2017 Influenza Vaccin e Quadrivalent Preser/Antibiotic Free Im Use [id number] Given 05/29/2015 Fluvirin Virus Vaccine [id number] 01 05974 Given 06/15/2014 Influenza Virus Vaccine 90913 Given 06/09/2013 Influenza Virus Vaccine 70251 Given 05/13/2012 Adacel- Tetanus Diphtheria P ertussis (Age64 & Under) 54303 Given 05/13/2012 Adacel- Tetanus Diphtheria P ertussis (Age64 & Under) 71558 Given 05/13/2012 Influenza Virus Vaccine 78772 Given 06/03/2011 Influenza Virus Vaccine 22112 Given 05/10/2009 Pneumovax 23 62546 Given 11/03/2006 Zoster Vaccine Vital Signs Date Vital Result Comment 08/03/2020 10:06am BP Systolic 110 mmHg BP Diastolic 64 mmHg Heart Rate 80 /min Height 64 inches 5'4" Weight 134.00 lb BMI (Body Mass Index) 23.0 kg/m2 04/18/2020 11:58am BP Systolic 118 mmHg BP Diastolic 62 mmHg Heart Rate 78 /min Height 64 inches 5'4" Weight 130.00 lb BMI (Body Mass Index) 22.3 kg/m2 Results Test Acquired Date Facility Test Result H/L Range Note Complete Blood Count 08/03/2020 [facility] [employer] Le[employer] Tester: [place] [address] [phone] WBC 10.7 x10*3/UL 4.1 - 10.9 RBC 4.46 x10*6/UL 4.20 - 6.30 Hemoglobin 12.3 g/dL 12.0 - 18.0 Hematocrit 36.9 % Low 37.0 - 51.0 MCV 82.7 fL 80.0 - 97.0 MCH 27.5 pg 26.0 - 32.0 MCHC 33.2 g/dL 31.0 - 38.0 RDW 14.8 % High 11.6 - 13.7 PLT 374 x10*3/UL 140 - 440 MPV 7.4 FL Low 7.8 - 11.0 Lymph % 14.9 % 10.0 - 58.5 Mid % 4.2 % 1.7 - 9.3 Neut % 80.9 % 37.0 - 92.0 Lymph # 1.5 x10*3/UL 0.6 - 4.1 Mid # 0.6 x10*3/UL 0.1 - 0.6 Neut # 8.6 x10*3/UL High 2.0 - 7.8 A1c 08/03/2020 [facility] [employer] Tester: [place] [address] [phone] Hba1c 6.1 % High <5.7 1 Est Avg Glucose 128 mg/dL High 60 - 110 Comprehensive Chem Profile 08/03/2020 [facility] [employer] Leak Tester: [place] [address] [phone] Glucose 127 mg/dL High 74 - 99 2 BUN 16 mg/dL 7 - 18 Creatinine 0.8 mg/dL 0.6 - 1.3 Sodium 137 mEq/L 136 - 145 Potassium 4.2 mEq/L 3.5 - 5.1 Chloride 99 mEq/L 98 - 107 Carbon Dioxide 30 mEq/L 21 - 32 Calcium 9.8 mg/dL 8.5 - 10.1 Alk. Phosphatase 280 mg/dL High 46 - 116 3 Total Bilirubin 0.4 mg/dL 0.2 - 1.0 Ast (Sgot) 22 U/L 15 - 37 Alt (SGPT) 16 U/L 12 - 78 Albumin 3.4 g/dL 3.4 - 5.0 Total Protein 7.2 g/dL 6.4 - 8.2 A/G Ratio 0.89 CALC Low 1.00 - 1.90 GFR >= 60 mL/min >60 GFR >= 60 mL/min >60 4 Alkaline Phosphatase Fractionated 08/03/2020 [facility] [address] [place] [address] [phone] Gamma Glutamyltransferase 28 U/L Normal 5-55 Alkaline Phosphatase 281 U/L High 45-117 Stable Alkphos 165 U/L Normal Labile Alkphos 116 U/L Normal % Labile Alkaline Phosphatase 41.28 % Normal 5 Complete Blood Count 04/10/2020 [facility] [employer] Leak Tester: [place] [address] [phone] WBC 10.8 x10*3/UL 4.1 - 10.9 RBC 4.79 x10*6/UL 4.20 - 6.30 Hemoglobin 13.6 g/dL 12.0 - 18.0 Hematocrit 41.3 % 37.0 - 51.0 MCV 86.3 fL 80.0 - 97.0 MCH 28.5 pg 26.0 - 32.0 MCHC 33.0 g/dL 31.0 - 38.0 RDW 13.8 % High 11.6 - 13.7 PLT 355 x10*3/UL 140 - 440 MPV 7.4 FL Low 7.8 - 11.0 Lymph % 15.6 % 10.0 - 58.5 Mid % 4.4 % 1.7 - 9.3 Neut % 80.0 % 37.0 - 92.0 Lymph # 1.7 x10*3/UL 0.6 - 4.1 Mid # 0.5 x10*3/UL 0.1 - 0.6 Neut # 8.6 x10*3/UL High 2.0 - 7.8 A1c 04/10/2020 [facility] [employer] Le[employer] Tester: [place] [address] [phone] Hba1c 6.1 g/dL High 4.8 - 5.6 6 Est Avg Glucose 128 mg/dL High 60 - 110 Comprehensive Chem Profile 04/10/2020 [facility] [employer] Leak Tester: [place] [address] [phone] Glucose 179 mg/dL High 74 - 99 7 BUN 14 mg/dL 7 - 18 Creatinine 0.9 mg/dL 0.6 - 1.3 Sodium 136 mEq/L 136 - 145 Potassium 4.3 mEq/L 3.5 - 5.1 Chloride 97 mEq/L Low 98 - 107 Carbon Dioxide 28 mEq/L 21 - 32 Calcium 9.6 mg/dL 8.5 - 10.1 Alk. Phosphatase 222 mg/dL High 46 - 116 Total Bilirubin 0.6 mg/dL 0.2 - 1.0 Ast (Sgot) 22 U/L 15 - 37 Alt (SGPT) 23 U/L 12 - 78 Albumin 3.9 g/dL 3.4 - 5.0 Total Protein 7.6 g/dL 6.4 - 8.2 A/G Ratio 1.05 CALC 1.00 - 1.90 GFR >= 60 mL/min >60 GFR >= 60 mL/min >60 8 1 Lab Result Notes: Pre-Diabetes 5.7 - 6.4 % Diabetes = or > 6.5% 2 100-125 mg/dL PRE-DIABET ES/FASTING >126 mg/dL DIABETES/FASTING 3 NOTE: RESULT VERIFIED. 4 CHRONIC KIDNEY DISEASE STAGI NG PER NKF STAGE I & II GFR >= 60 NORMAL TO MILDLY DECREASED STAGE III GFR 30-59 MODERATELY DECREASED STAGE IV GFR 15-29 SEVERELY DECREASED STAGE V GFR <15 VERY LITTLE GFR LEFT ESRD GFR <15 ON MERCHANDISE PRESENTATION ASSOCIATE 5 FRACTIONATED ALK PHOSPHATASE INTERPRETATION LABILE VALUES GREATER THAN 70% OF TOTAL ALK PHOS SUGGESTS BONE ORIGIN. LABILE VALUES LESS THAN 65% OF TOTAL ALK PHOS SUGGESTS LIVER ORIGIN. 6 Lab Result Notes: Pre-Diabetes 5.7 - 6.4 % Diabetes = or > 6.5% 7 100-125 mg/dL PRE-DIABET ES/FASTING >126 mg/dL DIABETES/FASTING 8 CHRONIC KIDNEY DISEASE STAGI NG PER NKF STAGE I & II GFR >= 60 NORMAL TO MILDLY DECREASED STAGE III GFR 30-59 MODERATELY DECREASED STAGE IV GFR 15-29 SEVERELY DECREASED STAGE V GFR <15 VERY LITTLE GFR LEFT ESRD GFR <15 ON MERCHANDISE PRESENTATION ASSOCIATE Procedures Date Code Description Status 03/20/2020 673011021 Bone Mineral Density Test [facility] 03/17/2020 [id number] Bone Mineral Density Test Comple [facility] 03/17/2020 [id number] Mammogram Completed 10/11/2019 [id number] Diabetic Retinal Eye Exam [facility] 07/26/2019 [id number] Diabetic Retinal Eye Exam [facility]ple [facility] 04/19/2019 [id number] Diabetic Retinal Eye Exam Comple [facility] 02/22/2019 [id number] Diabetic Retinal Eye Exam [facility]ple [facility] 10/07/2018 [id number] Mammogram Completed 06/29/2018 [id number] Diabetic Retinal Eye Exam [facility]ple [facility] 06/25/2018 [id number] Diabetic Retinal Eye Exam Comple [facility] 06/24/2018 [id number] Diabetic Retinal Eye Exam [facility]ple [facility] 09/22/2017 [id number] Mammogram Completed 01/07/2017 [id number] Diabetic Retinal Eye Exam [facility]ple [facility] 09/18/2016 [id number] Mammogram Completed 09/06/2015 [id number] Mammogram Completed Medical Devices Description No Information Available Encounters Type Date Location Provider Dx Diagnosis Office Visit 08/03/2020 10:00a [facility] PPrabhakar Davis M.D. H35.30 Unspecified macular degeneration I48.20 Chronic atrial fibrillation, unspecified Z79.01 senior care (current) use of a nticoagulants F17.210 Nicotine dependence, cigaret aubree, uncomplicated I73.9 Peripheral vascular disease, unspecified E78.5 Hyperlipidemia, unspecified D64.9 Anemia, unspecified R06.02 Shortness of breath J44.9 Chronic obstructive pulmonar y disease, unspecified R73.01 Impaired fasting glucose R79.89 Other specified abnormal fin dings of blood chemistry Assessments Date Code Description Provider 08/03/2020 H35.30 Unspecified macular degeneration Yuri Davis M.D. 08/03/2020 I48.20 Chronic atrial fibrillation, uns pecified Yuri Davis M.D. 08/03/2020 Z79.01 senior care (current) use of antic oagulants Yuri Davis M.D. 08/03/2020 F17.210 Nicotine dependence, cigarettes, uncomplicated Yuri Davis M.D. 08/03/2020 I73.9 Peripheral vascular disease, uns pecified Yuri Davis M.D. 08/03/2020 E78.5 Hyperlipidemia, unspecified Lorenzo Davis M.D. 08/03/2020 D64.9 Anemia, unspecified Yuri macdonald M.D. 08/03/2020 R06.02 Shortness of breath Yuri macdonald M.D. 08/03/2020 J44.9 Chronic obstructive pulmonary di sease, unspecified Yuri Davis M.D. 08/03/2020 R73.01 Impaired fasting glucose Yuri Davis M.D. 08/03/2020 R79.89 Other specified abnormal finding s of blood chemistry Yuri Davis M.D. 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 04/10/2020 Z79.01 senior care (current) use of antic oagulants Lab Schedule 04/10/2020 I48.20 Chronic atrial fibrillation, uns pecified Yuri Davis M.D. 04/10/2020 I48.20 Chronic atrial fibrillation, uns pecified Lab Schedule 04/10/2020 R73.01 Impaired fasting glucose Yuri Davis M.D. 04/10/2020 R73.01 Impaired fasting glucose Lab [facility] Plan of Treatment Future Appointment(s):* 10/05/2020 10:00 am - [facility] 04/18/2020 - Yuri Davis M.D.* * New Medication:* Myrbetriq 25 mg * New Xrays:* Gallblader/Liver U/S, Scheduled: 05/03/20 Functional Status Description No Information Available Mental Status Description No Information Available Referrals Description No Information Available
--- OUTSIDE RECORDS SUMMARY | 2020-09-18 07:58 | CCD ---
Author Author [facility] Organization [facility] Address Unknown Phone Unavailable Care Team Providers Care Regulatory Intern Name Role Phone Mirian, Radha ROLL TENSION TESTER Unavailable Unavailable Mirian, Radha ROLL TENSION TESTER Unavailable Unavailable Mirian, Radha ROLL TENSION TESTER Unavailable Unavailable Mirian, Radha ROLL TENSION TESTER Unavailable Unavailable Mirian, Radha ROLL TENSION TESTER Unavailable Unavailable Mirian, Radha ROLL TENSION TESTER Unavailable Unavailable Mirian, Radha ROLL TENSION TESTER Unavailable Unavailable Mirian, Radha ROLL TENSION TESTER Unavailable Unavailable Mirian, Radha ROLL TENSION TESTER Unavailable Unavailable Mirian, Radha ROLL TENSION TESTER Unavailable Unavailable Mirian, Radha ROLL TENSION TESTER Unavailable Unavailable Mirian, Radha ROLL TENSION TESTER Unavailable Unavailable Mirian, Radha ROLL TENSION TESTER Unavailable Unavailable Mirian, Radha ROLL TENSION TESTER Unavailable Unavailable Mirian, Radha ROLL TENSION TESTER Unavailable Unavailable Mirian, Radha ROLL TENSION TESTER Unavailable Unavailable Mirian, Radha ROLL TENSION TESTER Unavailable Unavailable Mirian, Radha ROLL TENSION TESTER Unavailable Unavailable Mirian, Radha ROLL TENSION TESTER Unavailable Unavailable Mirian, Radha ROLL TENSION TESTER Unavailable Unavailable Mirian, Radha ROLL TENSION TESTER Unavailable Unavailable Mirian, Radha ROLL TENSION TESTER Unavailable Unavailable Mirian, Radha ROLL TENSION TESTER Unavailable Unavailable Mirian, Radha ROLL TENSION TESTER Unavailable Unavailable Mirian, Radha ROLL TENSION TESTER Unavailable Unavailable Mirian, Radha ROLL TENSION TESTER Unavailable Unavailable Ba F Yuri ESPINO Unavailable Unavailable Ba F Yuri ESPINO Unavailable Unavailable White F Yuri ESPINO Unavailable Unavailable White F Yuri ESPINO Unavailable Unavailable White F Yuridann ESPINO Unavailable Unavailable White F Yuridann ESPINO Unavailable Unavailable White F Yuridann ESPINO Unavailable Unavailable White F Yuridann ESPINO Unavailable Unavailable White F Yuri ESPINO Unavailable Unavailable White F Yuri ESPINO Unavailable Unavailable White F Yuridann ESPINO Unavailable Unavailable White F Yuridann ESPINO Unavailable Unavailable White, F Yuri Unavailable Unavailable White, F Yuri Unavailable Unavailable White, F Yuridann ESPINO Unavailable Unavailable White, F Yuridann ESPINO Unavailable Unavailable White F Yuridann ESPINO Unavailable Unavailable White F Yuri ESPINO Unavailable Unavailable White F Yuri ESPINO Unavailable Unavailable White F Yuri ESPINO Unavailable Unavailable White F Yuri ESPINO Unavailable Unavailable White F Yuri ESPINO Unavailable Unavailable White F Yuri ESPINO Unavailable Unavailable Ba F Yuri ESPINO Unavailable Unavailable Ba F Yuri ESPINO Unavailable Unavailable White F Yuri ESPINO Unavailable Unavailable Ba F Yuri ESPINO Unavailable Unavailable White F Yuri ESPINO Unavailable Unavailable White F Yuri ESPINO Unavailable Unavailable Ba F Yuri ESPINO Unavailable Unavailable Ba F Yuri ESPINO Unavailable Unavailable Ba F Yuri ESPINO Unavailable Unavailable Ba F Yuri ESPINO Unavailable Unavailable Ba F Yuri ESPINO Unavailable Unavailable Ba F Yuri ESPINO Unavailable Unavailable White F Yuri ESPINO Unavailable Unavailable Ba F Yuri ESPINO Unavailable Unavailable Ba F Yuri ESPINO Unavailable Unavailable Ba F Yuri ESPINO Unavailable Unavailable Ba F Yuri ESPINO Unavailable Unavailable Ba F Yuri ESPINO Unavailable Unavailable Ba F Yuri ESPINO Unavailable Unavailable Ba F Yuri ESPINO Unavailable Unavailable White F Yuri ESPINO Unavailable Unavailable Ba F Yuri ESPINO Unavailable Unavailable Ba F Yuri ESPINO Unavailable Unavailable Ba F Yuir ESPINO Unavailable Unavailable Ba F Yuri ESPINO Unavailable Unavailable Ba F Yuri ESPINO Unavailable Unavailable Ba F Yuri ESPINO Unavailable Unavailable Ba F Yuri ESPINO Unavailable Unavailable Ba F Yuri ESPINO Unavailable Unavailable Ba F Yuri ESPINO Unavailable Unavailable Ba F Yuri ESPINO Unavailable Unavailable Ba F Yuri ESPINO Unavailable Unavailable Ba F Yuri ESPINO Unavailable Unavailable Ba F Yuri ESPINO Unavailable Unavailable Ba F Yuri ESPINO Unavailable Unavailable Ba F Yuri ESPINO Unavailable Unavailable Brie Cosme MD Unavailable Unavailable White, F Yuri MD Unavailable Unavailable Brie Cosme MD Unavailable Unavailable Brie Cosme MD Unavailable Unavailable Brie Cosme MD Unavailable Unavailable Brie Cosme MD Unavailable Unavailable Brie Cosme MD Unavailable Unavailable Brie Cosme MD Unavailable Unavailable Brie Cosme MD Unavailable Unavailable Brie Cosme MD Unavailable Unavailable Brie Cosme MD Unavailable Unavailable Brie Cosme MD Unavailable Unavailable Brie Cosme MD Unavailable Unavailable Brie Cosme MD Unavailable Unavailable Dequan, L Micaela PA Unavailable Unavailable Dequan, L Micaela PA Unavailable Unavailable Dequan, L Micaela PA Unavailable Unavailable Dequan, L Micaela PA Unavailable Unavailable Dequan, L Micaela PA Unavailable Unavailable Dequan, L Micaela PA Unavailable Unavailable Dequan, L Micaela PA Unavailable Unavailable Dequan, L Micaela PA Unavailable Unavailable Dequan, L Micaela PA Unavailable Unavailable Dequan, L Micaela PA Unavailable Unavailable Dequan, L Micaela PA Unavailable Unavailable Dequan, L Micaela PA Unavailable Unavailable Dequan, L Micaela PA Unavailable Unavailable Dequan, L Micaela PA Unavailable Unavailable Dequan, L Micaela PA Unavailable Unavailable Dequan, L Micaela PA Unavailable Unavailable Dequan, L Micaela PA Unavailable Unavailable Dequan, L Micaela PA Unavailable Unavailable Dequan, L Micaela PA Unavailable Unavailable Dequan, L Micaela PA Unavailable Unavailable Dequan, L Micaela PA Unavailable Unavailable Dequan, L Micaela PA Unavailable Unavailable Dequan, L Micaela PA Unavailable Unavailable Brie Cosme MD Unavailable Unavailable Brie Cosme MD Unavailable Unavailable Brie Cosme MD Unavailable Unavailable Brie Cosme MD Unavailable Unavailable Brie Cosme MD Unavailable Unavailable Brie Cosme MD Unavailable Unavailable Brie Cosme MD Unavailable Unavailable Brie Cosme MD Unavailable Unavailable Brie Cosme MD Unavailable Unavailable Brie Cosme MD Unavailable Unavailable Brie Cosme MD Unavailable Unavailable Brie Cosme MD Unavailable Unavailable Brie Cosme MD Unavailable Unavailable Brie Cosme MD Unavailable Unavailable Brie Cosme MD Unavailable Unavailable Brie Cosme MD Unavailable Unavailable Brie Cosme MD Unavailable Unavailable Brie Cosme MD Unavailable Unavailable Brie Cosme MD Unavailable Unavailable Brie Cosme MD Unavailable Unavailable Brie Cosme MD Unavailable Unavailable Brie Cosme MD Unavailable Unavailable Brie Cosme MD Unavailable Unavailable Brie Cosme MD Unavailable Unavailable Brie Cosme MD Unavailable Unavailable Brie Cosme MD Unavailable Unavailable Brie Cosme MD Unavailable Unavailable Brie Cosme MD Unavailable Unavailable Brie Cosme MD Unavailable Unavailable Brie Cosme MD Unavailable Unavailable Brie Cosme MD Unavailable Unavailable Brie Cosme MD Unavailable Unavailable Brie Cosme MD Unavailable Unavailable Brie Cosme MD Unavailable Unavailable Brie Cosme MD Unavailable Unavailable Brie Cosme MD Unavailable Unavailable Brie Cosme MD Unavailable Unavailable Brie Cosme MD Unavailable Unavailable Brie Cosme MD Unavailable Unavailable Brie Cosme MD Unavailable Unavailable Brie Cosme MD Unavailable Unavailable Brie Cosme MD Unavailable Unavailable Brie Cosme MD Unavailable Unavailable Brie Cosme MD Unavailable Unavailable Brie Cosme MD Unavailable Unavailable Brie Cosme MD Unavailable Unavailable Brie Cosme MD Unavailable Unavailable Brie Cosme MD Unavailable Unavailable Brie Cosme MD Unavailable Unavailable Brie Cosme MD Unavailable Unavailable Brie Cosme MD Unavailable Unavailable Brie Cosme MD Unavailable Unavailable Brie Cosme MD Unavailable Unavailable Brie Cosme MD Unavailable Unavailable Brie Cosme MD Unavailable Unavailable Brie Cosme MD Unavailable Unavailable Brie Cosme MD Unavailable Unavailable Brie Cosme MD Unavailable Unavailable Brie Cosme MD Unavailable Unavailable Brie Cosme MD Unavailable Unavailable Brie Cosme MD Unavailable Unavailable Brie Cosme MD Unavailable Unavailable Brie Cosme MD Unavailable Unavailable Brie Cosme MD Unavailable Unavailable Brie Cosme MD Unavailable Unavailable Brie Cosme MD Unavailable Unavailable Brie Cosme MD Unavailable Unavailable Brie Cosme MD Unavailable Unavailable Brie Cosme MD Unavailable Unavailable Brie Cosme MD Unavailable Unavailable Brie Cosme MD Unavailable Unavailable Brie Cosme MD Unavailable Unavailable Brie Cosme MD Unavailable Unavailable Scar Guthrie MD Unavailable Unavailable Scar Guthrie MD Unavailable Unavailable Scar Guthrie MD Unavailable Unavailable Scar Guthrie MD Unavailable Unavailable Scar Guthrie MD Unavailable Unavailable Scar Guthrie MD Unavailable Unavailable Scar Guthrie MD Unavailable Unavailable Scar Guthrie MD Unavailable Unavailable Scar Guthrie MD Unavailable Unavailable Scar Guthrie MD Unavailable Unavailable Scar Guthrie MD Unavailable Unavailable Scar Guthrie MD Unavailable Unavailable Scar Guthrie MD Unavailable Unavailable Scar Guthrie MD Unavailable Unavailable Scar Guthrie MD Unavailable Unavailable Scar Guthrie MD Unavailable Unavailable Scar Guthrie MD Unavailable Unavailable Scar Guthrie MD Unavailable Unavailable GuthrieScar MD Unavailable Unavailable GuthrieScar MD Unavailable Unavailable Guthrie, Scar Prather MD Unavailable Unavailable Guthrie, Scar Prather MD Unavailable Unavailable Guthrie, Scar Prather MD Unavailable Unavailable Guthrie, Scar Prather MD Unavailable Unavailable Guthrie, Scar Prather MD Unavailable Unavailable Guthrie, Scar Prather MD Unavailable Unavailable Guthrie, Scar Prather MD Unavailable Unavailable Guthrie, Scar Prather MD Unavailable Unavailable Guthrie, Scar Prather MD Unavailable Unavailable Guthrie, Scar Prather MD Unavailable Unavailable Guthrie, Scar Prather MD Unavailable Unavailable Guthrie, Scar Prather MD Unavailable Unavailable Guthrie, Scar Prather MD Unavailable Unavailable Guthrie, Scar Prather MD Unavailable Unavailable Guthrie, Scar Prather MD Unavailable Unavailable Guthrie, Scar Prather MD Unavailable Unavailable Guthrie, Scar Prather MD Unavailable Unavailable Guthrie, Scar Prather MD Unavailable Unavailable Guthrie, Scar Prather MD Unavailable Unavailable Guthrie, Scar Prather MD Unavailable Unavailable Guthrie, Scar Prather MD Unavailable Unavailable Guthrie, Scar Prather MD Unavailable Unavailable Guthrie, Scar Prather MD Unavailable Unavailable Guthrie, Scar Prather MD Unavailable Unavailable Guthrie, Scar Prather MD Unavailable Unavailable GuthrieScar MD Unavailable Unavailable GuthrieScar MD Unavailable Unavailable GuthrieScar MD Unavailable Unavailable Scar Guthrie MD Unavailable Unavailable GuthrieScar MD Unavailable Unavailable Danielito Robbins MD Unavailable Unavailable OellersDanielito MD Unavailable Unavailable OellDanielito hernandez MD Unavailable Unavailable OeDanielito hdz MD Unavailable Unavailable OeemelyersDanielito MD Unavailable Unavailable OeemelyersDanielito MD Unavailable Unavailable OellersDanielito MD Unavailable Unavailable OellersDanielito MD Unavailable Unavailable OellDanielito hernandez MD Unavailable Unavailable OeDanielito hdz MD Unavailable Unavailable OeemelyersDanielito MD Unavailable Unavailable OeemelyersDanielito MD Unavailable Unavailable OeemelyersDanielito MD Unavailable Unavailable OeDanielito hdz MD Unavailable Unavailable OeemelyersDanielito MD Unavailable Unavailable OeDanielito hdz MD Unavailable Unavailable OeemelyersDanielito MD Unavailable Unavailable OeemelyersDanielito MD Unavailable Unavailable OeemelyersDanielito MD Unavailable Unavailable OeemelyersDanielito MD Unavailable Unavailable OeDanielito hdz MD Unavailable Unavailable OeDanielito hdz MD Unavailable Unavailable OeemelyersDanielito MD Unavailable Unavailable OeemelyersDanielito MD Unavailable Unavailable OeDanielito hdz MD Unavailable Unavailable OeemelyersDanielito MD Unavailable Unavailable OellersDanielito MD Unavailable Unavailable Oellers, R Lino MD Unavailable Unavailable Oellers, R Lino MD Unavailable Unavailable Oellers, R Lino MD Unavailable Unavailable Oellers, R Lino MD Unavailable Unavailable Oellers, R Lino MD Unavailable Unavailable Oellers, R Lino MD Unavailable Unavailable Oellers, R Lino MD Unavailable Unavailable Oellers, R Lino MD Unavailable Unavailable Oellers, R Lino MD Unavailable Unavailable Oellers, R Lino MD Unavailable Unavailable Oellers, R Lino MD Unavailable Unavailable Oellers, R Lino MD Unavailable Unavailable Oellers, R Lino MD Unavailable Unavailable Oellers, R Lino MD Unavailable Unavailable Oellers, R Lino MD Unavailable Unavailable Oellers, R Lino MD Unavailable Unavailable Re-disclosure Warning The records that you are about to access may contain information from federally-assisted alcohol or drug abuse programs. If such information is present, then the following federally mandated warning applies: This information has been disclosed to you from records protected by federal confidentiality rules (42 CFR part 2). The federal rules prohibit you from making any further disclosure of this information unless further disclosure is expressly permitted by the written consent of the person to whom it pertains or as otherwise permitted by 42 CFR part 2. A general authorization for the release of medical or other information is NOT sufficient for this purpose. The Federal rules restrict any use of the information to criminally investigate or prosecute any alcohol or drug abuse patient.The records that you are about to access may contain highly sensitive health information, the redisclosure of which is protected by Article 27-F of the [facility] Public Health law. If you continue you may have access to information: Regarding HIV / AIDS; Provided by facilities licensed or operated by the [facility] Office of Mental Health; or Provided by the [facility] Office for People With Developmental Disabilities. If such information is present, then the following [facility] mandated warning applies: This information has been disclosed to you from confidential records which are protected by state law. State law prohibits you from making any further disclosure of this information without the specific written consent of the person to whom it pertains, or as otherwise permitted by law. Any unauthorized further disclosure in violation of state law may result in a fine or half-way sentence or both. A general authorization for the release of medical or other information is NOT sufficient authorization for further disc losure. Family History Family Member Name Family Member Gender Family Member Status Date o f Status Description Data Source(s) Unknown Male Problem [facility] ([facility]) at 41 Unknown Female Problem [facility] ([facility]) Unknown Female Problem [facility] ([facility]) Unknown Female Problem [facility] ([facility]) Unknown Unknown Encounters Encounter Providers Location Date Indications Data Source(s ) Outpatient Attender: Crescencio Hi/Anthony/Ivone jane 08/15/2020 01:00:00 PM EST [facility] ([facility]) Outpatient Attender: Yuri Johnson 08/03 09:00:00 AM EST [facility] ([facility] ) Outpatient Referrer: Yuri Cosme MD 02/24/2020 10:08:00 AM EDT [facility] Outpatient Attender: Micaela BONILLA Main Office 02/21/2020 10:45:0 0 AM EDT [facility] ([facility]) Outpatient Attender: Radha Johnson 01:40:00 PM EDT [facility] ([facility] ) Outpatient Attender: Yuri Johnson 11/01 10:30:00 AM EST [facility] ([facility] ) [place] ( in Healthcare facility) Attender: Lino Robbins MD 08/31/2019 07:04:00 AM EST - 08/31/2019 01:41:00 PM EST [facility] Attender: Lino Robbins MDAdmitter: Lino hdz MD 08/31/2019 07:04:00 AM EST - 08/31/2019 01:41:00 PM EST STATUS 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 Outpatient Attender: Yuri Johnson 08/23 09:00:00 AM EST [facility] ([facility] ) Outpatient Attender: Micaela BONILLA Main Office 07/20/2019 10:15:0 0 AM EST [facility] ([facility]) Medications Medication Brand Name Start Date Product Form Dose Route Admi nistrative Instructions Pharmacy Instructions Status Indications Reaction Description Data Source(s) Melatonin 10 MG Oral Tablet Melatonin 08/15/2020 12:00:00 AM EST ORAL active [facility] ([facility]) 24 HR mirabegron 25 MG Extended Release Oral Tablet [Myrbetr iq] Myrbetriq 04/18/2020 12:00:00 AM EDT ORAL completed MED[facility] ([facility]) pantoprazole 20 MG Delayed Release Oral Tablet Pantoprazole Sodium 02/20/2020 12:00:00 AM EDT ORAL active M EDENT ([facility]) pantoprazole 40 MG Delayed Release Oral Tablet Pantoprazole Sodium 01/20/2020 12:00:00 AM EDT ORAL active M EDENT ([facility]) Sertraline 50 MG Oral Tablet [Zoloft] Zoloft 08/23/2019 12:00:00 AM EST ORAL active [facility] Insurance Providers Payer name Policy type / Coverage type Policy ID Covered libertarian ID Covered libertarian's relationship to mancia Policy Mancia Plan Information [facility] OPTIONS [id number] SP [id number] MEDICARE [id number] SP [id number] MEDICARE C [id number] S [id number] AARP O [id number] S [id number] 911 AARP HEA [id number] S [id number] 911 MEDICARE MCA [id number] S [id number] MEDICARE MCA [id number] S [id number] [facility] Opt Medigap Part B [id number] 11 Self [id number] Medicare [place] Govt Serv[place] Medicare Primary [id number] Self [id number] [facility] Opt Medigap Part B [id number] 11 Self [id number] Medicare [place] Govt Servic Medicare Primary [id number] Self [id number] [facility] Commercial [id number] Self [id number] [facility] Options Medigap Part B [id number] Self [id number] Medicare (Part B) Medicare Primary [id number] Self [id number] [facility]) Commercial [id number] Self [id number] [facility] Options Medigap Part B [id number] Self [id number] Medicare (Part B) Medicare Primary [id number] Self [id number] AARP HEALTH CARE OPTIONS [id number] SP [id number] MEDICARE [id number] SP [id number] AARP HEALTH CARE OPTIONS [id number] SP [id number] AARP HE[employer] CARE OPTIONS [id number] SP [id number] ANSI-Medicare Part B [id number] ANSI-Commercial [id number] ANSI-Commercial [id number] ANSI-Medicare Part B [id number] ANSI-Medicare Part B [id number] ANSI-Commercial [id number] [employer] Opt Medigap Part B [id number] Self [id number] Medicare [facility] Govt Servic Medicare Primary [id number] Self [id number] ANSI-Commercial [id number] ANSI-Medicare Part B [id number] ANSI-Medicare Part B [id number] ANSI-Commercial [id number] ANSI-Medicare Part B [id number] ANSI-Commercial [id number] ANSI-Commercial [id number] ANSI-Medicare Part B [id number] ANSI-Medicare Part B [id number] ANSI-Commercial [id number] ANSI-Medicare Part B [id number] ANSI-Commercial [id number] BCBS [facility] Commercial [id number] Self [id number] [facility] Options Medigap Part B [id number] Self [id number] Medicare (Part B) Medicare Primary [id number] Self [id number] ANSI-Commercial [id number] ANSI-Medicare Part B [id number] MEDICARE [id number] D ANSI-Medicare Part B [id number] ANSI-Commercial [id number] ANSI-Medicare Part B [id number] ANSI-Commercial [id number] ANSI-Medicare Part B [id number] ANSI-Commercial [id number] [facility] Opt Medigap Part B [id number] 11 Self [id number] 11 Medicare [place] Govt Serv[place] Medicare Primary [id number] Self [id number] [facility] Opt Medigap Part B [id number] 11 Self [id number] 11 Medicare [place] Govt [place] Medicare Primary [id number] Self [id number] [facility] Opt Medigap Part B [id number] 11 Self [id number] 11 Medicare [place] Govt Serv[place] Medicare Primary [id number] Self [id number] ANSI-Medicare Part B [id number] ANSI-Commercial [id number] [facility] Commercial [id number] Self [id number] [facility] [facility] Options Medigap Part B [id number] Self [id number] Medicare (Part B) Medicare Primary [id number] Self [id number] [facility] Commercial [id number] Self [id number] [facility] [facility] Options Medigap Part B [id number] Self [id number] Medicare (Part B) Medicare Primary [id number] Self [id number] [facility] Opt Medigap Part B [id number] 11 Self [id number] 11 Medicare [place] Govt [place] Medicare Primary [id number] Self [id number] MEDICARE C [id number] S [id number] [facility] [facility] Medigap Part B [id number] 11 Self [id number] 11 Medicare [place] Govt [place] Medicare Primary [id number] Self [id number] [facility] Medigap Part B [id number] 11 Self [id number] 11 Medicare [place] Govt Servic Medicare Primary [id number] Self [id number] AARP U [id number] Self [id number] MEDICARE A [id number] Self [id number] D AARP [employer] CARE OPTIONS [id number] SP [id number] AARP HE[employer] CARE OPTIONS [id number] SP [id number] MEDICARE [id number] SP [id number] D [facility] C [id number] S [id number] [facility] Opt Medigap Part B [id number] 11 Self [id number] 11 Medicare [place] Govt Servic Medicare Primary [id number] Self [id number] AARP [employer] CARE OPTIONS [id number] SP [id number] AARP HEALTH CARE OPTIONS [id number] SP [id number] AARP O [id number] S [id number] [employer] Opt Medigap Part B Plan N Self Plan N Medicare [place]l Govt Servic Medicare Primary Self [employer] Options Medigap Part B Self Medicare [facility] Medicare Primary Self [facility] Options Medigap Part B Self Medicare Natl Gov't Servi Medicare Primary Self Aarp Medigap Part B Self [facility] [facility] Medicare Primary Self MEDICARE C [id number] S [id number] B MEDICARE [id number] SP [id number] B [id number] B [id number] Problems, Conditions, and Diagnoses Code Display Name Description Problem Type Effective Dates Data Source(s) 915515205 Permanent atrial fibrillation Permanent atrial fibrill ation Problem 08/16/2020 12:00:00 AM EST ERIK ([facility]) [id number] Permanent atrial fibrillation Permanent atrial fibrill ation Problem 02/21/2020 12:00:00 AM LIANA VALENCIA ([facility]) Surgeries/Procedures Procedure Description Date Indications Data Source(s) Spirometry 08/15/2020 12:00:00 AM INEZ KRAMER ([facility], ) ECHO TTHRC R-T 2D W/WOM-MODE COMPL SPEC&COLR DOP 04/20 12:00:00 AM EDRemedios VALENCIA ([facility]) Bone Mineral Density Test 03/20/2020 12:00:00 AM LIANA VALENCIA ([facility]) Mammogram 03/17/2020 12:00:00 AM LIANA KRAMER ([facility]) Bone Mineral Density Test 03/17/2020 12:00:00 AM EDT MEDENT ([facility]) ECG ROUTINE ECG W/LEAST 12 LDS W/I&R 02/21/2020 12:00: 00 AM EDT [facility] ([facility]) Diabetic Retinal Eye Exam 10/11/2019 12:00:00 AM EST [facility] ([facility]) Diabetic Retinal Eye Exam 07/26/2019 12:00:00 AM EST [facility] ([facility]) Results ID Date Data Source [id number] 09/13/2020 12:05:00 PM EST [facility] Name Value Range Interpretation Code Description Data Jazzmine rce(s) Supporting Document(s) SARS coronavirus 2 RNA Not Detected [facility] [place] This lab was ordered by [facility] and reported by [facility]. ID Date Data Source [id number] 08/15/2020 01:52:00 PM EST [facility] ([facility], ) Name Value Range Interpretation Code Description Data Jazzmine rce(s) Supporting Document(s) FVC-Pred 2.73 L [facility] ([facility]) FVC-Pre 2.72 L [facility] ([facility]) PDFReport Laboratory test result [facility] ([facility]) FVC-%Pred-Pre 99 L [facility] ([facility]) Fev1-Pred 2.04 L [facility] ([facility]) FVC-LLN 2.04 L [facility] ([facility]) Fev1-%Pred-Pre 87 L [facility] ([facility]) Fev1-Pre 1.79 L [facility] ([facility]) Fev1-LLN 1.46 L [facility] ([facility]) Fev6-Pre 2.72 L [facility] ([facility]) Fev6-%Pred-Pre 104 L [facility] ([facility]) Fev6-Pred 2.59 L [facility] ([facility]) Mbx8lyo-%Pred-Pre 88 % [facility] ([facility]) Fev6-LLN 1.91 L [facility] ([facility], ) Mze8tgi-Vqsv 74 % [facility] ([facility]) Hcp3szb-Hth 66 % [facility] ([facility]) Dpr2cxg-RUT 65 % [facility] ([facility]) Dqh5nkd-Ktfk 95 % [facility] ([facility]) Waq9txu-Aym 100 % [facility] ([facility]) Unc2pbc-%Pred-Pre 105 % [facility] ([facility]) FEFMax-Pred 5.07 L/E/sec [facility] ([facility]) FEFMax-Pre 4.82 L/E/sec [facility] ([facility]) FEFMax-%Pred-Pre 95 L/E/sec [facility] ([facility]) FEFMax-LLN 3.35 L/E/sec [facility] ([facility]) Pjb3755-Sigx 1.56 L/E/sec [facility] ([facility]) Whr0344-FAY 0.32 L/E/sec [facility] ([facility]) Ugv9650-%Pred-Pre 67 L/E/sec [facility] ([facility]) Cgv5808-Gav 1.05 L/E/sec [facility] ([facility]) Maa2ytn5-Kqjq 78 % [facility] ([facility]) Gsq3rch2-Brk 66 % [facility] ([facility]) ExpTime-Pre 6.03 sec [facility] ([facility]) Uzl8tpx5-%Pred-Pre 84 % [facility] ([facility]) Juk9sqz4-LBY 69 % [facility] ([facility]) ID Date Data Source [id number] 08/10/2020 12:00:00 AM EST [facility] Yuri Cosme MD Patient Name: SHAYNA [id number] [facility] Date of : 1945[address] Date of Exam: 08/10/2020[place] Mooney [id number]#: Fax: [phone] EXAM: CT THORAX WITH CONTRASTCLINICAL INFORMATION: Large right hilar mass.Low dose [address] scanning of the chest was obtained using 3 mmincrements after the administration of intravenous contrast andreconstructed in both coronal and sagittal scan planes. 75 cc of Jpxupuv346 was administered intravenously.Comparison chest radiographs 08/03/2020.Diffuse emphysematous changes are noted in the lungs. There is diffusebronchiectasis and diffuse interstitial fibrotic change. There is biapicalpleural thickening and scarring. There is a large mass in the right upperlobe just below the level of the conor. It abuts the mediastinum. Itmeasures approximately 6.6 x 5.2 x 5.9 cm and is consistent with malignantneoplasm. Adjacent patchy parenchymal opacities in the right upper lobeand right middle lobe are present compatible with areas of infiltrate andatelectasis. Inspissated material is seen in some of the adjacent dilatedbronchials. The most significant area of infiltrate/atelectasis is in theanterior segment of the right upper lobe, likely due to bronchiolarobstruction. In the left lung, there is a pleural based nodule in thesuperior segment of the left lower lobe approximately 8 mm in diameter.No axi llary adenopathy is seen bilaterally. There are a few subcentimeterlymph nodes in the right supraclavicular region. Several lymph nodes areseen in the right superior mediastinum, all slightly less than 1 cm inshort axis. There is an enlarged precarinal lymph node measuring 1.6 cm indiameter. Another of similar size is seen just inferior to that. There isbulky right hilar adenopathy which is confluent and inseparable from theright upper lobe mass. There is bulky subcarinal adenopathy which at itsepicenter measures approximately 2.4 x 3.3 cm. Multiple scattered middlemediastinal lymph nodes are present. The right upper lobe mass isinseparable from the pericardium at the superior aspect of the right sideof the heart. Scattered atherosclerotic calcifications are seen of thethoracic aorta with no aneurysm. There is no pleural or pericardialeffusion. The left adrenal gland demonstrates diffuse thickening whichappears similar to the prior CT of the abdomen 01/13/2017.There are diffuse degenerative changes of the spine. There is a moderatecompression deformity of T10 vertebral body without significantretropulsion of fragments. No definite bone lesion is seen.IMPRESSION:Large right upper lobe mass abuts the mediastinum and superior rightpericardium. There are areas of adjacent infiltrate and atelectasisparticularly in the anterior segment of the right upper lobe. There is asubpleural 8 mm nodule in the superior segment of the left lower lobe.There is extensive mediastinal and right hilar adenopathy.Left adrenal gland thickening is unchanged since the CT of 2016. There adolph moderate compression deformity of the T10 vertebral body which is alsonew since that prior CT. This may represent an osteoporotic compressionfracture. No bone lesion is visualized.Accredited by the [employer] in [place].JARRED Perdomo/Ryder you for referring JANICE MCGUIRE to our office.Electronically Signed - ADÁN CONTRERAS MD 08/10/20 16:44 Name Value Range Interpretation Code Description Data Jazzmine rce(s) Supporting Document(s) ID Date Data Source [id number] 08/03/2020 12:00:00 AM [facility] Yuri Cosme MD Patient Name: SHAYNA [id number] Date of : 1945[address] Date of Exam: 08/03/2020FLAKITA Mooney [id number]#: Fax: [phone] EXAM: CHEST (2 VIEW) X-RAYCLINICAL INFORMATION: Chronic dyspnea.Two views.The examination of 02/06/2005 has -0- images in its folder and the images arenot available for review. There are no prior chest radiographs forcom parison.There is a large approximately 6.7 x 5.7 x 7.2 cm sized mass in the righthilum. There is slight right CP angle blunting. Fibrotic changes aresuspected throughout the lung adler. The heart is mildly enlarged with aleft ventricular configuration.There is a Grade III wedge shaped compression deformity involving what ismost likely T10. The bones are diffusely demineralized.IMPRESSION:1. There is a large right hilar mass, as described above, highlysuspicious for neoplasm. Contrast enhanced CT examination of the chest isrecommended.2. There is a small right pleural effusion.3. Osseous susi nges as described above.KAILASH Patton/Ryder you for referring JANICE MCGUIRE to our office.Electronically Signed - GREGORY DE LA ROSA DO 08/04/20 16:56 Name Value Range Interpretation Code Description Data Jazzmine rce(s) Supporting Document(s) ID Date Data Source [id number] 08/03/2020 10:44:00 AM EST [facility] ([facility]) Name Value Range Interpretation Code Description Data Jazzmine rce(s) Supporting Document(s) Gamma Glutamyltransferase 28 U/L 5-55 MEDE NT ([facility]) Labile Alkphos 116 U/L [facility] ([facility]) Stable Alkphos 165 U/L [facility] ([facility]) Alkaline Phosphatase 281 U/L 45-117 [facility] ([facility]) % Labile Alkaline Phosphatase 41.28 % [facility] ([facility]) FRACTIONATED ALK PHOSPHATASE INTERPRETAT ION LABILE VALUES GREATER THAN 70% OF TOTAL ALK PHOS SUGGESTS BONE ORIGIN. LABILE VALUES LESS THAN 65% OF TOTAL ALK PHOS SUGGESTS LIVER ORIGIN. ID Date Data Source [id number] 08/03/2020 10:44:00 AM EST [facility] ([facility]) Name Value Range Interpretation Code Description Data Jazzmine rce(s) Supporting Document(s) Creatinine 0.8 mg/dL 0.6-1.3 [facility] ([facility]) Urea nitrogen [Mass/volume] in Serum or Plasma 16 mg/dL 7-18 [facility] ([facility]) Glucose [Mass/volume] in Serum or Plasma 127 mg/dL 74-99 [facility] ([facility]) 100-125 mg/dL PRE-DIABETES/FASTING >126 mg/dL DIABETES/FASTING Sodium [Moles/volume] in Serum or Plasma 137 meq/L 136-145 [facility] ([facility]) Potassium [Moles/volume] in Serum or Plasma 4.2 meq/L 3.5-5.1 [facility] ([facility]) Chloride [Moles/volume] in Serum or Plasma 99 meq/L 98-107 [facility] ([facility]) Carbon dioxide, total [Moles/volume] in Serum or Plasma 30 meq/L 21 -32 [facility] ([facility]) Calcium [Mass/volume] in Serum or Plasma 9.8 mg/dL 8.5-10.1 [facility] ([facility]) Alkaline phosphatase isoenzyme [Units/volume] in Serum or Pl asma 280 mg/dL 46-116 [facility] ([facility]) NOTE: RESULT VERIFIED. Aspartate aminotransferase [Enzymatic activity/volume] in Serum or Plasma 22 U/L 15-37 [facility] ([facility] ) Total Bilirubin 0.4 mg/dL 0.2-1.0 [facility] ([facility]) Albumin [Mass/volume] in Serum or Plasma 3.4 g/dL 3.4-5.0 [facility] ([facility]) Proteinase 3 Ab [Units/volume] in Serum 7.2 g/dL 6.4-8.2 [facility] Alanine aminotransferase [Enzymatic activity/volume] in Seru m or Plasma 16 U/L 12-78 [facility] Glomerular filtration rate/1.73 sq M pre dicted among non-blacks [Volume Rate/Area] in Serum or Plasma by Creatinine-based formula (MDRD) Laboratory test result [facility] ([facility] ) Glomerular filtration rate/1.73 sq M pre dicted among blacks [Volume Rate/Area] in Serum or Plasma by Creatinine-based formula (MDRD) Laboratory test result [facility] ([facility]) <content>CHRONIC KIDNEY DISEASE STAGING PER NKF</content>
<content></content>
<content>STAGE I & II GFR >= 60 NORMAL TO MILDLY DECREASED</content>
<content>STAGE III GFR 30-59 MODERATELY DECREASED</content>
<content>STAGE IV GFR 15-29 SEVERELY DECREASED</content>
<content>STAGE V GFR <15 VERY LITTLE GFR LEFT</content>
<content>ESRD GFR <15 ON TIMBER FRAMER HELPER</content>
<content></content> A/G Ratio 0.89 CALC 1.00-1.90 [facility] ([facility]) ID Date Data Source [id number] 08/03/2020 10:44:00 AM EST [facility] Name Value Range Interpretation Code Description Data Jazzmine rce(s) Supporting Document(s) Hemoglobin A1c/Hemoglobin.total in Blood 6.1 % [facility] ([facility]) Lab Result Notes: Pre-Diabetes 5.7 - 6.4 % Diabetes = or > 6.5% Glucose mean value [Mass/volume] in Blood Estimated fr om glycated hemoglobin 128 mg/dL 60-110 [facility] ID Date Data Source [id number] 08/03/2020 10:44:00 AM EST [facility] Name Value Range Interpretation Code Description Data Jazzmine rce(s) Supporting Document(s) Leukocytes [#/volume] in Blood by Automated count 10.7 x10*3/UL 4.1-1 0.9 [facility] ([facility]) Erythrocytes [#/volume] in Blood by Automated count 4.46 x10*6/UL 4.2 0-6.30 [facility] ([facility]) Hemoglobin [Mass/volume] in Blood 12.3 g/dL 12.0-18.0 [facility] ([facility]) MCV 82.7 fL 80.0-97.0 [facility]) Hematocrit [Volume Fraction] of Blood by Automated count 36.9 % 3 7.0-51.0 [facility] ([facility]) MCHC 33.2 g/dL 31.0-38.0 [facility]) MCH 27.5 pg 26.0-32.0 [facility]) Platelets [#/volume] in Blood by Automated count 374 x10*3/UL 140-440 [facility] ([facility]) Erythrocyte distribution width [Ratio] by Automated count 14.8 % 11.6-13.7 [facility] ([facility]) MPV 7.4 FL 7.8-11.0 [facility]) Lymph % 14.9 % 10.0-58.5 [facility]) Neut % 80.9 % 37.0-92.0 [facility] Mid % 4.2 % 1.7-9.3 [facility] Mid # 0.6 x10*3/UL 0.1-0.6 [facility] ([facility]) Lymph # 1.5 x10*3/UL 0.6-4.1 [facility] ([facility]) Neut # 8.6 x10*3/UL 2.0-7.8 [facility] ([facility]) ID Date Data Source [id number] 05/03/2020 12:00:00 AM EDT [facility] Yuri Cosme MD Patient Name: SHAYNA [id number] [facility] Date of : 1945[place] [address] Date of Exam: [facility]/2020[facility] [id number] Fax: [phone] EXAM: US ABDOMEN, LIMITED SINGLE ORGAN,QUADRANTCLINICAL INFORMATION: Elevated alkaline phosphatase.There are no comparisons.There is no cholelithiasis, gallbladder wall thickening or pericholecysticfluid.There is no intrahepatic or extrahepatic biliary duct dilatation. Thecommon duct measures 2 mm in diameter.The hepatic parenchyma is homogenous and otherwise unremarkable. There areno focal hepatic masses. cysts or nodules. Echogenicity of the hepaticparenchyma is normal. The right kidney is somewhat ectopic in locationextending into the upper pelvis. The right kidney measures 9.7 x 4.4 x 5.5cm and is normal size. There is no calculus, hydronephrosis, mass, or cyst.Doppler resistive index in the parenchymal arteries is 0.72.The visualized areas of the abdominal aorta and abdominal vena cava areunremarkable. The visu alized areas of the pancreas are unremarkable.IMPRESSION:Essentially negative abdominal right upper quadrant ultrasound. Hepaticparenchyma has a normal appearance by ultrasound. Portions of the pancreas,aorta and vena cava are obscured.Accredited by the [employer] in General Ultrasound.Adán Aguilar, KUNAL/slmThanfazal you for referring JANICE MCGUIRE to our office.Electronically Signed - ADÁN AGUILAR MD 05/03/20 21:50 Name Value Range Interpretation Code Description Data Jazzmine rce(s) Supporting Document(s) ID Date Data Source [id number] 04/10/2020 08:43:00 AM EDT [facility] ([facility]) Name Value Range Interpretation Code Description Data Jazzmine rce(s) Supporting Document(s) Glucose [Mass/volume] in Serum or Plasma 179 mg/dL 74-99 [facility] ([facility]) 100-125 mg/dL PRE-DIABETES/FASTING >126 mg/dL DIABETES/FASTING Sodium [Moles/volume] in Serum or Plasma 136 meq/L 136-145 [facility] ([facility]) Creatinine 0.9 mg/dL 0.6-1.3 [facility] ([facility]) Urea nitrogen [Mass/volume] in Serum or Plasma 14 mg/dL 7-18 [facility] ([facility]) Carbon dioxide, total [Moles/volume] in Serum or Plasma 28 meq/L 21 -32 [facility] ([facility]) Chloride [Moles/volume] in Serum or Plasma 97 meq/L 98-107 [facility] ([facility]) Potassium [Moles/volume] in Serum or Plasma 4.3 meq/L 3.5-5.1 [facility] ([facility]) Total Bilirubin 0.6 mg/dL 0.2-1.0 [facility] ([facility] Alkaline phosphatase isoenzyme [Units/volume] in Serum or Pl asma 222 mg/dL 46-116 [facility] ([facility]) Calcium [Mass/volume] in Serum or Plasma 9.6 mg/dL 8.5-10.1 [facility] ([facility]) Alanine aminotransferase [Enzymatic activity/volume] in Seru m or Plasma 23 U/L 12-78 [facility] ([facility]) Proteinase 3 Ab [Units/volume] in Serum 7.6 g/dL 6.4-8.2 [facility] ([facility]) Albumin [Mass/volume] in Serum or Plasma 3.9 g/dL 3.4-5.0 [facility] ([facility]) Aspartate aminotransferase [Enzymatic activity/volume] in Serum or Plasma 22 U/L 15-37 [facility] ([facility]) Glomerular filtration rate/1.73 sq M pre dicted among blacks [Volume Rate/Area] in Serum or Plasma by Creatinine-based formula (MDRD) Laboratory test result [facility] ([facility]) <content>CHRONIC KIDNEY DISEASE STAGING PER NKF</content>
<content></content>
<content>STAGE I & II GFR >= 60 NORMAL TO MILDLY DECREASED</content>
<content>STAGE III GFR 30-59 MODERATELY DECREASED</content>
<content>STAGE IV GFR 15-29 SEVERELY DECREASED</content>
<content>STAGE V GFR <15 VERY LITTLE GFR LEFT</content>
<content>ESRD GFR <15 ON TIMBER FRAMER HELPER</content>
<content></content>
<content></content> A/G Ratio 1.05 CALC 1.00-1.90 [facility] ([facility]) Glomerular filtration rate/1.73 sq M pre dicted among non-blacks [Volume Rate/Area] in Serum or Plasma by Creatinine-based formula (MDRD) Laboratory test result [facility] ([facility]) ID Date Data Source [id number] 04/10/2020 08:43:00 AM EDT [facility] Name Value Range Interpretation Code Description Data Jazzmine rce(s) Supporting Document(s) Leukocytes [#/volume] in Blood by Automated count 10.8 x10*3/UL 4.1-1 0.9 [facility] ([facility]) Erythrocytes [#/volume] in Blood by Automated count 4.79 x10*6/UL 4.2 0-6.30 [facility] ([facility]) Hematocrit [Volume Fraction] of Blood by Automated count 41.3 % 3 7.0-51.0 [facility] ([facility]) Hemoglobin [Mass/volume] in Blood 13.6 g/dL 12.0-18.0 [facility] ([facility]) MCV 86.3 fL 80.0-97.0 [facility] MCHC 33.0 g/dL 31.0-38.0 [facility] ([facility]) MCH 28.5 pg 26.0-32.0 [facility] Platelets [#/volume] in Blood by Automated count 355 x10*3/UL 140-440 [facility] ([facility]) Lymphocytes/100 leukocytes in Blood by Automated count 15.6 % 10. 0-58.5 [facility] ([facility]) Erythrocyte distribution width [Ratio] by Automated count 13.8 % 11.6-13.7 [facility] ([facility]) Platelet mean volume [Entitic volume] in Blood by Swetha 7.4 FL 7.8-11.0 [facility] ([facility]) Lymph # 1.7 x10*3/UL 0.6-4.1 [facility] ([facility] Mid % 4.4 % 1.7-9.3 [facility] ([facility]) Neut % 80.0 % 37.0-92.0 [facility] ([facility]) Mid # 0.5 x10*3/UL 0.1-0.6 [facility] ([facility] Neutrophils [#/volume] in Semen by Manual count 8.6 x10*3/UL 2.0-7.8 [facility] ([facility]) ID Date Data Source [id number] 04/10/2020 08:43:00 AM EDT [facility] ([facility]) Name Value Range Interpretation Code Description Data Jazzmine rce(s) Supporting Document(s) Glucose [Mass/volume] in Serum or Plasma 179 mg/dL 74-99 [facility] ([facility]) 100-125 mg/dL PRE-DIABETES/FASTING >126 mg/dL DIABETES/FASTING Sodium [Moles/volume] in Serum or Plasma 136 meq/L 136-145 [facility] ([facility]) Urea nitrogen [Mass/volume] in Serum or Plasma 14 mg/dL 7-18 [facility] ([facility]) Creatinine 0.9 mg/dL 0.6-1.3 [facility] ([facility]) Chloride [Moles/volume] in Serum or Plasma 97 meq/L 98-107 [facility] ([facility]) Carbon dioxide, total [Moles/volume] in Serum or Plasma 28 meq/L 21 -32 [facility] ([facility]) Potassium [Moles/volume] in Serum or Plasma 4.3 meq/L 3.5-5.1 [facility] ([facility]) Calcium [Mass/volume] in Serum or Plasma 9.6 mg/dL 8.5-10.1 [facility] ([facility]) Alkaline phosphatase isoenzyme [Units/volume] in Serum or Pl asma 222 mg/dL 46-116 [facility] ([facility]) Total Bilirubin 0.6 mg/dL 0.2-1.0 [facility] ([facility]) Aspartate aminotransferase [Enzymatic activity/volume] in Serum or Plasma 22 U/L 15-37 [facility] ([facility] ) Alanine aminotransferase [Enzymatic activity/volume] in Seru m or Plasma 23 U/L 12-78 [facility] ([facility]) Albumin [Mass/volume] in Serum or Plasma 3.9 g/dL 3.4-5.0 [facility] ([facility]) Proteinase 3 Ab [Units/volume] in Serum 7.6 g/dL 6.4-8.2 [facility] ([facility]) A/G Ratio 1.05 CALC 1.00-1.90 [facility] ([facility]) Glomerular filtration rate/1.73 sq M pre dicted among blacks [Volume Rate/Area] in Serum or Plasma by Creatinine-based formula (MDRD) Laboratory test result [facility] <content>CHRONIC KIDNEY DISEASE STAGING PER NKF</content>
<content></content>
<content>STAGE I & II GFR >= 60 NORMAL TO MILDLY DECREASED</content>
<content>STAGE III GFR 30-59 MODERATELY DECREASED</content>
<content>STAGE IV GFR 15-29 SEVERELY DECREASED</content>
<content>STAGE V GFR <15 VERY LITTLE GFR LEFT</content>
<content>ESRD GFR <15 ON TIMBER FRAMER HELPER</content>
<content></content> Glomerular filtration rate/1.73 sq M pre dicted among non-blacks [Volume Rate/Area] in Serum or Plasma by Creatinine-based formula (MDRD) Laboratory test result [facility] ([facility] ) ID Date Data Source [id number] 04/10/2020 08:43:00 AM EDT [facility] Name Value Range Interpretation Code Description Data Jazzmine rce(s) Supporting Document(s) Hemoglobin A1c/Hemoglobin.total in Blood 6.1 g/dL 4.8-5.6 [facility] ([facility]) Lab Result Notes: Pre-Diabetes 5.7 - 6.4 % Diabetes = or > 6.5% Glucose mean value [Mass/volume] in Blood Estimated fr om glycated hemoglobin 128 mg/dL 60-110 [facility] ([facility] ) ID Date Data Source [id number] 04/10/2020 08:43:00 AM EDT [facility] ([facility]) Name Value Range Interpretation Code Description Data Jazzmine rce(s) Supporting Document(s) Leukocytes [#/volume] in Blood by Automated count 10.8 x10*3/UL 4.1-1 0.9 [facility] Erythrocytes [#/volume] in Blood by Automated count 4.79 x10*6/UL 4.2 0-6.30 [facility] Hematocrit [Volume Fraction] of Blood by Automated count 41.3 % 3 7.0-51.0 [facility] Hemoglobin [Mass/volume] in Blood 13.6 g/dL 12.0-18.0 [facility] MCV 86.3 fL 80.0-97.0 [facility] MCHC 33.0 g/dL 31.0-38.0 [facility] ([facility]) MCH 28.5 pg 26.0-32.0 [facility] ([facility]) Erythrocyte distribution width [Ratio] by Automated count 13.8 % 11.6-13.7 [facility] ([facility]) Lymph % 15.6 % 10.0-58.5 [facility] ([facility]) Platelets [#/volume] in Blood by Automated count 355 x10*3/UL 140-440 [facility] ([facility]) MPV 7.4 FL 7.8-11.0 [facility] Mid % 4.4 % 1.7-9.3 [facility] ([facility]) Lymph # 1.7 x10*3/UL 0.6-4.1 [facility] ([facility]) Neut % 80.0 % 37.0-92.0 [facility] ([facility]) Neut # 8.6 x10*3/UL 2.0-7.8 [facility] ([facility]) Mid # 0.5 x10*3/UL 0.1-0.6 [facility] ([facility]) ID Date Data Source [id number] 04/10/2020 08:43:00 AM EDT [facility] ([facility]) Name Value Range Interpretation Code Description Data Jazzmine rce(s) Supporting Document(s) Hemoglobin A1c/Hemoglobin.total in Blood Laboratory test result [facility] ([facility]) ID Date Data Source [id number] 03/17/2020 12:00:00 AM EDT [facility] Yuri Cosme MD Patient Name: SHAYNA [id number] [facility] Date of : 1945[place] [address] Date of Exam: 03/17/2020[facility] [id number] Fax: [phone] EXAM: MAMMO SCREENING WITH CADCLINICAL INFORMATION: Screening.Digital screening (2D) mammography was performed bilaterally in the CC andMLO projections. Additionally, breast tomosynthesis (3D mammography) wasperformed bilaterally in the CC and MLO projections.Comparison 10/07/2018, 09/22/2017.She has no current complaint, personal or family history of breast cancer.She states she has had bilateral breast biopsies remotely which werenegative.The [facility] volumetric breast density category is C, the breasts areheterogeneously dense which may obscure small masses.FINDINGS:The breast parenchyma remain heterogeneously dense in a pattern anddistribution unchanged from the multiple prior studies. Large coarsecalcifications are present, of no clinical significance. Benign arterialcalcifications are seen in each breast. Scattered lymph nodes are seen inthe axilla. No dominant masses, suspicious cluster of microcalcificationsor secondary signs of malignancy are seen.The 3D tomosynthesis images show no additional findings.IMPRESSION:BI-RADS Category 2 - Benign Finding(s). Stable mammogram. There is noevidence of malignant alteration of the breasts. Followup examinationrecommended in one year.This mammogram was read with the assistance of [employer], an FDAapproved computer aided detection system for mammography.Negative x-ray reports should not delay surgical consultation if a dominantor clinically suspicious mass is present.Not all breast cancers can be identified by mammography. Therefore, werecommend that you continue to perform regular breast self-examination andphysical examination and then promptly contact your physician of anyconcerns or changes.Adenosis and dense breasts may obscure an underlying neoplasm.The patient states that a clinical breast examination was over a year ago.Based on the personal and family history information your patient suppliedat the time of imaging, her lifetime risk of breast cancer estimated by theTyrer-Cuzick model is 1.6%. Given that this patient has less than 20% TCrisk score, no further medical management is currently recommended at thistime.Lino Lara, [facility] you for referring JANICE MCGUIRE to our office. Electronically Signed - LINO LARA MD 03/17/20 14:57 Name Value Range Interpretation Code Description Data Jazzmine rce(s) Supporting Document(s) ID Date Data Source [id number] 01/20/2020 02:19:00 PM EDT [facility] ([facility]) Name Value Range Interpretation Code Description Data Jazzmine rce(s) Supporting Document(s) Erythrocytes [#/volume] in Blood by Automated count 4.03 x10*6/UL 4.2 0-6.30 [facility] ([facility]) Hemoglobin [Mass/volume] in Blood 12.6 g/dL 12.0-18.0 [facility] Leukocytes [#/volume] in Blood by Automated count 11.0 x10*3/UL 4.1-1 0.9 [facility] ([facility]) MCH 31.3 pg 26.0-32.0 [facility] ([facility]) Hematocrit [Volume Fraction] of Blood by Automated count 37.4 % 3 7.0-51.0 [facility] ([facility]) MCV 92.8 fL 80.0-97.0 [facility] ([facility]) Erythrocyte distribution width [Ratio] by Automated count 13.9 % 11.6-13.7 [facility] MCHC 33.7 g/dL 31.0-38.0 [facility] ([facility]) Platelets [#/volume] in Blood by Automated count 306 x10*3/UL 140-440 [facility] MPV 7.4 FL 7.8-11.0 [facility] ([facility]) Neut % 69.5 % 37.0-92.0 [facility] ([facility]) Mid % 7.0 % 1.7-9.3 [facility] ([facility]) Lymph % 23.5 % 10.0-58.5 [facility] ([facility]) Mid # 0.8 x10*3/UL 0.1-0.6 [facility] ([facility]) Lymph # 2.6 x10*3/UL 0.6-4.1 [facility] ([facility]) Neut # 7.6 x10*3/UL 2.0-7.8 [facility] ([facility]) ID Date Data Source [id number] 11/01/2019 08:35:00 AM EST [facility] ([facility]) Name Value Range Interpretation Code Description Data Jazzmine rce(s) Supporting Document(s) Thyrotropin [Units/volume] in Serum or Plasma by Detec tion limit <= 0.05 mIU/L 2.20 uIU/mL 0.36-3.74 [facility] ([facility] ) ID Date Data Source [id number] 11/01/2019 08:35:00 AM EST [facility] ([facility]) Name Value Range Interpretation Code Description Data Jazzmine rce(s) Supporting Document(s) Triglyceride [Mass/volume] in Serum or Plasma 56 mg/dL 30-150 [facility] ([facility]) Cholesterol [Mass/volume] in Serum or Plasma 189 mg/dL 131-200 [facility] ([facility]) Cholesterol in LDL [Mass/volume] in Serum or Plasma by calcu lation 84 CALC 50-159 [facility] ([facility]) Cholesterol in HDL [Mass/volume] in Serum or Plasma 94 mg/dL 35-60 [facility] ([facility]) ID Date Data Source [id number] 11/01/2019 08:35:00 AM EST [facility] ([facility]) Name Value Range Interpretation Code Description Data Jazzmine rce(s) Supporting Document(s) Glucose [Mass/volume] in Serum or Plasma 113 mg/dL 74-99 [facility] ([facility]) 100-125 mg/dL PRE-DIABETES/FASTING >126 mg/dL DIABETES/FASTING Sodium [Moles/volume] in Serum or Plasma 138 meq/L 136-145 [facility] ([facility]) Potassium [Moles/volume] in Serum or Plasma 4.5 meq/L 3.5-5.1 [facility] ([facility]) Creatinine 0.8 mg/dL 0.6-1.3 [facility] Urea nitrogen [Mass/volume] in Serum or Plasma 9 mg/dL 7-18 [facility] ([facility]) Chloride [Moles/volume] in Serum or Plasma 99 meq/L 98-107 [facility] ([facility]) Calcium [Mass/volume] in Serum or Plasma 9.7 mg/dL 8.5-10.1 [facility] ([facility]) Alkaline phosphatase isoenzyme [Units/volume] in Serum or Pl asma 189 mg/dL 46-116 [facility] ([facility]) Carbon dioxide, total [Moles/volume] in Serum or Plasma 27 meq/L 21 -32 [facility] ([facility]) Total Bilirubin 0.6 mg/dL 0.2-1.0 [facility] ([facility]) Aspartate aminotransferase [Enzymatic activity/volume] in Serum or Plasma 21 U/L 15-37 [facility] ([facility] ) Alanine aminotransferase [Enzymatic activity/volume] in Seru m or Plasma 25 U/L 12-78 [facility] ([facility]) Albumin [Mass/volume] in Serum or Plasma 3.9 g/dL 3.4-5.0 [facility] ([facility]) Glomerular filtration rate/1.73 sq M pre dicted among non-blacks [Volume Rate/Area] in Serum or Plasma by Creatinine-based formula (MDRD) Laboratory test result [facility] ([facility] ) A/G Ratio 1.05 CALC 1.00-1.90 [facility]) Proteinase 3 Ab [Units/volume] in Serum 7.6 g/dL 6.4-8.2 [facility] ([facility]) Glomerular filtration rate/1.73 sq M pre dicted among blacks [Volume Rate/Area] in Serum or Plasma by Creatinine-based formula (MDRD) [facility] <content>CHRONIC KIDNEY DISEASE STAGING PER NKF</content>
<content></content>
<content>STAGE I & II GFR >= 60 NORMAL TO MILDLY DECREASED</content>
<content>STAGE III GFR 30-59 MODERATELY DECREASED</content>
<content>STAGE IV GFR 15-29 SEVERELY DECREASED</content>
<content>STAGE V GFR <15 VERY LITTLE GFR LEFT</content>
<content>ESRD GFR <15 ON TIMBER FRAMER HELPER</content>
<content></content> ID Date Data Source [id number] 11/01/2019 08:35:00 AM EST [facility] ([facility]) Name Value Range Interpretation Code Description Data Jazzmine rce(s) Supporting Document(s) Erythrocytes [#/volume] in Blood by Automated count 4.73 x10*6/UL 4.2 0-6.30 [facility] ([facility]) Hemoglobin [Mass/volume] in Blood 14.7 g/dL 12.0-18.0 [facility] ([facility]) Leukocytes [#/volume] in Blood by Automated count 10.3 x10*3/UL 4.1-1 0.9 [facility] ([facility]) MCV 92.8 fL 80.0-97.0 [facility]) MCH 31.0 pg 26.0-32.0 [facility]) Hematocrit [Volume Fraction] of Blood by Automated count 43.9 % 3 7.0-51.0 [facility] ([facility]) Erythrocyte distribution width [Ratio] by Automated count 13.9 % 11.6-13.7 [facility] ([facility]) MPV 7.5 FL 7.8-11.0 [facility]) MCHC 33.4 g/dL 31.0-38.0 [facility]) Platelets [#/volume] in Blood by Automated count 325 x10*3/UL 140-440 [facility] ([facility]) Neut % 76.6 % 37.0-92.0 [facility]) Mid % 5.1 % 1.7-9.3 [facility] Lymph % 18.3 % 10.0-58.5 [facility] Lymph # 1.8 x10*3/UL 0.6-4.1 [facility] ([facility]) Mid # 0.6 x10*3/UL 0.1-0.6 [facility] ([facility]) Neut # 7.9 x10*3/UL 2.0-7.8 [facility] ([facility]) ID Date Data Source [id number] 09/07/2019 02:49:00 PM EST [facility] [id number] [place], [place] [address]QQYNHCK NAME: SIOMARA MCGUIRE OF : 1945REPORT: OPERATIONPATIENT NUMBER: [id number] STATUS: SDMEDICAL RECORD NUMBER: [id number] OF ADMISSION: 08/31/2019DATE OF DISCHARGE: 08/31/2019ROOM: 01DATE OF PROCEDURE:PREOPERATIVE DIAGNOSIS: Silicone oil in situ, status post retinaldetachment, left eye.POSTOPERATIVE DIAGNOSIS: Silicone oil in situ, status post retinaldetachment, retinal tear, left eye.OPERATIVE PROCEDURE: Left eye:1. 23-gauge pars plana vitrectomy.2. Silicone oil removal.3. Endolaser.4. Fluid-air exchange.SURGEON: Lino Robbins MDCOMPLICATIONS: None.ESTIMATED BLOOD LOSS: Minimal.SPECIMENS: None.ANESTHESIA: MAC, PBB.BRIEF HISTORY: This patient presented with retinal detachment in the lefteye that was subsequently repaired with silicone oil. The retina remainedattached. She desired to remove the silicone oil. Risks, benefits,alternatives were discussed and signed the consent form for silicone oilremoval, any associated procedures in the left eye.PROCEDURE: The patient was met and greeted in the preoperative holdingarea. The correct eye was confirmed and marked. She was then escorted tothe operating room. A time-out was performed. She then underwentintravenous sedation followed by peribulbar block. The eye was thenprepped and draped in the usual sterile ophthalmic fashion. A lid speculumwas inserted. Trocar cannulas were placed 3.5 mm away from the limbusinferotemporal, superotemporal, superonasal. A 4-mm infusion cannula wasplaced inside the vitreous cavity and then turned on. The retina wasinspected. There was a good silicone oil fill. The retina was attached. Upon scleral depression, there was a tiny retinal hole that was not yetlasered. Silicone oil was then completely removed in exchange for fluid. The small hole was lasered. An additional fluid-air exchange was performedto remove any residual silicone oil. The retina remained attached. Theinstruments removed from the eye. The sclerotomies were sutured with 6-0plain gut. The eye pressure remained normotensive. The patient's lidspeculum was then removed. The eye was cleaned and dried. A drop oftimolol and antibiotic steroid ointment was placed on the eye. She wasthen escorted to the recovery unit in stable condition. She was asked tofollow up in clinic the next morning.DICTATED BY: ROMINA Choiictated: 08/31/2019 15:44DT: 08/31/2019 15:49Job #: [id number]: [facility] computer generated reports are not con firmed orauthenticated unless they are signed by the providerElectronically Authenticated by:LINO ROBBINS MD On 09/07/2019 02:49 PM EST Name Value Range Interpretation Code Description Data Jazzmine rce(s) Supporting Document(s) ID Date Data Source [id number] 08/23/2019 11:41:00 AM EST [facility] ([facility]) Name Value Range Interpretation Code Description Data Jazzmine rce(s) Supporting Document(s) Glucose [Mass/volume] in Serum or Plasma 106 mg/dL 74-99 [facility] ([facility]) 100-125 mg/dL PRE-DIABETES/FASTING >126 mg/dL DIABETES/FASTING Creatinine 0.9 mg/dL 0.6-1.3 [facility] ([facility]) Urea nitrogen [Mass/volume] in Serum or Plasma 11 mg/dL 7-18 [facility] ([facility]) Sodium [Moles/volume] in Serum or Plasma 134 meq/L 136-145 [facility] ([facility]) NOTE: RESULT VERIFIED. Chloride [Moles/volume] in Serum or Plasma 96 meq/L 98-107 [facility] ([facility]) Potassium [Moles/volume] in Serum or Plasma 4.2 meq/L 3.5-5.1 [facility] ([facility]) Carbon dioxide, total [Moles/volume] in Serum or Plasma 29 meq/L 21 -32 [facility] ([facility]) Glomerular filtration rate/1.73 sq M pre dicted among non-blacks [Volume Rate/Area] in Serum or Plasma by Creatinine-based formula (MDRD) Laboratory test result [facility] Calcium [Mass/volume] in Serum or Plasma 9.9 mg/dL 8.5-10.1 [facility] ([facility]) Glomerular filtration rate/1.73 sq M pre dicted among blacks [Volume Rate/Area] in Serum or Plasma by Creatinine-based formula (MDRD) Laboratory test result [facility] ([facility]) <content>CHRONIC KIDNEY DISEASE STAGING PER NKF</content>
<content></content>
<content>STAGE I & II GFR >= 60 NORMAL TO MILDLY DECREASED</content>
<content>STAGE III GFR 30-59 MODERATELY DECREASED</content>
<content>STAGE IV GFR 15-29 SEVERELY DECREASED</content>
<content>STAGE V GFR <15 VERY LITTLE GFR LEFT</content>
<content>ESRD GFR <15 ON TIMBER FRAMER HELPER</content>
<content></content> Procedure Vital Signs ID Date Data Source UNK Name Value Range Interpretation Code Description Data Source(s) [place] body weight 120 [lb_av] 120 [lb_av] [facility] ([facility]) Body height 64 [in_i] 64 [in_i] [facility] ([facility]) 5'4" Body weight 131.00 [lb_av] 131.00 [lb_av] [facility] ([facility]) Body mass index (BMI) [Ratio] 22.5 kg/m2 22.5 k g/m2 [facility] ([facility]) Body height 64 [in_i] 64 [in_i] [facility] 5'4" Body surface area Derived from formula 1.64 m2 1.64 m2 [facility] ([facility]) Body weight 60.329 kg 60.329 kg [facility] ([facility]) [place] body weight 120 [lb_av] 120 [lb_av] [facility] ([facility]) Body mass index (BMI) [Ratio] 22.8 kg/m2 22.8 k g/m2 [facility] ([facility]) Body weight 133.00 [lb_av] 133.00 [lb_av] [facility] ([facility]) Body height 64 [in_i] 64 [in_i] [facility] ([facility], ) 5'4" Oxygen saturation in Arterial blood by Pulse oximetry 98 % 98 % [facility] ([facility], ) Room Air Heart rate 103 /min 103 /min [facility] ([facility], ) Diastolic blood pressure 90 mm[Hg] 90 mm[Hg] [facility] ([facility]) Systolic blood pressure 168 mm[Hg] 168 mm[Hg] [facility] ([facility]) Body mass index (BMI) [Ratio] 23.0 kg/m2 23.0 k g/m2 [facility] ([facility]) Body weight 134.00 [lb_av] 134.00 [lb_av] [facility] Body height 64 [in_i] 64 [in_i] [facility] ([facility]) 5'4" Heart rate 80 /min 80 /min [facility] ([facility]) Diastolic blood pressure 64 mm[Hg] 64 mm[Hg] [facility] ([facility]) Systolic blood pressure 110 mm[Hg] 110 mm[Hg] [facility] ([facility]) Body mass index (BMI) [Ratio] 22.3 kg/m2 22.3 k g/m2 [facility] ([facility]) Body weight 130.00 [lb_av] 130.00 [lb_av] [facility] Body height 64 [in_i] 64 [in_i] [facility] ([facility]) 5'4" Heart rate 78 /min 78 /min [facility] ([facility]) Diastolic blood pressure 62 mm[Hg] 62 mm[Hg] [facility] ([facility]) Systolic blood pressure 118 mm[Hg] 118 mm[Hg] [facility] ([facility]) Diastolic blood pressure--sitting 70 mm[Hg] 70 mm[Hg] [facility] ([facility]) adult cuff, Ra Systolic blood pressure--sitting 112 mm[Hg] 112 mm[Hg] [facility] ([facility]) adult cuff, Ra Heart rate 77 /min 77 /min [facility] ([facility]) Body mass index (BMI) [Ratio] 22.0 kg/m2 22.0 k g/m2 [facility] ([facility]) Body height 64 [in_i] 64 [in_i] [facility] ([facility]) 5'4" Body weight 128.00 [lb_av] 128.00 [lb_av] [facility] ([facility]) Oxygen saturation in Arterial blood by Pulse oximetry --post exerci se 97 % 97 % [facility] ([facility]) RM Air Body height 64 [in_i] 64 [in_i] [facility] ([facility]) 5'4" Heart rate 92 /min 92 /min [facility] ([facility]) Diastolic blood pressure 66 mm[Hg] 66 mm[Hg] [facility]) RT Arm Systolic blood pressure 120 mm[Hg] 120 mm[Hg] [facility] ([facility]) RT Arm Body mass index (BMI) [Ratio] 21.8 kg/m2 21.8 k g/m2 [facility] ([facility]) Oxygen saturation in Arterial blood by Pulse oximetry 96 % 96 % [facility] ([facility]) RM Air Body weight 127.00 [lb_av] 127.00 [lb_av] [facility] ([facility]) Body height 64 [in_i] 64 [in_i] [facility] ([facility]) 5'4" Heart rate 85 /min 85 /min [facility] ([facility]) Diastolic blood pressure 60 mm[Hg] 60 mm[Hg] [facility] ([facility]) Systolic blood pressure 116 mm[Hg] 116 mm[Hg] [facility] ([facility]) Body mass index (BMI) [Ratio] 22.1 kg/m2 22.1 k g/m2 [facility] ([facility]) Oxygen saturation in Arterial blood by Pulse oximetry 94 % 94 % [facility] ([facility]) RM Air Body weight 129.00 [lb_av] 129.00 [lb_av] [facility] ([facility]) Body height 64 [in_i] 64 [in_i] [facility] ([facility]) 5'4" Heart rate 92 /min 92 /min [facility] ([facility]) Diastolic blood pressure 70 mm[Hg] 70 mm[Hg] [facility] ([facility]) Systolic blood pressure 110 mm[Hg] 110 mm[Hg] [facility] ([facility]) Diastolic blood pressure--sitting 66 mm[Hg] 66 mm[Hg] [facility] ([facility]) adult cuff, Ra Systolic blood pressure--sitting 124 mm[Hg] 124 mm[Hg] [facility] ([facility]) adult cuff, Ra Heart rate 79 /min 79 /min [facility] ([facility] Body mass index (BMI) [Ratio] 22.5 kg/m2 22.5 k g/m2 [facility] ([facility]) Body height 64 [in_i] 64 [in_i] [facility] ([facility]) 5'4" Body weight 131.00 [lb_av] 131.00 [lb_av] [facility] ([facility])
[2020-09-18] MEDS ORDERED: ROCURONIUM BROMIDE 50 MG/5 ML VIAL As Ordered ONE (08:18)
[2020-09-18] MEDS ORDERED: propofoL 200 MG/20 ML VIAL As Ordered ONE (08:18)
[2020-09-18] MEDS ORDERED: fentaNYL 100 MCG/2 ML INJECTION (J3010) As Ordered ONE (08:18)
[2020-09-18] MEDS ORDERED: LIDOCAINE 2% 100MG/5ML SDV (FOR ANES.) As Ordered ONE (08:18)
[2020-09-18] MEDS ORDERED: MIDAZOLAM INJ 2MG/2ML VIAL (J2250 PER 1MG) As Ordered ONE (08:18)
[2020-09-18] MEDS ORDERED: EPINEPHrine 1MG/10ML SYRINGE 1.5IN As Ordered ONE (09:10)
[2020-09-18] MEDS ORDERED: LIDOCAINE 1% SDV 30ML VIAL As Ordered ONE (09:10)
[2020-09-18] MEDS ORDERED: LIDOCAINE VISCOUS 2% SOLN 15ML UDC As Ordered ONE (09:10)
[2020-09-18] MEDS ORDERED: THROMBIN SOLN 5,000 UNITS VIAL As Ordered ONE (09:11)
[2020-09-18] MEDS ORDERED: CETACAINE SPRAY 5GM As Ordered ONE (09:34)
[2020-09-18] MEDS ORDERED: ONDANSETRON 4MG/2ML VIAL As Ordered ONE (10:15)
[2020-09-18] MEDS ORDERED: KETOROLAC 60MG 2ML VIAL As Ordered ONE (10:15)
[2020-09-18] MEDS ORDERED: dexameTHASONE 4 MG/ML 1ML VIAL (J1100 PER 1MG) As Ordered ONE (10:15)
[2020-09-18] MEDS ORDERED: SUGAMMADEX SODIUM 500 MG/5 ML VIAL (BRIDION) As Ordered ONE (10:16)
[2020-09-18] MEDS ORDERED: PHENYLephrine 500MCG 5ML (100MCG/ML) SYRINGE As Ordered ONE (10:23)
[2020-09-18] MEDS ORDERED: LR 1,000 ML IV SCH (11:00)
[2020-09-18] MEDS ORDERED: MEPERIDINE INJ 25 MG/ML VIAL (J2175) IV PRN (11:00)
[2020-09-18] MEDS ORDERED: METOCLOPRAMIDE INJ 10MG/2ML VIAL (J2765 PER 1) IV PRN (11:00)
[2020-09-18] MEDS ORDERED: oxyCODONE 5MG TAB PO PRN (11:00)
[2020-09-18] MEDS ORDERED: fentaNYL 100 MCG/2 ML INJECTION (J3010) IV PRN (11:00)
[2020-09-18] MEDS ORDERED: ONDANSETRON 4MG/2ML VIAL IV PRN (11:00)
[2020-09-18 11:38] VITALS: BP 132/72
--- NOTE | 2020-09-18 12:50 | RO ---
OPERATIVE NOTE DATE OF OPERATION: 09/18/2020 PREOPERATIVE DIAGNOSIS: Right lung mass with hilar and mediastinal adenopathy. POSTOPERATIVE DIAGNOSIS: Right lung mass with hilar and mediastinal adenopathy. PROCEDURE: Fiberoptic bronchoscopy with wash brush biopsies, fine needle aspirate and photos. SURGEON: Crescencio Guthrie MD TEST BORER HELPER: ANESTHESIA: General. Informed consent was obtained prior to the procedure. DESCRIPTION OF PROCEDURE: After the patient was identified and the above anesthesia given, the fiberoptic bronchoscope was easily passed through the existing endotracheal tube. It was found to be in good position above the conor. Both mainstem bronchi widely patent. Left lung was entered first. All segments, subsegments, upper and lower lobes easily identified and widely patent. Some mild changes of chronic bronchitis were noted. The conor was somewhat broad and especially posteriorly, more on the right than the left. Right mainstem otherwise patent. Right upper lobe at the takeoff was significantly compromised, especially anteriorly. There were almost polypoid lesions lining the entire anterior surface to the point where most subsegments were not able to be formally entered. Bronchus intermedius, middle lobe and basilar segments were otherwise widely patent with some mild changes of chronic bronchitis. Attention was then turned back to the right upper lobe. Multiple biopsies were taken with only minimal bleeding easily controlled with topical lavage of saline. Cytology brushes were then passed into apical and anterior subsegments. Some bleeding was encountered, easily controlled with saline lavage and topical thrombin. Gilbert needle biopsies were then performed of the subcarinal node. Immediate touch prep confirmed abnormal tissue. Final diagnosis on that is pending. When adequate hemostasis was assured, the scope was then withdrawn and the procedure terminated. Care was then turned over to anesthesia for extubation. No immediate complications of the procedure were identified. [facility]ITALStephen
[2020-10-03] MEDS ORDERED: VITA200016 PO (14:51)
[2020-10-03] MEDS ORDERED: ZINC1TAB2 PO (14:51)
[2020-10-03] MEDS ORDERED: PRED10PA2 PO (14:51)
[2020-10-03] MEDS ORDERED: B-1225002 SL (14:51)
[2020-10-03] MEDS ORDERED: ULTR5TAB PO (14:51)
[2020-10-04] MEDS ORDERED: ONDA8TAB10 PO (10:12)
[2020-10-04] MEDS ORDERED: PROC10TA4 PO (10:12)
== END 2020-09-18 12:35 | disposition home or self-care (01) ==
LOC: M SDC 07:53
PROVIDERS: ATTEND Internal Medicine Pulmonary Disease
DX: C34.11 Malignant neoplasm of upper lobe, right bronchus or lung (principal); C77.1 Secondary and unspecified malignant neoplasm of intrathoracic lymph nodes; I34.9 Nonrheumatic mitral valve disorder, unspecified; I10 Essential (primary) hypertension; E78.5 Hyperlipidemia, unspecified; K21.9 Gastro-esophageal reflux disease without esophagitis; I48.91 Unspecified atrial fibrillation; F17.218 Nicotine dependence, cigarettes, with other nicotine-induced disorders; J44.9 Chronic obstructive pulmonary disease, unspecified; Z86.73 Personal history of transient ischemic attack (TIA), and cerebral infarction without residual deficits; Z79.01 Long term (current) use of anticoagulants; Z79.899 Other long term (current) drug therapy
CPT/HCPCS: 31623; 31624; 31629; 31652; 88104; 88173; 88305; J1100; J1885; J2250; J2370; J2405; J3010

== ENCOUNTER → 2020-09-29 | Outpatient (CLI) | payer MEDICARE ==
[~2020-09-29] MED LIST changes: -ALBUTEROL SULFATE 2.5 MG/0.5 ML INH NEB SOLN INH ONE; +B-1225002 SL; -LIDOCAINE 4% INJ 5ML AMP INH ONE; -LR 1,000 ML IV ONE; +ONDA8TAB10 PO; +PRED10PA2 PO; +PROC10TA4 PO; +ULTR5TAB PO; +VITA200016 PO; +ZINC1TAB2 PO
--- NOTE | 2020-09-29 11:06 | RADONC.CN ---
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 She is seen today for consideration of chemoradiation. Diagnosis/Treatment History Oncologic History Presented to pulmonology (Dr. Guthrie) on 08/15/20 with worsening of chronic SOB and a CXR showing a RUL mass. A CT chest on 08/10/20 showed an ~6 x 6 cm RUL mass abutting in the mediastinum and enlarged mediastinal nodes. PET-CT on 08/22/20 showed marked avidity in the RUL mass with a necrotic center and m ediastinal nodes as well as a mildly hypermetabolic LLL nodule which is indeterminate. She underwent EBUS and biopsies on 09/20/20 which returned NSCLC. PDL1 and markers pending. PFTs 08/15/20 FVC 2.72L FEV1 1.79 FEV1/FVC 66% (88% Pred) Interval History She feels generally well. Has cut back to 10 cigarettes daily. She has stable weight and appetite. She has CURTIS which is stable. It does limit her activity. By her own admission she is largely sedentary at home but does attend to all ADLs. She has no CP, hemoptysis, MEDINA, N, V, fevers, chills. She is on a prednisone taper, no inhaled COPD meds. Past Medical History: PAF PVD COPD CAD Left ankle venous ulcer TIA Past Surgical History: CABG Cataracts Left ankle debridement Family History: pancreatic cancer Son prostate cancer Social History: Current smoker 50+ pack years (1 ppd for min 50 years) Drinks 5 drinks daily Allergies / Meds Allergies: Coded Allergies: levofloxacin (Verified Allergy, Unknown, unknown, 05/13/19) cephalexin (Verified Adverse Reaction, Mild, nausea, 05/13/19) lisinopril (Verified Adverse Reaction, Mild, cough from zestril, 05/13/19) Home Meds Reported Medications Melatonin (Melatonin) 3 Mg Tab.rapdis, 3 MG PO QPM for sleep MDD 1 Tablet(s) for 30 Days, #30 TAB 03/31/19 [place]-3 Fatty Acids/Fish Oil (Fish Oil 1,000 mg Capsule) 1 Each Capsule, 1000 MG PO DAILY, CAP 12/28/18 Cyanocobalamin (Vitamin B-12) (Vitamin B-12) 500 Mcg Tab, 1000 MCG PO DAILY, TAB 04/06/18 Atorvastatin Calcium (Atorvastatin Calcium) 40 Mg Tab, 40 MG PO QHS, TAB 04/06/18 Apixaban (Eliquis) 5 Mg Tab, 5 MG PO BID, TAB 04/06/18 Folic Acid (Folic Acid) 1 Mg Tab, 1 MG PO QAM, TAB 03/02/18 Thiamine HCl (Thiamine HCl) 100 Mg Tab, 100 MG PO DAILY, TAB 03/02/18 Vit C/Vit E AC/Lut/Copper/Zinc (Preservision Lutein Softgel) 1 Cap Cap, 1 CAP PO BID, CAP 03/02/18 Clopidogrel Bisulfate (Clopidogrel) 75 Mg Tab, 75 MG PO QHS 12/26/17 Cholecalciferol (Vitamin D3) (Vitamin D3) 1,000 Unit Tab, 2000 UNIT PO DAILY, TAB 02/09/16 Review of Systems Constitutional: Denies: Chills, Fever, Night Sweats Eyes: Denies: Pain, Vision change HEENT: Denies: Head Aches, Dysphagia, Sore Throat Skin: Denies: Rash, Lesions, Bruising Pulmonary: Reports: Dyspnea, Cough; Denies: Pleuritic Chest Pain Cardiovascular: Denies: Chest Pain, Palpitations, Edema Gastrointestinal: Denies: Nausea, Vomiting, Abdominal Pain, Diarrhea Genitourinary: Denies: Dysuria, Frequency, Incontinence Hematologic: Denies: Bruising, Petecchia, Enlarged Lymph Nodes Musculoskeletal: Denies: Neck pain, Back pain Neurological: Denies: Weakness, Numbness, Incoordination Psych: Reports: Mood Normal; Denies: Memory Issues, Thoughts of Self Harm Vital Signs Ht 62" Wt 133 lbs T 98 P 79 RR 18 BP 114/53 O2 98% Pain 0 Fatigue 0 General Exam: Positive: Alert, Cooperative, No Acute Distress Eye Exam: Positive: PERRLA, EOMI ENT EXAM: Positive: Mucous membr. moist/pink, Pharynx Normal Neck Exam: Negative: Thyromegaly, Lymphadenopathy Chest Exam: Positive: Normal air movement, Other (Pleural rub left base); Negative: Rales, Rhonchi, Wheezing Heart Exam: Positive: Rate Normal, Regular Rhythm Abdomen Exam: Positive: Soft; Negative: Tenderness, Mass Extremity Exam: Positive: Edema; Negative: Tenderness Skin Exam: Positive: Nl turgor and temperature; Negative: Rash Neuro Exam: Positive: Normal Gait, Normal Speech, Cranial Nerves 3-12 NL Psych Exam: Positive: Mental status NL, Mood NL, Memory Intact Diagnostic and Laboratory Diagnostic Review Radiologic images, relevant labs and pathology reports were personally reviewed and discussed with Ms. Skaggs. Assessment and Plan Impression Ms. Skaggs is a 75 year old female with a history of current smoker with 50+ pack year history and newly diagnosed NSCLC of the RUL and mediastinum [id number] stage IIIB. She is seen today for consideration of chemoradiation. Stage RUL NSCLC [id number] Stage IIIB Performance Status ECOG 1 Plan We had an extensive discussion with Ms. Skaggs regarding the diagnosis at hand and available therapeutic options. She has a large RUL primary tumor and ipsilateral mediastinal nodes. She also has an indeterminate LLL nodule which can be followed expectantly and treated with SBRT later on if it grows or is proven malignant. I discussed the stage and prognostic implications of her disease. I recommend that she undergo MRI head to complete staging. I have ordered this. I recommend concurrent chemoradiation for her disease, I will give 60-66 Gy in 30-33 fractions with VMAT and a 4DCT planning approach to reduce lung V20 and respect the esophagus and heart substructures of interest given her vasculopathy and structural heart disease. I consider her higher than average risk for cardiopulmonary complications from her treatment and disclosed this to her. She is scheduled to meet with medical oncology on 10/18/20. I will personally see if this can be moved up as I would prefer not to delay initiation of treatment. We discussed the logistics of receiving radiation therapy in detail including the need for a 1-time planning session. I would like for this to occur after MRI head and medical oncology consultation. The week of 10/09/20 would be ideal. We reviewed the side effects of treatment including fatigue, esophagitis, pneumonitis, and late progression of atherosclerotic disease in the chest. Given the poor prognosis of NSCLC otherwise, she is willing to accept the risks. After discussing the risks, benefits and alternatives to radiation therapy, Ms. Skaggs was amenable to pursuing radiotherapy. All questions were answered to the patient's satisfaction. We instructed the patient that if there were any questions,concerns or changes in clinical status in the interim to contact us. Recommendations MRI head ordered to complete staging Concurrent chemoradiation 60-66 Gy in 30-33 fractions with VMAT/4DCT planning Simulation the week of 10/09/20 Medical oncology appointment next available Expectant follow up of LLL nodule for now, can treat later if growing Total time of (54) minutes was spent preparing for the visit (5), obtaining HPI (10), examining the patient (5), reviewing diagnostic tests (11), discussing management options (7), coordinating care (3), and writing this note (13). CAMPBELL ROBLES MD Sep 29, 2020 11:06
== END ==
LOC: M ONCR 08:59
PROVIDERS: ATTEND General Practice
DX: C34.11 Malignant neoplasm of upper lobe, right bronchus or lung (principal); Z87.891 Personal history of nicotine dependence

== ENCOUNTER → 2020-10-10 | Outpatient (CLI) | payer MEDICARE ==
[~2020-10-10] MED LIST changes: +PROHANCE 279.3MG/ML 15ML VIAL As Ordered ONE
--- NOTE | 2020-10-10 18:21 | REPVR ---
PROCEDURE INFORMATION: Exam: MR Head Without and With Contrast Exam date and time: 10/10/2020 5:22 PM Age: 75 years old Clinical indication: Condition or disease; History of cancer (specify primary cancer site): ; Primary cancer: Nscl[facility]; Additional info: Nsclc staging TECHNIQUE: Imaging protocol: MR of the head without and with intravenous contrast. Contrast material: PROHANCE; Contrast volume: 6 ml; Contrast route: INTRAVENOUS (IV); COMPARISON: MRI-Brain without Contrast 02/10/2016 9:39 AM FINDINGS: Brain: No acute infarct identified on the diffusion-weighted imaging. A tiny focus of T2 shine through is noted in the left pickett radiata. The brain demonstrates generalized volume loss. Patchy increased signal intensity in the deep white matter and mely on the T2 weighted imaging most likely represents chronic small vessel ischemic change. There are chronic bilateral thalamic and pickett radiata lacunar infarcts. No enhancing brain pathology identified. The postcontrast sequences are mildly motion degraded. Cerebral ventricles: The ventricles are mildly enlarged in keeping with volume loss, in particular central volume loss. Bones/joints: Unremarkable. Paranasal sinuses: Normal as visualized. No acute sinusitis. Mastoid air cells: Normal as visualized. No mastoid effusion. Orbital cavity: Thinning of the lenses of the globes consistent with prior lens surgery. Prior left scleral banding. Soft tissues: Unremarkable. IMPRESSION: No evidence of intracranial metastatic disease. Electronically signed by: Christi Rajan On 10/10/2020 18:20:35 PM
== END ==
LOC: M RAD 16:05
PROVIDERS: ATTEND General Practice
DX: C34.11 Malignant neoplasm of upper lobe, right bronchus or lung (principal)
CPT/HCPCS: 70553; A9576

== ENCOUNTER → 2020-10-19 | Outpatient (CLI) | payer MEDICARE ==
[~2020-10-19] MED LIST changes: +CHAN1PAK11 PO; +LIDO2.5C15 TOP; +LIDOCAINE 1% MDV 20ML VIAL As Ordered ONE; +MAGICMW SSP; +MIDAZOLAM INJ 2MG/2ML VIAL (J2250 PER 1MG) As Ordered ONE; +NICO1DIS7 TD; +OXYC1SOL3 PO; +PRED20TA PO; -PROHANCE 279.3MG/ML 15ML VIAL As Ordered ONE; +SERT25TA85 PO; +VARE1TA PO; +ceFAZolin 2 GM/D5W 50 ML IV BAG (J0690 PER 500MG) As Ordered ONE; +diphenhydrAMINE 50MG/ML VIAL (J1200) As Ordered ONE; +fentaNYL 100 MCG/2 ML INJECTION (J3010) As Ordered ONE
--- NOTE | 2020-10-19 12:26 | IRHP ---
[facility] IR Pre-Procedure H & P General Date of Service: Oct 19, 2020 Procedure: Same Day Surgery Interval History and Physical I have seen the patient and reviewed last H & P performed within 30 days. There is no significant interval change. History of Present Illness Chief Complaint The patient is a 75-year-old female admitted with a reason for visit of Non Small Cell Lung Cancer. PRE-PROCEDURE DIAGNOSIS: Lung cancer HEART: Normal rate. LUNGS: Normal breathing at rest. ASA Classification ASA Classification: III-Severe systemic dis. Mallampati Score: II NPO: Yes Problems with prior sedation: No Obstructive Sleep Apnea: No Plan moderate sedation Allergies Coded Allergies: levofloxacin (Verified Allergy, Unknown, unknown, 05/13/19) cephalexin (Verified Adverse Reaction, Mild, nausea, 05/13/19) lisinopril (Verified Adverse Reaction, Mild, cough from zestril, 05/13/19) Home Medications Scheduled Apixaban (Eliquis), 5 MG PO BID, (Reported) Atorvastatin Calcium (Atorvastatin Calcium), 40 MG PO QHS, (Reported) Biotin (Biotin), 1 TAB PO DAILY, (Reported) Cholecalciferol (Vitamin D3) (Vitamin D3), 50 MCG PO DAILY, (Reported) Clopidogrel Bisulfate (Clopidogrel), 75 MG PO QHS, (Reported) Cyanocobalamin (Vitamin B-12) (B-12), 1 TAB SL DAILY, (Reported) Folic Acid (Folic Acid), 1 MG PO QAM, (Reported) Thiamine HCl (Thiamine HCl), 100 MG PO DAILY, (Reported) Vit C/Vit E AC/Lut/Copper/Zinc (Preservision Lutein Softgel), 1 CAP PO BID, (Reported) Zinc (Zinc), 1 TAB PO Q2D, (Reported) Scheduled PRN Ondansetron HCl (Ondansetron HCl), 8 MG PO Q8H PRN for NAUSEA OR VOMITING Prochlorperazine Maleate (Prochlorperazine Maleate), 10 MG PO Q6H PRN for NAUSEA OR VOMITING Discontinued Medications Prednisone (Prednisone), 1 TAB PO DAILY, (Reported) Discontinued Reason: Pt states not taking VS, I&O, 24H, Fishbone Vital Signs/I&O Vital Signs Date Time Temp Pulse Resp B/P (MAP) Pulse Ox O2 Delivery O2 Flow Rate FiO2 10/19/20 12:19 82 18 100 Nasal Cannula 2 10/19/20 11:35 98.3 CHERISE FRANCISCO MD Oct 19, 2020 12:26
[2020-10-19 14:30] VITALS: BP 165/71
--- NOTE | 2020-10-20 09:48 | POST-OPPD ---
Postoperative Procedure Note Date Of Procedure: Oct 19, 2020 Time Of Procedure: 16:00 IR Ultrasound and fluoroscopy guided port placement. IR Ultrasound of the neck. IR Moderate sedation. Clinical indication: Lung cancer. Physician: Dr. Rajan. Procedure: The patient was advised of the benefits, risks, and alternatives of the procedure and informed consent was obtained. A time-out was performed with verification of the patient's name, MRN, site of procedure and type of procedure to be performed. The patient was positioned in the supine position on the angiographic table. The site was prepped and draped in the usual sterile fashion. Moderate sedation was performed by the physician including the presence of an independent trained RN who assisted and monitored the patient's level of consciousness and physiologic status. Following the administration of fentanyl and Versed , the physician spent 45 minutes of continuous face to face time with the patient. Ultrasound of the neck reveals a patent and compressible right internal jugular vein. A teaching music lessons radiograph reveals lung mass. The neck and anterior chest wall were anesthetized with lidocaine. The right internal jugular vein was accessed using a microintroducer needle under ultrasound guidance, via a lateral approach. An 018 wire was advanced into the superior vena cava, the needle was removed and a microsheath was placed. An Amplatz wire was then passed into the inferior vena cava. An incision at the internal jugular vein access site and anterior chest wall were made using a scalpel. An incision was made at the anterior chest wall. A small pocket was created using a combination of blunt and sharp dissection. A tunneling device was then used to pass the catheter from the pocket to the neck puncture site. An 8- [place] Angio [employer]SM[employer] Smart power port was then positioned in the pocket. The catheter was then measured and cut. The introducer sheath was exchanged for a peel-away sheath. The catheter was passed through the peel-away sheath into the internal jugular vein and the peel-away sheath was removed. The port tip was positioned at the cavoatrial junction. The port was then accessed with a Bowling needle. The port flushes and aspirates well. The puncture site in the neck was closed. The chest wall incision was then closed with 2-0 Vicryl and 4-0 Monocryl. Glue and Steri- Strips were applied. A sterile dressing was then applied. The patient tolerated the procedure well and was returned to the PRU in stable condition. Estimated blood loss: <5 ml. Complications: None. Conclusion: 1. Successful placement of an 8-[place] Angio dynamics Smart power port via the right internal jugular vein. The port is ready for immediate use. 2. Patient to follow up in IR clinic in 2 weeks. Thank you for this referral. CHERISE RAJAN MD Oct 20, 2020 09:48
== END ==
LOC: M IRPRO 11:26
PROVIDERS: ATTEND Internal Medicine Medical Oncology
DX: C34.90 Malignant neoplasm of unspecified part of unspecified bronchus or lung (principal)
CPT/HCPCS: 36561; 99152; 99153; C1769; C1788; C1894; J0690; J1200; J1642; J1644; J2250; J3010

== ENCOUNTER 2020-10-27 09:52 | Outpatient (RCR) | payer MEDICARE ==
--- NOTE | 2020-10-11 09:08 | RADENCPD ---
Date/Time of Encounter Date of Encounter: Oct 11, 2020 Time of Encounter: 09:07 Encounter Called MRI brain results to patient. No metastatic disease. Will proceed with chemoradiation for her [id number] stage IIIB NSCLC as planned CAMPBELL ROBLES MD Oct 11, 2020 09:08
[~2020-10-27 09:52] MED LIST changes: -CHAN1PAK11 PO; -LIDO2.5C15 TOP; -LIDOCAINE 1% MDV 20ML VIAL As Ordered ONE; -MAGICMW SSP; -MIDAZOLAM INJ 2MG/2ML VIAL (J2250 PER 1MG) As Ordered ONE; -NICO1DIS7 TD; -OXYC1SOL3 PO; -PRED20TA PO; -SERT25TA85 PO; -VARE1TA PO; -ceFAZolin 2 GM/D5W 50 ML IV BAG (J0690 PER 500MG) As Ordered ONE; -diphenhydrAMINE 50MG/ML VIAL (J1200) As Ordered ONE; -fentaNYL 100 MCG/2 ML INJECTION (J3010) As Ordered ONE
[2020-10-31] MEDS ORDERED: SERT25TA85 PO (11:13)
== END 2020-10-29 ==
LOC: M ONCR 09:52
PROVIDERS: ATTEND General Practice
DX: C34.11 Malignant neoplasm of upper lobe, right bronchus or lung (principal)

== ENCOUNTER → 2020-11-13 | Outpatient (CLI) | payer MEDICARE ==
[~2020-11-13] MED LIST changes: +ISOVUE-370 76% 100ML VIAL As Ordered ONE; +LIDO2.5C15 TOP; +MAGICMW SSP; +PRED20TA PO; +SERT25TA85 PO
--- NOTE | 2020-11-13 10:49 | REP ---
INDICATION: SOB CHEST PAIN ? PE COMPARISON: None. TECHNIQUE: Axial contrast enhanced images from the thoracic inlet to the upper abdomen using pulmonary embolus technique with multiplanar re-formations. 75 ml Isovue 370 intravenous contrast material administered without complication. This CT examination was performed using the following dose reduction techniques: Automated exposure control, adjustment of mA and/or kv according to the patient's size, and use of iterative reconstruction technique. FINDINGS: Satisfactory enhancement of the pulmonary vasculature is achieved and no obvious definite filling defects are appreciated to suggest pulmonary embolus. Significant mediastinal and right hilar adenopathy along with 5.7 cm right upper lobe mass is again identified and essentially unchanged compared to outside examination dated 08/10/2020. Advanced chronic COPD/emphysematous changes noted bilaterally. No effusion. No pneumothorax. Atherosclerotic changes to the thoracic aorta and coronary arteries noted. Heart and pericardium stable. Skeletal structures demonstrate scattered sclerotic changes which may reflect osseous metastatic disease. IMPRESSION: 1. No evidence for pulmonary embolus. 2. Adenopathy and right upper lobe mass again noted and essentially unchanged. 3. Advanced chronic emphysematous disease. <Electronically signed by Tristin Kurtz > 11/13/20 0119
== END ==
LOC: M RAD 10:08
PROVIDERS: ATTEND Internal Medicine Medical Oncology
DX: R06.02 Shortness of breath (principal); R07.9 Chest pain, unspecified
CPT/HCPCS: 71275; Q9967

== ENCOUNTER → 2020-11-29 | Outpatient (RCR) | payer MEDICARE ==
[~2020-11-29] MED LIST changes: +CHAN1PAK11 PO; -ISOVUE-370 76% 100ML VIAL As Ordered ONE; +NICO1DIS7 TD; +VARE1TA PO
== END ==
LOC: M ONCR 10-30 09:47
PROVIDERS: ATTEND General Practice
DX: C34.11 Malignant neoplasm of upper lobe, right bronchus or lung (principal)

== ENCOUNTER 2020-12-01 10:00 | Outpatient (RCR) | payer MEDICARE ==
[2020-12-06] MEDS ORDERED: OXYC1SOL3 PO (16:28)
[2020-12-11] MEDS ORDERED: CIPR-249 PO (11:05)
[2020-12-11] MEDS ORDERED: COVI100V IM (11:05)
[2020-12-11] MEDS ORDERED: GUAISYP9 PO (12:16)
[2020-12-27] MEDS ORDERED: PRED10TA2 PO (15:14)
[2020-12-27] MEDS ORDERED: TESS100C PO (15:14)
== END 2020-12-29 ==
LOC: M ONCR 10:00
PROVIDERS: ATTEND General Practice
DX: C34.11 Malignant neoplasm of upper lobe, right bronchus or lung (principal)

== ENCOUNTER 2021-01-20 11:00 | Inpatient (IN) | payer MEDICARE ==
[~2021-01-20] VITALS: Ht 157.5 cm; Wt 54.5 kg
[~2021-01-20 11:00] MED LIST changes: +COVI100V IM; +EMLA CREAM 5GM TUBE (LIDOCAINE/PRILOCAINE) TOP SCH; +GABA-283 PO; -GABA-845 PO; +GUAISYP9 PO; +LIDO1CRE42 TOP; -LIDO2.5C15 TOP; +OXYC1SOL3 PO; +PRED10TA2 PO; +TESS100C PO
[2021-01-20] MEDS ORDERED: CEPH500C PO (11:17)
[2021-01-20] MEDS ORDERED: DOXYCYCLINE HYCLATE 100 MG in D5W MINI-BAG PLUS 100 ML IV ONE (11:40)
[2021-01-20 12:05] LABS: BASO % 0.4 % (0.0-1.0); EOS # 0.1 10^3/uL (0.0-0.5); EOS % 1.3 % (0.0-3.0); HEMOGLOBIN 10.7 g/dl (12.0-15.5); LYMPH # 0.4 10^3/uL (1.5-5.0); LYMPH % 4.9 % (24.0-44.0); MEAN CORPUSCULAR HEMOGLOBIN 30.7 pg (27.0-33.0); MEAN CORPUSCULAR HGB CONC 31.5 g/dl (32.0-36.5); MEAN CORPUSCULAR VOLUME 97.7 fl (80.0-96.0); MONO # 1.1 10^3/uL (0.0-0.8); MONO % 14.8 % (2.0-8.0); NEUTROPHILS # 5.5 10^3/uL (1.5-8.5); NEUTROPHILS % 78.2 % (36.0-66.0); PLATELET COUNT, AUTOMATED 335 10^3/uL (150-450); RED BLOOD COUNT 3.48 10^6/uL (4.00-5.40); WHITE BLOOD COUNT 7.1 10^3/uL (4.0-10.0)
--- NOTE | 2021-01-20 12:37 | REP ---
INDICATION: R/O DVT. COMPARISON: None. TECHNIQUE: Right lower extremity duplex venous sonography. FINDINGS: The deep veins are anechoic and fully compressible from the groin to the popliteal fossa in the right lower extremity. Color flow imaging is homogeneous. Spectral Doppler interrogation demonstrates intact respiratory variation in flow and normal manual augmentation of flow. There is no evidence of deep vein thrombosis. IMPRESSION: Negative right lower extremity duplex venous ultrasound. No evidence of deep vein thrombosis. <Electronically signed by Matt Otto > 01/20/21 0179
[2021-01-20] MEDS ORDERED: SERT-141 PO (13:22)
[2021-01-20] MEDS ORDERED: BENZ-18 PO (13:58)
[2021-01-20 14:00] VITALS: BP 167/74
--- NOTE | 2021-01-20 14:23 | HPEPDOC ---
[facility] Medical History & Physical Date of Admission January 20, 2021 Date of Service: January 20, 2021 Attending Physician: Abigail Mccallum MD History and Physical CHIEF COMPLAINT: Right lower extremity pain, increased swelling HISTORY OF PRESENT ILLNESS: Patient is a 75-year-old female with past mental history of atrial fibrillation on anticoagulation, history of TIA, PVD/PAD, squamous cell carcinoma lung cancer status post chemotherapy and radiation, history of tobacco use who presented to [facility] emergency room with the chief complaint of increased right lower extremity pain, swelling and warmth. According to the patient her symptoms began one week ago with increased swelling. She denied any trauma to that lower extremity. She has a history of peripheral arterial disease and venous disease w ith ulcers in the left lower leg, those have since healed over the years. Over past weekend the patient went to urgent care and was prescribed Keflex on 01/14/2021. She was compliant with the antibiotic since that date but states that her right lower extremity pain and swelling have increased. She describes the pain as throbbing, constant, 10/10 and worse with movement, localized to the right lower extremity-mostly the anteromedial and anterior jimenez ranging from the ankle to just below the knee. It is warm to touch. The patient came to the emergency room for further evaluation. She denied any chest pain, increased shortness of breath, fevers, chills, nausea, vomiting, recent sores in those a reas, abdominal pain. In the emergency room vital signs were stable. The WBC wnl, CRP elevated at 4 .13. All other labs were unremarkable. Right lower extremity ultrasound ruled out DVT. Due to the patient's immunocompromise state and failure of outpatient oral antibiotics despite compliance, patient was admitted under observation status for further treatment of right lower extremity cellulitis. REVIEW OF SYSTEMS: Neg except mentioned above PAST MEDICAL HISTORY: atrial fibrillation on anticoagulation, history of TIA, PVD/PAD, squamous cell carcinoma lung cancer status post chemotherapy and radiation, history of tobacco use PAST SURGICAL HISTORY: Angioplasty of the left leg 4 Skin grafting of left lower extremity thigh to the left lower extremity jimenez 2018 Tubal ligation Cataract surgery Right chest port placement Lung biopsy FAMILY HISTORY: Father: from TB infection, 43 y/o Mother: healthy. at 86 y/o SOCIAL HISTORY: Smoker for 60+ years one pack per day. Quit 2 weeks ago. Drinks 12 beers per night but states to have previously drank heavier than that nightly. Denies drugs. Lives alone, no walker or cane. Is a DNR/DNI who states to have paperwork confirming this. ALLERGIES: Please see below. HOME MEDICATIONS: Please see below. PHYSICAL EXAMINATION: VS : stable CONSTITUTIONAL: No acute distress, resting comfortably, AAO x 3 EYES: PERRLA, EOM intact HENT, MOUTH: alopecia, AT/NC, corrective lenses in place, moist mucous membranes NECK: SUPPLE, no JVD, no lymphadenopathy, no carotid bruit CV: Regular rate and rhythm, S1S2 normal, no murmurs/rubs/gallops CHEST: right port in place RESPIRATORY: Clear to auscultation bilaterally, no rales/rhonchi/wheezes GI: BS positive in 4 quadrants, soft, nontender, nondistended, no rebound or guarding, no organomegaly : Deferred MUSCULOSKELETAL: Normal ROM. No cyanosis, clubbing, swelling, joint deformity, extremity edema INTEGUMENTARY:RLE redness, warmth and tenderness from below right knee to right ankle, increased swelling, no open lesions. No rashes, no lesions, no erythema NEUROLOGIC: Cranial Nerves II-XII are intact, no focal deficits PSYCHIATRIC: Mood and affect are normal LABORATORY DATA: Please see below IMAGING: RLE US: No DVT ASSESSMENT: 75-year-old female with past mental history of atrial fibrillation on anticoagulation, history of TIA, PVD/PAD, squamous cell carcinoma lung cancer status post chemotherapy and radiation, history of tobacco use admitted under observation status for further treatment of right lower extremity cellulitis. PLAN: RLE cellulitis -no documented trauma, prior cellulitis of leg, failed o/p keflex -WBC wnl, afebrile, elevated inflammatory marker -Teflaro, pain control, PT/OT Atrial fibrillation on AC -Rate controlled -C/w home meds History of TIA -C/w plavix, statin PVD/PAD -Hx of angioplasty LLE, used to follow closely with vascular surgery -plavix, statin Squamous cell carcinoma lung cancer status post chemotherapy and radiation -Follows o/p with Dr. Lagos (med onc) Tobacco use -Stated to stopped smoking 2 weeks ago -can add nicotine patch DVT px -eliquis DISPOSITION: Admitted under observation status. Plan is discharge home when medically improved. Vital Signs Vital Signs Date Time Temp Pulse Resp B/P (MAP) Pulse Ox O2 Delivery O2 Flow Rate FiO2 01/20/21 13:30 83 16 135/62 (86) 97 Room Air 01/20/21 11:00 98.0 Laboratory Data Labs 24H Laboratory Tests 2 01/20/21 11:54: Immature Granulocyte % (Auto) 0.4, Neutrophils (%) (Auto) 78.2H, Lymphocytes (%) (Auto) 4.9L, Monocytes (%) (Auto) 14.8H, Eosinophils (%) (Auto) 1.3, Basophils (%) (Auto) 0.4, Neutrophils # (Auto) 5.5, Lymphocytes # (Auto) 0.4L, Monocytes # (Auto) 1.1H, Eosinophils # (Auto) 0.1, Basophils # (Auto) 0.0, Nucleated Red Blood Cells % (auto) 0.0, POC Glucose (Misc Panel) 89, POC Sodium (Misc Panel) 135L, POC Potassium (Misc Panel) 3.8, POC Chloride (Misc Panel) 95L, POC Total CO2 (Misc Panel) 33.0H, POC Blood Urea Nitrogen (Misc Panel 9, POC Ionized Calcium (Misc Panel) 5.1, POC Creatinine (Misc Panel) 0.6, POC Hematocrit (Misc Panel) 34.0L, C-Reactive Protein, Quantitative 4.13H, Methicillin-Resist S.aureus DNA PCR DETECTEDA 01/20/21 11:59: POC Lactate (Misc Panel) 1.44 01/20/21 13:31: CBC/BMP Laboratory Tests 01/20/21 11:54 Home Medications Scheduled Apixaban (Eliquis) 5 Mg Tab, 5 MG PO BID Atorvastatin Calcium (Atorvastatin Calcium) 40 Mg Tab, 40 MG PO QHS Cephalexin (Cephalexin) 500 Mg Capsule, 500 MG PO TID Cholecalciferol (Vitamin D3) (Vitamin D3) 50 Mcg Capsule, 50 MCG PO DAILY Clopidogrel Bisulfate (Clopidogrel) 75 Mg Tab, 75 MG PO QHS Cyanocobalamin (Vitamin B-12) (B-12) 2,500 Mcg Tab.subl, 2,500 MCG SL DAILY Folic Acid (Folic Acid) 1 Mg Tab, 1 MG PO QAM Lidocaine/Prilocaine (Lidocaine-Prilocaine Cream) 2.5%/2.5% Cream..g., 1 DOSE TOP ASDIRECTED Apply dime size to port area. Do not rub in, cover with saran wrap to protect clothing. Sertraline Hcl (Sertraline HCl) 50 Mg Tablet, 50 MG PO QHS Thiamine HCl (Thiamine HCl) 100 Mg Tab, 100 MG PO DAILY Vit C/Vit E AC/Lut/Copper/Zinc (Preservision Lutein Softgel) 1 Cap Cap, 1 CAP PO BID Zinc (Zinc) 50 Mg Tablet, 50 MG PO Q2D Scheduled PRN Benzonatate (Benzonatate) 100 Mg Capsule, 100 MG PO TID PRN for COUGH Ondansetron HCl (Ondansetron HCl) 8 Mg Tablet, 8 MG PO Q8H PRN for NAUSEA OR VOMITING Oxycodone HCl (Oxycodone HCl) 5 Mg/5 Ml Solution, 5 ML PO Q4HP PRN for Esophagitis Prochlorperazine Maleate (Prochlorperazine Maleate) 10 Mg Tablet, 10 MG PO Q6H PRN for NAUSEA OR VOMITING Allergies Coded Allergies: levofloxacin (Verified Allergy, Unknown, unknown, 05/13/19) cephalexin (Verified Adverse Reaction, Mild, nausea, 05/13/19) lisinopril (Verified Adverse Reaction, Mild, cough from zestril, 05/13/19) A-FIB/CHADSVASC A-FIB History Current/History of A-Fib/PAF?: Yes Current PO Anticoag Therapy: Yes Age/Risk Factor Scoring CHADSVASC: CHADSVASC Response (Comments) Value Age Risk Factor Age >/= 75 years old 2 Gender Risk Factor Female 1 Hx of CHF No 0 Hx of HTN No 0 Hx of Stroke/TIA/or VTE Yes 2 Hx of Diabetes No 0 Hx of Vascular Disease Yes 1 Total 6 Treatment Treatment ordered: Apixaban Abigail Mccallum MD January 20, 2021 14:22
[2021-01-20] MEDS ORDERED: PROCHLORPERAZINE 5 MG TAB (S0183) PO PRN (14:25)
[2021-01-20] MEDS ORDERED: BENZONATATE 100 MG CAP PO PRN (14:25)
[2021-01-20] MEDS ORDERED: ONDANSETRON 4 MG TAB PO PRN (14:25)
[2021-01-20 15:11] LABS: ERYTHROCYTE SEDIMENTATION RATE 82 mm/hr (0-30)
[2021-01-20] MEDS ORDERED: CEFTAROLINE FOSAMIL 600 MG in D5W MINI-BAG PLUS 50 ML IV SCH (16:00)
[2021-01-20] MEDS: CEFTAROLINE FOSAMIL 400 MG in D5W MINI-BAG PLUS 50 ML IV SCH (16:28)
[2021-01-20] MEDS: THIAMINE 100 MG TAB PO SCH (16:28)
[2021-01-20] MEDS: FOLIC ACID 1 MG TAB PO SCH (16:28)
[2021-01-20] MEDS: ACETAMINOPHEN TAB 650MG DOSE (2X325MG) PO PRN (17:03)
[2021-01-20] MEDS: ATORVASTATIN 20 MG TAB PO SCH (19:51)
[2021-01-20] MEDS: SERTRALINE HCL 50 MG TAB PO SCH (19:51)
[2021-01-20] MEDS: APIXABAN 5 MG TAB (ELIQUIS) PO SCH (19:51)
[2021-01-20] MEDS: CLOPIDOGREL 75 MG TAB PO SCH (19:52)
[2021-01-20 20:00] VITALS: BP 100/53
[2021-01-21] MEDS: ACETAMINOPHEN TAB 650MG DOSE (2X325MG) PO PRN ×2 (01:46→19:40)
[2021-01-21] MEDS: CEFTAROLINE FOSAMIL 400 MG in D5W MINI-BAG PLUS 50 ML IV SCH ×2 (03:59→16:28)
[2021-01-21 06:00] VITALS: BP 144/92
[2021-01-21 07:00] LABS: HEMATOCRIT 31.5 % (36.0-47.0); MEAN CORPUSCULAR HEMOGLOBIN 30.6 pg (27.0-33.0); MEAN CORPUSCULAR HGB CONC 31.7 g/dl (32.0-36.5); MEAN CORPUSCULAR VOLUME 96.3 fl (80.0-96.0); PLATELET COUNT, AUTOMATED 309 10^3/uL (150-450); RED BLOOD COUNT 3.27 10^6/uL (4.00-5.40)
[2021-01-21 07:25] LABS: BLOOD UREA NITROGEN 9 MG/DL (7-18); CALCIUM LEVEL 8.6 MG/DL (8.8-10.2); CARBON DIOXIDE LEVEL 28 MEQ/L (21-32); CHLORIDE LEVEL 101 MEQ/L (98-107); CREATININE FOR GFR 0.67 MG/DL (0.55-1.30); GLOMERULAR FILTRATION RATE > 60.0 (>39); GLUCOSE, FASTING 97 MG/DL (70-100); SODIUM LEVEL 135 MEQ/L (136-145)
[2021-01-21 08:34] LABS: INR 1.11; PROTHROMBIN TIME 14.5 SECONDS (12.5-14.3)
[2021-01-21 08:35] LABS: PARTIAL THROMBOPLASTIN TIME 36.5 SECONDS (24.2-38.5)
[2021-01-21] MEDS: FOLIC ACID 1 MG TAB PO SCH (09:30)
[2021-01-21] MEDS: APIXABAN 5 MG TAB (ELIQUIS) PO SCH ×2 (09:31→20:32)
[2021-01-21] MEDS: THIAMINE 100 MG TAB PO SCH (09:31)
--- NOTE | 2021-01-21 12:56 | IPNPDOC ---
Date Seen The patient was seen on 01/21/21. Progress Note SUBJECTIVE: Improved RLE cellulitis; however, with ambulation patient is still experiencing severe pain. Added PO tramadol. OBJECTIVE: PHYSICAL EXAMINATION: VS : stable CONSTITUTIONAL: No acute distress, resting comfortably, AAO x 3 EYES: PERRLA, EOM intact HENT, MOUTH: alopecia, AT/NC, corrective lenses in place, moist mucous membranes NECK: SUPPLE, no JVD, no lymphadenopathy, no carotid bruit CV: Regular rate and rhythm, S1S2 normal, no murmurs/rubs/gallops CHEST: right port in place RESPIRATORY: Clear to auscultation bilaterally, no rales/rhonchi/wheezes GI: BS positive in 4 quadrants, soft, nontender, nondistended, no rebound or guarding, no organomegaly : Deferred MUSCULOSKELETAL: Normal ROM. No cyanosis, clubbing, swelling, joint deformity, extremity edema INTEGUMENTARY:decreased RLE erythema, warmth, swelling and tenderness from below right knee to right ankle, no open lesions. No rashes, no lesions NEUROLOGIC: Cranial Nerves II-XII are intact, no focal deficits PSYCHIATRIC: Mood and affect are normal LABORATORY DATA: Please see below IMAGING: RLE US: No DVT ASSESSMENT: 75-year-old female with past mental history of atrial fibrillation on anticoagulation, history of TIA, PVD/PAD, squamous cell carcinoma lung cancer status post chemotherapy and radiation, history of tobacco use admitted under observation status for further treatment of right lower extremity cellulitis. PLAN: RLE cellulitis with pain -Improving slowly -no documented trauma, prior cellulitis of leg, failed o/p keflex -WBC wnl, afebrile, elevated inflammatory markers- will recheck in the AM -F/u PT recommendations, as patient lives alone and pain is severe with ambulation -Day 2 Teflaro, added tramadol to pain control Atrial fibrillation on AC -Rate controlled -C/w home meds History of TIA -C/w plavix, statin PVD/PAD -Hx of angioplasty LLE, used to follow closely with vascular surgery -plavix, statin Squamous cell carcinoma lung cancer status post chemotherapy and radiation -Follows o/p with Dr. Lagos (med onc) Tobacco use -Stated to stopped smoking 2 weeks ago -can add nicotine patch DVT px -eliquis DISPOSITION: Admitted under observation status. If will need to stay past 01/22/21, make inpatient status. Plan is discharge home when medically improved. VS, I&O, 24H, Fishbone Vital Signs/I&O Vital Signs Date Time Temp Pulse Resp B/P (MAP) Pulse Ox O2 Delivery O2 Flow Rate FiO2 01/21/21 06:00 96.9 70 18 144/92 (109) 92 Room Air I&O- Last 24 Hours up to 6 AM 01/21/21 06:00 Intake Total 1040 ml Balance 1040 ml Laboratory Data 24H LABS Laboratory Tests 2 01/20/21 13:31: Coronavirus (COVID-19)(PCR) NEGATIVE 01/21/21 06:30: Nucleated Red Blood Cells % (auto) 0.0, Anion Gap 6L, Glomerular Filtration Rate > 60.0, Calcium Level 8.6L 01/21/21 08:05: Prothrombin Time 14.5H, Prothromb Time International Ratio 1.11, Activated Partial Thromboplast Time 36.5 CBC/BMP Laboratory Tests 01/21/21 06:30 Abigail Mccallum MD January 21, 2021 12:56
[2021-01-21 14:00] VITALS: BP 129/63
[2021-01-21] MEDS: traMADol 50 MG TAB PO PRN (16:28)
[2021-01-21] MEDS: CLOPIDOGREL 75 MG TAB PO SCH (20:32)
[2021-01-21] MEDS: ATORVASTATIN 20 MG TAB PO SCH (20:32)
[2021-01-21] MEDS: SERTRALINE HCL 50 MG TAB PO SCH (20:32)
[2021-01-21 22:00] VITALS: BP 120/81
[2021-01-22] MEDS: CEFTAROLINE FOSAMIL 400 MG in D5W MINI-BAG PLUS 50 ML IV SCH ×2 (03:36→16:12)
[2021-01-22] MEDS: traMADol 50 MG TAB PO PRN ×2 (03:51→11:04)
[2021-01-22 05:56] VITALS: BP 150/72
[2021-01-22 06:32] LABS: HEMATOCRIT 33.6 % (36.0-47.0); HEMOGLOBIN 10.7 g/dl (12.0-15.5); MEAN CORPUSCULAR HEMOGLOBIN 30.4 pg (27.0-33.0); MEAN CORPUSCULAR HGB CONC 31.8 g/dl (32.0-36.5); MEAN CORPUSCULAR VOLUME 95.5 fl (80.0-96.0); PLATELET COUNT, AUTOMATED 331 10^3/uL (150-450); RED BLOOD COUNT 3.52 10^6/uL (4.00-5.40); WHITE BLOOD COUNT 7.3 10^3/uL (4.0-10.0)
[2021-01-22 07:01] LABS: BLOOD UREA NITROGEN 11 MG/DL (7-18); C REACTIVE PROTEIN QUANTITATIV 2.29 MG/DL (0.00-0.30); CALCIUM LEVEL 8.8 MG/DL (8.8-10.2); CARBON DIOXIDE LEVEL 26 MEQ/L (21-32); CHLORIDE LEVEL 101 MEQ/L (98-107); CREATININE FOR GFR 0.59 MG/DL (0.55-1.30); GLOMERULAR FILTRATION RATE > 60.0 (>39); GLUCOSE, FASTING 106 MG/DL (70-100); POTASSIUM SERUM 3.9 MEQ/L (3.5-5.1); SODIUM LEVEL 135 MEQ/L (136-145)
[2021-01-22] MEDS: FOLIC ACID 1 MG TAB PO SCH (08:43)
[2021-01-22] MEDS: THIAMINE 100 MG TAB PO SCH (08:43)
[2021-01-22] MEDS: APIXABAN 5 MG TAB (ELIQUIS) PO SCH ×2 (08:43→21:47)
[2021-01-22 10:15] LABS: ERYTHROCYTE SEDIMENTATION RATE 58 mm/hr (0-30)
[2021-01-22 14:00] VITALS: BP 120/72
--- NOTE | 2021-01-22 18:19 | IPNPDOC ---
Date Seen The patient was seen on 01/22/21. Progress Note SUBJECTIVE: Improving RLE cellulitis but still pink/warm to touch on exam; however, pain still persists. Inflammatory markers improving. Dropped O2 sats to 80's overnight while sleeping, put O2 titration orders to keep O2 > 90% at night. Denies chest pain, SOB. OBJECTIVE: PHYSICAL EXAMINATION: VS : stable CONSTITUTIONAL: No acute distress, resting comfortably, AAO x 3 EYES: PERRLA, EOM intact HENT, MOUTH: alopecia, AT/NC, corrective lenses in place, moist mucous membranes NECK: SUPPLE, no JVD, no lymphadenopathy, no carotid bruit CV: Regular rate and rhythm, S1S2 normal, no murmurs/rubs/gallops CHEST: right port in place RESPIRATORY: Clear to auscultation bilaterally, no rales/rhonchi/wheezes GI: BS positive in 4 quadrants, soft, nontender, nondistended, no rebound or guarding, no organomegaly : Deferred MUSCULOSKELETAL: Normal ROM. No cyanosis, clubbing, swelling, joint deformity, extremity edema INTEGUMENTARY:decreased RLE erythema but remains persistently warm, mild swelling and tenderness from below right knee to right ankle, no open lesions. No rashes, no lesions NEUROLOGIC: Cranial Nerves II-XII are intact, no focal deficits PSYCHIATRIC: Mood and affect are normal LABORATORY DATA: Please see below IMAGING: RLE US: No DVT ASSESSMENT: 75-year-old female with past mental history of atrial fibrillation on anticoagulation, history of TIA, PVD/PAD, squamous cell carcinoma lung cancer status post chemotherapy and radiation, history of tobacco use admitted under observation status for further treatment of right lower extremity cellulitis. PLAN: RLE cellulitis with pain -Improving slowly, remains tender to touch, decreased erythema and swelling. -no documented trauma, prior cellulitis of leg, failed o/p keflex -WBC wnl, afebrile, inflammatory markers improving -PT: pt can be D/C home when medically cleared -Day 3 Teflaro, tylenol and tramadol for pain control Atrial fibrillation on AC -Rate controlled -C/w home meds History of TIA -C/w plavix, statin PVD/PAD -Hx of angioplasty LLE, used to follow closely with vascular surgery -plavix, statin Squamous cell carcinoma lung cancer status post chemotherapy and radiation -Follows o/p with Dr. Lagos (med onc) Tobacco use -Stated to stopped smoking 2 weeks ago -can add nicotine patch DVT px -eliquis DISPOSITION: Switched to inpatient status today. Plan is discharge home when medically improved. VS, I&O, 24H, Fishbone Vital Signs/I&O Vital Signs Date Time Temp Pulse Resp B/P (MAP) Pulse Ox O2 Delivery O2 Flow Rate FiO2 01/22/21 14:00 97.3 68 18 120/72 (88) 94 Room Air I&O- Last 24 Hours up to 6 AM 01/22/21 06:00 Intake Total 1970 ml Balance 1970 ml Laboratory Data 24H LABS Laboratory Tests 2 01/22/21 06:03: Nucleated Red Blood Cells % (auto) 0.0, Erythrocyte Sedimentation Rate 58H, Anion Gap 8, Glomerular Filtration Rate > 60.0, Calcium Level 8.8, C-Reactive Protein, Quantitative 2.29H CBC/BMP Laboratory Tests 01/22/21 06:03 Abigail Mccallum MD January 22, 2021 18:18
[2021-01-22] MEDS: SERTRALINE HCL 50 MG TAB PO SCH (21:47)
[2021-01-22] MEDS: ATORVASTATIN 20 MG TAB PO SCH (21:47)
[2021-01-22] MEDS: CLOPIDOGREL 75 MG TAB PO SCH (21:47)
[2021-01-22 22:00] VITALS: BP 105/66
[2021-01-23] MEDS: CEFTAROLINE FOSAMIL 400 MG in D5W MINI-BAG PLUS 50 ML IV SCH ×2 (04:18→17:26)
[2021-01-23 06:00] VITALS: BP 127/72
[2021-01-23 06:41] LABS: HEMATOCRIT 33.2 % (36.0-47.0); HEMOGLOBIN 10.8 g/dl (12.0-15.5); MEAN CORPUSCULAR HGB CONC 32.5 g/dl (32.0-36.5); MEAN CORPUSCULAR VOLUME 95.4 fl (80.0-96.0); PLATELET COUNT, AUTOMATED 357 10^3/uL (150-450); RED BLOOD COUNT 3.48 10^6/uL (4.00-5.40); WHITE BLOOD COUNT 8.6 10^3/uL (4.0-10.0)
[2021-01-23 06:58] LABS: BLOOD UREA NITROGEN 14 MG/DL (7-18); CALCIUM LEVEL 9.2 MG/DL (8.8-10.2); CARBON DIOXIDE LEVEL 26 MEQ/L (21-32); CHLORIDE LEVEL 99 MEQ/L (98-107); CREATININE FOR GFR 0.62 MG/DL (0.55-1.30); GLOMERULAR FILTRATION RATE > 60.0 (>39); GLUCOSE, FASTING 108 MG/DL (70-100); POTASSIUM SERUM 4.5 MEQ/L (3.5-5.1); SODIUM LEVEL 133 MEQ/L (136-145)
--- NOTE | 2021-01-23 09:19 | IPN ---
PROGRESS NOTE DATE: 01/23/2021 SUBJECTIVE: April is seen on 5 [address]. She is being treated for cellulitis of both lower legs. She had a positive MRSA screen and is on ceftaroline for this currently day four. She is legally blind so she is unable to tell me whether the erythema is any different than it was yesterday. She still has a lot of pain in the area. She has a history of atrial fibrillation on chronic anticoagulant therapy, peripheral arterial disease, squamous cell lung cancer status post chemotherapy and radiation therapy, and has had a TIA in the past. OBJECTIVE: VITAL SIGNS: Stable, afebrile. GENERAL: She is alert and conversant. LUNGS: Clear. HEART: Regular rate and rhythm. ABDOMEN: Soft and nontender. No masses. EXTREMITIES: Right lower extremity has erythema essentially at or near the inked margins. No ulcerations. Quite tender to palpate. LABORATORY DATA: CBC white count 8.6, hemoglobin stable at 10.8. Sodium is 135. Renal function is normal. IMPRESSION: 1. Cellulitis of the right lower extremity. Continue her ceftaroline. She does not feel ready for discharge. She does have a lot of inflammation on palpation. Probably discharge tomorrow or the next day. She had a positive methicillin-resistant Staphylococcus aureus (MRSA) screen so would recommend something likely Keflex upon discharge. 2. Atrial fibrillation. Rate is controlled and she is anticoagulated. 3. Cerebrovascular disease. Continue Plavix and statin therapy.
[2021-01-23] MEDS: APIXABAN 5 MG TAB (ELIQUIS) PO SCH ×2 (09:48→21:23)
[2021-01-23] MEDS: THIAMINE 100 MG TAB PO SCH (09:49)
[2021-01-23] MEDS: FOLIC ACID 1 MG TAB PO SCH (09:49)
[2021-01-23] MEDS: ACETAMINOPHEN TAB 650MG DOSE (2X325MG) PO PRN (09:52)
[2021-01-23 14:00] VITALS: BP 108/56
[2021-01-23] MEDS: ATORVASTATIN 20 MG TAB PO SCH (21:23)
[2021-01-23] MEDS: CLOPIDOGREL 75 MG TAB PO SCH (21:23)
[2021-01-23] MEDS: SERTRALINE HCL 50 MG TAB PO SCH (21:24)
[2021-01-23 22:00] VITALS: BP 118/66
[2021-01-23] MEDS: traMADol 50 MG TAB PO PRN (22:54)
[2021-01-24] MEDS: CEFTAROLINE FOSAMIL 400 MG in D5W MINI-BAG PLUS 50 ML IV SCH ×2 (04:05→16:14)
[2021-01-24] MEDS: ACETAMINOPHEN TAB 650MG DOSE (2X325MG) PO PRN (04:11)
[2021-01-24 06:00] VITALS: BP 142/84
[2021-01-24] MEDS: THIAMINE 100 MG TAB PO SCH (09:04)
[2021-01-24] MEDS: APIXABAN 5 MG TAB (ELIQUIS) PO SCH ×2 (09:04→21:04)
[2021-01-24] MEDS: FOLIC ACID 1 MG TAB PO SCH (09:04)
[2021-01-24 14:00] VITALS: BP 109/58
[2021-01-24] MEDS: traMADol 50 MG TAB PO PRN (16:14)
--- NOTE | 2021-01-24 18:46 | IPNPDOC ---
Text Note Date of Service The patient was seen on 01/24/21. NOTE Hospitalist Progress Note Subjective: Patient was afebrile overnight, no acute events overnight. When questioned about how she is feeling, she reports that she still does have significant pain right lower extremity, and certainly does not wish to be discharged at this time, she would definitely prefer to stay at least one additional day. Objective: General: Awake, alert, oriented 3. Not in any acute distress. HEENT: Head normocephalic, atraumatic, sclera are nonicteric. Hearing is grossly intact to conversation. Respiratory: Clear to auscultation bilaterally with no wheezes, rales, or rhonchi. Cardiovascular: Regular rate and rhythm, with no rubs, gallops, or murmur. Abdomen: Soft, nontender, nondistended, no hepatosplenomegaly appreciated. Bowel sounds present. Extremities: 2+ pulses in the radial and dorsalis pedis bilaterally. No evidence of clubbing or cyanosis. Erythema seems to be receding, but is still present particularly just above the right ankle, it is still quite exquisitely tender to even light touch at this time. Assessment: Cellulitis of right lower extremity -Will convert her from IV Ceftaroline to PO doxycycline, she has already failed outpatient Keflex Atrial fibrillation, rate controlled -Continue Eliquis Cerebrovascular disease -Continue Plavix and statin therapy VS,Cynthia, I+O VS, [place]ista[place], I+O Vital Signs Date Time Temp Pulse Resp B/P (MAP) Pulse Ox O2 Delivery O2 Flow Rate FiO2 01/24/21 16:45 16 01/24/21 14:00 97.8 77 109/58 (75) 92 Room Air I&O- Last 24 Hours up to 6 AM 01/24/21 06:00 Intake Total 1890 ml Balance 1890 ml LUCIO MANDUJANO DO January 24, 2021 18:46
[2021-01-24] MEDS: SERTRALINE HCL 50 MG TAB PO SCH (21:04)
[2021-01-24] MEDS: CLOPIDOGREL 75 MG TAB PO SCH (21:04)
[2021-01-24] MEDS: ATORVASTATIN 20 MG TAB PO SCH (21:04)
[2021-01-24] MEDS: DOXYCYCLINE HYCLATE 100MG TABLET PO SCH (21:04)
[2021-01-24 22:00] VITALS: BP 117/62
[2021-01-25 06:00] VITALS: BP 146/79
[2021-01-25] MEDS ORDERED: DOXY100T PO (07:24)
--- NOTE | 2021-01-25 07:41 | DS.PDOC ---
Discharge Summary General Date of Admission January 22, 2021 at 10:50 Date of Discharge 01/25/2021 Discharge Summary PRIMARY CARE PHYSICIAN: Dr. Yuri Cosme MD ATTENDING AT TIME OF DISCHARGE: Dr. Lucio Baires, DISCHARGE DIAGNOS(E)S: Right lower extremity cellulitis, failed outpatient therapy (Keflex) Inflammatory pain Atrial fibrillation, rate controlled Cerebrovascular disease with history of TIA Peripheral vascular disease Peripheral arterial disease Squamous cell carcinoma of the lung status post chemotherapy and radiation Tobacco use (just quit a couple weeks ago) HPI & HOSPITAL COURSE: And patient presented to the emergency department with a one-week history of right lower extremity swelling and erythema. She was seen and evaluated in the urgent care and was prescribed Keflex, but this did not provide her with any relief. She was admitted inpatient for right lower extremity cellulitis having failed outpatient therapy. She was switched to IV to Teflaro with good response, and then switched over to oral doxycycline, and leg erythema continued to improve. While inpatient she did have a significant amount of pain in the right lower extremity, likely secondary to inflammation, her ESR and CRP both trended down, and clinically she had improvement in both the appearance of the right lower extremity and function. Therefore she appears stable and ready for discharge at this time. PHYSICAL EXAMINATION ON DISCHARGE: GENERAL: Awake, alert, oriented 3. She is in no acute distress. CARDIOVASCULAR EXAMINATION: Regular rate and rhythm, with no rubs, gallops, or murmur. RESPIRATORY EXAMINATION: Clear to auscultation bilaterally with no wheezes, rales, or rhonchi. ABDOMINAL EXAMINATION: Soft, nontender, nondistended. Bowel sounds present. EXTREMITIES: No clubbing or edema noted. 2+ pulses in the radial bilaterally. Erythema has essentially resolved, she just has a faint pinkish hue remaining in the region superior to her right ankle DISPOSITION: Home DISCHARGE INSTRUCTIONS: Follow-up with her primary care provider in 7-14 days. Diet as tolerated. Activity as tolerated. If symptoms return, or if you experience worsening of your symptoms, please call your doctor or return to the emergency department. Vital Signs/I&Os Vital Signs Date Time Temp Pulse Resp B/P (MAP) Pulse Ox O2 Delivery O2 Flow Rate FiO2 01/25/21 06:00 98.3 72 18 146/79 (101) 91 Room Air I&O- Last 24 Hours up to 6 AM 5/27/21 06:00 Intake Total 1100 ml Output Total 0 ml Balance 1100 ml Discharge Medications Scheduled Apixaban (Eliquis) 5 Mg Tab, 5 MG PO BID, (Reported) Atorvastatin Calcium (Atorvastatin Calcium) 40 Mg Tab, 40 MG PO QHS, (Reported) Cholecalciferol (Vitamin D3) (Vitamin D3) 50 Mcg Capsule, 50 MCG PO DAILY, (Reported) Clopidogrel Bisulfate (Clopidogrel) 75 Mg Tab, 75 MG PO QHS, (Reported) Cyanocobalamin (Vitamin B-12) (B-12) 2,500 Mcg Tab.subl, 2,500 MCG SL DAILY, (Reported) Doxycycline Hyclate (Doxycycline Hyclate) 100 Mg Tablet, 100 MG PO BID Folic Acid (Folic Acid) 1 Mg Tab, 1 MG PO QAM, (Reported) Lidocaine/Prilocaine (Lidocaine-Prilocaine Cream) 2.5%/2.5% Cream..g., 1 DOSE TOP ASDIRECTED Apply dime size to port area. Do not rub in, cover with saran wrap to protect clothing. Sertraline Hcl (Sertraline HCl) 50 Mg Tablet, 50 MG PO QHS, (Reported) Thiamine HCl (Thiamine HCl) 100 Mg Tab, 100 MG PO DAILY, (Reported) Vit C/Vit E AC/Lut/Copper/Zinc (Preservision Lutein Softgel) 1 Cap Cap, 1 CAP PO BID, (Reported) Zinc (Zinc) 50 Mg Tablet, 50 MG PO Q2D, (Reported) Scheduled PRN Benzonatate (Benzonatate) 100 Mg Capsule, 100 MG PO TID PRN for COUGH, (Reported) Ondansetron HCl (Ondansetron HCl) 8 Mg Tablet, 8 MG PO Q8H PRN for NAUSEA OR VOM ITING Oxycodone HCl (Oxycodone HCl) 5 Mg/5 Ml Solution, 5 ML PO Q4HP PRN for Esophagitis Prochlorperazine Maleate (Prochlorperazine Maleate) 10 Mg Tablet, 10 MG PO Q6H PRN for NAUSEA OR VOMITING Allergies Coded Allergies: levofloxacin (Verified Allergy, Unknown, unknown, 05/13/19) lisinopril (Verified Adverse Reaction, Mild, cough from zestril, 05/13/19) LUCIO BAIRES DO January 25, 2021 07:41
[2021-01-25] MEDS: THIAMINE 100 MG TAB PO SCH (09:06)
[2021-01-25] MEDS: APIXABAN 5 MG TAB (ELIQUIS) PO SCH (09:06)
[2021-01-25] MEDS: DOXYCYCLINE HYCLATE 100MG TABLET PO SCH (09:06)
[2021-01-25] MEDS: FOLIC ACID 1 MG TAB PO SCH (09:06)
== END 2021-01-25 11:21 | disposition home or self-care (01) | DRG 603 ==
LOC: M ED 11:00 → M ED INP 13:02 → ENRESERV 14:19 → M MS5PR 14:45 → OBSVTOIN 01-22 10:50
PROVIDERS: ADMIT Internal Medicine; ATTEND Neuromusculoskeletal Medicine & OMM
DX: L03.115 Cellulitis of right lower limb (principal); I48.91 Unspecified atrial fibrillation; B95.62 Methicillin resistant Staphylococcus aureus infection as the cause of diseases classified elsewhere; I73.9 Peripheral vascular disease, unspecified; H54.8 Legal blindness, as defined in USA; Z86.73 Personal history of transient ischemic attack (TIA), and cerebral infarction without residual deficits; Z98.49 Cataract extraction status, unspecified eye; Z98.62 Peripheral vascular angioplasty status; Z79.01 Long term (current) use of anticoagulants; Z79.899 Other long term (current) drug therapy; Z88.1 Allergy status to other antibiotic agents; Z92.21 Personal history of antineoplastic chemotherapy; Z87.891 Personal history of nicotine dependence; Z92.3 Personal history of irradiation; Z85.118 Personal history of other malignant neoplasm of bronchus and lung; Z88.8 Allergy status to other drugs, medicaments and biological substances; Z79.02 Long term (current) use of antithrombotics/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; Z20.822 Contact with and (suspected) exposure to COVID-19

== ENCOUNTER → 2021-02-06 | Outpatient (CLI) | payer MEDICARE ==
[~2021-02-06] MED LIST changes: +BENZ-18 PO; +CEPH500C PO; +DOXY100T PO; -EMLA CREAM 5GM TUBE (LIDOCAINE/PRILOCAINE) TOP SCH; +GASTROGRAFIN SOLUTION 30ML (Q9963) As Ordered ONE; +ISOVUE-370 76% 100ML VIAL As Ordered ONE; +SERT-141 PO
--- NOTE | 2021-02-06 16:23 | REP ---
INDICATION: LUNG CA COMPARISON: Multiple the latest 11/13/2020 TECHNIQUE: Standard helical technique after the intravenous administration of 100 cc Isovue 370. FINDINGS: There is mediastinal and right hilar adenopathy which has improved somewhat particularly involving the right hilum and subcarinal region. There are no pleural or pericardial effusions. There is no significant change in the appearance of the imaged osseous structures. Evaluation of the lung adler shows the large mass extending from the right hilum to the right upper lobe to have decreased in size. Today this mass measures approximately 4.1 by 3.6 cm previously 6 x 5.8 cm using the same points of measurement in the same plane. There is a new spiculated nodule in the right lower lobe which measures approximately 1 cm excluding the broad spiculations. With the spiculations included the measurement increases to 2.7 cm. The spiculated nodule seen previously in the right middle lobe is unchanged. There is a new additional area of asymmetric density in the anterobasal segment of the right lower lobe which measures approximately 1.7 cm. There is pleuroparenchymal scarring seen in the apical regions right greater than left which appears unchanged. Bullous emphysematous changes are again noted and appears stable. There are other parenchymal asymmetric densities but these also appears stable. IMPRESSION: 1. The dominant mass in the right lung upper lobe has decreased in size as described above. 2. There are new asymmetric/spiculated nodules as described above. 3. Other findings and chronic lung field changes as described above. <Electronically signed by Devan Sanderson > 02/06/21 [id number]
--- NOTE | 2021-02-06 16:23 | REP ---
INDICATION: LUNG CA. COMPARISON: None TECHNIQUE: Standard helical technique after the intravenous administration of 100 cc Isovue 370 and oral bowel preparatory contrast administration. FINDINGS: The liver, gallbladder, spleen, pancreas, adrenal glands, and kidneys are within normal limits. The abdominal aorta and para-aortic regions are within normal limits. There is colonic diverticulosis. The bowel loops and the mesenteries are otherwise unremarkable. There is no evidence of free fluid or free air. There is no evidence of a mass or adenopathy. Bone window technique throughout the examination shows chronic changes involving the spine and hips. IMPRESSION: There is no evidence of acute disease. Chronic changes as described above. <Electronically signed by Devan Sanderson > 02/06/21 [id number]
== END ==
LOC: M RAD 13:15
PROVIDERS: ATTEND Internal Medicine Medical Oncology
DX: C34.91 Malignant neoplasm of unspecified part of right bronchus or lung (principal)
CPT/HCPCS: 71260; 74177; J1642; Q9963; Q9967

== ENCOUNTER → 2021-05-24 | Outpatient (CLI) | payer MEDICARE ==
[~2021-05-24] MED LIST changes: +AMOX500T2 PO; -GASTROGRAFIN SOLUTION 30ML (Q9963) As Ordered ONE; -ISOVUE-370 76% 100ML VIAL As Ordered ONE; +MELA10CA6 PO; +ZOLO100T PO
--- NOTE | 2021-05-24 17:10 | REP ---
INDICATION: NECK PAIN. COMPARISON: CT study of the cervical spine from 28 July 2015. TECHNIQUE: Nine views including flexion extension lateral views. FINDINGS: There is straightening of the normal cervical lordosis. Flexion extension lateral view shows limitation of flexion extension range of motion. No subluxation or instability is appreciated. There is advanced degenerative disc disease at C3-4 C5-6 and C6-7 with anterior and posterior osteophytic ridging at these levels. The C4-5 disc space is ankylosed. Prevertebral soft tissues are unremarkable. Swimmer's lateral view shows no additional abnormality. Open mouth odontoid view shows normal alignment at C1-2. Osteoarthritic facet hypertrophy is noted in the mid cervical spine bilaterally, right a little more prominently than left. Oblique images demonstrate uncovertebral spurring on the left encroaching on the C3-4 and C5-6 and C6-7 neural foramina. On the right there is uncovertebral spurring and facet hypertrophy encroaching on the foramina at C3-4, C4-5, C5-6, and C6-7 levels. There is a right-sided Idniee-O-Ruav catheter noted incidentally. No bony destructive lesion. IMPRESSION: Advanced degenerative spondylosis changes as noted above. Multilevel neural foraminal narrowing. Findings are similar to the CT findings from 2015. <Electronically signed by Matt Otto > 05/24/21 [id number]
== END ==
LOC: M RAD 11:54
PROVIDERS: ATTEND Internal Medicine Medical Oncology
DX: M54.2 Cervicalgia (principal)

== ENCOUNTER → 2021-06-01 | Outpatient (CLI) | payer MEDICARE ==
--- NOTE | 2021-06-07 13:23 | REPVR ---
PROCEDURE INFORMATION: Exam: CT Head Without Contrast Exam date and time: 06/01/2021 1:26 PM Age: 75 years old Clinical indication: Other: Noises; Additional info: Buzzing sensation, HX lung CA TECHNIQUE: Imaging protocol: Computed tomography of the head without contrast. Radiation optimization: All CT scans at this facility use at least one of these dose optimization techniques: automated exposure control; mA and/or kV adjustment per patient size (includes targeted exams where dose is matched to clinical indication); or iterative reconstruction. COMPARISON: MRI-Brain W/O FOLL BY WITH 10/10/2020 4:50 PM FINDINGS: Brain: There is no evidence of acute hemorrhage or acute territorial infarct. Moderate diffuse involutional changes are present with mild to moderate white matter hypodensity suggestive of small vessel disease. Old lacune is on the left. Vascular calcifications at the [id number]. Cerebral ventricles: No ventriculomegaly. Paranasal sinuses: Visualized sinuses are unremarkable. No fluid levels. Mastoid air cells: Visualized mastoid air cells are well aerated. Orbital cavity: Prior operative intervention on the left globe. No focal edema or dominant mass seen on this noncontrast study. Bones/joints: Unremarkable. No acute fracture. Soft tissues: No subcutaneous lesions. IMPRESSION: No acute intracranial abnormality. MRI would be more sensitive and specific. Electronically signed by: Bahman Palmer On 06/07/2021 13:23:20 PM
== END ==
LOC: M PLAIMG 12:55
PROVIDERS: ATTEND Family Medicine
DX: R20.8 Other disturbances of skin sensation (principal); C34.11 Malignant neoplasm of upper lobe, right bronchus or lung

== ENCOUNTER → 2021-06-06 | Outpatient (CLI) | payer MEDICARE | LOC: M ONCR 09:54 | PROVIDERS: ATTEND General Practice | DX: C34.11 Malignant neoplasm of upper lobe, right bronchus or lung (principal); F17.210 Nicotine dependence, cigarettes, uncomplicated; I25.10 Atherosclerotic heart disease of native coronary artery without angina pectoris; I48.0 Paroxysmal atrial fibrillation; I73.9 Peripheral vascular disease, unspecified; J44.9 Chronic obstructive pulmonary disease, unspecified; Z86.73 Personal history of transient ischemic attack (TIA), and cerebral infarction without residual deficits; Z92.3 Personal history of irradiation; Z95.1 Presence of aortocoronary bypass graft; Z96.1 Presence of intraocular lens ==

== ENCOUNTER → 2021-07-02 | Outpatient (CLI) | payer MEDICARE ==
[~2021-07-02] MED LIST changes: +GASTROGRAFIN SOLUTION 30ML (Q9963) As Ordered ONE; -IBUP200T45 PO; +IBUP200T46 PO; +ISOVUE-370 76% 100ML VIAL As Ordered ONE
--- NOTE | 2021-07-02 16:34 | REP ---
INDICATION: LUNG CA F/U. COMPARISON: 02/06/2021, 11/13/2020.. TECHNIQUE: Bolus of 100 mL Isovue 370 scanning through the chest with coronal and sagittal reconstructions. FINDINGS: There is a new right pleural effusion evident. It extends to the apex. The level of the conor on image 39 has a thickness of 1.7 cm in the mid clavicular line. The right upper lobe suprahilar mass anteriorly is again seen it measures 3.8 x 2.7 by 3.1 cm today and in January it was 3.5 x 4.2 by 4.2 cm show slightly smaller in volume. The right-sided hilar adenopathy is the same or slightly larger subcarinal node, precarinal node are again seen some AP window and prevascular space nodes are unchanged do not see left hilar added adenopathy of significance. Largest node there is 7.6 mm in short axis. Left atrium is enlarged. Prominence of the main right and left pulmonary arteries in the mediastinum and this tapers rapidly consistent with pulmonary artery hypertension, presumably on the basis of COPD. Advanced emphysematous changes with bullous changes, pleural based lesion peripherally in the right upper lobe and apical scarring on the right again noted. Some subpleural fibrotic changes are also noted and basilar fibrotic change small pericardial effusion posteriorly. The centrilobular emphysema is again noted and cylindrical bronchiectasis. Spiculated lesion right middle lobe is slightly decreased in overall size. Spiculated lesions seen in the right lower lobe on the previous study is nearly resolved. Atherosclerotic plaque in the thoracic aorta without aneurysm or dissection. An indwelling right jugular port catheter unchanged tip ends in the SVC. Great toe for 2-3 compression deformity T10 vertebral body unchanged vacuum phenomenon at multiple levels mid and lower thoracic region with no new compression fractures or destructive lesion. Sternum, manubrium, medial scapulae and clavicles, glenohumeral joints all without any definite acute bony lesion ribs without destructive lesion or fracture. The upper abdomen shows no new or acute finding. IMPRESSION: 1. Right upper lobe dominant mass slightly decreased in size as described in detail above. 2. The spiculated nodule right middle lobe is same or smaller and the right lower lobe spiculated changes from the previous exam are resolved. No new areas of parenchymal change are present with scarring apically and elsewhere. Advanced bullous emphysematous changes again seen. 3. New right pleural effusion as described above and a small pericardial effusion is seen which is unchanged. 4. Right hilar adenopathy the same or slightly larger. Mediastinal nodes are unchanged. No other new findings. <Electronically signed by Lino Lara > 07/02/21 [id number]
--- NOTE | 2021-07-02 16:46 | REP ---
INDICATION: LUNG CA F/U. COMPARISON: 02/06/2021 TECHNIQUE: Oral Gastrografin 10 mL in 290 mL clear liquid for 2 doses per our bowel contrast protocol. Bolus of 100 mL Isovue 370 given scanning through the abdomen and pelvis with coronal and sagittal reconstructions and delayed images through the abdomen. FINDINGS: CT abdomen: There is a new right pleural effusion as described. Please see CT chest for a full details in the lung findings. Small of pericardial effusion unchanged. No hiatal hernia. There is no hepatosplenomegaly, hepatic or splenic mass or intrahepatic biliary is dilatation. Appears to be trace ascites along the anterior aspect of the right hepatic lobe no ascites in the left upper quadrant this is stable small hiatal hernia suggested. Gallbladder without calcified stone or mass. Pancreas without mass or ductal dilatation. No peripancreatic inflammatory change or fluid collections. There is diverticulosis of the abdominal portion of the colon without diverticulitis or colitis small bowel loops are contrast filled but without dilatation or wall thickening atherosclerotic calcifications of the aorta and iliac vessels without aneurysm. The bone windows show few mm anterolisthesis of L4 on 5 due to facet arthropathy vacuum phenomena at all levels lumbar spine sparing L3-4 but all levels show loss of disc height. Lower thoracic spondylosis as well. No compression fracture, destructive bone lesion or other bony abnormality in the abdominal portion of the exam. No periaortic, retroperitoneal or mesenteric pathologic sized lymphadenopathy. Lung window review of all CT slices abdomen pelvis shows no perforation or free air. There are no inflammatory changes about the cecum. There are a few tiny pericecal nodes which I would regard as normal. CT pelvis: Old posttraumatic change of the right symphysis pubis and pubic rami stable. Bony pelvis shows no other acute finding. There are some degenerative changes at the acetabular roof left greater than right and small rim osteophytes in the femoral heads without AVN or focal lesion no fractures. Small bowel loops in the pelvis contrast filled but otherwise unremarkable. No ventral or inguinal hernia or inguinal adenopathy. No pelvic lymphadenopathy. Bladder partially filled and evidence for a pelvic floor relaxation based upon bladder configuration. No pelvic mass or free fluid. Pelvic portion of the left colon and sigmoid shows evidence for diverticulosis without diverticulitis. Nothing acute. IMPRESSION: 1. The right pleural effusion as described on the chest CT with small pericardial effusion and a trace amount of ascites adjacent the right hepatic lobe anteriorly. There are no other significant or acute findings as interval change. Only the pleural effusion was not present on the previous study. 2. No abdominal or pelvic adenopathy CT. Hepatic mass, adrenal lesion or other significant finding. <Electronically signed by Lino Lara > 07/02/21 [id number]
== END ==
LOC: M RAD 11:15
PROVIDERS: ATTEND Internal Medicine Medical Oncology
DX: C34.90 Malignant neoplasm of unspecified part of unspecified bronchus or lung (principal)
CPT/HCPCS: 71260; 74177; Q9963; Q9967

== ENCOUNTER → 2021-07-25 | Outpatient (CLI) | payer MEDICARE ==
[~2021-07-25] MED LIST changes: +ACET1TAB16 PO; +BIOT10TA2 PO; +CLOB5CR TOP; -GASTROGRAFIN SOLUTION 30ML (Q9963) As Ordered ONE; +HYDR-4571 PO; -ISOVUE-370 76% 100ML VIAL As Ordered ONE; +ONDA-84 PO; -ONDA8TAB10 PO; +OXYC-517 PO; -PROC10TA4 PO; +PROC10TA5 PO; +oxygen
[2021-07-25 14:38] VITALS: BP 123/59
== END ==
LOC: M IRPRO 11:52
PROVIDERS: ATTEND Internal Medicine Medical Oncology
DX: S22.070A Wedge compression fracture of T9-T10 vertebra, initial encounter for closed fracture (principal); J90 Pleural effusion, not elsewhere classified

== ENCOUNTER → 2021-08-06 | Outpatient (CLI) | payer MEDICARE ==
[~2021-08-06] MED LIST changes: -ACET1TAB16 PO; -HYDR-4571 PO; +ISOVUE-370 76% 100ML VIAL As Ordered ONE; -ONDA-84 PO; +ONDA8TAB10 PO; +PROC10TA4 PO; -PROC10TA5 PO; -oxygen
--- NOTE | 2021-08-06 17:15 | REPVR ---
PROCEDURE INFORMATION: Exam: CTA Chest With Contrast Exam date and time: 08/06/2021 3:39 PM Age: 76 years old Clinical indication: Shortness of breath; Additional info: Pos TECHNIQUE: Imaging protocol: Computed tomographic angiography of the chest with contrast. 3D rendering (Not supervised by radiologist): MIP and/or 3D reconstructed images were created by the technologist. Radiation optimization: All CT scans at this facility use at least one of these dose optimization techniques: automated exposure control; mA and/or kV adjustment per patient size (includes targeted exams where dose is matched to clinical indication); or iterative reconstruction. Contrast material: ISOVUE 370; Contrast volume: 75 ml; Contrast route: INTRAVENOUS (IV); COMPARISON: CT ANGIO CHEST 11/13/2020 10:26 AM FINDINGS: Pulmonary arteries: Central pulmonary arteries show no intraluminal defect suggestive of clot. Pulmonary vascular/interstitial pattern does not suggest active pulmonary edema. Aorta: Thoracic aorta is ectatic and atherosclerotic. No focal aneurysm or dissection. Other arteries: Atherosclerotic calcifications in the coronary vessels. Lungs: Anterior inferior right upper lobe mass measuring 3.6 x 2.9 cm, decreased in size compared to the prior CT. Centrilobular apical predominant emphysema with areas of pleural and parenchymal scarring particularly at the right lung apex. No new lung mass. Pleural spaces: Large dependent right pleural effusion with transudate density. No pneumothorax. Heart: Peripheral pulmonary artery evaluation limited by cardiac and respiratory motion artifact. No overt cardiac enlargement or abnormal volume of pericardial fluid. Lymph nodes: Mediastinal and hilar lymphadenopathy on the right, improved since the prior CT from October 2020. Bones/joints: Bony structures show no acute fracture or destructive process. Soft tissues: Unremarkable. IMPRESSION: 1. No evidence of acute, central pulmonary embolus. Peripheral pulmonary arterial evaluation is limited by cardiac and respiratory motion artifact. 2. Large dependent right pleural effusion, new since the recent prior CT, with residual or recurrent anterior inferior right upper lobe mass 3.6 x 2.9 cm, decreased in size compared to the prior CT, but with mediastinal and right hilar adenopathy and the appearance obviously concerning for recurrent or residual malignancy. 3. Apical predominant emphysema Electronically signed by: Jc Stoddard On 08/06/2021 17:14:44 PM
== END ==
LOC: M RAD 14:56
PROVIDERS: ATTEND Internal Medicine Medical Oncology
DX: R91.8 Other nonspecific abnormal finding of lung field (principal); R06.02 Shortness of breath
CPT/HCPCS: 71275; Q9967

== ENCOUNTER → 2021-10-15 | Outpatient (REF) | payer MEDICARE ==
[~2021-10-15] MED LIST changes: +HYDR-4571 PO; -ISOVUE-370 76% 100ML VIAL As Ordered ONE; +ONDA-84 PO; -ONDA8TAB10 PO; -PROC10TA4 PO; +PROC10TA5 PO; +oxygen
[2021-10-16 13:11] LABS: BASOPHILS 1 % (0-1); LYMPHOCYTES 5 % (16-44); MONOCYTES 9 % (0-5); NEUTROPHILS 85 % (28-66)
[2021-10-16 13:12] LABS: PLATELET ESTIMATE NORMAL (NORMAL)
== END ==
LOC: M LAB REF 11:53
PROVIDERS: ATTEND Internal Medicine
DX: C34.11 Malignant neoplasm of upper lobe, right bronchus or lung (principal); D72.89 Other specified disorders of white blood cells

== ENCOUNTER → 2021-10-15 | Outpatient (CLI) | payer MEDICARE ==
[~2021-10-15] MED LIST changes: +ACET1TAB16 PO
== END ==
LOC: M PLARAD 11:07
PROVIDERS: ATTEND Internal Medicine Medical Oncology
DX: C34.32 Malignant neoplasm of lower lobe, left bronchus or lung (principal)
CPT/HCPCS: 78815; A9552

== ENCOUNTER → 2021-10-17 | Outpatient (REF) | payer MEDICARE ==
[~2021-10-17] MED LIST changes: -ACET1TAB16 PO
[2021-10-17 12:42] LABS: INR 1.07; PROTHROMBIN TIME 14.3 SECONDS (12.7-14.5)
[2021-10-17 12:43] LABS: PARTIAL THROMBOPLASTIN TIME 34.3 SECONDS (25.9-37.0)
== END ==
LOC: M LAB REF 12:03
PROVIDERS: ATTEND Family Medicine
DX: Z79.01 Long term (current) use of anticoagulants (principal)

== ENCOUNTER → 2021-10-25 | Outpatient (CLI) | payer MEDICARE ==
[~2021-10-25] MED LIST changes: +ACET1TAB16 PO
[2021-10-25 11:25] VITALS: BP 132/89
[2021-10-25 11:26] LABS: APPEARANCE, BODY FLUID CLEAR (CLEAR); PLEURAL FL COLOR YELLOW (COLORLESS); SOURCE, BODY FLUID PLEURAL
[2021-10-25 11:58] LABS: LDH, BODY FLUID 121 U/L (NOT ESTABLISHED); SOURCE, BODY FLUID GLUCOSE PLEURAL; SOURCE, BODY FLUID LDH THORACENTESIS; SOURCE, BODY FLUID TOT PROTEIN THORACENTESIS; TOTAL PROTEIN, BODY FLUID 3.9 G/DL (NOT ESTABLISHED)
== END ==
LOC: M IRPRO 08:36
PROVIDERS: ATTEND Internal Medicine
DX: C34.11 Malignant neoplasm of upper lobe, right bronchus or lung (principal); J91.8 Pleural effusion in other conditions classified elsewhere

== ENCOUNTER → 2021-11-06 | Outpatient (CLI) | payer MEDICARE | LOC: M RAD 11:58 | PROVIDERS: ATTEND Internal Medicine Medical Oncology | DX: R06.02 Shortness of breath (principal) ==

== ENCOUNTER → 2021-12-05 | Outpatient (CLI) | payer MEDICARE ==
[~2021-12-05] MED LIST changes: -ACET1TAB16 PO; +ACET300T48 PO
== END ==
LOC: M ONCR 10:21
PROVIDERS: ATTEND General Practice
DX: C34.11 Malignant neoplasm of upper lobe, right bronchus or lung (principal); J90 Pleural effusion, not elsewhere classified; F17.210 Nicotine dependence, cigarettes, uncomplicated; R93.89 Abnormal findings on diagnostic imaging of other specified body structures; Z87.09 Personal history of other diseases of the respiratory system; Z92.3 Personal history of irradiation

== ENCOUNTER → 2021-12-21 | Outpatient (CLI) | payer MEDICARE | LOC: M RAD 10:01 | PROVIDERS: ATTEND Internal Medicine Medical Oncology | DX: R91.8 Other nonspecific abnormal finding of lung field (principal); R05.9 Cough, unspecified; R07.89 Other chest pain ==

== ENCOUNTER → 2022-01-23 | Outpatient (REF) | payer MEDICARE ==
[2022-01-23 18:28] LABS: BASOPHILS 2 % (0-1); LYMPHOCYTES 8 % (16-44); MONOCYTES 14 % (0-5); NEUTROPHILS 74 % (28-66)
[2022-01-23 18:29] LABS: PLATELET ESTIMATE NORMAL (NORMAL)
[2022-01-23 19:48] LABS: % LABILE ALKALINE PHOSPHATASE 57.7 %
== END ==
LOC: M LAB REF 16:01
PROVIDERS: ATTEND Family Medicine
DX: R74.8 Abnormal levels of other serum enzymes (principal); D72.9 Disorder of white blood cells, unspecified

== ENCOUNTER → 2022-01-24 | Outpatient (CLI) | payer MEDICARE ==
[~2022-01-24] MED LIST changes: +GASTROGRAFIN SOLUTION 30ML (Q9963) As Ordered ONE; +ISOVUE-370 76% 100ML VIAL As Ordered ONE
== END ==
LOC: M RAD 11:07
PROVIDERS: ATTEND Internal Medicine Medical Oncology
DX: C34.11 Malignant neoplasm of upper lobe, right bronchus or lung (principal); J90 Pleural effusion, not elsewhere classified; K57.30 Diverticulosis of large intestine without perforation or abscess without bleeding; S22.050A Wedge compression fracture of T5-T6 vertebra, initial encounter for closed fracture
CPT/HCPCS: 71260; 74177; Q9963; Q9967

== ENCOUNTER → 2022-02-06 | Outpatient (CLI) | payer MEDICARE ==
[~2022-02-06] MED LIST changes: -GASTROGRAFIN SOLUTION 30ML (Q9963) As Ordered ONE; -ISOVUE-370 76% 100ML VIAL As Ordered ONE
[2022-02-06 16:26] LABS: BASO % 0.4 % (0.0-1.0); EOS % 0.5 % (0.0-3.0); HEMATOCRIT 42.4 % (36.0-47.0); HEMOGLOBIN 13.3 g/dl (12.0-15.5); LYMPH # 0.7 10^3/uL (1.5-5.0); LYMPH % 8.8 % (24.0-44.0); MEAN CORPUSCULAR HEMOGLOBIN 30.2 pg (27.0-33.0); MEAN CORPUSCULAR HGB CONC 31.4 g/dl (32.0-36.5); MEAN CORPUSCULAR VOLUME 96.4 fl (80.0-96.0); MONO # 0.7 10^3/uL (0.0-0.8); MONO % 8.8 % (2.0-8.0); NEUTROPHILS # 6.4 10^3/uL (1.5-8.5); NEUTROPHILS % 81.2 % (36.0-66.0); PLATELET COUNT, AUTOMATED 220 10^3/uL (150-450); WHITE BLOOD COUNT 7.8 10^3/uL (4.0-10.0)
[2022-02-06 16:52] LABS: ALBUMIN 3.5 GM/DL (3.2-5.2); ALT/SGPT 37 U/L (12-78); BILIRUBIN,TOTAL 0.4 MG/DL (0.2-1.0); BLOOD UREA NITROGEN 18 MG/DL (7-18); CARBON DIOXIDE LEVEL 31 MEQ/L (21-32); CHLORIDE LEVEL 101 MEQ/L (98-107); CREATININE FOR GFR 0.86 MG/DL (0.55-1.30); GLOMERULAR FILTRATION RATE > 60.0 (>39); GLUCOSE, FASTING 129 MG/DL (70-100); POTASSIUM SERUM 4.6 MEQ/L (3.5-5.1); SODIUM LEVEL 137 MEQ/L (136-145)
[2022-02-06 17:14] LABS: INR 1.17; PROTHROMBIN TIME 15.3 SECONDS (12.7-14.5)
[2022-02-06 17:15] LABS: PARTIAL THROMBOPLASTIN TIME 33.3 SECONDS (25.9-37.0)
== END ==
LOC: M ADAMS 14:04
PROVIDERS: ATTEND Internal Medicine Medical Oncology
DX: C34.90 Malignant neoplasm of unspecified part of unspecified bronchus or lung (principal)

== ENCOUNTER → 2022-02-13 | Outpatient (CLI) | payer MEDICARE ==
[~2022-02-13] MED LIST changes: +MELA3TAB29 PO; +vitamin D
[2022-02-13 13:15] VITALS: BP 143/65
== END ==
LOC: M IRPRO 09:57
PROVIDERS: ATTEND Internal Medicine Medical Oncology
DX: D14.32 Benign neoplasm of left bronchus and lung (principal)

== ENCOUNTER → 2022-02-13 | Outpatient (CLI) | payer MEDICARE | LOC: M WHC 08:12 | PROVIDERS: ATTEND Internal Medicine Medical Oncology | DX: Z13.820 Encounter for screening for osteoporosis (principal); M81.0 Age-related osteoporosis without current pathological fracture ==

== ENCOUNTER 2022-05-06 09:51 | Inpatient (IN) | payer MEDICARE ==
[2022-05-06] VITALS (7 sets, daily range): BP systolic 110–132; BP diastolic 58–62
[~2022-05-06] VITALS: Ht 154.9 cm; Wt 47.0 kg
[2022-05-06 12:50] LABS: ABG BASE EXCESS 7.5 (-2.0-2.0); ABG HCO3 30.7 MEQ/L (22.0-26.0); ABG O2 SATURATION 92.4 % (95.0-99.0); ABG PARTIAL PRESSURE CO2 38.2 mmHg (35.0-45.0); ABG PARTIAL PRESSURE O2 60.6 mmHg (75.0-100.0); ABG STANDARD HCO3 31.2 MEQ/L (22.0-26.0); ABG TOTAL CO2 31.9 MEQ/L (23.0-31.0); ABG pH (ARTERIAL) 7.523 UNITS (7.350-7.450)
[2022-05-06 13:52] LABS: BASO % 0.1 % (0.0-1.0); HEMOGLOBIN 12.4 g/dl (12.0-15.5); LYMPH # 0.2 10^3/uL (1.5-5.0); LYMPH % 1.1 % (24.0-44.0); MEAN CORPUSCULAR HEMOGLOBIN 30.4 pg (27.0-33.0); MEAN CORPUSCULAR HGB CONC 32.6 g/dl (32.0-36.5); MEAN CORPUSCULAR VOLUME 93.1 fl (80.0-96.0); MONO # 0.4 10^3/uL (0.0-0.8); MONO % 2.4 % (2.0-8.0); NEUTROPHILS # 16.1 10^3/uL (1.5-8.5); NEUTROPHILS % 95.7 % (36.0-66.0); PLATELET COUNT, AUTOMATED 533 10^3/uL (150-450); RED BLOOD COUNT 4.08 10^6/uL (4.00-5.40); WHITE BLOOD COUNT 16.8 10^3/uL (4.0-10.0)
[2022-05-06 14:10] LABS: ALBUMIN 2.2 GM/DL (3.2-5.2); ALT/SGPT 27 U/L (12-78); BILIRUBIN,TOTAL 0.4 MG/DL (0.2-1.0); BLOOD UREA NITROGEN 18 MG/DL (7-18); CALCIUM LEVEL 9.3 MG/DL (8.8-10.2); CARBON DIOXIDE LEVEL 29 MEQ/L (21-32); CHLORIDE LEVEL 96 MEQ/L (98-107); CK-MB VALUE MASS < 1.0 NG/ML (<3.6); CPK CREATINE PHOSPHOKINASE 18 U/L (26-192); CREATININE FOR GFR 0.81 MG/DL (0.55-1.30); GLOMERULAR FILTRATION RATE > 60.0 (>39); GLUCOSE, FASTING 131 MG/DL (70-100); MAGNESIUM LEVEL 1.9 MG/DL (1.8-2.4); MB/CK RELATIVE INDEX 5.56 (< OR =4); NT-PRO BNP 1502 PG/ML (<450); PHOSPHORUS LEVEL 2.2 MG/DL (2.5-4.9); POTASSIUM SERUM 3.9 MEQ/L (3.5-5.1); SODIUM LEVEL 132 MEQ/L (136-145); TOTAL PROTEIN 6.5 GM/DL (6.4-8.2)
[2022-05-06] MEDS ORDERED: SERT-141 PO (14:42)
[2022-05-06] MEDS ORDERED: MELA1TAB9 PO (14:42)
[2022-05-06] MEDS ORDERED: ALBU2.5V10 INH (14:42)
[2022-05-06] MEDS ORDERED: BENZ-18 PO (14:42)
[2022-05-06] MEDS ORDERED: ONDA-83 PO (14:42)
[2022-05-06] MEDS ORDERED: BUDE0.5S6 INH (14:42)
[2022-05-06] MEDS ORDERED: ALBU2.5V10 NEB (14:42)
[2022-05-06] MEDS ORDERED: BACT800T5 PO (14:42)
[2022-05-06] MEDS ORDERED: HOME MED LIST COMPLETE! XX SCH (14:45)
[2022-05-06] MEDS: IPRATROPIUM 0.02% SOLN 0.5MG 2.5ML NEB INH SCH ×3 (15:15→23:32)
[2022-05-06] MEDS: PANTOPRAZOLE 40MG VIAL IV SCH (15:40)
[2022-05-06] MEDS: methylPREDNISolone 40MG 1ML VIAL IV SCH (15:40)
[2022-05-06] MEDS: cefTRIAXone SOD 1 GM in D5W MINI-BAG PLUS 50 ML IV SCH (15:40)
[2022-05-06] MEDS ORDERED: FUROSEMIDE 20MG/2ML VIAL (J1940) IV ONE (16:20)
[2022-05-06] MEDS ORDERED: MAGNESIUM OXIDE 400MG TAB (MAG-OX) PO ONE (16:20)
[2022-05-06] MEDS: NEUTRA-PHOS 1.5 GM PACKET PO SCH (20:12)
[2022-05-06] MEDS: APIXABAN 5 MG TAB (ELIQUIS) PO SCH (20:12)
[2022-05-06] MEDS: CLOPIDOGREL 75 MG TAB PO SCH (20:12)
[2022-05-06] MEDS: ATORVASTATIN 20 MG TAB PO SCH (20:13)
[2022-05-06] MEDS: CHLORHEXIDINE GLUCONATE 0.12 % 15ML UDC (PERIDEX ORAL RINSE) MT SCH (20:13)
[2022-05-07] VITALS (26 sets, daily range): BP systolic 122–172; BP diastolic 58–83; O2SAT 88
[2022-05-07] MEDS: IPRATROPIUM 0.02% SOLN 0.5MG 2.5ML NEB INH SCH ×6 (03:25→23:41)
[2022-05-07] MEDS: methylPREDNISolone 40MG 1ML VIAL IV SCH ×2 (04:04→15:06)
[2022-05-07 05:04] LABS: BASO % 0.1 % (0.0-1.0); HEMATOCRIT 37.7 % (36.0-47.0); HEMOGLOBIN 12.3 g/dl (12.0-15.5); LYMPH # 0.4 10^3/uL (1.5-5.0); MEAN CORPUSCULAR HEMOGLOBIN 30.2 pg (27.0-33.0); MEAN CORPUSCULAR HGB CONC 32.6 g/dl (32.0-36.5); MEAN CORPUSCULAR VOLUME 92.6 fl (80.0-96.0); MONO # 0.9 10^3/uL (0.0-0.8); MONO % 6.4 % (2.0-8.0); NEUTROPHILS # 12.7 10^3/uL (1.5-8.5); NEUTROPHILS % 89.6 % (36.0-66.0); PLATELET COUNT, AUTOMATED 513 10^3/uL (150-450); RED BLOOD COUNT 4.07 10^6/uL (4.00-5.40); WHITE BLOOD COUNT 14.2 10^3/uL (4.0-10.0)
[2022-05-07 05:37] LABS: ALBUMIN 2.2 GM/DL (3.2-5.2); ALT/SGPT 24 U/L (12-78); BILIRUBIN,TOTAL 0.4 MG/DL (0.2-1.0); BLOOD UREA NITROGEN 20 MG/DL (7-18); CALCIUM LEVEL 8.9 MG/DL (8.8-10.2); CARBON DIOXIDE LEVEL 33 MEQ/L (21-32); CHLORIDE LEVEL 95 MEQ/L (98-107); CREATININE FOR GFR 0.75 MG/DL (0.55-1.30); GLOMERULAR FILTRATION RATE > 60.0 (>39); GLUCOSE, FASTING 108 MG/DL (70-100); POTASSIUM SERUM 4.2 MEQ/L (3.5-5.1); SODIUM LEVEL 133 MEQ/L (136-145); TOTAL PROTEIN 5.7 GM/DL (6.4-8.2)
[2022-05-07 05:42] LABS: ABG BASE EXCESS 9.8 (-2.0-2.0); ABG HCO3 34.2 MEQ/L (22.0-26.0); ABG O2 SATURATION 94.7 % (95.0-99.0); ABG PARTIAL PRESSURE CO2 45.2 mmHg (35.0-45.0); ABG PARTIAL PRESSURE O2 73.1 mmHg (75.0-100.0); ABG STANDARD HCO3 33.5 MEQ/L (22.0-26.0); ABG TOTAL CO2 35.6 MEQ/L (23.0-31.0); ABG pH (ARTERIAL) 7.497 UNITS (7.350-7.450)
[2022-05-07 06:22] LABS: APPEARANCE, URINE MANUAL CLEAR (CLEAR); COLOR, URINE MANUAL YELLOW (YELLOW); SPECIFIC GRAVITY,URINE MANUAL 1.019 (1.002-1.035)
[2022-05-07 06:48] LABS: BILIRUBIN, URINE MANUAL NEGATIVE (NEGATIVE); BLOOD URINE MANUAL TRACE (NEGATIVE); GLUCOSE, URINE (UA) MANUAL NEGATIVE (NEGATIVE); KETONE, URINE MANUAL NEGATIVE (NEGATIVE); LEUKOCYTE ESTERASE, URINE MAN NEGATIVE (NEGATIVE); NITRITE, URINE MANUAL NEGATIVE (NEGATIVE); PROTEIN, URINE MANUAL NEGATIVE (NEGATIVE); UROBILINOGEN, URINE MANUAL NORMAL (NORMAL)
[2022-05-07 07:05] LABS: SQUAMOUS EPITHELIAL CELL URINE NONE SEEN /hpf (SMALL AMT); WBC, URINE 0-1 /hpf (0-3)
[2022-05-07 07:06] LABS: AMORPHOUS SEDIMENT, URINE SMALL AMOUNT (NEGATIVE); BACTERIA, URINE NONE SEEN; HYALINE CAST, URINE NONE SEEN /lpf (0-1)
[2022-05-07] MEDS: CHLORHEXIDINE GLUCONATE 0.12 % 15ML UDC (PERIDEX ORAL RINSE) MT SCH ×2 (08:45→21:00)
[2022-05-07] MEDS: NEUTRA-PHOS 1.5 GM PACKET PO SCH ×2 (08:45→20:19)
[2022-05-07] MEDS: APIXABAN 5 MG TAB (ELIQUIS) PO SCH ×2 (08:45→20:19)
[2022-05-07] MEDS: SERTRALINE 100 MG TAB PO SCH (08:45)
[2022-05-07] MEDS: cefTRIAXone SOD 1 GM in D5W MINI-BAG PLUS 50 ML IV SCH (15:06)
[2022-05-07] MEDS: PANTOPRAZOLE 40MG VIAL IV SCH (15:06)
[2022-05-07] MEDS: CLOPIDOGREL 75 MG TAB PO SCH (20:19)
[2022-05-07] MEDS: ATORVASTATIN 20 MG TAB PO SCH (20:19)
[2022-05-08] VITALS (19 sets, daily range): BP systolic 116–176; BP diastolic 57–82; O2SAT 95
[2022-05-08] MEDS: RAMELTEON 8 MG TAB (ROZEREM) PO PRN (00:15)
[2022-05-08] MEDS: IPRATROPIUM 0.02% SOLN 0.5MG 2.5ML NEB INH SCH ×6 (04:00→23:37)
[2022-05-08] MEDS: methylPREDNISolone 40MG 1ML VIAL IV SCH ×2 (04:13→15:15)
[2022-05-08 04:52] LABS: BASO % 0.1 % (0.0-1.0); EOS % 0.1 % (0.0-3.0); HEMATOCRIT 35.3 % (36.0-47.0); HEMOGLOBIN 11.6 g/dl (12.0-15.5); LYMPH # 0.6 10^3/uL (1.5-5.0); LYMPH % 4.1 % (24.0-44.0); MEAN CORPUSCULAR HGB CONC 32.9 g/dl (32.0-36.5); MEAN CORPUSCULAR VOLUME 94.4 fl (80.0-96.0); MONO # 1.1 10^3/uL (0.0-0.8); MONO % 7.3 % (2.0-8.0); NEUTROPHILS # 13.2 10^3/uL (1.5-8.5); NEUTROPHILS % 87.7 % (36.0-66.0); PLATELET COUNT, AUTOMATED 517 10^3/uL (150-450); RED BLOOD COUNT 3.74 10^6/uL (4.00-5.40)
[2022-05-08 05:24] LABS: ABG BASE EXCESS 6.3 (-2.0-2.0); ABG HCO3 30.7 MEQ/L (22.0-26.0); ABG PARTIAL PRESSURE CO2 43.5 mmHg (35.0-45.0); ABG PARTIAL PRESSURE O2 66.1 mmHg (75.0-100.0); ABG STANDARD HCO3 30.1 MEQ/L (22.0-26.0); ABG TOTAL CO2 32.1 MEQ/L (23.0-31.0); ABG pH (ARTERIAL) 7.467 UNITS (7.350-7.450)
[2022-05-08 05:24] LABS: ALBUMIN 2.2 GM/DL (3.2-5.2); ALT/SGPT 43 U/L (12-78); BILIRUBIN,TOTAL 0.3 MG/DL (0.2-1.0); BLOOD UREA NITROGEN 28 MG/DL (7-18); CARBON DIOXIDE LEVEL 32 MEQ/L (21-32); CHLORIDE LEVEL 96 MEQ/L (98-107); CREATININE FOR GFR 0.72 MG/DL (0.55-1.30); GLOMERULAR FILTRATION RATE > 60.0 (>39); GLUCOSE, FASTING 114 MG/DL (70-100); POTASSIUM SERUM 4.2 MEQ/L (3.5-5.1); SODIUM LEVEL 132 MEQ/L (136-145); TOTAL PROTEIN 5.5 GM/DL (6.4-8.2)
[2022-05-08] MEDS ORDERED: FUROSEMIDE 20MG/2ML VIAL (J1940) IV ONE (07:15)
[2022-05-08] MEDS: CHLORHEXIDINE GLUCONATE 0.12 % 15ML UDC (PERIDEX ORAL RINSE) MT SCH ×2 (07:51→20:17)
[2022-05-08] MEDS: NEUTRA-PHOS 1.5 GM PACKET PO SCH ×2 (07:51→20:16)
[2022-05-08] MEDS: APIXABAN 5 MG TAB (ELIQUIS) PO SCH ×2 (07:51→20:17)
[2022-05-08] MEDS: SERTRALINE 100 MG TAB PO SCH (07:51)
[2022-05-08] MEDS: PANTOPRAZOLE 40MG VIAL IV SCH (15:15)
[2022-05-08] MEDS: cefTRIAXone SOD 1 GM in D5W MINI-BAG PLUS 50 ML IV SCH (15:15)
[2022-05-08] MEDS: CLOPIDOGREL 75 MG TAB PO SCH (20:17)
[2022-05-08] MEDS: ATORVASTATIN 20 MG TAB PO SCH (20:17)
[2022-05-09] VITALS (11 sets, daily range): BP systolic 125–160; BP diastolic 57–75
[2022-05-09] MEDS: IPRATROPIUM 0.02% SOLN 0.5MG 2.5ML NEB INH SCH ×6 (03:06→23:19)
[2022-05-09] MEDS: methylPREDNISolone 40MG 1ML VIAL IV SCH ×2 (03:25→15:40)
[2022-05-09 04:51] LABS: BASO % 0.2 % (0.0-1.0); HEMATOCRIT 37.3 % (36.0-47.0); HEMOGLOBIN 12.4 g/dl (12.0-15.5); LYMPH # 0.6 10^3/uL (1.5-5.0); LYMPH % 4.3 % (24.0-44.0); MEAN CORPUSCULAR HEMOGLOBIN 30.7 pg (27.0-33.0); MEAN CORPUSCULAR HGB CONC 33.2 g/dl (32.0-36.5); MEAN CORPUSCULAR VOLUME 92.3 fl (80.0-96.0); MONO # 0.9 10^3/uL (0.0-0.8); MONO % 6.8 % (2.0-8.0); NEUTROPHILS # 11.7 10^3/uL (1.5-8.5); NEUTROPHILS % 87.9 % (36.0-66.0); PLATELET COUNT, AUTOMATED 522 10^3/uL (150-450); RED BLOOD COUNT 4.04 10^6/uL (4.00-5.40); WHITE BLOOD COUNT 13.3 10^3/uL (4.0-10.0)
[2022-05-09 05:28] LABS: ALBUMIN 2.3 GM/DL (3.2-5.2); ALT/SGPT 51 U/L (12-78); BILIRUBIN,TOTAL 0.4 MG/DL (0.2-1.0); BLOOD UREA NITROGEN 25 MG/DL (7-18); CARBON DIOXIDE LEVEL 32 MEQ/L (21-32); CHLORIDE LEVEL 95 MEQ/L (98-107); CREATININE FOR GFR 0.71 MG/DL (0.55-1.30); GLOMERULAR FILTRATION RATE > 60.0 (>39); GLUCOSE, FASTING 116 MG/DL (70-100); MAGNESIUM LEVEL 2.1 MG/DL (1.8-2.4); PHOSPHORUS LEVEL 3.7 MG/DL (2.5-4.9); POTASSIUM SERUM 4.3 MEQ/L (3.5-5.1); SODIUM LEVEL 131 MEQ/L (136-145); TOTAL PROTEIN 5.9 GM/DL (6.4-8.2)
[2022-05-09 07:15] LABS: OSMOLALITY SERUM 283 MOSM/KG (280-301)
[2022-05-09] MEDS: CHLORHEXIDINE GLUCONATE 0.12 % 15ML UDC (PERIDEX ORAL RINSE) MT SCH ×2 (08:06→20:12)
[2022-05-09] MEDS: NEUTRA-PHOS 1.5 GM PACKET PO SCH ×2 (08:35→20:12)
[2022-05-09] MEDS: SERTRALINE 100 MG TAB PO SCH (08:36)
[2022-05-09] MEDS: APIXABAN 5 MG TAB (ELIQUIS) PO SCH ×2 (08:36→20:12)
[2022-05-09] MEDS ORDERED: TORSEMIDE 20 MG TAB PO SCH (09:00)
[2022-05-09 10:46] LABS: HEPATITIS B SURFACE ANTIGEN NEGATIVE (NEGATIVE)
[2022-05-09 11:12] LABS: HEPATITIS C VIRUS ABY INDEX < 0.0 INDEX (<0.8)
[2022-05-09 11:13] LABS: HEPATITIS B CORE ANTIBODY IGM NEGATIVE (NEGATIVE)
[2022-05-09] MEDS: CEFDINIR 300 MG CAP (OMNICEF) PO SCH ×2 (13:33→20:12)
[2022-05-09] MEDS: PANTOPRAZOLE 40MG VIAL IV SCH (15:40)
[2022-05-09] MEDS: ATORVASTATIN 20 MG TAB PO SCH (20:12)
[2022-05-09] MEDS: CLOPIDOGREL 75 MG TAB PO SCH (20:12)
[2022-05-09] MEDS: RAMELTEON 8 MG TAB (ROZEREM) PO PRN (22:32)
[2022-05-10] MEDS: methylPREDNISolone 40MG 1ML VIAL IV SCH ×2 (03:36→15:45)
[2022-05-10] MEDS: IPRATROPIUM 0.02% SOLN 0.5MG 2.5ML NEB INH SCH ×4 (03:58→15:15)
[2022-05-10 04:00] VITALS: BP 178/82
[2022-05-10 05:38] LABS: BASO % 0.1 % (0.0-1.0); HEMATOCRIT 37.8 % (36.0-47.0); HEMOGLOBIN 12.5 g/dl (12.0-15.5); LYMPH # 0.4 10^3/uL (1.5-5.0); LYMPH % 3.2 % (24.0-44.0); MEAN CORPUSCULAR HEMOGLOBIN 30.3 pg (27.0-33.0); MEAN CORPUSCULAR HGB CONC 33.1 g/dl (32.0-36.5); MEAN CORPUSCULAR VOLUME 91.5 fl (80.0-96.0); MONO # 0.7 10^3/uL (0.0-0.8); MONO % 5.4 % (2.0-8.0); NEUTROPHILS # 11.8 10^3/uL (1.5-8.5); NEUTROPHILS % 90.5 % (36.0-66.0); PLATELET COUNT, AUTOMATED 466 10^3/uL (150-450); RED BLOOD COUNT 4.13 10^6/uL (4.00-5.40); WHITE BLOOD COUNT 13.1 10^3/uL (4.0-10.0)
[2022-05-10 06:08] LABS: ALBUMIN 2.3 GM/DL (3.2-5.2); ALT/SGPT 49 U/L (12-78); BILIRUBIN,TOTAL 0.4 MG/DL (0.2-1.0); BLOOD UREA NITROGEN 28 MG/DL (7-18); CALCIUM LEVEL 8.9 MG/DL (8.8-10.2); CARBON DIOXIDE LEVEL 36 MEQ/L (21-32); CHLORIDE LEVEL 91 MEQ/L (98-107); CREATININE FOR GFR 0.94 MG/DL (0.55-1.30); GLOMERULAR FILTRATION RATE > 60.0 (>39); GLUCOSE, FASTING 123 MG/DL (70-100); POTASSIUM SERUM 3.7 MEQ/L (3.5-5.1); SODIUM LEVEL 130 MEQ/L (136-145); TOTAL PROTEIN 5.9 GM/DL (6.4-8.2)
[2022-05-10 07:54] VITALS: BP 124/62
[2022-05-10] MEDS: APIXABAN 5 MG TAB (ELIQUIS) PO SCH (08:23)
[2022-05-10] MEDS: SERTRALINE 100 MG TAB PO SCH (08:23)
[2022-05-10] MEDS: NEUTRA-PHOS 1.5 GM PACKET PO SCH (08:23)
[2022-05-10] MEDS: CEFDINIR 300 MG CAP (OMNICEF) PO SCH (08:23)
[2022-05-10] MEDS: CHLORHEXIDINE GLUCONATE 0.12 % 15ML UDC (PERIDEX ORAL RINSE) MT SCH (08:23)
[2022-05-10] MEDS ORDERED: TORSEMIDE 20 MG TAB PO SCH (09:00)
[2022-05-10] MEDS: PANTOPRAZOLE 40MG VIAL IV SCH (14:54)
[2022-05-10 15:26] LABS: CALCIUM LEVEL 8.6 MG/DL (8.8-10.2); CREATININE FOR GFR 0.99 MG/DL (0.55-1.30); GLOMERULAR FILTRATION RATE 57.8 (>39); POTASSIUM SERUM 3.5 MEQ/L (3.5-5.1)
[2022-05-10 15:42] VITALS: BP 137/68
[2022-05-10] MEDS ORDERED: PRED10TA2 PO (16:14)
[2022-05-10] MEDS ORDERED: CEFD300CAP PO (16:14)
[2022-05-10] MEDS ORDERED: FURO20TA2 PO (16:14)
== END 2022-05-10 17:25 | disposition home or self-care (01) | DRG 196 ==
LOC: M ICU 12:26
PROVIDERS: ADMIT Internal Medicine Critical Care Medicine; ATTEND Internal Medicine
DX: J84.9 Interstitial pulmonary disease, unspecified (principal); J96.21 Acute and chronic respiratory failure with hypoxia; J96.22 Acute and chronic respiratory failure with hypercapnia; J44.1 Chronic obstructive pulmonary disease with (acute) exacerbation; N39.0 Urinary tract infection, site not specified; E87.1 Hypo-osmolality and hyponatremia; J90 Pleural effusion, not elsewhere classified; I48.91 Unspecified atrial fibrillation; I27.23 Pulmonary hypertension due to lung diseases and hypoxia; E78.5 Hyperlipidemia, unspecified; R74.01 Elevation of levels of liver transaminase levels; F41.9 Anxiety disorder, unspecified; Z87.891 Personal history of nicotine dependence; Z99.81 Dependence on supplemental oxygen; Z79.899 Other long term (current) drug therapy; Z79.01 Long term (current) use of anticoagulants; Z79.02 Long term (current) use of antithrombotics/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; Z85.118 Personal history of other malignant neoplasm of bronchus and lung; Z92.21 Personal history of antineoplastic chemotherapy; Z88.1 Allergy status to other antibiotic agents; Z88.8 Allergy status to other drugs, medicaments and biological substances

== ENCOUNTER → 2022-05-13 | Outpatient (REF) | payer MEDICARE ==
[~2022-05-13] MED LIST changes: +ALBU2.5V10 INH; +ALBU2.5V10 NEB; +BACT800T5 PO; +BUDE0.5S6 INH; +CEFD300CAP PO; +MELA1TAB9 PO; +ONDA-83 PO
[2022-05-13 20:37] LABS: EOSINOPHILS 1 % (0-3); LYMPHOCYTES 5 % (16-44); MONOCYTES 4 % (0-5); NEUTROPHILS 90 % (28-66)
[2022-05-13 20:39] LABS: PLATELET CLUMPS SMALL AMT; PLATELET ESTIMATE NORMAL (NORMAL)
== END ==
LOC: M LAB REF 16:29
PROVIDERS: ATTEND Family Medicine
DX: D72.9 Disorder of white blood cells, unspecified (principal)

== ENCOUNTER → 2022-06-13 | Outpatient (CLI) | payer MEDICARE | LOC: M ONCR 12:57 | PROVIDERS: ATTEND General Practice | DX: C34.11 Malignant neoplasm of upper lobe, right bronchus or lung (principal); Z79.01 Long term (current) use of anticoagulants; Z79.02 Long term (current) use of antithrombotics/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; Z79.2 Long term (current) use of antibiotics; Z79.51 Long term (current) use of inhaled steroids; Z79.899 Other long term (current) drug therapy; Z79.52 Long term (current) use of systemic steroids; Z88.1 Allergy status to other antibiotic agents; Z88.8 Allergy status to other drugs, medicaments and biological substances; Z92.21 Personal history of antineoplastic chemotherapy; Z92.3 Personal history of irradiation; Z99.81 Dependence on supplemental oxygen ==

== ENCOUNTER → 2022-07-01 | Outpatient (CLI) | payer MEDICARE | LOC: M WHC 12:06 | PROVIDERS: ATTEND Nurse Practitioner | DX: M79.89 Other specified soft tissue disorders (principal) ==

== ENCOUNTER → 2022-07-12 | Outpatient (CLI) | payer MEDICARE ==
[~2022-07-12] MED LIST changes: +ISOVUE-370 76% 100ML VIAL As Ordered ONE
== END ==
LOC: M RAD 08:43
PROVIDERS: ATTEND Nurse Practitioner
DX: C34.90 Malignant neoplasm of unspecified part of unspecified bronchus or lung (principal)
CPT/HCPCS: 71260; Q9967

== ENCOUNTER → 2022-09-20 | Outpatient (CLI) | payer MEDICARE ==
[~2022-09-20] MED LIST changes: +ACET650T61 PO; -ISOVUE-370 76% 100ML VIAL As Ordered ONE
== END ==
LOC: M RAD 12:12
PROVIDERS: ATTEND Nurse Practitioner
DX: C34.90 Malignant neoplasm of unspecified part of unspecified bronchus or lung (principal)

== ENCOUNTER → 2022-11-25 | Outpatient (CLI) | payer MEDICARE | LOC: M PLARAD 09:42 | PROVIDERS: ATTEND Nurse Practitioner | DX: C34.32 Malignant neoplasm of lower lobe, left bronchus or lung (principal) | CPT/HCPCS: 78815; A9552 ==

== ENCOUNTER → 2022-12-12 | Outpatient (CLI) | payer MEDICARE ==
[~2022-12-12] MED LIST changes: +LASI20TA3 PO; +SERT50TA29; +VITA100093 PO
== END ==
LOC: M ONCR 13:34
PROVIDERS: ATTEND General Practice
DX: C34.11 Malignant neoplasm of upper lobe, right bronchus or lung (principal); C78.1 Secondary malignant neoplasm of mediastinum; R91.8 Other nonspecific abnormal finding of lung field; Z79.899 Other long term (current) drug therapy; Z87.891 Personal history of nicotine dependence; Z88.1 Allergy status to other antibiotic agents; Z88.8 Allergy status to other drugs, medicaments and biological substances; Z92.21 Personal history of antineoplastic chemotherapy; Z92.3 Personal history of irradiation; Z99.81 Dependence on supplemental oxygen

== ENCOUNTER 2023-02-13 13:08 | Inpatient (IN) | payer MEDICARE ==
[~2023-02-13] VITALS: Ht 154.9 cm; Wt 47.6 kg
[~2023-02-13 13:08] MED LIST changes: +GABA-1171 PO; +POTA8CAP10 PO
[2023-02-13] MEDS ORDERED: ACETAMINOPHEN 325 MG TAB PO ONE (13:55)
[2023-02-13 14:27] LABS: BASO % 0.3 % (0.0-1.0); EOS % 0.2 % (0.0-3.0); HEMOGLOBIN 13.3 g/dl (12.0-15.5); LYMPH # 0.5 10^3/uL (1.5-5.0); MEAN CORPUSCULAR HEMOGLOBIN 30.6 pg (27.0-33.0); MEAN CORPUSCULAR HGB CONC 31.7 g/dl (32.0-36.5); MEAN CORPUSCULAR VOLUME 96.6 fl (80.0-96.0); MONO # 1.1 10^3/uL (0.0-0.8); NEUTROPHILS # 8.4 10^3/uL (1.5-8.5); NEUTROPHILS % 83.1 % (36.0-66.0); PLATELET COUNT, AUTOMATED 221 10^3/uL (150-450); RED BLOOD COUNT 4.35 10^6/uL (4.00-5.40); WHITE BLOOD COUNT 10.1 10^3/uL (4.0-10.0)
[2023-02-13] MEDS ORDERED: POTASSIUM CHLORIDE 10MEQ SR TABLET PO ONE (15:00)
[2023-02-13] MEDS ORDERED: KCL 10MEQ/100ML SWI (KRUN) 10 MEQ in IV 1 EA IV ONE (15:00)
[2023-02-13 15:01] LABS: ALBUMIN 3.3 G/DL (3.2-5.2); BILIRUBIN,DIRECT 0.1 MG/DL (<0.4); BILIRUBIN,TOTAL 0.4 MG/DL (0.3-1.2); CALCIUM LEVEL 10.9 MG/DL (8.3-10.6); CREATININE FOR GFR 1.1 MG/DL (0.55-1.30); POTASSIUM SERUM 2.9 MMOL/L (3.5-5.1); THYROID STIMULATING HORMONE 1.173 uIU/ML (0.55-4.78)
[2023-02-13 15:04] LABS: RSV AMPLIFICATION NEGATIVE (NEGATIVE)
[2023-02-13 15:40] LABS: MAGNESIUM LEVEL 1.8 MG/DL (1.8-2.4)
[2023-02-13] MEDS ORDERED: KETOROLAC 30 MG/ML 1ML VIAL IV ONE (15:45)
[2023-02-13] MEDS: NS 1,000 ML IV SCH (15:52)
[2023-02-13] MEDS ORDERED: ZOLO100T PO (17:32)
[2023-02-13] MEDS ORDERED: LIDO1CRE42 TOP (17:32)
[2023-02-13] MEDS ORDERED: HOME MED LIST COMPLETE! XX SCH (17:35)
[2023-02-13] MEDS ORDERED: KCL 10MEQ/100ML SWI (KRUN) 10 MEQ in IV 1 EA IV STA (18:02)
[2023-02-13] MEDS ORDERED: BENZONATATE 100MG CAPSULE PO PRN (18:05)
[2023-02-13] MEDS: APIXABAN 5 MG TAB (ELIQUIS) PO SCH (21:23)
[2023-02-13] MEDS: GABAPENTIN 100 MG CAP PO SCH (21:24)
[2023-02-13] MEDS: CLOPIDOGREL 75 MG TAB PO SCH (21:24)
[2023-02-13] MEDS: ATORVASTATIN 20 MG TAB PO SCH (21:24)
[2023-02-13 21:32] VITALS: BP 109/55; TEMP 96.8; O2SAT 93
[2023-02-14] VITALS (8 sets, daily range): BP systolic 107–145; BP diastolic 54–81; TEMP 96.5–98.2; O2SAT 92–100
[2023-02-14] MEDS: NS 1,000 ML IV SCH (06:22)
[2023-02-14 06:28] LABS: BASO % 0.4 % (0.0-1.0); EOS # 0.1 10^3/uL (0.0-0.5); EOS % 1.5 % (0.0-3.0); HEMATOCRIT 39.1 % (36.0-47.0); HEMOGLOBIN 12.2 g/dl (12.0-15.5); LYMPH # 0.4 10^3/uL (1.5-5.0); LYMPH % 4.9 % (24.0-44.0); MEAN CORPUSCULAR HEMOGLOBIN 30.1 pg (27.0-33.0); MEAN CORPUSCULAR HGB CONC 31.2 g/dl (32.0-36.5); MEAN CORPUSCULAR VOLUME 96.5 fl (80.0-96.0); MONO # 0.8 10^3/uL (0.0-0.8); MONO % 9.6 % (2.0-8.0); NEUTROPHILS # 6.5 10^3/uL (1.5-8.5); NEUTROPHILS % 83.1 % (36.0-66.0); PLATELET COUNT, AUTOMATED 212 10^3/uL (150-450); RED BLOOD COUNT 4.05 10^6/uL (4.00-5.40); WHITE BLOOD COUNT 7.8 10^3/uL (4.0-10.0)
[2023-02-14 06:58] LABS: CALCIUM LEVEL 9.7 MG/DL (8.3-10.6); CREATININE FOR GFR 1.09 MG/DL (0.55-1.30); GLOMERULAR FILTRATION RATE 51.5 (>39); MAGNESIUM LEVEL 1.7 MG/DL (1.8-2.4); POTASSIUM SERUM 3.5 MMOL/L (3.5-5.1)
[2023-02-14 06:59] LABS: CHOLESTEROL RISK RATIO 2.3 (<5); LDL CHOLESTEROL 49.6 MG/DL (<100)
[2023-02-14 07:08] LABS: HEMOGLOBIN A1c 5.9 % (4.0-6.0)
[2023-02-14] MEDS ORDERED: PROHANCE 279.3MG/ML 15ML VIAL As Ordered ONE (08:36)
[2023-02-14] MEDS: APIXABAN 5 MG TAB (ELIQUIS) PO SCH ×2 (09:44→20:33)
[2023-02-14] MEDS: MAG SULF 1GM/100ML (MAG RUN) 1 GM in IV 1 EA IV SCH ×2 (09:44→10:45)
[2023-02-14] MEDS: SERTRALINE 100 MG TAB PO SCH (09:44)
[2023-02-14] MEDS: CLOPIDOGREL 75 MG TAB PO SCH (20:32)
[2023-02-14] MEDS: ATORVASTATIN 20 MG TAB PO SCH (20:32)
[2023-02-14] MEDS: GABAPENTIN 100 MG CAP PO SCH (20:32)
[2023-02-14] MEDS: ACETAMINOPHEN TAB 650MG DOSE (2X325MG) PO PRN (20:33)
[2023-02-15] MEDS: NS 1,000 ML IV SCH (00:33)
[2023-02-15 03:27] VITALS: BP 126/57; TEMP 97; O2SAT 96
[2023-02-15 04:17] LABS: BASO % 0.3 % (0.0-1.0); EOS # 0.2 10^3/uL (0.0-0.5); EOS % 2.3 % (0.0-3.0); HEMATOCRIT 35.3 % (36.0-47.0); HEMOGLOBIN 11.2 g/dl (12.0-15.5); LYMPH # 0.5 10^3/uL (1.5-5.0); LYMPH % 6.3 % (24.0-44.0); MEAN CORPUSCULAR HEMOGLOBIN 30.4 pg (27.0-33.0); MEAN CORPUSCULAR HGB CONC 31.7 g/dl (32.0-36.5); MEAN CORPUSCULAR VOLUME 95.9 fl (80.0-96.0); MONO # 0.7 10^3/uL (0.0-0.8); MONO % 7.7 % (2.0-8.0); NEUTROPHILS # 7.1 10^3/uL (1.5-8.5); NEUTROPHILS % 82.9 % (36.0-66.0); PLATELET COUNT, AUTOMATED 219 10^3/uL (150-450); RED BLOOD COUNT 3.68 10^6/uL (4.00-5.40); WHITE BLOOD COUNT 8.6 10^3/uL (4.0-10.0)
[2023-02-15 04:42] LABS: BLOOD UREA NITROGEN 20 MG/DL (9-23); CARBON DIOXIDE LEVEL 26 MMOL/L (20-31); CHLORIDE LEVEL 106 MMOL/L (98-107); CREATININE FOR GFR 0.78 MG/DL (0.55-1.30); GLOMERULAR FILTRATION RATE > 60.0 (>39); GLUCOSE, FASTING 101 MG/DL (74-106); MAGNESIUM LEVEL 1.8 MG/DL (1.8-2.4); SODIUM LEVEL 139 MMOL/L (136-145)
[2023-02-15 08:00] VITALS: BP 129/62; TEMP 98.1; O2SAT 85
[2023-02-15 08:10] VITALS: O2SAT 88
[2023-02-15] MEDS: KCL 10MEQ/100ML SWI (KRUN) 10 MEQ in IV 1 EA IV SCH ×2 (08:27→11:19)
[2023-02-15] MEDS: ACETAMINOPHEN TAB 650MG DOSE (2X325MG) PO PRN (08:28)
[2023-02-15] MEDS: SERTRALINE 100 MG TAB PO SCH (08:28)
[2023-02-15] MEDS: APIXABAN 5 MG TAB (ELIQUIS) PO SCH ×2 (08:28→20:59)
[2023-02-15] MEDS ORDERED: POTASSIUM CHLORIDE 10MEQ SR TABLET PO ONE (09:00)
[2023-02-15 10:30] VITALS: O2SAT 97
[2023-02-15 20:00] VITALS: BP 134/74; TEMP 98.8; O2SAT 88
[2023-02-15] MEDS: CLOPIDOGREL 75 MG TAB PO SCH (20:59)
[2023-02-15] MEDS: GABAPENTIN 100 MG CAP PO SCH (20:59)
[2023-02-15] MEDS: ATORVASTATIN 20 MG TAB PO SCH (20:59)
[2023-02-16] VITALS (26 sets, daily range): BP systolic 109–141; BP diastolic 53–68; TEMP 98.3–99.1; O2SAT 83–99
[2023-02-16 06:16] LABS: BASO % 0.4 % (0.0-1.0); EOS # 0.1 10^3/uL (0.0-0.5); EOS % 0.6 % (0.0-3.0); HEMATOCRIT 37.6 % (36.0-47.0); LYMPH # 0.6 10^3/uL (1.5-5.0); LYMPH % 5.7 % (24.0-44.0); MEAN CORPUSCULAR HEMOGLOBIN 30.5 pg (27.0-33.0); MEAN CORPUSCULAR HGB CONC 31.9 g/dl (32.0-36.5); MEAN CORPUSCULAR VOLUME 95.4 fl (80.0-96.0); MONO # 0.8 10^3/uL (0.0-0.8); MONO % 7.5 % (2.0-8.0); NEUTROPHILS # 8.5 10^3/uL (1.5-8.5); NEUTROPHILS % 85.4 % (36.0-66.0); PLATELET COUNT, AUTOMATED 207 10^3/uL (150-450); RED BLOOD COUNT 3.94 10^6/uL (4.00-5.40)
[2023-02-16 07:01] LABS: BLOOD UREA NITROGEN 12 MG/DL (9-23); CALCIUM LEVEL 8.7 MG/DL (8.3-10.6); CARBON DIOXIDE LEVEL 24 MMOL/L (20-31); CHLORIDE LEVEL 108 MMOL/L (98-107); CREATININE FOR GFR 0.69 MG/DL (0.55-1.30); GLOMERULAR FILTRATION RATE > 60.0 (>39); GLUCOSE, FASTING 103 MG/DL (74-106); MAGNESIUM LEVEL 1.6 MG/DL (1.8-2.4); POTASSIUM SERUM 3.7 MMOL/L (3.5-5.1); SODIUM LEVEL 140 MMOL/L (136-145)
[2023-02-16 08:31] LABS: ABG BASE EXCESS -1.6 (-2.0-2.0); ABG HCO3 21.8 MMOL/L (22.0-26.0); ABG O2 SATURATION 92.4 % (95.0-99.0); ABG PARTIAL PRESSURE CO2 32.9 mmHg (35.0-45.0); ABG PARTIAL PRESSURE O2 62.2 mmHg (75.0-100.0); ABG TOTAL CO2 22.8 MMOL/L (23.0-31.0); ABG pH (ARTERIAL) 7.439 UNITS (7.350-7.450)
[2023-02-16] MEDS: FUROSEMIDE 20MG/2ML VIAL IV SCH (09:00)
[2023-02-16] MEDS ORDERED: MAG SULF 1GM/100ML (MAG RUN) 1 GM in IV 1 EA IV ONE (09:00)
[2023-02-16] MEDS: methylPREDNISolone 40MG 1ML VIAL IV SCH ×2 (09:00→21:04)
[2023-02-16] MEDS: APIXABAN 5 MG TAB (ELIQUIS) PO SCH ×2 (09:00→21:05)
[2023-02-16] MEDS: SERTRALINE 100 MG TAB PO SCH (09:00)
[2023-02-16] MEDS: cefTRIAXone SOD 1 GM in D5W MINI-BAG PLUS 50 ML IV SCH (09:03)
[2023-02-16] MEDS: AZITHROMYCIN 250MG TABLET PO SCH (09:03)
[2023-02-16 11:53] LABS: CK-MB VALUE MASS 1.4 NG/ML (<3.6)
[2023-02-16 11:55] LABS: MB/CK RELATIVE INDEX 3.33 (< OR =4)
[2023-02-16] MEDS: ATORVASTATIN 20 MG TAB PO SCH (21:04)
[2023-02-16] MEDS: CLOPIDOGREL 75 MG TAB PO SCH (21:05)
[2023-02-16] MEDS: GABAPENTIN 100 MG CAP PO SCH (21:05)
[2023-02-16] MEDS: IPRATROPIUM 0.5MG/ALBUTEROL 2.5MG INH SOL UD 3ML (DUONEB) NEB SCH (23:28)
[2023-02-17] VITALS (19 sets, daily range): BP systolic 107–126; BP diastolic 56–58; TEMP 96.1–97.6; O2SAT 90–96
[2023-02-17 05:35] LABS: HEMATOCRIT 36.8 % (36.0-47.0); HEMOGLOBIN 11.7 g/dl (12.0-15.5); LYMPH # 0.4 10^3/uL (1.5-5.0); MEAN CORPUSCULAR HEMOGLOBIN 29.8 pg (27.0-33.0); MEAN CORPUSCULAR HGB CONC 31.8 g/dl (32.0-36.5); MEAN CORPUSCULAR VOLUME 93.9 fl (80.0-96.0); MONO # 0.3 10^3/uL (0.0-0.8); MONO % 2.5 % (2.0-8.0); NEUTROPHILS # 11.1 10^3/uL (1.5-8.5); NEUTROPHILS % 94.1 % (36.0-66.0); PLATELET COUNT, AUTOMATED 228 10^3/uL (150-450); RED BLOOD COUNT 3.92 10^6/uL (4.00-5.40); WHITE BLOOD COUNT 11.8 10^3/uL (4.0-10.0)
[2023-02-17 05:57] LABS: BLOOD UREA NITROGEN 17 MG/DL (9-23); CALCIUM LEVEL 9.1 MG/DL (8.3-10.6); CARBON DIOXIDE LEVEL 24 MMOL/L (20-31); CHLORIDE LEVEL 107 MMOL/L (98-107); CREATININE FOR GFR 0.72 MG/DL (0.55-1.30); GLOMERULAR FILTRATION RATE > 60.0 (>39); GLUCOSE, FASTING 152 MG/DL (74-106); MAGNESIUM LEVEL 1.8 MG/DL (1.8-2.4); POTASSIUM SERUM 3.6 MMOL/L (3.5-5.1); SODIUM LEVEL 141 MMOL/L (136-145)
[2023-02-17] MEDS: IPRATROPIUM 0.5MG/ALBUTEROL 2.5MG INH SOL UD 3ML (DUONEB) NEB SCH ×3 (07:19→23:38)
[2023-02-17] MEDS: AZITHROMYCIN 250MG TABLET PO SCH (08:43)
[2023-02-17] MEDS: SERTRALINE 100 MG TAB PO SCH (08:43)
[2023-02-17] MEDS: APIXABAN 5 MG TAB (ELIQUIS) PO SCH ×2 (08:43→20:17)
[2023-02-17] MEDS: methylPREDNISolone 40MG 1ML VIAL IV SCH ×2 (08:44→20:17)
[2023-02-17] MEDS: FUROSEMIDE 20MG/2ML VIAL IV SCH (08:44)
[2023-02-17] MEDS: cefTRIAXone SOD 1 GM in D5W MINI-BAG PLUS 50 ML IV SCH (08:44)
[2023-02-17] MEDS: guaiFENesin 200 MG TAB PO SCH ×2 (09:00→20:16)
[2023-02-17] MEDS: ATORVASTATIN 20 MG TAB PO SCH (20:17)
[2023-02-17] MEDS: ACETAMINOPHEN TAB 650MG DOSE (2X325MG) PO PRN (20:17)
[2023-02-17] MEDS: GABAPENTIN 100 MG CAP PO SCH (20:17)
[2023-02-17] MEDS: CLOPIDOGREL 75 MG TAB PO SCH (20:17)
[2023-02-18] VITALS (8 sets, daily range): BP systolic 108–147; BP diastolic 53–68; TEMP 97.3–98.2; O2SAT 90–96
[2023-02-18 06:32] LABS: HEMATOCRIT 35.3 % (36.0-47.0); HEMOGLOBIN 11.2 g/dl (12.0-15.5); LYMPH # 0.4 10^3/uL (1.5-5.0); LYMPH % 3.1 % (24.0-44.0); MEAN CORPUSCULAR HEMOGLOBIN 29.9 pg (27.0-33.0); MEAN CORPUSCULAR HGB CONC 31.7 g/dl (32.0-36.5); MEAN CORPUSCULAR VOLUME 94.1 fl (80.0-96.0); MONO # 0.5 10^3/uL (0.0-0.8); MONO % 4.2 % (2.0-8.0); NEUTROPHILS # 11.5 10^3/uL (1.5-8.5); NEUTROPHILS % 92.1 % (36.0-66.0); PLATELET COUNT, AUTOMATED 241 10^3/uL (150-450); RED BLOOD COUNT 3.75 10^6/uL (4.00-5.40); WHITE BLOOD COUNT 12.5 10^3/uL (4.0-10.0)
[2023-02-18 07:02] LABS: BLOOD UREA NITROGEN 23 MG/DL (9-23); CALCIUM LEVEL 9.1 MG/DL (8.3-10.6); CARBON DIOXIDE LEVEL 28 MMOL/L (20-31); CHLORIDE LEVEL 103 MMOL/L (98-107); CREATININE FOR GFR 0.83 MG/DL (0.55-1.30); GLOMERULAR FILTRATION RATE > 60.0 (>39); GLUCOSE, FASTING 112 MG/DL (74-106); MAGNESIUM LEVEL 1.8 MG/DL (1.8-2.4); POTASSIUM SERUM 3.9 MMOL/L (3.5-5.1); SODIUM LEVEL 138 MMOL/L (136-145)
[2023-02-18] MEDS: IPRATROPIUM 0.5MG/ALBUTEROL 2.5MG INH SOL UD 3ML (DUONEB) NEB SCH ×3 (07:31→23:48)
[2023-02-18] MEDS: SERTRALINE 100 MG TAB PO SCH (09:25)
[2023-02-18] MEDS: APIXABAN 5 MG TAB (ELIQUIS) PO SCH ×2 (09:25→21:57)
[2023-02-18] MEDS: guaiFENesin 200 MG TAB PO SCH ×2 (09:25→21:57)
[2023-02-18] MEDS: AZITHROMYCIN 250MG TABLET PO SCH (09:25)
[2023-02-18] MEDS: cefTRIAXone SOD 1 GM in D5W MINI-BAG PLUS 50 ML IV SCH (09:26)
[2023-02-18] MEDS ORDERED: ISOVUE-370 76% 100ML VIAL As Ordered ONE (10:19)
[2023-02-18] MEDS: GABAPENTIN 100 MG CAP PO SCH (21:57)
[2023-02-18] MEDS: CLOPIDOGREL 75 MG TAB PO SCH (21:57)
[2023-02-18] MEDS: AUGMENTIN 875 MG TAB PO SCH (21:57)
[2023-02-18] MEDS: ATORVASTATIN 20 MG TAB PO SCH (21:58)
[2023-02-19] VITALS (21 sets, daily range): BP systolic 118–143; BP diastolic 58–67; TEMP 97.5–98.2; O2SAT 62–99
[2023-02-19 05:47] LABS: BASO % 0.3 % (0.0-1.0); EOS # 0.2 10^3/uL (0.0-0.5); EOS % 1.6 % (0.0-3.0); HEMATOCRIT 34.2 % (36.0-47.0); HEMOGLOBIN 11.1 g/dl (12.0-15.5); LYMPH # 0.6 10^3/uL (1.5-5.0); LYMPH % 5.5 % (24.0-44.0); MEAN CORPUSCULAR HEMOGLOBIN 30.2 pg (27.0-33.0); MEAN CORPUSCULAR HGB CONC 32.5 g/dl (32.0-36.5); MEAN CORPUSCULAR VOLUME 92.9 fl (80.0-96.0); MONO # 0.8 10^3/uL (0.0-0.8); MONO % 7.4 % (2.0-8.0); NEUTROPHILS % 84.7 % (36.0-66.0); PLATELET COUNT, AUTOMATED 245 10^3/uL (150-450); RED BLOOD COUNT 3.68 10^6/uL (4.00-5.40); WHITE BLOOD COUNT 10.6 10^3/uL (4.0-10.0)
[2023-02-19 06:20] LABS: BLOOD UREA NITROGEN 20 MG/DL (9-23); CALCIUM LEVEL 8.6 MG/DL (8.3-10.6); CARBON DIOXIDE LEVEL 27 MMOL/L (20-31); CHLORIDE LEVEL 104 MMOL/L (98-107); CREATININE FOR GFR 0.76 MG/DL (0.55-1.30); GLOMERULAR FILTRATION RATE > 60.0 (>39); GLUCOSE, FASTING 97 MG/DL (74-106); MAGNESIUM LEVEL 1.7 MG/DL (1.8-2.4); POTASSIUM SERUM 3.6 MMOL/L (3.5-5.1); SODIUM LEVEL 139 MMOL/L (136-145)
[2023-02-19] MEDS: IPRATROPIUM 0.5MG/ALBUTEROL 2.5MG INH SOL UD 3ML (DUONEB) NEB SCH ×3 (08:10→23:56)
[2023-02-19] MEDS: SERTRALINE 100 MG TAB PO SCH (08:53)
[2023-02-19] MEDS: guaiFENesin 200 MG TAB PO SCH ×2 (08:53→20:50)
[2023-02-19] MEDS: APIXABAN 5 MG TAB (ELIQUIS) PO SCH ×2 (08:53→20:50)
[2023-02-19] MEDS: AUGMENTIN 875 MG TAB PO SCH ×2 (08:55→20:50)
[2023-02-19] MEDS: ACETAMINOPHEN TAB 650MG DOSE (2X325MG) PO PRN (09:06)
[2023-02-19] MEDS: MAGNESIUM GLUCONATE 500 MG TAB PO SCH (20:50)
[2023-02-19] MEDS: GABAPENTIN 100 MG CAP PO SCH (20:50)
[2023-02-19] MEDS: ATORVASTATIN 20 MG TAB PO SCH (20:50)
[2023-02-19] MEDS: CLOPIDOGREL 75 MG TAB PO SCH (20:51)
[2023-02-20] VITALS (18 sets, daily range): BP systolic 122–143; BP diastolic 61–65; TEMP 98–98.3; O2SAT 62–98
[2023-02-20 05:45] LABS: BASO % 0.3 % (0.0-1.0); EOS # 0.2 10^3/uL (0.0-0.5); EOS % 2.1 % (0.0-3.0); HEMATOCRIT 34.3 % (36.0-47.0); HEMOGLOBIN 11.1 g/dl (12.0-15.5); LYMPH # 0.4 10^3/uL (1.5-5.0); LYMPH % 4.2 % (24.0-44.0); MEAN CORPUSCULAR HEMOGLOBIN 30.3 pg (27.0-33.0); MEAN CORPUSCULAR HGB CONC 32.4 g/dl (32.0-36.5); MEAN CORPUSCULAR VOLUME 93.7 fl (80.0-96.0); MONO # 0.7 10^3/uL (0.0-0.8); MONO % 6.8 % (2.0-8.0); NEUTROPHILS # 8.9 10^3/uL (1.5-8.5); PLATELET COUNT, AUTOMATED 233 10^3/uL (150-450); RED BLOOD COUNT 3.66 10^6/uL (4.00-5.40); WHITE BLOOD COUNT 10.3 10^3/uL (4.0-10.0)
[2023-02-20 06:10] LABS: BLOOD UREA NITROGEN 16 MG/DL (9-23); CALCIUM LEVEL 8.4 MG/DL (8.3-10.6); CARBON DIOXIDE LEVEL 28 MMOL/L (20-31); CHLORIDE LEVEL 103 MMOL/L (98-107); CREATININE FOR GFR 0.72 MG/DL (0.55-1.30); GLOMERULAR FILTRATION RATE > 60.0 (>39); GLUCOSE, FASTING 106 MG/DL (74-106); MAGNESIUM LEVEL 1.7 MG/DL (1.8-2.4); POTASSIUM SERUM 3.1 MMOL/L (3.5-5.1); SODIUM LEVEL 139 MMOL/L (136-145)
[2023-02-20] MEDS: IPRATROPIUM 0.5MG/ALBUTEROL 2.5MG INH SOL UD 3ML (DUONEB) NEB SCH ×2 (07:18→15:43)
[2023-02-20] MEDS ORDERED: POTASSIUM CHLORIDE 10MEQ SR TABLET PO ONE (08:00)
[2023-02-20] MEDS: AUGMENTIN 875 MG TAB PO SCH ×2 (08:50→21:04)
[2023-02-20] MEDS: guaiFENesin 200 MG TAB PO SCH ×2 (08:50→21:04)
[2023-02-20] MEDS: MAGNESIUM GLUCONATE 500 MG TAB PO SCH ×2 (08:50→21:04)
[2023-02-20] MEDS: APIXABAN 5 MG TAB (ELIQUIS) PO SCH ×2 (08:50→21:05)
[2023-02-20] MEDS: SERTRALINE 100 MG TAB PO SCH (08:51)
[2023-02-20] MEDS ORDERED: MAGNESIUM GLUCONATE 500 MG TAB PO ONE (09:00)
[2023-02-20] MEDS ORDERED: POTASSIUM CHLORIDE 10% LIQ 20MEQ/15ML UDC PO ONE (12:00)
[2023-02-20] MEDS: GABAPENTIN 100 MG CAP PO SCH (21:04)
[2023-02-20] MEDS: CLOPIDOGREL 75 MG TAB PO SCH (21:04)
[2023-02-20] MEDS: ATORVASTATIN 20 MG TAB PO SCH (21:04)
[2023-02-20] MEDS: ACETAMINOPHEN TAB 650MG DOSE (2X325MG) PO PRN (21:05)
[2023-02-21] VITALS (19 sets, daily range): BP systolic 125; BP diastolic 60; TEMP 98.3; O2SAT 82–100
[2023-02-21] MEDS: IPRATROPIUM 0.5MG/ALBUTEROL 2.5MG INH SOL UD 3ML (DUONEB) NEB SCH ×2 (00:28→07:59)
[2023-02-21] MEDS: APIXABAN 5 MG TAB (ELIQUIS) PO SCH (08:36)
[2023-02-21] MEDS: guaiFENesin 200 MG TAB PO SCH (08:36)
[2023-02-21] MEDS: SERTRALINE 100 MG TAB PO SCH (08:36)
[2023-02-21] MEDS: MAGNESIUM GLUCONATE 500 MG TAB PO SCH (08:36)
[2023-02-21] MEDS: AUGMENTIN 875 MG TAB PO SCH (08:37)
[2023-02-21] MEDS: ACETAMINOPHEN TAB 650MG DOSE (2X325MG) PO PRN (09:25)
[2023-02-21] MEDS ORDERED: MAGN50TA PO (10:50)
[2023-02-21] MEDS ORDERED: AMOX875T2 PO (10:50)
[2023-02-21] MEDS ORDERED: POTA-298 PO (10:50)
[2023-02-21 11:22] LABS: BLOOD UREA NITROGEN 15 MG/DL (9-23); CALCIUM LEVEL 8.7 MG/DL (8.3-10.6); CARBON DIOXIDE LEVEL 27 MMOL/L (20-31); CHLORIDE LEVEL 106 MMOL/L (98-107); CREATININE FOR GFR 0.67 MG/DL (0.55-1.30); GLOMERULAR FILTRATION RATE > 60.0 (>39); GLUCOSE, FASTING 104 MG/DL (74-106); POTASSIUM SERUM 4.4 MMOL/L (3.5-5.1); SODIUM LEVEL 138 MMOL/L (136-145)
== END 2023-02-21 15:39 | DRG 64 ==
LOC: M ED 13:08 → M ED INP 13:09 → OBSVTOIN 17:53 → UNDOADMOB 17:53 → INTOOBSV 17:53 → M ED INP 17:53 → EEVIPCON 21:32 → OBSVTOIN 21:32 → M ED INP 23:39 → M PCU 23:39 → INTOOBSV 02-16 11:27 → OBSVTOIN 02-16 11:27
PROVIDERS: ADMIT Internal Medicine; ATTEND Internal Medicine
PROC: B246ZZZ Ultrasonography of Right and Left Heart (ICD-10-PCS; principal; 2023-02-15)
DX: I63.59 Cerebral infarction due to unspecified occlusion or stenosis of other cerebral artery (principal); J96.21 Acute and chronic respiratory failure with hypoxia; G93.40 Encephalopathy, unspecified; C34.11 Malignant neoplasm of upper lobe, right bronchus or lung; J90 Pleural effusion, not elsewhere classified; J84.9 Interstitial pulmonary disease, unspecified; J44.1 Chronic obstructive pulmonary disease with (acute) exacerbation; J44.0 Chronic obstructive pulmonary disease with (acute) lower respiratory infection; I73.9 Peripheral vascular disease, unspecified; I48.91 Unspecified atrial fibrillation; Z66 Do not resuscitate; E78.5 Hyperlipidemia, unspecified; F41.9 Anxiety disorder, unspecified; Z95.828 Presence of other vascular implants and grafts; Z98.62 Peripheral vascular angioplasty status; Z98.41 Cataract extraction status, right eye; Z98.42 Cataract extraction status, left eye; Z96.1 Presence of intraocular lens; Z87.891 Personal history of nicotine dependence; M54.2 Cervicalgia; E87.6 Hypokalemia; E83.42 Hypomagnesemia; E83.52 Hypercalcemia; Z79.01 Long term (current) use of anticoagulants; Z79.02 Long term (current) use of antithrombotics/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; Z79.899 Other long term (current) drug therapy; Z88.1 Allergy status to other antibiotic agents; M48.02 Spinal stenosis, cervical region; M47.812 Spondylosis without myelopathy or radiculopathy, cervical region; R73.03 Prediabetes; Z92.21 Personal history of antineoplastic chemotherapy; Z92.3 Personal history of irradiation; Z99.81 Dependence on supplemental oxygen